=== PATIENT | male | born 1965 | race Caucasian/White ===

== ENCOUNTER 2019-12-23 11:26 | Emergency (ER) | payer MEDICARE, MEDICAID, SELFPAY ==
--- NOTE | 2019-12-23 14:15 | ED.EXTPRO ---
HPI - Extremity Problem General Chief complaint: General Medical Stated complaint: PAIN R HIP TO GROIN, NO INJURY Time Seen by Provider: 12/23/19 14:03 Source: patient Mode of arrival: ambulatory History of Present Illness HPI Narrative: 54-year-old male with a past medical history obesity, multiple hernias, presenting to the ED complaining of right groin pain x2 days. Admits pain worse when moves right leg, sits, or lays flat. Denies fever, chills, trauma/falls, scrotal/penile pain/swelling/erythema or discharge, dysuria/hematuria, abdominal pain, flank pain MD Complaint: extremity pain Related Data Allergies Allergy/AdvReac Type Severity Reaction Status Date / Time No Known Allergies Allergy Verified 12/23/19 14:25 Review of Systems Review of Systems: Constitutional: No Weight loss, No Fever, No Chills Gastrointestinal: No Nausea, No Vomiting, No Diarrhea, No Constipation, + Abdominal pain, + chronic abdominal hernias Genitourinary: No Dysuria, No Urinary Frequency, No Hematuria, No Urinary Incontinence, No Flank Pain Musculoskeletal: +right groin pain, No Myalgias, No Joint Swelling Skin: No Skin Lesions, No rash Yes all other systems are reviewed and are negative PMFSH Past Medical History Attestation statement: The following information was validated with the patient. Medical History (Updated 12/23/19 @ 14:24 by Elisha Carmen RN) Hernia Social History Social History Advance Directives: No Advance Directives Information Provided: No Physical Exam Vital Signs: Vital Signs: Last Vital Signs Temp 98.2 F 12/23/19 15:30 Pulse 80 12/23/19 15:30 Resp 18 12/23/19 15:30 BP 118/76 12/23/19 15:30 Pulse Ox 96 12/23/19 15:30 Body Mass Index 52.6 Const: General: cooperative Nutritional Appearance: obese Orientation/consciousness: patient oriented x3 Limitations: no limitations HENMT: Head: Yes normal to inspection Ears: hearing grossly normal bilaterally General nose exam: Normal external nose present Face and sinus: Yes normal facial exam Eyes: General: appearance normal, both eyes and all related structures EOM: EOMs intact bilaterally Resp: Effort & Inspection: normal respiratory effort GI: Other: + ventral hernia with ttp, not reducible on exam (patient reports hernia always out, unable to reduce on home, reports at baseline) Inspection: Yes normal to inspection Palpation (GI): Soft to palpation : Other: No appreciable inguinal hernia. Testicles nontender, noninflamed + right groin area TTP, no mass, no active infection Scrotum: scrotum normal Testes: Testes normal and no masses Skin: Rashes: no rashes Wounds: no wounds Neuro: General: patient oriented x3 Gait exam (Neuro): Normal gait present Extrem: General: Yes normal to inspection Course Course Course Narrative: -1723--25, labs otherwise unremarkable, lactic acid 1.0 -CT showing fat containing supraumbilical ventral hernia, right inguinal hernia containing nonobstructed redundant sigmoid colon, fat containing left inguinal hernia, no bowel obstruction or inflammatory changes. Lab and imaging results discussed with patient including worrisome signs and symptoms and strict return precautions including constant persisting pain, inability to reduce hernia, nausea/vomiting, constipation/not passing gas, and close follow-up with surgery. He verbalized understanding feel safe for discharge home MDM - Extremity (Nontraumatic) MDM Narrative Medical decision making narrative: On exam hypertensive, NAD, abdomen soft with umbilical hernia that is ttp/not reducible on exam which patient reports is baseline, states he is never able to reduce at home. Right groin with TTP, no scrotal tenderness or appreciable hernia. Concern for incarcerated/ strangulated hernia vs inguinal hernia vs MSK pain Plan: Labs, UA, CT Case discussed with Dr. Urbano who recommended do not forcefully reduce umbilical hernia at this time, until imaging results Lab Data Result diagrams: 12/23/19 15:12 12/23/19 15:12 Labs: Lab Results 12/23/19 12/23/19 12/23/19 Range/Units 15:12 15:12 15:12 WBC 6.5 (4.8-10.8) X10*3/uL RBC 5.30 (4.60-5.80) X10*6/uL Hgb 15.3 (14.0-18.0) g/dl Hct 46.4 (42-52) % MCV 87.5 (80-98) fL MCH 28.9 (27.0-33.0) pg MCHC 33.0 (31.0-36.0) g/dl RDW 13.9 (11.0-16.0) % Plt Count 150 L (160-400) X10*3/uL MPV 10.1 (9.4-12.4) fL Immature Gran % (Auto) 0.3 (0.0-0.4) % Neut % (Auto) 76.7 H (45-73) % Lymph % (Auto) 12.7 L (20-40) % Cochran % (Auto) 8.9 (2-11) % Eos % (Auto) 1.1 (0-4) % Baso % (Auto) 0.3 (0-2) % Lymph # (Auto) 0.8 L (1.2-4.9) X10*3/uL Cochran # (Auto) 0.6 (0.1-1.2) X10*3/uL Eos # (Auto) 0.1 (0.0-0.4) X10*3/uL Baso # (Auto) 0.0 (0.0-0.2) X10*3/uL Abs Immat Gran (auto) 0.02 (0.00-0.03) X10*3/uL Absolute Neuts (auto) 5.0 (2.0-8.3) X10*3/uL Absolute Nucleated RBC 0.000 (0.0-0.012) X10*3/uL Nucleated RBC % (auto) 0.0 (0.0-0.2) /100WBC Hold Blue Top SEE NOTE Sodium 140 (135-145) mmol/L Potassium 3.8 (3.3-5.1) mmol/l Chloride 104 (96-108) mmol/L Carbon Dioxide 26 (22-29) mmol/L Anion Gap 14 (12-20) BUN 25 H (9-16) mg/dL Creatinine 0.95 (0.5-1.4) mg/dL Estim Creat Clear Calc 151.9 Estimated GFR > 60 Random Glucose 84 (60-115) mg/dL Lactic Acid (0.5-2.0) mmol/L Calcium 8.5 (8.4-10.2) mg/dL Total Bilirubin 0.5 (0.0-1.0) mg/dL Direct Bilirubin 0.2 (0.0-0.5) mg/dL AST 18 (5-37) U/L ALT 23 (0-40) U/L Alkaline Phosphatase 79 (39-117) U/L Total Protein 7.1 (6.5-8.0) g/dL Albumin 4.2 (3.5-5.0) g/dL Lipase 25 (8-78) U/L 12/23/19 Range/Units 15:12 WBC (4.8-10.8) X10*3/uL RBC (4.60-5.80) X10*6/uL Hgb (14.0-18.0) g/dl Hct (42-52) % MCV (80-98) fL MCH (27.0-33.0) pg MCHC (31.0-36.0) g/dl RDW (11.0-16.0) % Plt Count (160-400) X10*3/uL MPV (9.4-12.4) fL Immature Gran % (Auto) (0.0-0.4) % Neut % (Auto) (45-73) % Lymph % (Auto) (20-40) % Cochran % (Auto) (2-11) % Eos % (Auto) (0-4) % Baso % (Auto) (0-2) % Lymph # (Auto) (1.2-4.9) X10*3/uL Cochran # (Auto) (0.1-1.2) X10*3/uL Eos # (Auto) (0.0-0.4) X10*3/uL Baso # (Auto) (0.0-0.2) X10*3/uL Abs Immat Gran (auto) (0.00-0.03) X10*3/uL Absolute Neuts (auto) (2.0-8.3) X10*3/uL Absolute Nucleated RBC (0.0-0.012) X10*3/uL Nucleated RBC % (auto) (0.0-0.2) /100WBC Hold Blue Top Sodium (135-145) mmol/L Potassium (3.3-5.1) mmol/l Chloride (96-108) mmol/L Carbon Dioxide (22-29) mmol/L Anion Gap (12-20) BUN (9-16) mg/dL Creatinine (0.5-1.4) mg/dL Estim Creat Clear Calc Estimated GFR Random Glucose (60-115) mg/dL Lactic Acid 1.0 (0.5-2.0) mmol/L Calcium (8.4-10.2) mg/dL Total Bilirubin (0.0-1.0) mg/dL Direct Bilirubin (0.0-0.5) mg/dL AST (5-37) U/L ALT (0-40) U/L Alkaline Phosphatase (39-117) U/L Total Protein (6.5-8.0) g/dL Albumin (3.5-5.0) g/dL Lipase (8-78) U/L
[2019-12-23 14:16] VITALS: BP 151/114; PULSE 89; TEMP 36.6; O2SAT 95
[2019-12-23 14:22] VITALS: BP 151/114; PULSE 89; RESP 19; TEMP 36.6; O2SAT 95; BMI 52.6
--- NOTE | 2019-12-23 14:28 | CT_ITS ---
EXAMINATION: CT ABDOMEN AND PELVIS WITHOUT CONTRAST CLINICAL INFORMATION: Umbilical and inguinal hernia. Right groin pain. COMPARISON: None TECHNIQUE: Multidetector volumetric imaging was performed from the superior aspect of the liver through the pubic symphysis. Sagittal and coronal reformatted images were obtained on the technologist's workstation. No oral or intravenous contrast. This CT examination was performed using dose optimization techniques as appropriate, variously including the following: *Automated exposure control *Adjustment of mA and/or kV according to patient size (this includes techniques or standardized protocols for targeted exams where dose is matched to indication/reason for exam; i.e. extremities or head) *Use of iterative reconstruction technique DLP: 2623 mGy-cm FINDINGS: LUNG BASES: The visualized lung bases are unremarkable. LIVER, GALLBLADDER, AND BILIARY TREE: The liver is normal in size, shape, and attenuation. No focal hepatic lesion or biliary ductal dilatation is present. The gallbladder is unremarkable with no evidence of radiopaque gallstones, gallbladder wall thickening, or obvious pericholecystic inflammatory changes. PANCREAS: Unremarkable. SPLEEN: Unremarkable. ADRENAL GLANDS: There is a small lipid rich adenoma left adrenal measuring 1.1 cm and -16 HU attenuation. Right adrenal unremarkable. KIDNEYS AND URETERS: The kidneys are normal in size, shape, and attenuation. No hydronephrosis, hydroureter, or calculi seen. No perinephric stranding. BLADDER: Unremarkable. GASTROINTESTINAL TRACT: There is no bowel obstruction or inflammatory changes in the bowel or mesentery. There is no ascites or fluid collection. The right inguinal hernia contains portion of redundant sigmoid colon. ABDOMINAL WALL: There is a fat-containing supraumbilical ventral hernia measuring 7.5 x 13.4 cm x 12.6 cm in vertical dimension. There is a right inguinal hernia containing fat and portion of redundant nonobstructed sigmoid colon. The hernia sac measures approximately 8.6 x 9.1 cm x 16 cm in length. There is a fat-containing left inguinal hernia measuring approximately 5.8 cm in diameter. LYMPH NODES: No lymphadenopathy. VASCULAR: Unremarkable. PELVIC VISCERA: Unremarkable. OSSEOUS STRUCTURES: Multilevel degenerative changes spine. Probable old T9 vertebral compression and borderline T11 compression. No associated paraspinal soft tissue swelling. CT/CT abdomen pelvis wo con IMPRESSION: 1. Fat-containing supraumbilical ventral hernia 7.5 x 13.4 x 12.6 cm. 2. Right inguinal hernia containing nonobstructed redundant sigmoid colon and, 8.6 x 9.1 x 16 cm. 3. Fat-containing left inguinal hernia 5.8 cm. 4. No bowel obstruction or inflammatory changes in bowel or mesentery. 5. No cholelithiasis or ductal dilatation. No hydronephrosis or perinephric stranding. 6. Probable old vertebral compressions T9 and T11. No paraspinal soft tissue swelling.
[2019-12-23] MEDS: oxyCODONE HCl Immed Release 5 MG TABLET PO (14:54)
[2019-12-23] MEDS: Acetaminophen 325 MG TABLET 650 MG PO (14:54)
[2019-12-23] MEDS: Cyclobenzaprine HCl 5 MG TABLET PO (14:54)
[2019-12-23 15:17] LABS: MANUAL DIFF FLAG NO
[2019-12-23 15:23] LABS: Basophils Percent Auto 0.3 % (0-2); Eosinophils Absolute Auto 0.1 X10*3/uL (0.0-0.4); Eosinophils Percent Auto 1.1 % (0-4); Hematocrit 46.4 % (42-52); Hemoglobin 15.3 g/dl (14.0-18.0); Imm Gran Abs Auto 0.02 X10*3/uL (0.00-0.03); Imm Gran Pct Auto 0.3 % (0.0-0.4); Lymphocytes Absolute Auto 0.8 X10*3/uL (1.2-4.9); Lymphocytes Percent Auto 12.7 % (20-40); Mean Corpuscular Hemoglobin 28.9 pg (27.0-33.0); Mean Corpuscular Volume 87.5 fL (80-98); Mean Platelet Volume 10.1 fL (9.4-12.4); Monocytes Absolute Auto 0.6 X10*3/uL (0.1-1.2); Monocytes Percent Auto 8.9 % (2-11); Neutrophils Percent Auto 76.7 % (45-73); Platelet Count 150 X10*3/uL (160-400); Red Cell Distribution Width 13.9 % (11.0-16.0); White Blood Count 6.5 X10*3/uL (4.8-10.8)
[2019-12-23 15:30] VITALS: BP 118/76; PULSE 80; RESP 18; TEMP 36.8; O2SAT 96
[2019-12-23 15:51] LABS: Alanine Aminotransferase 23 U/L (0-40); Albumin Level 4.2 g/dL (3.5-5.0); Alkaline Phosphatase 79 U/L (39-117); Anion Gap 14 (12-20); Aspartate Amino Transferase 18 U/L (5-37); Bilirubin Direct 0.2 mg/dL (0.0-0.5); Bilirubin Total 0.5 mg/dL (0.0-1.0); Blood Urea Nitrogen 25 mg/dL (9-16); Calcium 8.5 mg/dL (8.4-10.2); Carbon Dioxide 26 mmol/L (22-29); Chloride 104 mmol/L (96-108); Creatinine Clr Calc Pharmacy 151.9; Estimated Glomerular Filt Rate > 60; Glucose Random 84 mg/dL (60-115); Lipase 25 U/L (8-78); Potassium 3.8 mmol/l (3.3-5.1); Sodium 140 mmol/L (135-145); Total Protein 7.1 g/dL (6.5-8.0)
== END 2019-12-23 17:48 | disposition home or self-care (01) ==
PROVIDERS: Physician Assistant; Emergency Provider Emergency Medicine
DX: R10.31 Right lower quadrant pain (principal); M79.605 Pain in left leg; M79.604 Pain in right leg
CPT/HCPCS: 36415; 74176; 80048; 80076; 83605; 83690; 85025; 99284

== ENCOUNTER 2020-01-12 10:46 | Emergency (ER) | payer MEDICARE, MEDICAID, SELFPAY ==
[2020-01-12 10:57] VITALS: BP 148/32; PULSE 105; RESP 18; O2SAT 98; BMI 42.7
--- NOTE | 2020-01-12 11:10 | US_ITS ---
EXAMINATION: US VENOUS ULTRASOUND WITH DOPPLER LOWER EXTREMITY, RIGHT CLINICAL INFORMATION: Right upper thigh pain with leg swelling COMPARISON: None TECHNIQUE: Ultrasound of the deep veins is performed from the hip to the calf with compression sonography and color and pulse Doppler assessment. Spectral analysis with color-flow imaging is performed. FINDINGS: There is normal venous compression and respiratory variation and augmented flow. The visualized common femoral vein, superficial femoral vein, profunda femoral vein, popliteal vein, and the trifurcation region shows no evidence of deep venous thrombosis. There is no significant popliteal fossa cyst. No popliteal artery aneurysm. If the patient's symptoms persist, followup ultrasound in 5 days 7 days might be of value to exclude proximal propagation from a non-visualized calf vein. US/US venous duplex LE RT IMPRESSION: No acute DVT demonstrated in the right lower extremity.
--- NOTE | 2020-01-12 11:10 | XR_ITS ---
EXAMINATION: PELVIS AND RIGHT FEMUR CLINICAL INFORMATION: Atraumatic right hip and upper thigh pain COMPARISON: CT abdomen of December 23, 2019 TECHNIQUE: AP pelvis and AP and lateral views of the right femur. FINDINGS: There is no evidence of acute fracture or diastases the pelvis. Changes of enthesopathy are seen. Degenerative change with question effusion sacroiliac joints bilaterally. Degenerative disc disease lower lumbar spine noted with facet arthropathy L5-S1. There is significant degenerative change of the hip joints bilaterally left greater than right with joint space narrowing and spurring superiorly. Subchondral cyst formation seen about the acetabulum. There appears to be an old impacted subcapital fracture of the left femur. There is some flattening of the superior left femoral head. No acute fracture or dislocation of the right femur identified. Degenerative narrowing of joint space most prominent superiorly with collar spurring. No destructive bony lesions appreciated. There is severe degenerative change of the right knee medial joint space compartment with loss of joint space and some articular irregularity. Calcific lesion about the medial aspect distal femur consistent with previous medial collateral ligament injury noted. There is spurring about the lateral joint space compartment. There is narrowing with degenerative change of the patellofemoral joint with spurring. No effusion is appreciated. XR/XR pelvis 1-2V IMPRESSION: Degenerative changes as described involving the pelvis and right femur. No acute fracture or destructive bony lesion appreciated.
--- NOTE | 2020-01-12 11:11 | XR_ITS ---
EXAMINATION: PELVIS AND RIGHT FEMUR CLINICAL INFORMATION: Atraumatic right hip and upper thigh pain COMPARISON: CT abdomen of December 23, 2019 TECHNIQUE: AP pelvis and AP and lateral views of the right femur. FINDINGS: There is no evidence of acute fracture or diastases the pelvis. Changes of enthesopathy are seen. Degenerative change with question effusion sacroiliac joints bilaterally. Degenerative disc disease lower lumbar spine noted with facet arthropathy L5-S1. There is significant degenerative change of the hip joints bilaterally left greater than right with joint space narrowing and spurring superiorly. Subchondral cyst formation seen about the acetabulum. There appears to be an old impacted subcapital fracture of the left femur. There is some flattening of the superior left femoral head. No acute fracture or dislocation of the right femur identified. Degenerative narrowing of joint space most prominent superiorly with collar spurring. No destructive bony lesions appreciated. There is severe degenerative change of the right knee medial joint space compartment with loss of joint space and some articular irregularity. Calcific lesion about the medial aspect distal femur consistent with previous medial collateral ligament injury noted. There is spurring about the lateral joint space compartment. There is narrowing with degenerative change of the patellofemoral joint with spurring. No effusion is appreciated. XR/XR femur RT 2V IMPRESSION: Degenerative changes as described involving the pelvis and right femur. No acute fracture or destructive bony lesion appreciated.
--- NOTE | 2020-01-12 11:26 | ED_ITS ---
HPI - Extremity Problem General Chief complaint: Abdominal Pain Stated complaint: abd pain x1 month Time Seen by Provider: 01/12/20 10:59 Source: patient Mode of arrival: ambulatory Limitations: no limitations History of Present Illness HPI Narrative: 54yoM c PMHx Hernia and old compression fractures presenting to the ED c c/o right Hip/upper thigh pain since he was seen here. Reports he was taking the oxycodone that he was prescribed which was providing symptomatic relief although he ran out. Tried to call his primary care provider who is currently on vacation. Then tried to call Dr. Lawson who is also on vacation then was unsure what to do therefore he came here. Denies any fevers, nausea / vomiting, chest pain or shortness of breath, palpitations, dyspnea on exertion, orthopnea, abdominal pain, dysuria, hematuria, abnormal penile discharge, recent falls or traumas or any other symptoms complaints or concerns at this time. He was seen here on 12/23/[address] scan of abdomen and pelvis which revealed multiple hernias although he reports that that was not where his pain was it was his upper thigh/hip area. Related Data Previous Rx's Medication Instructions Recorded acetaminophen [Tylenol Extra 500 mg PO Q6H PRN #20 tab 12/23/19 Strength] cyclobenzaprine 5 mg PO Q8H PRN 5 Days #14 tab 12/23/19 naproxen 500 mg PO BID PRN 10 Days #20 tab 12/23/19 oxycodone 5 mg PO Q6H PRN 3 Days #9 tab 12/23/19 naproxen 500 mg PO BID PRN #10 tab 01/12/20 oxycodone 5 mg PO Q8H PRN #10 tab 01/12/20 Allergies Allergy/AdvReac Type Severity Reaction Status Date / Time No Known Allergies Allergy Verified 12/23/19 14:25 Review of Systems Review of Systems: Constitutional : No Fever, No Chills Cardiovascular : No Chest Pain, No SOB, No palpitations, no edema, no dyspnea on exertion, no orthopnea. Respiratory : No Cough, No Dyspnea Gastrointestinal : No Nausea, No Vomiting, No Diarrhea, No abdominal Pain Genitourinary : No Dysuria, No Hematuria Musculoskeletal : + joint pain, No Myalgias, No Joint Swelling Skin : No Skin lacerations, No rash Neuro : No Weakness, No Numbness, No Paresthesias, No Dizziness, No Headache Heme/Lymph: no Lymphadenopathy Yes all other systems are reviewed and are negative [facility] Past Medical History Attestation statement: The following information was validated with the patient. Medical History Hernia Social History Social History Alcohol intake: never Smoking Status: Never smoker Use of substances other than those prescribed or required for medical reasons: No Advance Directives: No Advance Directives Information Provided: No Physical Exam Vital Signs: Vital Signs: Last Vital Signs Temp 98 F 01/12/20 12:00 Pulse 81 01/12/20 12:00 Resp 18 01/12/20 12:00 BP 131/82 01/12/20 12:00 Pulse Ox 95 01/12/20 12:00 Body Mass Index 42.7 vital signs have been reviewed as normal and appeared to be correct. Blood pressure normal. Heart rate normal. Respiration rate normal. Temperature normal. Oxygen saturation normal. Appearance: Alert. Oriented X3. No acute distress. Head: Normal external exam. Normocephalic. Eyes: PERRLA. EOMI. Conjunctiva and sclera normal. Eyelids normal. ENT: Pharynx normal. Uvula midline. Moist mucous membranes. Neck: Normal inspection. Neck supple. FROM. No adenopathy. No meningeal signs. CVS: Normal heart rate and rhythm. Heart sound normal. No murmurs noted. Pulses normal throughout. Respiratory: No respiratory distress. Painless inspiration. Breath sounds normal. No wheezes/rales/rhonchi noted. Chest nontender. No accessory muscle usage noted or decreased air movement noted. Abdomen: Soft and nontender. Bowel sounds normal in all 4 quadrants. No distention noted. No organomegaly noted. No visible injury noted. Back: Full range of motion noted. Skin: Skin warm and dry. Normal skin color. Normal skin turgor. No rashes/lesions/lacerations noted. Extremities: TTP of right hip/thigh. No obvious deformities. Full range of motion. Mild right lower leg edema. No pitting edema. No edema to left lower extremity. Otherwise all other extremities exhibit normal range of motion and nontender. Neuro: Oriented X 3. No motor deficit. No sensory deficit. Reflexes normal. Course Course Course Narrative: 54yoM c PMHx Hernia and old compression fractures presenting to the ED c c/o right Hip/upper thigh pain - Concern for DVT vs muscular strain - Plan: Xray of right hip/pelvis/femur and US of RLE Then re-evaluate. Reevaluation(s) Reevaluation #1: ultrasound negative for any DVT. X-rays of right hip/ pelvis/femur revealed old fractures and chronic changes no acute processes noted. Therefore will DC home with a short script for pain medications and naproxen and instructions to follow-up with his primary care provider that he reports is currently on vacation I explained to him if he comes a 3rd time he most likely will not get a narcotic script due to this is all chronic and he needs to follow up with his primary care provider. Patient understands agrees with this plan. Time: 13:07 MDM - Extremity (Nontraumatic) Lab Data Attestation: I reviewed the patient's lab results. Imaging Data right hip/pelvis/femur: Attestation: I personally reviewed and interpreted this imaging study as follows: Radiologist's impression: FINDINGS: There is no evidence of acute fracture or diastases the pelvis. Changes of enthesopathy are seen. Degenerative change with question effusion sacroiliac joints bilaterally. Degenerative disc disease lower lumbar spine noted with facet arthropathy L5-S1. There is significant degenerative change of the hip joints bilaterally left greater than right with joint space narrowing and spurring superiorly. Subchondral cyst formation seen about the acetabulum. There appears to be an old impacted subcapital fracture of the left femur. There is some flattening of the superior left femoral head. No acute fracture or dislocation of the right femur identified. Degenerative narrowing of joint space most prominent superiorly with collar spurring. No destructive bony lesions appreciated. There is severe degenerative change of the right knee medial joint space compartment with loss of joint space and some articular irregularity. Calcific lesion about the medial aspect distal femur consistent with previous medial collateral ligament injury noted. There is spurring about the lateral joint space compartment. There is narrowing with degenerative change of the patellofemoral joint with spurring. No effusion is appreciated. XR/XR femur RT 2V IMPRESSION: Degenerative changes as described involving the pelvis and right femur. No acute fracture or destructive bony lesion appreciated. US OF RLE: Attestation: I personally reviewed and interpreted this imaging study as follows: Radiologist's impression: IMPRESSION: No acute DVT demonstrated in the right lower extremity. Discharge Plan Discharge Clinical Impression: Subchondral bone cyst, Closed subcapital fracture of left femur with delayed healing, Bone spur Degenerative joint disease Qualifiers: Osteoarthritis location: multiple joints Osteoarthritis type: unspecified Qualified Code(s): M15.9 - Polyosteoarthritis, unspecified Patient Disposition: Home, Self-Care Instructions: Osteoarthritis (ED) Prescriptions: New oxycodone 5 mg tablet 5 mg PO Q8H PRN (Reason: pain) Qty: 10 RF: 0 naproxen 500 mg tablet 500 mg PO BID PRN (Reason: pain) Qty: 10 RF: 0 No Action acetaminophen [Tylenol Extra Strength] 500 mg tablet 500 mg PO Q6H PRN (Reason: pain or fever) Qty: 20 RF: 0 naproxen 500 mg tablet 500 mg PO BID PRN (Reason: pain) 10 Days Qty: 20 RF: 0 cyclobenzaprine 5 mg tablet 5 mg PO Q8H PRN (Reason: pain (scale score 7-10)) 5 Days Qty: 14 RF: 0 oxycodone 5 mg tablet 5 mg PO Q6H PRN (Reason: pain) 3 Days Qty: 9 RF: 0 Referrals: Physician,Unknown [Primary Care Provider] - 2 days (your pcp) Print Language: Z[place]ian
[2020-01-12 12:00] VITALS: BP 131/82; PULSE 81; RESP 18; TEMP 36.6; O2SAT 95
[2020-01-12] MEDS: oxyCODONE HCl Immed Release 5 MG TABLET PO (12:00)
== END 2020-01-12 13:48 | disposition home or self-care (01) ==
PROVIDERS: Emergency Provider Internal Medicine
DX: M85.662 Other cyst of bone, left lower leg (principal); M85.661 Other cyst of bone, right lower leg; M79.604 Pain in right leg; M15.9 Polyosteoarthritis, unspecified; M25.551 Pain in right hip; R10.9 Unspecified abdominal pain; R60.0 Localized edema; Z79.899 Other long term (current) drug therapy
CPT/HCPCS: 72170; 73552; 93971; 99284

== ENCOUNTER 2020-03-23 14:55 | Emergency (ER) | payer MEDICARE, MEDICAID, SELFPAY ==
[2020-03-23 17:13] VITALS: BP 184/101; PULSE 65; RESP 18; TEMP 36.8; O2SAT 96; BMI 55.7
--- NOTE | 2020-03-23 18:46 | PC.NURSE ---
transported via [facility] to results pending, self transfered to stretcher
--- NOTE | 2020-03-23 19:35 | ED_ITS ---
HPI - Back Pain/Injury General Chief Complaint: Back Pain/Injury Stated Complaint: SEVER LOW BACK PAIN SINCE T-I NO INJURY Time Seen by Provider: 03/23/20 19:03 Source: patient Mode of arrival: ambulatory Limitations: no limitations History of Present Illness HPI Narrative: 54-year-old male with a past medical history of old compression fracture of T9/T11 with degenerative changes to spine multilevel and multiple hernias currently on gabapentin 300 mg and oxycodone 5 mg prescribed by his PCP and was last given a prescription on 03/17/2020 for 8 day course presenting for worsening lower back pain that started while he was cutting onions last night worse today. Reports he does not have any more oxycodone left. Denies any other symptoms complaints or concerns at this time. MD elicited complaint: back pain Pertinent past history: prior back pain Onset (ago): day(s) (Since yesterday) Timing: constant Severity: severe Pain scale (0-10): 10 Similar Symptoms Previously: Yes Quality: aching Location: lumbar spine Radiation: none Exacerbating factors: movement, supine positioning, sitting upright, walking and lifting Relieving factors: none Context: other (While cooking) Associated symptoms: denies other symptoms Treatments prior to arrival: other (Gabapentin and oxycodone) Work related injury: No Related Data Previous Rx's Medication Instructions Recorded acetaminophen [Tylenol Extra 500 mg PO Q6H PRN #20 tab 12/23/19 Strength] cyclobenzaprine 5 mg PO Q8H PRN 5 Days #14 tab 12/23/19 naproxen 500 mg PO BID PRN 10 Days #20 tab 12/23/19 oxycodone 5 mg PO Q6H PRN 3 Days #9 tab 12/23/19 naproxen 500 mg PO BID PRN #10 tab 01/12/20 oxycodone 5 mg PO Q8H PRN #10 tab 01/12/20 oxycodone 10 mg PO BID PRN #10 tab 03/23/20 prednisone 40 mg PO DAILY 5 Days #10 tab 03/23/20 Allergies Allergy/AdvReac Type Severity Reaction Status Date / Time No Known Allergies Allergy Verified 03/23/20 17:07 Review of Systems Review of Systems: Constitutional : No trauma, No Weight loss, No Fever, No Chills, ENT/Mouth : No Hearing loss, No Ear Pain, No Nasal Congestion, No Sinus Pain, No Hoarseness, No sore throat, No Rhinorrhea, No Swallowing Difficulty Cardiovascular : No Chest Pain, No SOB Respiratory : No Cough, No Dyspnea Gastrointestinal : No Nausea, No Vomiting, No Diarrhea, No abdominal Pain, No Hematochezia, No Melena Genitourinary : No Dysuria, No Urinary Frequency, No Hematuria, No Urinary or Bowel Incontinence/retention Musculoskeletal : + Back pain, No neck pain, No joint stiffness, No joint swelling Skin : No Skin Lesions, No rash or signs of infection Neuro : No Weakness, No radiation, No Numbness, No Paresthesias, No headache, no loss of bowel or bladder incontinence, no saddle anesthesia, Focal weakness, No radiation Denies history of IV drug usage. Yes all other systems are reviewed and are negative [facility] Past Medical History Attestation statement: The following information was validated with the patient. Medical History Hernia Social History Social History Alcohol intake: never Smoking Status: Never smoker Advance Directives: No Advance Directives Information Provided: Yes Physical Exam Vital Signs: Vital Signs: Last Vital Signs Temp 98.3 F 03/23/20 17:13 Pulse 65 03/23/20 17:13 Resp 18 03/23/20 17:13 BP 184/101 H 03/23/20 17:13 Pulse Ox 96 03/23/20 17:13 Body Mass Index 55.7 vital signs have been reviewed as normal and appeared to be correct. Blood pressure normal. Heart rate normal. Respiration rate normal. Temperature normal. Oxygen saturation normal. Appearance: Alert. Oriented X3. No acute distress. Head: Normal external exam. Normocephalic. Atraumatic. No Vazquez signs noted. No raccoon eyes noted Eyes: PERRLA. EOMI. Conjunctiva and sclera normal. Eyelids normal. ENT: EAC normal. TM's Normal. Pharynx normal. Uvula midline. Moist mucous membranes. No trismus noted. No drooling noted. No muffled voice noted. Neck: Normal inspection. Neck supple. FROM. No adenopathy. Thyroid Normal. No meningeal signs. No neck mass noted. CVS: Normal heart rate and rhythm. Heart sound normal. No murmurs noted. Pulses normal throughout. Respiratory: No respiratory distress. Painless inspiration. Breath sounds normal. No wheezes/rales/rhonchi noted. Chest nontender. No accessory muscle usage noted or decreased air movement noted. Abdomen: Soft and nontender. Bowel sounds normal in all 4 quadrants. No distention noted. No organomegaly noted. No visible injury noted. Back: No CVA tenderness. Full range of motion noted. No obvious deformities, or edema. Mild para-spinal muscular tenderness from lumbar region to coccyx. Full ROM in back and lower extremities. 5/5 strength hip extension/flexion, abduction, adduction. Mild Lumbar pain with hip flexion against resistance. Straight leg raise test negative on right; Straight leg raise test negative on left; Reflexes normal ankle and knee bilaterally; EHL motor strength normal b ilaterally Skin: Skin warm and dry. Normal skin color. Normal skin turgor. No rashes/lesions/lacerations noted. Extremities: No lower extremity edema. Extremities exhibit normal range of motion. Extremities nontender. Neuro: Oriented X 3. No motor deficit. No sensory deficit. Reflexes normal. Course Course Course Narrative: Pt c likely muscular pain, but could be herniated disc. Neuro exam shows no deficits. Not c/w AAA/epidural abscess/dissection.No high risk Hx (Incont, fever, immunosupp, recent surgery/LP, coag, signif trauma, wt loss, puls mass, hx/o Ca, TB, or IVDU) to warrant MRI/CT today. Not c/w Pyelo/UTI/kidney stone/spinal fx. Not cauda equina syndrome. DC c meds and f/u. MDM - Back Pain/Injury Medical Records Attestation: I reviewed the patient's medical records. Lab Data Attestation: I reviewed the patient's lab results. Discharge Plan Discharge Clinical Impression: Strain of lumbar region Patient Disposition: Home, Self-Care Instructions: Back Pain (ED), Lower Back Exercises (ED) Prescriptions: New prednisone 20 mg tablet 40 mg PO DAILY 5 Days Qty: 10 RF: 0 oxycodone 5 mg tablet 10 mg PO BID PRN (Reason: pain) Qty: 10 RF: 0 No Action oxycodone 5 mg tablet 5 mg PO Q8H PRN (Reason: pain) Qty: 10 RF: 0 naproxen 500 mg tablet 500 mg PO BID PRN (Reason: pain) Qty: 10 RF: 0 acetaminophen [Tylenol Extra Strength] 500 mg tablet 500 mg PO Q6H PRN (Reason: pain or fever) Qty: 20 RF: 0 naproxen 500 mg tablet 500 mg PO BID PRN (Reason: pain) 10 Days Qty: 20 RF: 0 cyclobenzaprine 5 mg tablet 5 mg PO Q8H PRN (Reason: pain (scale score 7-10)) 5 Days Qty: 14 RF: 0 oxycodone 5 mg tablet 5 mg PO Q6H PRN (Reason: pain) 3 Days Qty: 9 RF: 0 Referrals: Physician,Unknown [Primary Care Provider] - 2 days (your pcp) Print Language: Persian
[2020-03-23] MEDS: Lidocaine 4 % Patch ADH..PATCH 2 PATCH TRANSDERMA (19:42)
[2020-03-23] MEDS: Ketorolac Tromethamine 30 MG/ML VIAL IM (19:42)
[2020-03-23] MEDS: oxyCODONE HCl Immed Release 5 MG TABLET 10 MG PO (19:43)
--- NOTE | 2020-03-23 19:51 | PC.NURSE ---
PT MEDICATED FOR PAIN. PT BEING D/C AT THIS TIME.
== END 2020-03-23 19:56 | disposition home or self-care (01) ==
PROVIDERS: Emergency Provider Internal Medicine
DX: S39.012A Strain of muscle, fascia and tendon of lower back, initial encounter (principal); X50.3XXA Overexertion from repetitive movements, initial encounter; Y93.G1 Activity, food preparation and clean up; Y92.010 Kitchen of single-family (private) house as the place of occurrence of the external cause; Y99.9 Unspecified external cause status
CPT/HCPCS: 96372; 99283; 99284; J1885

== ENCOUNTER 2020-05-20 08:40 | Emergency (ER) | payer MEDICARE, MEDICAID, SELFPAY ==
--- NOTE | ~2020-05-20 | CT_ITS ---
EXAMINATION: CT ABDOMEN AND PELVIS WITHOUT CONTRAST CLINICAL INFORMATION: Abdominal pain. Right inguinal pain. History of large hernias. COMPARISON: December 23, 2019 TECHNIQUE: Multidetector volumetric imaging was performed from the superior aspect of the liver through the pubic symphysis. Sagittal and coronal reformatted images were obtained on the technologist's workstation. This CT examination was performed using dose optimization techniques as appropriate, variously including the following: *Automated exposure control *Adjustment of mA and/or kV according to patient size (this includes techniques or standardized protocols for targeted exams where dose is matched to indication/reason for exam; i.e. extremities or head) *Use of iterative reconstruction technique DLP: 1484 mGy-cm FINDINGS: LUNG BASES: There is mild dependent basilar atelectasis present. No pleural effusion. No pericardial effusion. Heart normal size. Coronary artery calcification present. LIVER, GALLBLADDER, AND BILIARY TREE: There is diffuse fatty infiltration of the liver. No focal mass or intrahepatic bile duct dilatation is identified. Some echogenic bile is seen within the gallbladder. PANCREAS: Unremarkable. SPLEEN: Unremarkable. ADRENAL GLANDS: Right adrenal gland unremarkable. Left adrenal gland has a 1.1 cm lipid rich adenoma present. KIDNEYS AND URETERS: The kidneys are normal in size, shape, and attenuation. No hydronephrosis, hydroureter, or calculi seen. No perinephric stranding. BLADDER: Unremarkable. GASTROINTESTINAL TRACT: No dilated loops of large or small bowel are evident. Loop of nondilated colon is seen within a right inguinal hernia. No free air or free fluid identified. No pericolonic inflammatory change. Appendix not identified. ABDOMINAL WALL: There is a right inguinal hernia containing a loop of sigmoid colon without bowel dilatation or definite wall thickening identified. This appears to be a direct type inguinal hernia. No fluid within the hernia sac is appreciated. There is a left inguinal hernia containing fat. There is a large fat-containing anterior abdominal wall supra umbilical hernia with neck width of approximately 5 cm. LYMPH NODES: No lymphadenopathy appreciated. VASCULAR: Unremarkable. PELVIC VISCERA: Unremarkable. OSSEOUS STRUCTURES: No suspicious destructive bony lesions identified. There is multilevel degenerative disc disease seen throughout the lumbar spine. There is fusion of portions of the sacroiliac joints bilaterally. CT/CT abdomen pelvis wo con IMPRESSION: Right inguinal hernia containing loop of sigmoid colon without definite evidence of strangulation. Fat-containing left inguinal hernia. Large fat-containing supra umbilical hernia.
[2020-05-20 08:47] VITALS: BP 133/87; BP 155/96; PULSE 87; PULSE 90; RESP 20; TEMP 36.4; O2SAT 95; O2SAT 99; BMI 57.4
[2020-05-20] MEDS: oxyCODONE HCl Immed Release 5 MG TABLET 10 MG PO (10:16)
[2020-05-20] MEDS: Acetaminophen 325 MG TABLET 975 MG PO (10:16)
--- NOTE | 2020-05-20 10:46 | ED.GENADULT ---
HPI - General Adult General Chief complaint: General Medical Stated complaint: HIP PAIN PER EMS Time Seen by Provider: 05/20/20 09:02 Source: patient and EMS Limitations: no limitations History of Present Illness HPI narrative: 54 y/o male with history of morbid obesity (BMI 57), history of compression fractures of the spine, history of large ventral and right inguinal hernia who presents with worsening RLE pain over the last 2 weeks. He states the pain is in his inner thigh and radiates up to his right inguinal area. He denies nausea, vomiting, fever, chills, or known injury. He was seen here in December for similar complaints - had a CT scan of his abd and XR of his pelvis and femur. CT scan showed very large hernias and he was instructed to follow up with his PCP. He has had trouble getting in with his PCP and she ordered repeat XR's for next week. He has been taking oxycodone, flexeril, gabapentin and naproxyn for the pain with no relief. He states the pain in his leg is so bad that he cannot get out of bed and can barely perform his ADL's. He is depressed. He has gained 80+ lbs since the pandemic. MD complaint: right leg pain Onset (ago): week(s) (2) Location: abdomen, pelvis, right and lower extremity Radiation: proximal Severity: severe Severity scale (1-10): 10 Quality: stabbing and aching Pain Consistency: intermittent Relieving factors: immobilization Exacerbating factors: movement Associated symptoms: denies other symptoms Treatments prior to arrival: none Related Data Previous Rx's Medication Instructions Recorded acetaminophen [Tylenol Extra 500 mg PO Q6H PRN #20 tab 12/23/19 Strength] cyclobenzaprine 5 mg PO Q8H PRN 5 Days #14 tab 12/23/19 naproxen 500 mg PO BID PRN 10 Days #20 tab 12/23/19 oxycodone 5 mg PO Q6H PRN 3 Days #9 tab 12/23/19 naproxen 500 mg PO BID PRN #10 tab 01/12/20 oxycodone 5 mg PO Q8H PRN #10 tab 01/12/20 oxycodone 10 mg PO BID PRN #10 tab 03/23/20 prednisone 40 mg PO DAILY 5 Days #10 tab 03/23/20 Allergies Allergy/AdvReac Type Severity Reaction Status Date / Time No Known Allergies Allergy Verified 03/23/20 17:07 Review of Systems Review of Systems: Constitutional: No Fever, No Chills Cardiovascular: No Chest Pain, No SOB Respiratory: No Cough, No Sputum, Gastrointestinal: No Nausea, No Vomiting, No Diarrhea, + abdominal Pain, No Hematochezia, No Melena Genitourinary: No Dysuria, No Urinary Frequency, No Hematuria Musculoskeletal: + joint pain, + Myalgias (RLE) Skin: No Skin Lesions, No rash Neuro: + Weakness, No Numbness, No Dizziness, No Headache Psych: No Anxiety/Panic, No Depression Heme/Lymph: No Bruising, No Lymphadenopathy Endocrine: No Polyuria, No Polydipsia PMFSH Past Medical History Attestation statement: The following information was validated with the patient. Medical History Hernia Social History Social History Alcohol intake: never Smoking Status: Never smoker Smoked in Last 30 Days: No Use of substances other than those prescribed or required for medical reasons: No Advance Directives: Yes Advance Directives Information Provided: No Advance Directives on File: No Physical Exam Vital Signs: Vital Signs: Last Vital Signs Temp 97.6 F 05/20/20 08:47 Pulse 65 05/20/20 14:00 Resp 18 05/20/20 14:00 BP 131/79 05/20/20 14:00 Pulse Ox 98 05/20/20 14:00 Body Mass Index 57.4 Appearance: Alert. Oriented X3. No acute distress. Eyes: Pupils equal, round and reactive to light. ENT: Pharynx normal. Neck: Normal inspection. Neck supple. CVS: Normal heart rate and rhythm. Pulses normal. Respiratory: No respiratory distress. Breath sounds normal. Abdomen: Morbidly obese, soft, with large ventral hernia, unable to be completely reduced due to discomfort and some distention, Skin: Skin warm and dry. Normal skin color. Normal skin turgor. No rashes. Extremities: trace lower extremity edema. Right thigh with tenderness medically, no erythema, warmth or lesion Neuro: Oriented X 3. Limited mobility due to pain, equal and symmetrical strength throughout, no sensory deficits Course Course Course Narrative: 54 y/o male presenting with acute on chronic RLE pain - likely due to large hernias compressing surrounding structures. He is morbidly obese with significant weight gain over last 1 year which is contributing to his condition. Concerned for his safety at home. Will discuss case with General Surgery, get PT to see him and discuss with case management. Reevaluation(s) Reevaluation #1: Will get CT scan to r/o obstruction or incarceration given his pain. No signs of obstruction but examination is difficult due to body habitus. Reevaluation #2: CT without specific signs of strangulation and no obstruction seen. He was seen by PT who is recommending STR. Case management aware. Physician observation started at 2pm. Patient placed in physician observation because patient is awaiting placement to [facility]. At the time observation was started patient's vital signs were stable. Patient is alert and oriented. Neuro exam is non-focal. CV: RRR and lungs are clear. Will continue to monitor. Discharge Plan Discharge Prescriptions: No Action oxycodone 5 mg tablet 5 mg PO Q8H PRN (Reason: pain) Qty: 10 RF: 0 naproxen 500 mg tablet 500 mg PO BID PRN (Reason: pain) Qty: 10 RF: 0 prednisone 20 mg tablet 40 mg PO DAILY 5 Days Qty: 10 RF: 0 oxycodone 5 mg tablet 10 mg PO BID PRN (Reason: pain) Qty: 10 RF: 0 acetaminophen [Tylenol Extra Strength] 500 mg tablet 500 mg PO Q6H PRN (Reason: pain or fever) Qty: 20 RF: 0 naproxen 500 mg tablet 500 mg PO BID PRN (Reason: pain) 10 Days Qty: 20 RF: 0 cyclobenzaprine 5 mg tablet 5 mg PO Q8H PRN (Reason: pain (scale score 7-10)) 5 Days Qty: 14 RF: 0 oxycodone 5 mg tablet 5 mg PO Q6H PRN (Reason: pain) 3 Days Qty: 9 RF: 0
[2020-05-20 10:47] VITALS: BP 133/87; PULSE 90; O2SAT 95
[2020-05-20 12:16] VITALS: BP 128/81; PULSE 67; RESP 14; O2SAT 95
[2020-05-20 14:00] VITALS: BP 131/79; PULSE 65; RESP 18; O2SAT 98
[2020-05-20 15:29] LABS: COVID-19 Test Negative (Negative)
--- NOTE | 2020-05-20 15:42 | MHC.CM.ED ---
Received case management consult from Celia COUCH. Patient came to ER with hip pain exacerbation. Physical therapy eval completed. Short term rehab is recommended. Patient weighs 203kg. Referral broadcasted in [employer] due to placement being difficult due to weight. Met with patient in regards to discharge planning. Patient rents a room, ambulates independently and had no services prior to coming to the ER. PCP verified. Patient does not have a HCP and does not have anyone to list as a HCP. Choices of facilities provided. [facility]. [facility] is seeing when [facility] can be delivered. Continue to monitor for d/c needs.
--- NOTE | 2020-05-20 17:36 | MHC.CM.ED ---
DANIEL spoke with Ammy [facility] for [facility] will not have a b[facility]ric bed delivered until 05/21 between 12-3PM. Transportation booked for 3pm. RN, PJoshuaA. and pt aware. CM met with pt. Very pleasant gentleman. Pt stated he was very happy with his care here. Explained that [facility] was able to accept him tomorrow and that we would provide him transportation there tomorrow at 3pm. Explained that he will remain in the ED tonight and we would order him dinner. Pt very understanding. CM to follow for d/c needs.
[2020-05-20 18:59] VITALS: BP 121/70; PULSE 67; RESP 20; TEMP 36.4; O2SAT 96
--- NOTE | 2020-05-20 19:00 | PC.NURSE ---
Report received from FLORINDA Caputo. Plan for transfer to [facility] tomorrow. Pt states a friend is bringing me some glasses to me tomorrow, her name is Demetria . Pt otherwise denies complaints/able to make needs known at this time. Call ashli within reach.
[2020-05-20 23:43] VITALS: BP 148/74; PULSE 64; RESP 15; O2SAT 99
[2020-05-21] VITALS: RESP 18
[2020-05-21] MEDS: diphenhydrAMINE HCL 25 MG TABLET 50 MG PO (00:49)
[2020-05-21 02:00] VITALS: RESP 18
[2020-05-21 04:00] VITALS: RESP 18
--- NOTE | 2020-05-21 04:14 | PC.NURSE ---
Pt's bed adjusted, head of bed lowered for comfort. Requested and given warm blanket and ear plugs. Noisy patient currently in ED, disturbing patient's sleep. Pt previously medicated with Benadryl 50mg PO for sleep aid, with minimal effectiveness due to noise in ED. Pt is otherwise pleasant and cooperative at this time. Will continue to monitor.
[2020-05-21 06:00] VITALS: RESP 18
--- NOTE | 2020-05-21 06:30 | PC.NURSE ---
Patient has been requesting pain medication throughout shift. This RN has spoken to provider () multiple times regarding medication reconciliation that was completed previously by FLORINDA Caputo. states I'm too busy right now, I'll have the day shift doctor order it for him later . Medication reconciliation reviewed again by this shift, and confirmed as correct. Pt refused offered Tylenol stating that's like candy, that doesn't touch it! That's a joke! Upon arrival, this RN spoke with to have medications ordered. Meds ordered without issue, and to be given with breakfast tray as requested by patient. Pt ambulates with slow steady gait with walker, and assistance given with lifting legs back into the bed after bathroom use. Pt has otherwise been calm/cooperative throughout shift and pleasant with this RN.
--- NOTE | 2020-05-21 06:51 | PC.NURSE ---
report taken from refugio torrez pt requesting assistance putting legs back into stretcher, alert and oriented, appears in good spirits. awaiting breakfast. placement pending for 3pm at [facility].
[2020-05-21 07:25] VITALS: PULSE 67; RESP 18; TEMP 36.7; O2SAT 95
[2020-05-21] MEDS: NaPROXEN 500 MG TABLET PO (07:49)
[2020-05-21] MEDS: Cyclobenzaprine HCl 5 MG TABLET PO (07:50)
[2020-05-21] MEDS: oxyCODONE HCl Immed Release 5 MG TABLET PO (07:50)
[2020-05-21] MEDS: Gabapentin 300 MG CAPSULE PO (07:50)
== END 2020-05-21 16:21 | disposition skilled nursing facility (03) ==
PROVIDERS: Physician Assistant; Emergency Provider Emergency Medicine Emergency Medical Services; PCP Internal Medicine
DX: M25.551 Pain in right hip (principal); R53.81 Other malaise; K40.90 Unilateral inguinal hernia, without obstruction or gangrene, not specified as recurrent; K42.9 Umbilical hernia without obstruction or gangrene; E66.01 Morbid (severe) obesity due to excess calories; Z68.43 Body mass index [BMI] 50.0-59.9, adult; Z20.822 Contact with and (suspected) exposure to COVID-19
CPT/HCPCS: 36415; 74176; 87635; 97162; 99284; 99285; Q0163

== ENCOUNTER → 2020-07-16 15:45 | Outpatient (BNVA) | payer MEDICARE, MEDICAID, SELFPAY | PROVIDERS: PCP Internal Medicine; Visit Provider Surgery | DX: K46.9 Unspecified abdominal hernia without obstruction or gangrene (principal); M25.551 Pain in right hip; E66.01 Morbid (severe) obesity due to excess calories; Z68.44 Body mass index [BMI] 60.0-69.9, adult | CPT/HCPCS: 99202 ==

== ENCOUNTER 2020-11-02 09:08 | Inpatient (IN) | payer MEDICARE, MEDICAID, SELFPAY ==
--- NOTE | ~2020-11-02 | XR_ITS ---
EXAMINATION: XR CHEST CLINICAL INFORMATION: Fever. Question pneumonia. COMPARISON: Chest 11/02/2020 TECHNIQUE: Frontal view of the chest was obtained. FINDINGS: The lungs are hypoventilated with bilateral patchy opacities suggestive of infiltrate, increased since 11/02/2020. Heart size and pulmonary vascularity appears normal. No gross bony abnormality. XR/XR chest 1V IMPRESSION: Hypoexpanded lungs with worsening bilateral interstitial infiltrates.
--- NOTE | ~2020-11-02 | XR_ITS ---
EXAMINATION: XR CHEST CLINICAL INFORMATION: Shortness of breath COMPARISON: None TECHNIQUE: AP portable view of the chest was obtained. FINDINGS: There are small lung volumes. There is some increased markings with appearance of interstitial disease seen about the left hemithorax which may be related to atelectasis however viral or atypical pneumonitis not excluded. No confluent parenchymal disease identified. The cardiopericardial silhouette is enlarged. No evidence of pulmonary edema. No pneumothorax or pleural effusion identified. XR/XR chest 1V IMPRESSION: Increased interstitial markings left hemithorax which may be related to atelectasis or interstitial disease such as viral or atypical pneumonitis. Cardiomegaly without pulmonary edema. Small lung volumes.
[2020-11-02 09:25] VITALS: BP 144/90; BP 144/96; PULSE 107; PULSE 97; RESP 24; TEMP 37.7; O2SAT 91; BMI 53.8
--- NOTE | 2020-11-02 09:28 | ECG_ITS ---
Test Reason : SOB Blood Pressure : / mmHG Vent. Rate : 095 BPM Atrial Rate : 095 BPM P-R Int : 158 ms QRS Dur : 100 ms QT Int : 348 ms P-R-T Axes : 007 036 034 degrees QTc Int : 437 ms Sinus rhythm with occasional Premature ventricular complexes Otherwise normal ECG No previous ECGs available Referred By: Coretta Velasco Electronically Signed By:LUCERO KERR
[2020-11-02 09:55] LABS: COVID-19 Test Positive (Negative)
[2020-11-02 10:04] LABS: MANUAL DIFF FLAG NO
--- NOTE | 2020-11-02 10:08 | ED.GENADULT ---
HPI - General Adult General Chief complaint: General Medical Stated complaint: ? COVID SYMPTOMS, SOB,NO TASTE/SMELL Time Seen by Provider: 11/02/20 09:13 Related Data Home Medications Medication Instructions Recorded Confirmed cyclobenzaprine 5 mg tablet 5 mg PO Q8H PRN 05/20/20 11/02/20 gabapentin 300 mg capsule 300 mg PO TID PRN 05/20/20 11/02/20 Previous Rx's Medication Instructions Recorded naproxen 500 mg tablet 500 mg PO BID PRN 10 Days #20 tab 12/23/19 oxycodone 5 mg tablet 5 mg PO Q6H PRN 3 Days #9 tab 12/23/19 tramadol 50 mg tablet 50 mg PO Q6H PRN #30 tab 07/16/20 Allergies Allergy/AdvReac Type Severity Reaction Status Date / Time No Known Allergies Allergy Verified 07/16/20 15:59 [facility] Past Medical History Medical History (Updated 11/02/20 @ 10:59 by Coretta Velasco MD) Abdominal hernia Hernia Right hip pain Social History Social History Alcohol intake: never Patient Tobacco Use Status: Never used Tobacco Use of substances other than those prescribed or required for medical reasons: No Advance Directives: No Advance Directives Information Provided: No Physical Exam Vital Signs: Vital Signs: Last Vital Signs Temp 99.9 F 11/02/20 09:25 Pulse 97 11/02/20 09:25 Resp 24 H 11/02/20 09:25 BP 144/96 H 11/02/20 09:25 Pulse Ox 91 L 11/02/20 09:25 Body Mass Index 53.8 Medical Decision Making [facility] Narrative Medical decision making narrative: Patient has an O2 sat of 90-91% increased respiratory rate. Chest x-ray consistent with COVID. Started on Decadron. Will admit patient for further evaluation and oxygenation. Currently in stable condition. Lab Data Result diagrams: 11/02/20 09:57 11/02/20 09:57 Labs: Lab Results 11/02/20 11/02/20 11/02/20 Range/Units 09:33 09:57 09:57 WBC 4.9 (4.8-10.8) X10*3/uL RBC 5.96 H (4.60-5.80) X10*6/uL Hgb 16.3 (14.0-18.0) g/dl Hct 49.6 (42-52) % MCV 83.2 (80-98) fL MCH 27.3 (27.0-33.0) pg MCHC 32.9 (31.0-36.0) g/dl RDW 14.6 (11.0-16.0) % Plt Count 103 L D (160-400) X10*3/uL MPV 10.7 (9.4-12.4) fL Immature Gran % (Auto) 0.4 (0.0-0.4) % Neut % (Auto) 75.5 H (45-73) % Lymph % (Auto) 10.5 L (20-40) % [place] % (Auto) 13.6 H (2-11) % Eos % (Auto) 0.0 (0-4) % Baso % (Auto) 0.0 (0-2) % Lymph # (Auto) 0.5 L (1.2-4.9) X10*3/uL [place] # (Auto) 0.7 (0.1-1.2) X10*3/uL Eos # (Auto) 0.0 (0.0-0.4) X10*3/uL Baso # (Auto) 0.0 (0.0-0.2) X10*3/uL Abs Immat Gran (auto) 0.02 (0.00-0.03) X10*3/uL Absolute Neuts (auto) 3.7 (2.0-8.3) X10*3/uL Absolute Nucleated RBC 0.000 (0.0-0.012) X10*3/uL Nucleated RBC % (auto) 0.0 (0.0-0.2) /100WBC Sodium 137 (135-145) mmol/L Potassium 3.7 (3.3-5.1) mmol/L Chloride 101 (96-108) mmol/L Carbon Dioxide 25 (22-29) mmol/L Anion Gap 15 (12-20) BUN 13 (9-16) mg/dL Creatinine 0.90 (0.5-1.4) mg/dL Estim Creat Clear Calc 162.7 Estimated GFR > 60 Random Glucose 128 H D (60-115) mg/dL Lactic Acid (0.5-2.0) mmol/L Calcium 8.8 (8.4-10.2) mg/dL Total Bilirubin 0.5 (0.0-1.0) mg/dL Direct Bilirubin 0.2 (0.0-0.5) mg/dL AST 22 (5-37) U/L ALT 23 (0-40) U/L Alkaline Phosphatase 81 (39-117) U/L Troponin I High Sens (<3.5-35.0) ng/L B-Natriuretic Peptide (<100) pg/mL Total Protein 7.3 (6.5-8.0) g/dL Albumin 3.9 (3.5-5.0) g/dL COVID-19 (IVON) Positive A (Negative) COVID-19 Clin Com See Note 11/02/20 11/02/20 Range/Units 09:57 09:57 WBC (4.8-10.8) X10*3/uL RBC (4.60-5.80) X10*6/uL Hgb (14.0-18.0) g/dl Hct (42-52) % MCV (80-98) fL MCH (27.0-33.0) pg MCHC (31.0-36.0) g/dl RDW (11.0-16.0) % Plt Count (160-400) X10*3/uL MPV (9.4-12.4) fL Immature Gran % (Auto) (0.0-0.4) % Neut % (Auto) (45-73) % Lymph % (Auto) (20-40) % [place] % (Auto) (2-11) % Eos % (Auto) (0-4) % Baso % (Auto) (0-2) % Lymph # (Auto) (1.2-4.9) X10*3/uL [place] # (Auto) (0.1-1.2) X10*3/uL Eos # (Auto) (0.0-0.4) X10*3/uL Baso # (Auto) (0.0-0.2) X10*3/uL Abs Immat Gran (auto) (0.00-0.03) X10*3/uL Absolute Neuts (auto) (2.0-8.3) X10*3/uL Absolute Nucleated RBC (0.0-0.012) X10*3/uL Nucleated RBC % (auto) (0.0-0.2) /100WBC Sodium (135-145) mmol/L Potassium (3.3-5.1) mmol/L Chloride (96-108) mmol/L Carbon Dioxide (22-29) mmol/L Anion Gap (12-20) BUN (9-16) mg/dL Creatinine (0.5-1.4) mg/dL Estim Creat Clear Calc Estimated GFR Random Glucose (60-115) mg/dL Lactic Acid 1.1 (0.5-2.0) mmol/L Calcium (8.4-10.2) mg/dL Total Bilirubin (0.0-1.0) mg/dL Direct Bilirubin (0.0-0.5) mg/dL AST (5-37) U/L ALT (0-40) U/L Alkaline Phosphatase (39-117) U/L Troponin I High Sens 5.6 (<3.5-35.0) ng/L B-Natriuretic Peptide < 10 (<100) pg/mL Total Protein (6.5-8.0) g/dL Albumin (3.5-5.0) g/dL COVID-19 (IVON) (Negative) COVID-19 Clin Com Critical Care Time Critical Care Time Critical Care Time: Yes Total Critical Care Time: 40 Attestation: I have personally provided 40 minutes of critical care time exclusive of time spent on separately billable procedures. Time includes review of lab data, radiology results, discussion with consultants, and monitoring for potential decompensation. Interventions were performed as documented above Discharge Plan Discharge Patient Disposition: Admitted As Inpatient Prescriptions: No Action gabapentin 300 mg capsule 300 mg PO TID PRN (Reason: pain) RF: 0 cyclobenzaprine 5 mg tablet 5 mg PO Q8H PRN (Reason: Spasms) RF: 0 naproxen 500 mg tablet 500 mg PO BID PRN (Reason: pain) 10 Days Qty: 20 RF: 0 oxycodone 5 mg tablet 5 mg PO Q6H PRN (Reason: pain) 3 Days Qty: 9 RF: 0 tramadol 50 mg tablet 50 mg PO Q6H PRN (Reason: pain) Qty: 30 RF: 0
[2020-11-02 10:11] LABS: Hematocrit 49.6 % (42-52); Hemoglobin 16.3 g/dl (14.0-18.0); Imm Gran Abs Auto 0.02 X10*3/uL (0.00-0.03); Imm Gran Pct Auto 0.4 % (0.0-0.4); Lymphocytes Absolute Auto 0.5 X10*3/uL (1.2-4.9); Lymphocytes Percent Auto 10.5 % (20-40); Mean Corpuscular HGB Conc 32.9 g/dl (31.0-36.0); Mean Corpuscular Hemoglobin 27.3 pg (27.0-33.0); Mean Corpuscular Volume 83.2 fL (80-98); Mean Platelet Volume 10.7 fL (9.4-12.4); Monocytes Absolute Auto 0.7 X10*3/uL (0.1-1.2); Monocytes Percent Auto 13.6 % (2-11); Neutrophils Absolute Auto 3.7 X10*3/uL (2.0-8.3); Neutrophils Percent Auto 75.5 % (45-73); Platelet Count 103 X10*3/uL (160-400); Red Blood Count 5.96 X10*6/uL (4.60-5.80); Red Cell Distribution Width 14.6 % (11.0-16.0); White Blood Count 4.9 X10*3/uL (4.8-10.8)
[2020-11-02 10:26] LABS: Lactic Acid 1.1 mmol/L (0.5-2.0)
[2020-11-02 10:34] LABS: Alanine Aminotransferase 23 U/L (0-40); Albumin Level 3.9 g/dL (3.5-5.0); Alkaline Phosphatase 81 U/L (39-117); Anion Gap 15 (12-20); Aspartate Amino Transferase 22 U/L (5-37); Bilirubin Direct 0.2 mg/dL (0.0-0.5); Bilirubin Total 0.5 mg/dL (0.0-1.0); Blood Urea Nitrogen 13 mg/dL (9-16); Calcium 8.8 mg/dL (8.4-10.2); Carbon Dioxide 25 mmol/L (22-29); Chloride 101 mmol/L (96-108); Creatinine Clr Calc Pharmacy 162.7; Estimated Glomerular Filt Rate > 60; Glucose Random 128 mg/dL (60-115); Potassium 3.7 mmol/L (3.3-5.1); Sodium 137 mmol/L (135-145); Total Protein 7.3 g/dL (6.5-8.0)
[2020-11-02 10:35] LABS: B Type Natriuretic Peptide < 10 pg/mL (<100); Troponin-I High Sensitivity 5.6 ng/L (<3.5-35.0)
--- NOTE | 2020-11-02 10:58 | PHA.MEDREC ---
Pharmacy Consult ? Medication Reconciliation Pharmacy has completed the medication reconciliation.
--- NOTE | 2020-11-02 10:58 | PC.NURSE ---
Pt is alert and oriented, states chronic pain to knees and hip. breathing heavily but doesnt appears to be in acute distress. skin pink warm and dry/ Tylenol given for pain/fever. plan for admission, pt agreeable/aware
[2020-11-02] MEDS: Acetaminophen 325 MG TABLET 650 MG PO ×2 (11:07→18:04)
[2020-11-02] MEDS: dexAMETHasone sod phosphate 10 MG/ML VIAL IVPUSH (11:14)
[2020-11-02 11:16] VITALS: BP 150/128; PULSE 96; RESP 20; TEMP 37.7
--- NOTE | 2020-11-02 12:01 | P.HPHOSP_ITS ---
History of Present Illness Date of Service: 11/02/20 54-year-old male unvaccinated with no significant past medical history presents to the ER today with approximately 1 week of worsening shortness of breath body aches and most recently loss of taste and smell. He states he had been using NyQuil at home with no relief of his symptoms; states he used to the point of diarrhea. When his breathing started to become labored he presented to the emergency room. Upon presentation he was found to be hypoxic with sats of 88% correcting to 92-94% on 2 L oxygen nasal cannula. He will be admitted for treatment of his COVID symptoms and supplemental oxygen therapy Review of Systems Cardiovascular: Cardiovascular: Denies chest pain, Denies chest pain at rest, Denies chest pain with activity and Reports dyspnea on exertion Respiratory: Respiratory: Reports dyspnea on exertion Gastrointestinal: Comments: Mild diarrhea he accounts to increase NyQuil use [facility] Medical History Abdominal hernia Hernia Right hip pain Pertinent family history: None pertinent Social History Alcohol intake: never Patient Tobacco Use Status: Never used Tobacco Use of substances other than those prescribed or required for medical reasons: No Advance Directives: No Advance Directives Information Provided: No Meds Allergies Allergy/AdvReac Type Severity Reaction Status Date / Time No Known Allergies Allergy Verified 07/16/20 15:59 Active Medications: Current Medications Pharmacy Consult (Consult Rx Perform Med Rec) 1 each MISCELLANE ONCE PRN PRN Reason: Consult order Home Medications Medication Instructions Recorded Confirmed Last Taken Type cyclobenzaprine 5 mg tablet 5 mg PO Q8H PRN 05/20/20 11/02/20 05/19/20 History gabapentin 300 mg capsule 300 mg PO TID PRN 05/20/20 11/02/20 05/19/20 History Physical Exam Vital Signs and Narrative: Vital Signs: Last Vital Signs Temp 99.9 F 11/02/20 11:16 Pulse 96 11/02/20 11:16 Resp 20 11/02/20 11:16 BP 150/128 H 11/02/20 11:16 Pulse Ox 91 L 11/02/20 09:25 Body Mass Index 53.8 Const: General: no acute distress HENMT: Other: Unremarkable Resp: Auscultation: clear to auscultation bilaterally, no rales, no rhonchi and no wheezes Cardio: Rate: regular rate Rhythm: regular rhythm Heart sounds: S1 normal heart sound present, S2 normal heart sound present and no murmurs GI: Other: Obese nontender with normoactive bowel sounds x4 quadrants Extrem: General: Yes normal to inspection Results Labs CBC and Chem 7: 11/02/20 09:57 11/02/20 09:57 Labs: Laboratory Results - last 24 hr 11/02/20 11/02/20 11/02/20 09:33 09:57 09:57 MCV 83.2 MCH 27.3 MCHC 32.9 RDW 14.6 Plt Count 103 L D MPV 10.7 Immature Gran % (Auto) 0.4 Neut % (Auto) 75.5 H Lymph % (Auto) 10.5 L [place] % (Auto) 13.6 H Eos % (Auto) 0.0 Baso % (Auto) 0.0 Lymph # (Auto) 0.5 L [place] # (Auto) 0.7 Eos # (Auto) 0.0 Baso # (Auto) 0.0 Abs Immat Gran (auto) 0.02 Absolute Neuts (auto) 3.7 Absolute Nucleated RBC 0.000 Nucleated RBC % (auto) 0.0 Anion Gap 15 Estim Creat Clear Calc 162.7 Estimated GFR > 60 Random Glucose 128 H D Lactic Acid Calcium 8.8 Total Bilirubin 0.5 Direct Bilirubin 0.2 AST 22 ALT 23 Alkaline Phosphatase 81 Troponin I High Sens B-Natriuretic Peptide Total Protein 7.3 Albumin 3.9 COVID-19 (IVON) Positive A COVID-19 Clin Com See Note 11/02/20 11/02/20 09:57 09:57 MCV MCH MCHC RDW Plt Count MPV Immature Gran % (Auto) Neut % (Auto) Lymph % (Auto) [place] % (Auto) Eos % (Auto) Baso % (Auto) Lymph # (Auto) [place] # (Auto) Eos # (Auto) Baso # (Auto) Abs Immat Gran (auto) Absolute Neuts (auto) Absolute Nucleated RBC Nucleated RBC % (auto) Anion Gap Estim Creat Clear Calc Estimated GFR Random Glucose Lactic Acid 1.1 Calcium Total Bilirubin Direct Bilirubin AST ALT Alkaline Phosphatase Troponin I High Sens 5.6 B-Natriuretic Peptide < 10 Total Protein Albumin COVID-19 (IVON) COVID-19 Clin Com Imaging Radiologist's Impressions: Impressions Chest X-Ray 11/02/20 09:28 IMPRESSION: Increased interstitial markings left hemithorax which may be related to atelectasis or interstitial disease such as viral or atypical pneumonitis. Cardiomegaly without pulmonary edema. Small lung volumes. Assessment and Plan (1) COVID-19: Status: Acute Had able to speak in full sentences while lying completely supine; sats 92% on 2 L. Will continue Decadron daily and titrate oxygen as indicated. Will check baseline CRP in a.m. (2) Right hip pain: Status: Acute In backdrop of thoracic compression fractures. And patient states taking oxycodone at home p.r.n. will prescribe as needed (3) Hypertension: Status: Acute Pressure in ER elevated; will follow-up pressures on the for an add therapies as indicated. Further plans as clinical course unfolds Quality Stroke Does the patient have a stroke diagnosis?: No VTE Prior VTE?: No VTE Risk Level:: Medical - moderate - high VTE Device Contraindication: Treatment Not Indicated VTE Drug Contraindication: N/A - Med Ordered
--- NOTE | 2020-11-02 13:21 | PC.NURSE ---
ivp dexamethasone given at 1050.Holding new order due to just given.
[2020-11-02 13:30] VITALS: BP 135/82; PULSE 75; RESP 18; TEMP 37.2; O2SAT 94
--- NOTE | 2020-11-02 13:31 | PC.NURSE ---
patient COVID positive. Upset about being positive. Labs drawn and sent. IV placed and flushed. Meds given per MAR. VSS. Resting safely.
[2020-11-02] MEDS: Rivaroxaban 10 MG TABLET PO (15:31)
[2020-11-02 16:00] VITALS: BP 154/86; PULSE 74; RESP 20; TEMP 36.1; O2SAT 97
--- NOTE | 2020-11-02 16:55 | PC.NURSE ---
Report given to nurse
[2020-11-02] MEDS: 0.9 % Sodium Chloride Flush 3 ML SYRINGE IVFLUSH ×2 (17:57→21:13)
[2020-11-02] MEDS: oxyCODONE HCl Immed Release 5 MG TABLET PO (18:04)
[2020-11-02 19:13] VITALS: BP 107/60; PULSE 69; RESP 20; TEMP 36.2; O2SAT 95
[2020-11-02] MEDS: Melatonin 3 MG TABLET 6 MG PO (21:13)
[2020-11-02 23:30] VITALS: BP 155/83; PULSE 73; RESP 18; TEMP 36.6; O2SAT 96
[2020-11-03 04:00] VITALS: BP 135/81; PULSE 63; RESP 18; TEMP 37.4; O2SAT 96
[2020-11-03 07:24] VITALS: BP 164/64; PULSE 72; RESP 20; TEMP 36.7; O2SAT 97
[2020-11-03 08:47] LABS: Hemoglobin 16.4 g/dl (14.0-18.0); MANUAL DIFF FLAG SCAN; PLT CLUMP 1; SCAN SMEAR FLAG 1
[2020-11-03 08:49] LABS: Basophils Percent Auto 0.2 % (0-2); Hematocrit 49.8 % (42-52); Imm Gran Abs Auto 0.02 X10*3/uL (0.00-0.03); Imm Gran Pct Auto 0.3 % (0.0-0.4); Lymphocytes Absolute Auto 0.5 X10*3/uL (1.2-4.9); Lymphocytes Percent Auto 9.1 % (20-40); Mean Corpuscular HGB Conc 32.9 g/dl (31.0-36.0); Mean Corpuscular Hemoglobin 27.6 pg (27.0-33.0); Mean Corpuscular Volume 83.7 fL (80-98); Monocytes Absolute Auto 0.6 X10*3/uL (0.1-1.2); Monocytes Percent Auto 10.5 % (2-11); Neutrophils Absolute Auto 4.7 X10*3/uL (2.0-8.3); Neutrophils Percent Auto 79.9 % (45-73); Platelet Count 115 X10*3/uL (160-400); Red Blood Count 5.95 X10*6/uL (4.60-5.80); Red Cell Distribution Width 14.6 % (11.0-16.0); White Blood Count 5.8 X10*3/uL (4.8-10.8)
[2020-11-03 09:12] LABS: Anion Gap 13 (12-20); Blood Urea Nitrogen 19 mg/dL (9-16); Calcium 8.6 mg/dL (8.4-10.2); Carbon Dioxide 26 mmol/L (22-29); Chloride 104 mmol/L (96-108); Creatinine Clr Calc Pharmacy 187.7; Estimated Glomerular Filt Rate > 60; Glucose Random 148 mg/dL (60-115); Potassium 3.9 mmol/L (3.3-5.1); Sodium 139 mmol/L (135-145)
--- NOTE | 2020-11-03 09:36 | MHC.CM.PN ---
CM was unable to reach Patient on his cell @ [phone] nor room ext. [phone] and he is Covid positive. CM spoke with Contact/sister Belem in [place] @ [phone]. Patient lives alone in his apartment and per Belem, has a lot of difficulty walking (no DME [employer]). DC plan may required a PT eval to determine if services are needed. CM will follow for dc planning. IMM addressed . PCP is Dr. Ericka Buckley.
--- NOTE | 2020-11-03 10:02 | HO.PM.IMPN ---
Subjective Subjective Date of Service: 11/09/20 Interval History: No acute issues overnight. States slept fairly well. Sats remained stable Review of Systems Denies chest pain Denies short of breath Admits headache from cough Physical Exam Vital Signs: Vital Signs: Last Vital Signs Temp 98.1 F 11/03/20 07:24 Pulse 72 11/03/20 07:24 Resp 20 11/03/20 07:24 BP 164/64 H 11/03/20 07:24 Pulse Ox 97 11/03/20 07:24 Body Mass Index 53.8 Const: General: no acute distress Resp: Auscultation: clear to auscultation bilaterally, no rales, no rhonchi and no wheezes Cardio: Rate: regular rate Rhythm: regular rhythm Heart sounds: S1 normal heart sound present, S2 normal heart sound present and no murmurs GI: Other: Soft nontender nondistended with a bari of bowel sounds Extrem: General: Yes normal to inspection Objective Data Active Medications Acetaminophen (Acetaminophen 325 Mg Tablet) 650 mg PO Q6H PRN PRN Reason: Pain, Mild (Pain Scale 1-3) Last Admin: 11/02/20 18:04 Dose: 650 mg Documented by: FLORENCE Cyclobenzaprine HCl (Cyclobenzaprine Hcl 5 Mg Tablet) 5 mg PO Q8H PRN PRN Reason: Spasms Gabapentin (Gabapentin 300 Mg Capsule) 300 mg PO TID PRN PRN Reason: pain Guaifenesin (Guaifenesin 200 Mg/10 Ml 10 Ml Liquid) 10 ml PO Q6H PRN PRN Reason: Cough Melatonin (Melatonin 3 Mg Tablet) 6 mg PO BEDTIME PRN PRN Reason: Insomnia Last Admin: 11/02/20 21:13 Dose: 6 mg Documented by: RANDA Oxycodone HCl (Oxycodone Hcl Immed Release 5 Mg Tablet) 5 mg PO TID [facility] Pharmacy Consult (Consult Rx Perform Med Rec) 1 each MISCELLANE ONCE PRN PRN Reason: Consult order Rivaroxaban (Rivaroxaban 10 Mg Tablet) 10 mg PO DAILY [facility] Last Admin: 11/02/20 15:31 Dose: 10 mg Documented by: TAMIR Sodium Chloride (0.9 % Sodium Chloride Flush 3 Ml Syringe) 3 ml IVFLUSH QSHIFT [facility] Last Admin: 11/02/20 21:13 Dose: 3 ml Documented by: SHAWNLN Labs CBC & Chem 7: 11/08/20 06:50 11/08/20 06:50 Labs: Laboratory Results - last 24 hr 11/02/20 11/02/20 11/02/20 09:57 09:57 09:57 MCV 83.2 MCH 27.3 MCHC 32.9 RDW 14.6 Plt Count 103 L D MPV 10.7 Immature Gran % (Auto) 0.4 Neut % (Auto) 75.5 H Lymph % (Auto) 10.5 L [place] % (Auto) 13.6 H Eos % (Auto) 0.0 Baso % (Auto) 0.0 Lymph # (Auto) 0.5 L [place] # (Auto) 0.7 Eos # (Auto) 0.0 Baso # (Auto) 0.0 Abs Immat Gran (auto) 0.02 Absolute Neuts (auto) 3.7 Absolute Nucleated RBC 0.000 Nucleated RBC % (auto) 0.0 Smear Tech's Comments Anion Gap 15 Estim Creat Clear Calc 162.7 Estimated GFR > 60 Random Glucose 128 H D Lactic Acid Calcium 8.8 Total Bilirubin 0.5 Direct Bilirubin 0.2 AST 22 ALT 23 Alkaline Phosphatase 81 Troponin I High Sens 5.6 B-Natriuretic Peptide < 10 Total Protein 7.3 Albumin 3.9 11/02/20 11/03/20 11/03/20 09:57 08:27 08:27 MCV 83.7 MCH 27.6 MCHC 32.9 RDW 14.6 Plt Count 115 L MPV 10.0 Immature Gran % (Auto) 0.3 Neut % (Auto) 79.9 H Lymph % (Auto) 9.1 L [place] % (Auto) 10.5 Eos % (Auto) 0.0 Baso % (Auto) 0.2 Lymph # (Auto) 0.5 L [place] # (Auto) 0.6 Eos # (Auto) 0.0 Baso # (Auto) 0.0 Abs Immat Gran (auto) 0.02 Absolute Neuts (auto) 4.7 Absolute Nucleated RBC 0.000 Nucleated RBC % (auto) 0.0 Smear Tech's Comments Not Reportable Anion Gap 13 Estim Creat Clear Calc 187.7 Estimated GFR > 60 Random Glucose 148 H Lactic Acid 1.1 Calcium 8.6 Total Bilirubin Direct Bilirubin AST ALT Alkaline Phosphatase Troponin I High Sens B-Natriuretic Peptide Total Protein Albumin Assessment and Plan (1) COVID-19: Status: Acute Assessment and Plan: Continue dexamethasone, Pepcid, supplemental O2. Will add guaifenesin for cough. Attempt to titrate O2. Further plans based on clinical response to therapies (2) Right hip pain: Status: Acute Assessment and Plan: Encouraged out of bed. Will scheduled oxycodone (3) Hypertension: Status: Acute Assessment and Plan: No meds at home. Will titrate as indicated (4) IFG (impaired fasting glucose): Status: Acute Assessment and Plan: Unknown to patient. Will check A1c in a.m. treat as indicated Quality Stroke Does the patient have a stroke diagnosis?: No VTE Prior VTE?: No VTE Risk Level:: Medical - moderate - high VTE Device Contraindication: Treatment Not Indicated VTE Drug Contraindication: N/A - Med Ordered
[2020-11-03] MEDS: guaiFENesin 200 MG/10 ML 10 ML LIQUID PO (10:18)
[2020-11-03] MEDS: Rivaroxaban 10 MG TABLET PO (10:18)
[2020-11-03] MEDS: 0.9 % Sodium Chloride Flush 3 ML SYRINGE IVFLUSH ×2 (10:19→20:41)
[2020-11-03] MEDS: oxyCODONE HCl Immed Release 5 MG TABLET PO ×2 (10:19→14:15)
[2020-11-03 10:50] LABS: Estimated Average Glucose 137 mg/dL; Hemoglobin A1c % 6.4 %
[2020-11-03 11:24] VITALS: BP 143/63; PULSE 81; RESP 20; TEMP 37.2; O2SAT 88
[2020-11-03 15:10] VITALS: BP 154/80; PULSE 100; RESP 20; TEMP 36.7; O2SAT 91
[2020-11-03] MEDS: Acetaminophen 325 MG TABLET 650 MG PO (17:29)
[2020-11-03] MEDS: dexAMETHasone sod phosphate 4 MG/ML VIAL IVPUSH (17:49)
--- NOTE | 2020-11-03 18:44 | PC.NURSE ---
Patient asking to shower, this RN offered warm wipes and assistance, which patient refuses. Decadron ordered. Oxycodone increased due to patient reporting poor pain control. Remains on 5L due to frequent desat with recovery.
[2020-11-03 19:21] VITALS: BP 102/58; PULSE 89; RESP 20; TEMP 37.3; O2SAT 93
[2020-11-03] MEDS: oxyCODONE HCl Immed Release 5 MG TABLET 10 MG PO (20:41)
[2020-11-04] VITALS (7 sets, daily range): BP systolic 100–194; BP diastolic 61–94; PULSE 60–113; RESP 18–20; TEMP 36.2–39.7; O2SAT 90–98
[2020-11-04] MEDS: Melatonin 3 MG TABLET 6 MG PO (01:23)
[2020-11-04] MEDS: Acetaminophen 325 MG TABLET 650 MG PO (01:45)
[2020-11-04] MEDS: oxyCODONE HCl Immed Release 5 MG TABLET 10 MG PO ×3 (07:47→20:00)
[2020-11-04] MEDS: dexAMETHasone sod phosphate 4 MG/ML VIAL IVPUSH (07:47)
[2020-11-04] MEDS: 0.9 % Sodium Chloride Flush 3 ML SYRINGE IVFLUSH ×3 (07:48→20:00)
[2020-11-04] MEDS: Rivaroxaban 10 MG TABLET PO (07:48)
[2020-11-04] MEDS: guaiFENesin 200 MG/10 ML 10 ML LIQUID PO ×2 (08:10→20:00)
--- NOTE | 2020-11-04 11:38 | HO.PM.IMPN ---
Subjective Subjective Date of Service: 11/04/20 Interval History: No acute events overnight. Able to lie flat without respiratory distress. States headache somewhat improved but still present secondary to cough Review of Systems Denies chest pain Denies shortness of breath Denies nausea vomiting Physical Exam Vital Signs: Vital Signs: Last Vital Signs Temp 98.8 F 11/04/20 11:28 Pulse 60 11/04/20 11:28 Resp 20 11/04/20 11:28 BP 145/78 H 11/04/20 11:28 Pulse Ox 98 11/04/20 11:28 Body Mass Index 53.8 Const: General: no acute distress HENMT: Other: Membranes moist Resp: Auscultation: clear to auscultation bilaterally, no rales, no rhonchi and no wheezes Cardio: Rate: regular rate Rhythm: regular rhythm Heart sounds: S1 normal heart sound present, S2 normal heart sound present and no murmurs GI: Other: Obese; soft nontender nondistended with normoactive bowel sounds Neuro: Other: Age-appropriate nonfocal Extrem: General: Yes normal to inspection Objective Data Active Medications Acetaminophen (Acetaminophen 325 Mg Tablet) 650 mg PO Q6H PRN PRN Reason: Pain, Mild (Pain Scale 1-3) Last Admin: 11/04/20 01:45 Dose: 650 mg Documented by: RANDA Cyclobenzaprine HCl (Cyclobenzaprine Hcl 5 Mg Tablet) 5 mg PO Q8H PRN PRN Reason: Spasms Dexamethasone Sodium Phosphate (Dexamethasone Sod Phosphate 4 Mg/Ml Vial) 4 mg IVPUSH DAILY [facility] Last Admin: 11/04/20 07:47 Dose: 4 mg Documented by: GEORGINA Gabapentin (Gabapentin 300 Mg Capsule) 300 mg PO TID PRN PRN Reason: pain Guaifenesin (Guaifenesin 200 Mg/10 Ml 10 Ml Liquid) 10 ml PO Q6H PRN PRN Reason: Cough Last Admin: 11/04/20 08:10 Dose: 10 ml Documented by: GEORGINA Melatonin (Melatonin 3 Mg Tablet) 6 mg PO BEDTIME PRN PRN Reason: Insomnia Last Admin: 11/04/20 01:23 Dose: 6 mg Documented by: RANDA Oxycodone HCl (Oxycodone Hcl Immed Release 5 Mg Tablet) 10 mg PO TID [facility] Last Admin: 11/04/20 07:47 Dose: 10 mg Documented by: GEORGINA Pharmacy Consult (Consult Rx Perform Med Rec) 1 each MISCELLANE ONCE PRN PRN Reason: Consult order Rivaroxaban (Rivaroxaban 10 Mg Tablet) 10 mg PO DAILY [facility] Last Admin: 11/04/20 07:48 Dose: 10 mg Documented by: GEORGINA Sodium Chloride (0.9 % Sodium Chloride Flush 3 Ml Syringe) 3 ml IVFLUSH QSHIFT [facility] Last Admin: 11/04/20 07:48 Dose: 3 ml Documented by: GEORGINA Labs CBC & Chem 7: 11/03/20 08:27 11/03/20 08:27 Microbiology Microbiology Results: Microbiology 11/02/20 10:47 Blood Culture - Preliminary Blood - Venous No growth after 24 hours. 11/02/20 09:57 Blood Culture - Preliminary Blood - Venous No growth after 24 hours. Assessment and Plan (1) COVID-19: Status: Acute Assessment and Plan: Doing well. Continue Decadron and Pepcid. Will titrate O2 to off. If sense maintained on room air will be able to discharge home with questionable services (2) Hypertension: Status: Acute Assessment and Plan: Acceptable control on current therapies (3) IFG (impaired fasting glucose): Status: Acute Assessment and Plan: A1c acceptable. Can follow-up with PCP upon discharge Assessment and Plan: Further plans based on clinical course of forthcoming data Quality Stroke Does the patient have a stroke diagnosis?: No VTE Prior VTE?: No VTE Risk Level:: Medical - moderate - high VTE Device Contraindication: Treatment Not Indicated VTE Drug Contraindication: N/A - Med Ordered
--- NOTE | 2020-11-04 12:13 | MHC.CM.PN ---
Patient is not yet medically cleared for dc (IV Decadron, 4L O2). Home no services is the goal for dc and CM will follow for possible need to adjust the dc plan.
--- NOTE | 2020-11-04 17:15 | P.HPHOSP_ITS ---
History of Present Illness Date of Service: 11/04/20 Attending physician on admission: Inder العلي Chief Complaint: COVID-19 54-year-old male admitted with diffuse myalgias fatigue mild fevers and loss of taste and smell. COVID 19 positive in ER. Sats on room air 88%. Admitted to floor for further treatment. Started on dexamethasone and Pepcid; over the course of the next several days was able to wean off his O2 without issue. At this point in time his sat is 94% on room air ambulatory and is awaiting discharge Review of Systems Review of Systems: Denies chest pain Denies short of breath Denies nausea vomiting PMFSH Medical History Abdominal hernia Hernia Right hip pain Pertinent family history: none Social History Household Members: None Housing: Apartment Do you presently have visiting nurse or other home services: No Alcohol intake: never Patient Tobacco Use Status: Never used Tobacco e-Cigarette/Vaping Use: Never Used Use of substances other than those prescribed or required for medical reasons: No Currently Displaying Signs/Symptoms of Drug Intoxication Withdrawal: No Have you been hit, kicked, punched, or otherwise hurt by someone within the past year? If so, by whom?: No Do you feel safe in your current relationship?: No Current Relationship Is there a partner from a previous relationship who is making you feel unsafe no w?: No Are you made to feel afraid or neglected: No Advance Directives: No Advance Directives Information Provided: No Do you have thoughts of harming others: None Do you have a plan to hurt others: No Plan Recently lost weight without trying: No Nutrition Risks: No Nutritional Risk service: No Current occupational status: disabled Meds Allergies Allergy/AdvReac Type Severity Reaction Status Date / Time No Known Allergies Allergy Verified 07/16/20 15:59 Active Medications: Current Medications Acetaminophen (Acetaminophen 325 Mg Tablet) 650 mg PO Q6H PRN PRN Reason: Pain, Mild (Pain Scale 1-3) Last Admin: 11/04/20 01:45 Dose: 650 mg Documented by: Cyclobenzaprine HCl (Cyclobenzaprine Hcl 5 Mg Tablet) 5 mg PO Q8H PRN PRN Reason: Spasms Dexamethasone Sodium Phosphate (Dexamethasone Sod Phosphate 4 Mg/Ml Vial) 4 mg IVPUSH DAILY [facility] Last Admin: 11/04/20 07:47 Dose: 4 mg Documented by: Gabapentin (Gabapentin 300 Mg Capsule) 300 mg PO TID PRN PRN Reason: pain Guaifenesin (Guaifenesin 200 Mg/10 Ml 10 Ml Liquid) 10 ml PO Q6H PRN PRN Reason: Cough Last Admin: 11/04/20 08:10 Dose: 10 ml Documented by: Melatonin (Melatonin 3 Mg Tablet) 6 mg PO BEDTIME PRN PRN Reason: Insomnia Last Admin: 11/04/20 01:23 Dose: 6 mg Documented by: Oxycodone HCl (Oxycodone Hcl Immed Release 5 Mg Tablet) 10 mg PO TID [facility] Last Admin: 11/04/20 14:54 Dose: 10 mg Documented by: Pharmacy Consult (Consult Rx Perform Med Rec) 1 each MISCELLANE ONCE PRN PRN Reason: Consult order Rivaroxaban (Rivaroxaban 10 Mg Tablet) 10 mg PO DAILY [facility] Last Admin: 11/04/20 07:48 Dose: 10 mg Documented by: Sodium Chloride (0.9 % Sodium Chloride Flush 3 Ml Syringe) 3 ml IVFLUSH QSHIFT [facility] Last Admin: 11/04/20 14:54 Dose: 3 ml Documented by: Home Medications Medication Instructions Recorded Confirmed Last Taken Type cyclobenzaprine 5 mg tablet 5 mg PO Q8H PRN 05/20/20 11/02/20 05/19/20 History gabapentin 300 mg capsule 300 mg PO TID PRN 05/20/20 11/02/20 05/19/20 History Physical Exam Vital Signs and Narrative: Vital Signs: Last Vital Signs Temp 98.8 F 11/04/20 15:12 Pulse 88 11/04/20 15:12 Resp 20 11/04/20 15:12 BP 168/81 H 11/04/20 15:12 Pulse Ox 94 11/04/20 15:12 Body Mass Index 53.8 Const: General: no acute distress HENMT: Other: Membranes moist Resp: Auscultation: clear to auscultation bilaterally, no rales, no rhonchi and no wheezes Cardio: Rate: regular rate Rhythm: regular rhythm Heart sounds: S1 nor mal heart sound present, S2 normal heart sound present and no murmurs GI: Other: Soft nontender nondistended with normoactive bowel sounds Extrem: General: Yes normal to inspection Results Labs CBC and Chem 7: 11/03/20 08:27 11/03/20 08:27 Assessment and Plan COVID-19 Complete 10 day course of Decadron. Continue Pepcid for the next 14 days. Follow-up with PCP for further management History of T9 and T11 vertebral fracture Will prescribe the oxycodone 10 mg 1 p.o. t.i.d. 15. No refill Arrange follow-up with new PCP Quality Stroke Does the patient have a stroke diagnosis?: No VTE Prior VTE?: No VTE Risk Level:: Medical - moderate - high VTE Device Contraindication: Treatment Not Indicated VTE Drug Contraindication: N/A - Med Ordered
[2020-11-04] MEDS: Zolpidem Tartrate 5 MG TABLET PO (19:59)
[2020-11-05] VITALS (9 sets, daily range): BP systolic 127–186; BP diastolic 62–90; PULSE 78–104; RESP 18–22; TEMP 36.2–38.4; O2SAT 90–96
[2020-11-05] MEDS: Acetaminophen 325 MG TABLET 650 MG PO ×3 (00:05→23:54)
--- NOTE | 2020-11-05 02:00 | PC.NURSE ---
Addendum entered by Glenny Lizama RN 11/05/20 06:20: At [address] Stokes notified, one time tylenol ordered and administered. Temp down to 99.6. All other vitals stable. Original Note: At 0000 pt had temp 103.5, bp elevated, spO2 90% on RA, hr 100-110s, pt c/o head and body aches. Dr Stokes notified. Blood cultures and lactic acid ordered. ekg monitor tech ordered, sinus rhythm hr 90-100s. Pt placed on 2L NC. Tylenol given with good effect. Temp 99.7 Pt made high fall risk due to weakness, camera in room.? Lactic 1.2, made aware, no new orders at this time.?
[2020-11-05 06:04] LABS: Basophils Percent Auto 0.2 % (0-2); Hematocrit 48.4 % (42-52); Hemoglobin 15.7 g/dl (14.0-18.0); Imm Gran Abs Auto 0.01 X10*3/uL (0.00-0.03); Imm Gran Pct Auto 0.2 % (0.0-0.4); Lymphocytes Absolute Auto 0.6 X10*3/uL (1.2-4.9); Lymphocytes Percent Auto 11.5 % (20-40); MANUAL DIFF FLAG NO; Mean Corpuscular HGB Conc 32.4 g/dl (31.0-36.0); Mean Corpuscular Hemoglobin 27.7 pg (27.0-33.0); Mean Corpuscular Volume 85.4 fL (80-98); Mean Platelet Volume 10.6 fL (9.4-12.4); Monocytes Absolute Auto 0.6 X10*3/uL (0.1-1.2); Monocytes Percent Auto 10.9 % (2-11); Neutrophils Percent Auto 77.2 % (45-73); Platelet Count 110 X10*3/uL (160-400); Red Blood Count 5.67 X10*6/uL (4.60-5.80); Red Cell Distribution Width 14.6 % (11.0-16.0); White Blood Count 5.2 X10*3/uL (4.8-10.8)
[2020-11-05 06:43] LABS: Lactic Acid 1.2 mmol/L (0.5-2.0)
[2020-11-05] MEDS: Cyclobenzaprine HCl 5 MG TABLET PO ×2 (07:40→15:56)
[2020-11-05] MEDS: oxyCODONE HCl Immed Release 5 MG TABLET 10 MG PO ×3 (07:40→20:40)
[2020-11-05] MEDS: Rivaroxaban 10 MG TABLET PO (07:40)
[2020-11-05] MEDS: dexAMETHasone sod phosphate 4 MG/ML VIAL IVPUSH (07:40)
[2020-11-05] MEDS: 0.9 % Sodium Chloride Flush 3 ML SYRINGE IVFLUSH ×3 (07:41→20:40)
--- NOTE | 2020-11-05 12:43 | HO.PM.IMPN ---
Subjective Subjective Date of Service: 11/05/20 Interval History: seen and examined feels better this AM compared to yesterday but had a fever over night reports cough and coy both of which are slowly getting better Review of Systems +sob/cough no cp +fever no chills Review of Systems: Yes all other systems are reviewed and are negative (except above) Physical Exam Vital Signs: Vital Signs: Last Vital Signs Temp 97.1 F 11/05/20 11:41 Pulse 80 11/05/20 11:41 Resp 20 11/05/20 11:41 BP 164/90 H 11/05/20 11:41 Pulse Ox 91 L 11/05/20 11:41 Body Mass Index 53.8 Const: Other: General - no acute distress, appears comfortable, morbidly obese Cardiovascular - regular rate and rhythm, S1-S2 Lungs - distant lung sounds, no distress Abdomen - soft, nontender, no rebound or guarding Extremities - no edema bilaterally Neuro - awake and alert, no focal deficits Objective Data Active Medications Acetaminophen (Acetaminophen 325 Mg Tablet) 650 mg PO Q6H PRN PRN Reason: Pain, Mild (Pain Scale 1-3) Last Admin: 11/05/20 00:05 Dose: 650 mg Documented by: DAVE Cyclobenzaprine HCl (Cyclobenzaprine Hcl 5 Mg Tablet) 5 mg PO Q8H PRN PRN Reason: Spasms Last Admin: 11/05/20 07:40 Dose: 5 mg Documented by: ANTHONY-REBECCA Dexamethasone Sodium Phosphate (Dexamethasone Sod Phosphate 4 Mg/Ml Vial) 4 mg IVPUSH DAILY [facility] Last Admin: 11/05/20 07:40 Dose: 4 mg Documented by: ANTHONY-REBECCA Gabapentin (Gabapentin 300 Mg Capsule) 300 mg PO TID PRN PRN Reason: pain Guaifenesin (Guaifenesin 200 Mg/10 Ml 10 Ml Liquid) 10 ml PO Q6H PRN PRN Reason: Cough Last Admin: 11/04/20 20:00 Dose: 10 ml Documented by: DAVE Melatonin (Melatonin 3 Mg Tablet) 6 mg PO BEDTIME PRN PRN Reason: Insomnia Last Admin: 11/04/20 01:23 Dose: 6 mg Documented by: SHAWNLN Oxycodone HCl (Oxycodone Hcl Immed Release 5 Mg Tablet) 10 mg PO TID [facility] Last Admin: 11/05/20 07:40 Dose: 10 mg Documented by: LUIS Pharmacy Consult (Consult Rx Perform Med Rec) 1 each MISCELLANE ONCE PRN PRN Reason: Consult order Rivaroxaban (Rivaroxaban 10 Mg Tablet) 10 mg PO DAILY [facility] Last Admin: 11/05/20 07:40 Dose: 10 mg Documented by: LUIS Sodium Chloride (0.9 % Sodium Chloride Flush 3 Ml Syringe) 3 ml IVFLUSH QSHIFT [facility] Last Admin: 11/05/20 07:41 Dose: 3 ml Documented by: LUIS Zolpidem Tartrate (Zolpidem Tartrate 5 Mg Tablet) 5 mg PO BEDTIME PRN PRN Reason: Insomnia Last Admin: 11/04/20 19:59 Dose: 5 mg Documented by: DAVE Labs CBC & Chem 7: 11/05/20 00:35 11/03/20 08:27 Labs: Laboratory Results - last 24 hr 11/05/20 11/05/20 00:35 00:35 MCV 85.4 MCH 27.7 MCHC 32.4 RDW 14.6 Plt Count 110 L MPV 10.6 Immature Gran % (Auto) 0.2 Neut % (Auto) 77.2 H Lymph % (Auto) 11.5 L Bleckley % (Auto) 10.9 Eos % (Auto) 0.0 Baso % (Auto) 0.2 Lymph # (Auto) 0.6 L Bleckley # (Auto) 0.6 Eos # (Auto) 0.0 Baso # (Auto) 0.0 Abs Immat Gran (auto) 0.01 Absolute Neuts (auto) 4.0 Absolute Nucleated RBC 0.000 Nucleated RBC % (auto) 0.0 Lactic Acid 1.2 Microbiology Microbiology Results: Microbiology 11/02/20 10:47 Blood Culture - Preliminary Blood - Venous No growth after 48 hours. 11/02/20 09:57 Blood Culture - Preliminary Blood - Venous No growth after 48 hours. Assessment and Plan (1) COVID-19: Status: Acute (2) Morbid obesity with BMI of 50.0-59.9, adult: Status: Acute Assessment and Plan: This is a 54 yo M with morbidly obese male with chronic back pain who presented with respiratory symptoms. Found to be hypoxic and COVID 19+. Admitted for Rx 1 Acute resp failure with hypoxia due to COVID 19 O2 stable, 90-91 on RA but does dip down -- will test for home o2 if remains this way on day of d/c spiked temp over night but now resolved. will observe 24 hours and if no furher temp -- d/c home anticpated tomorrow 2. Morbid obesity consider outpatient bariatric referral diet and weight loss education provided 3 thrombocytopenia suspected due to covid dispo: anticipate d/c home tomorrow if not further fevers Quality Stroke Does the patient have a stroke diagnosis?: No VTE Prior VTE?: No VTE Risk Level:: Medical - moderate - high VTE Device Contraindication: Treatment Not Indicated VTE Drug Contraindication: N/A - Med Ordered
[2020-11-06] VITALS (9 sets, daily range): BP systolic 122–167; BP diastolic 63–106; PULSE 71–109; RESP 20; TEMP 36.1–38.4; O2SAT 85–94
[2020-11-06] MEDS: Acetaminophen 325 MG TABLET 650 MG PO (04:41)
[2020-11-06 04:48] LABS: Mean Corpuscular Hemoglobin 27.6 pg (27.0-33.0); PLT CLUMP 1
[2020-11-06 04:50] LABS: Hematocrit 48.1 % (42-52); Hemoglobin 15.8 g/dl (14.0-18.0); Mean Corpuscular HGB Conc 32.8 g/dl (31.0-36.0); Mean Corpuscular Volume 84.1 fL (80-98); Mean Platelet Volume 10.2 fL (9.4-12.4); Platelet Count 123 X10*3/uL (160-400); Red Blood Count 5.72 X10*6/uL (4.60-5.80); Red Cell Distribution Width 14.5 % (11.0-16.0)
[2020-11-06 04:58] LABS: Lactic Acid 1.2 mmol/L (0.5-2.0)
[2020-11-06 05:04] LABS: Anion Gap 15 (12-20); Blood Urea Nitrogen 20 mg/dL (9-16); Calcium 8.5 mg/dL (8.4-10.2); Carbon Dioxide 25 mmol/L (22-29); Chloride 100 mmol/L (96-108); Creatinine Clr Calc Pharmacy 178.5; Estimated Glomerular Filt Rate > 60; Glucose Random 122 mg/dL (60-115); Potassium 3.7 mmol/L (3.3-5.1); Sodium 136 mmol/L (135-145)
--- NOTE | 2020-11-06 05:26 | PC.NURSE ---
At 0300 pt had temp 101.1, hr 100-110s on tele. Blood culture 1/2 resulted gram positive cocci in clusters. Dr Stokes made aware. Repeat blood cultures and lactic ordered and completed. IV vanco and one time po tylenol ordered and administered. Pt denies pain/discomfort but moans frequently and yells out for help. Pt stated I don't want to be here, I want to go home today. Pt educated on use of call cornelius and the need for antibiotics. Pt continues to need frequent education on plan of care. Telesitter in room.
--- NOTE | 2020-11-06 08:19 | PHA.PROG ---
Admission Date/Time: November 02, 2020 12:26 Indication: Weight in k.509 kg Adjusted body weight in K.524 KG [place] body weight in K.2 KG Obesity Dosing Indication % IBW: Serum Creatinine - Last 168 Hours 11/02/20 11/03/20 11/06/20 09:57 08:27 04:41 Creatinine 0.90 0.78 0.82 Estimated CrCl and GFR - Last 168 Hours 11/02/20 11/03/20 11/06/20 09:57 08:27 04:41 Estim Creat Clear Calc 162.7 187.7 178.5 Estimated GFR > 60 > 60 > 60 Vancomycin Loading Dose: 2000 MG X1DOSE IN ED Current Vancomycin Dosing Regimen: Recommending 1250 mg q12h Vancomycin Monitoring using AUC goal of 400 - 600 range with trough as surrogate marker: resulting in an estimated AUC of 555 with a predicted trough of 15.5. Date and Time for next Vancomycin Level to be drawn: 11/07 @ 1600 Pharmacist Comments on Vancomycin Plan: Will continue to monitor the patients renal function. Vancomycin dosing will take advantage of [employer] as a clinical decision support tool that uses Bayesian modeling to calculate individual patient's pharmacokinetic parameters and forecast the patient's drug concentration time course with the target goal AUC 24 range of 400 - 600 mg/L/hr.
[2020-11-06] MEDS: oxyCODONE HCl Immed Release 5 MG TABLET 10 MG PO ×3 (09:34→20:50)
[2020-11-06] MEDS: Rivaroxaban 10 MG TABLET PO (09:35)
[2020-11-06] MEDS: dexAMETHasone sod phosphate 4 MG/ML VIAL 6 MG IVPUSH (09:35)
[2020-11-06 09:49] LABS: C Reactive Protein 9.18 mg/dL (< or = 0.50)
[2020-11-06 10:18] LABS: Procalcitonin 0.08 ng/mL
--- NOTE | 2020-11-06 12:10 | MHC.CM.PN ---
Per ROUNDS discussion, Patient is not yet medically cleared for dc (IV Decadron, IV Vanco, Fever/ID W/U in progress). Home is the goal for dc and CM will follow for possible need to adjust the dc plan.
--- NOTE | 2020-11-06 13:00 | HO.PM.IMPN ---
Subjective Subjective Date of Service: 11/06/20 Interval History: Seen and examined this morning Follow-up for COVID-19 pneumonia Had fever up to 101 overnight Denies shortness of breath, ongoing cough Review of Systems Review of Systems: Yes all other systems are reviewed and are negative Constitutional Constitutional: Denies chills and Denies fever(s) Cardiovascular Cardiovascular: Denies chest pain Respiratory Respiratory: Denies cough Gastrointestinal Gastrointestinal: Denies abdominal pain Physical Exam Vital Signs: Vital Signs: Last Vital Signs Temp 99.9 F 11/06/20 11:27 Pulse 90 11/06/20 11:27 Resp 20 11/06/20 11:27 BP 135/67 11/06/20 11:27 Pulse Ox 85 L 11/06/20 11:27 Body Mass Index 53.8 Const: Nutritional Appearance: obese Orientation/consciousness: patient oriented x3 HENMT: Head: Yes normocephalic and Yes atraumatic Eyes: Sclerae: sclerae normal Chest: Chest palpation & inspection: normal inspection of the chest Resp: Effort & Inspection: normal respiratory effort and no respiratory distress Cardio: Rate: regular rate Rhythm: regular rhythm GI: Palpation (GI): Soft to palpation and nontender Neuro: General: patient oriented x3 Cranial nerves: Yes CN's II-XII intact bilaterally and Yes Bilaterally intact EOM present Extrem: General: Yes normal to inspection Objective Data Active Medications Acetaminophen (Acetaminophen 325 Mg Tablet) 650 mg PO Q6H PRN PRN Reason: Pain, Mild (Pain Scale 1-3) Last Admin: 11/05/20 23:54 Dose: 650 mg Documented by: DAVE Cyclobenzaprine HCl (Cyclobenzaprine Hcl 5 Mg Tablet) 5 mg PO Q8H PRN PRN Reason: Spasms Last Admin: 11/05/20 15:56 Dose: 5 mg Documented by: ANTHONY-ASKEP Dexamethasone Sodium Phosphate (Dexamethasone Sod Phosphate 4 Mg/Ml Vial) 6 mg IVPUSH DAILY [facility] Last Admin: 11/06/20 09:35 Dose: 6 mg Documented by: DOBROB Gabapentin (Gabapentin 300 Mg Capsule) 300 mg PO TID PRN PRN Reason: pain Guaifenesin (Guaifenesin 200 Mg/10 Ml 10 Ml Liquid) 10 ml PO Q6H PRN PRN Reason: Cough Last Admin: 11/04/20 20:00 Dose: 10 ml Documented by: DAVE Vancomycin HCl 1,250 mg/ (Sodium Chloride) 250 mls @ 166.667 mls/hr IV Q12H [facility] Melatonin (Melatonin 3 Mg Tablet) 6 mg PO BEDTIME PRN PRN Reason: Insomnia Last Admin: 11/04/20 01:23 Dose: 6 mg Documented by: RANDA Oxycodone HCl (Oxycodone Hcl Immed Release 5 Mg Tablet) 10 mg PO TID [facility] Last Admin: 11/06/20 09:34 Dose: 10 mg Documented by: ÁNGEL Pharmacy Consult (Consult Rx Perform Med Rec) 1 each MISCELLANE ONCE PRN PRN Reason: Consult order Pharmacy Consult (Consult Rx Vancomycin Dosing) 1 each MISCELLANE DAILY PRN PRN Reason: Consult order Polyethylene Glycol (Polyethylene Glycol 3350 17 Gm Powd.Pack) 17 gm PO DAILY PRN PRN Reason: Constipation Rivaroxaban (Rivaroxaban 10 Mg Tablet) 10 mg PO DAILY [facility] Last Admin: 11/06/20 09:35 Dose: 10 mg Documented by: ÁNGEL Sodium Chloride (0.9 % Sodium Chloride Flush 3 Ml Syringe) 3 ml IVFLUSH QSHIFT [facility] Last Admin: 11/06/20 09:22 Dose: Not Given Documented by: ÁNGEL Non-Admin Reason: IV Running Zolpidem Tartrate (Zolpidem Tartrate 5 Mg Tablet) 5 mg PO BEDTIME PRN PRN Reason: Insomnia Last Admin: 11/04/20 19:59 Dose: 5 mg Documented by: DAVE Labs CBC & Chem 7: 11/06/20 04:41 11/06/20 04:41 Labs: Laboratory Results - last 24 hr 11/06/20 11/06/20 11/06/20 04:41 04:41 04:41 MCV 84.1 MCH 27.6 MCHC 32.8 RDW 14.5 Plt Count 123 L MPV 10.2 Absolute Nucleated RBC 0.000 Nucleated RBC % (auto) 0.0 Anion Gap 15 Estim Creat Clear Calc 178.5 Estimated GFR > 60 Random Glucose 122 H Lactic Acid 1.2 Calcium 8.5 C-Reactive Protein 9.18 H Procalcitonin 11/06/20 04:41 MCV MCH MCHC RDW Plt Count MPV Absolute Nucleated RBC Nucleated RBC % (auto) Anion Gap Estim Creat Clear Calc Estimated GFR Random Glucose Lactic Acid Calcium C-Reactive Protein Procalcitonin 0.08 Microbiology Microbiology Results: Microbiology 11/05/20 00:35 Blood Culture - Preliminary Blood - Venous Prelim: GPC Gram Stain only 11/05/20 00:41 Blood Culture - Preliminary Blood - Venous No growth after 24 hours. Assessment and Plan (1) Hypertension: Status: Acute (2) COVID-19: Status: Acute (3) Morbid obesity with BMI of 50.0-59.9, adult: Status: Acute Assessment and Plan: This is a 54 yo M with morbidly obese male with chronic back pain who presented with respiratory symptoms. Found to be hypoxic and COVID 19+ Acute resp failure with hypoxia due to COVID 19 O2 dropping to mid 80s on room air Recurrent fever overnight Chest x-ray showing worsening infiltrates Continue dexamethasone Obtain ID consult 1/2 blood cultures positive for Gram-positive cocci Likely contaminant Follow-up final culture results Morbid obesity consider outpatient bariatric referral diet and weight loss education provided thrombocytopenia suspected due to covid DVT prophylaxis-Xarelto Code status-full code Attending-Dr. Castellanos Quality Stroke Does the patient have a stroke diagnosis?: No VTE Prior VTE?: No VTE Risk Level:: Medical - moderate - high VTE Device Contraindication: Treatment Not Indicated VTE Drug Contraindication: N/A - Med Ordered
--- NOTE | 2020-11-06 14:01 | W.PM.IDCN ---
History of Present Illness Data of Consult Service Date: 11/06/20 Requesting physician: Johanna Dumont Primary Care Provider: Ericka Buckley MD [facility] Reason for consult: COVID He presents to hospital with shortness of breath as well as taste and smell perversions for under a week. He is agitated at this time and wishes to leave He is taking off oxygen and other equipment I am seeing him now with nurse Radha and he is 85% oxygen on room air. Review of Systems Review of Systems: Yes all other systems are reviewed and are negative [facility] Past Medical History Medical History (Updated 11/06/20 @ 14:19 by Patricia Major MD) Abdominal hernia Bacteremia Hernia Right hip pain Social History Social History Household Members: None Housing: Apartment Do you presently have visiting nurse or other home services: No Alcohol intake: never Patient Tobacco Use Status: Never used Tobacco e-Cigarette/Vaping Use: Never Used Use of substances other than those prescribed or required for medical reasons: No Currently Displaying Signs/Symptoms of Drug Intoxication Withdrawal: No Have you been hit, kicked, punched, or otherwise hurt by someone within the past year? If so, by whom?: No Do you feel safe in your current relationship?: No Current Relationship Is there a partner from a previous relationship who is making you feel unsafe now?: No Are you made to feel afraid or neglected: No Advance Directives: No Advance Directives Information Provided: No Do you have thoughts of harming others: None Do you have a plan to hurt others: No Plan Recently lost weight without trying: No Nutrition Risks: No Nutritional Risk service: No Current occupational status: disabled Meds Allergies Allergy/AdvReac Type Severity Reaction Status Date / Time No Known Allergies Allergy Verified 07/16/20 15:59 Active Medications: Current Medications Acetaminophen (Acetaminophen 325 Mg Tablet) 650 mg PO Q6H PRN PRN Reason: Pain, Mild (Pain Scale 1-3) Last Admin: 11/05/20 23:54 Dose: 650 mg Documented by: Cyclobenzaprine HCl (Cyclobenzaprine Hcl 5 Mg Tablet) 5 mg PO Q8H PRN PRN Reason: Spasms Last Admin: 11/05/20 15:56 Dose: 5 mg Documented by: Dexamethasone Sodium Phosphate (Dexamethasone Sod Phosphate 4 Mg/Ml Vial) 6 mg IVPUSH DAILY [facility] Last Admin: 11/06/20 09:35 Dose: 6 mg Documented by: Gabapentin (Gabapentin 300 Mg Capsule) 300 mg PO TID PRN PRN Reason: pain Guaifenesin (Guaifenesin 200 Mg/10 Ml 10 Ml Liquid) 10 ml PO Q6H PRN PRN Reason: Cough Last Admin: 11/04/20 20:00 Dose: 10 ml Documented by: Vancomycin HCl 1,250 mg/ (Sodium Chloride) 250 mls @ 166.667 mls/hr IV Q12H [facility] Melatonin (Melatonin 3 Mg Tablet) 6 mg PO BEDTIME PRN PRN Reason: Insomnia Last Admin: 11/04/20 01:23 Dose: 6 mg Documented by: Oxycodone HCl (Oxycodone Hcl Immed Release 5 Mg Tablet) 10 mg PO TID [facility] Last Admin: 11/06/20 09:34 Dose: 10 mg Documented by: Pharmacy Consult (Consult Rx Perform Med Rec) 1 each MISCELLANE ONCE PRN PRN Reason: Consult order Pharmacy Consult (Consult Rx Vancomycin Dosing) 1 each MISCELLANE DAILY PRN PRN Reason: Consult order Polyethylene Glycol (Polyethylene Glycol 3350 17 Gm Powd.Pack) 17 gm PO DAILY PRN PRN Reason: Constipation Rivaroxaban (Rivaroxaban 10 Mg Tablet) 10 mg PO DAILY [facility] Last Admin: 11/06/20 09:35 Dose: 10 mg Documented by: Sodium Chloride (0.9 % Sodium Chloride Flush 3 Ml Syringe) 3 ml IVFLUSH QSHIFT [facility] Last Admin: 11/06/20 09:22 Dose: Not Given Documented by: Zolpidem Tartrate (Zolpidem Tartrate 5 Mg Tablet) 5 mg PO BEDTIME PRN PRN Reason: Insomnia Last Admin: 11/04/20 19:59 Dose: 5 mg Documented by: Home Medications Medication Instructions Recorded Confirmed Last Taken Type cyclobenzaprine 5 mg tablet 5 mg PO Q8H PRN 05/20/20 11/02/20 05/19/20 History gabapentin 300 mg capsule 300 mg PO TID PRN 05/20/20 11/02/20 05/19/20 History Physical Exam Vital Signs: Vital Signs: Last Vital Signs Temp 99.9 F 11/06/20 11:27 Pulse 90 11/06/20 11:27 Resp 20 11/06/20 11:27 BP 135/67 11/06/20 11:27 Pulse Ox 85 L 11/06/20 11:27 Body Mass Index 53.8 Const: General: ill appearing Nutritional Appearance: overweight Eyes: General: appearance normal, both eyes and all related structures Resp: Effort & Inspection: labored Cardio: Rate: regular rate Rhythm: regular rhythm GI: Palpation (GI): nontender Skin: General skin exam: no rashes or lesions noted Neuro: Other: possibly encephalopathic versus agitation due to COVID diagnosis Extrem: General: Yes normal to inspection Results Labs CBC & Chem 7: 11/06/20 04:41 11/06/20 04:41 Labs: Short CBC 11/06/20 Range/Units 04:41 WBC 6.0 (4.8-10.8) X10*3/uL Hgb 15.8 (14.0-18.0) g/dl Hct 48.1 (42-52) % Plt Count 123 L (160-400) X10*3/uL BMP 11/06/20 04:41 Sodium 136 Potassium 3.7 Chloride 100 Carbon Dioxide 25 BUN 20 H Creatinine 0.82 Calcium 8.5 Microbiology Microbiology Results: Microbiology 11/05/20 00:35 Blood - Venous Blood Culture - Preliminary Prelim: GPC Gram Stain only 11/05/20 00:41 Blood - Venous Blood Culture - Preliminary No growth after 24 hours. 11/02/20 10:47 Blood - Venous Blood Culture - Preliminary No growth after 48 hours. 11/02/20 09:57 Blood - Venous Blood Culture - Preliminary No growth after 48 hours. Assessment and Plan (1) COVID-19: Status: Acute Acute COVID with symptoms days to a week He is fairly ill with hypoxia. He is trying to leave and I am not sure if this is encephalopathy due to hypoxia or if patient wishes to leave and take alternative medication for COVID outside the hospital He is unvaccinated Suggest 1.Oxygen to maintain saturation over 93% 2.Dexamethasone 6 mg IV or po daily for 10 days 3.Remdesivir 200 mg now and then 100 mg daily for four days 4.Enoxaparin 40 mg bid (BMI over 35 or other anticoagulant geared to high BMI. 5.If leaves would have patient leave AMA as ongoing hospital care is required due to degree of illness (2) Morbid obesity with BMI of 50.0-59.9, adult: Status: Acute (3) Bacteremia: Status: Acute 1/2 positive gram positive cocci This is likely contaminant and has had dose of Vancomycin Would stop further Vancomycin at this time
[2020-11-06] MEDS: Remdesivir 200 MG in 0.9 % Sodium Chloride 210 ML 105 MG IV (15:30)
[2020-11-06] MEDS: 0.9 % Sodium Chloride Flush 3 ML SYRINGE IVFLUSH ×2 (15:31→20:53)
[2020-11-06] MEDS: Zolpidem Tartrate 5 MG TABLET PO (20:50)
[2020-11-07 03:59] VITALS: BP 134/76; PULSE 75; RESP 17; TEMP 37; O2SAT 90
--- NOTE | 2020-11-07 04:07 | PC.NURSE ---
Patient difficult to educate regarding progression of covid. This RN tried to educate pt about length of hospital stay due to oxygen demands. Pt proceeds to ignore this RN and pretends to be sleeping, once done talking he will open one eye and look at me and ask the same question again. He continues to play with o2 probe and rip leads off, requiring redirection. Increased o2 from 5L to 6L NC due to him satting at 88% at rest. On 6L he is satting 92-94%.
[2020-11-07 08:00] VITALS: BP 161/89; PULSE 81; RESP 24; TEMP 38.5; O2SAT 90
--- NOTE | 2020-11-07 08:47 | PC.NURSE ---
PT REFUSING BED ALARM, CAMERA IN ROOM. PT NOT RINGING TO GET UP, CAMERA ROOM STATS TO LET STAFF KNOW. ATTEMPTS MADE TO EDUCATE PT ON SAFETY, PT CONTINUES TO GET UP, WILL CONTINUE TO MONITOR
[2020-11-07] MEDS: Acetaminophen 325 MG TABLET 650 MG PO ×2 (08:55→23:27)
[2020-11-07] MEDS: methylPREDNISolone Sod Succ 125 MG/2 ML VIAL 80 MG IVPUSH ×2 (08:55→20:05)
[2020-11-07] MEDS: Cholecalciferol (Vitamin D3) 25 MCG TABLET 50 MCG PO (08:55)
[2020-11-07] MEDS: Ascorbic Acid 500 MG TABLET PO (08:55)
[2020-11-07] MEDS: Famotidine 20 MG TABLET 40 MG PO ×2 (08:56→20:06)
[2020-11-07] MEDS: Enoxaparin Sodium 40 MG/0.4 ML SYRINGE SUBCUT ×2 (08:56→20:05)
[2020-11-07] MEDS: Zinc Sulfate 220 MG CAPSULE PO (08:56)
[2020-11-07] MEDS: 0.9 % Sodium Chloride Flush 3 ML SYRINGE IVFLUSH ×3 (08:56→20:06)
--- NOTE | 2020-11-07 11:16 | HO.PM.IMPN ---
Subjective Subjective Date of Service: 11/07/20 <KHOA Hill - Last Filed: 11/07/20 11:29> 11/07/20 <Mora Lester MD - Last Filed: 11/07/20 16:20> Interval History: Seen and examined this morning Follow-up for COVID-19 pneumonia Febrile again this morning Increasing oxygen requirements since yesterday afternoon Seen by ID and started on Remdesivir yesterday Not cooperative with nurses overnight Patient awake and alert denies shortness of breath, chest pain. Intermittent coughing continues <KHOA Hill - Last Filed: 11/07/20 11:29> Physical Exam Vital Signs: Vital Signs: Last Vital Signs Temp 101.3 F H 11/07/20 08:00 Pulse 81 11/07/20 08:00 Resp 24 H 11/07/20 08:00 BP 161/89 H 11/07/20 08:00 Pulse Ox 90 L 11/07/20 08:00 Body Mass Index 53.8 <KHOA Hill - Last Filed: 11/07/20 11:29> Const: Nutritional Appearance: obese <KHOA Hill - Last Filed: 11/07/20 11:29> Orientation/consciousness: patient oriented x3 <KHOA Hill Last Filed: 11/07/20 11:29> HENMT: Head: Yes normocephalic and Yes atraumatic <KHOA Hill - Last Filed: 11/07/20 11:29> Eyes: Sclerae: sclerae normal <KHOA Hill Last Filed: 11/07/20 11:29> Chest: Chest palpation & inspection: normal inspection of the chest <KHOA Hill Last Filed: 11/07/20 11:29> Resp: Effort & Inspection: Actively coughing, no respiratory distress and tachypneic <KHOA Hill Last Filed: 11/07/20 11:29> Auscultation: no rhonchi and no wheezes <KHOA Hill Last Filed: 11/07/20 11:29> Cardio: Rate: regular rate <KHOA Hill Last Filed: 11/07/20 11:29> Rhythm: regular rhythm <KHOA Hill - Last Filed: 11/07/20 11:29> GI: Palpation (GI): Soft to palpation and nontender <KHOA Hill - Last Filed: 11/07/20 11:29> Neuro: General: patient oriented x3 <KHOA Hill - Last Filed: 11/07/20 11:29> Cranial nerves: Yes CN's II-XII intact bilaterally and Yes Bilaterally intact EOM present <KHOA Hill - Last Filed: 11/07/20 11:29> Extrem: Other: no leg edema <KHOA Hill - Last Filed: 11/07/20 11:29> Objective Data Active Medications Acetaminophen (Acetaminophen 325 Mg Tablet) 650 mg PO Q6H PRN PRN Reason: Pain, Mild (Pain Scale 1-3) Last Admin: 11/07/20 08:55 Dose: 650 mg Documented by: DAGOBERTO Albuterol Sulfate (Albuterol Sulfate 90 Mcg 8 Gm Inhaler) 2 puff INHALE RQ6H PRN PRN Reason: Shortness of Breath Ascorbic Acid (Ascorbic Acid 500 Mg Tablet) 500 mg PO DAILY [facility] Last Admin: 11/07/20 08:55 Dose: 500 mg Documented by: DAGOBERTO Cyclobenzaprine HCl (Cyclobenzaprine Hcl 5 Mg Tablet) 5 mg PO Q8H PRN PRN Reason: Spasms Last Admin: 11/05/20 15:56 Dose: 5 mg Documented by: LUIS Enoxaparin Sodium (Enoxaparin Sodium 40 Mg/0.4 Ml Syringe) 40 mg SUBCUT Q12H [facility] Last Admin: 11/07/20 08:56 Dose: 40 mg Documented by: DAGOBERTO Famotidine (Famotidine 20 Mg Tablet) 40 mg PO BID [facility] Last Admin: 11/07/20 08:56 Dose: 40 mg Documented by: DAGOBERTO Gabapentin (Gabapentin 300 Mg Capsule) 300 mg PO TID PRN PRN Reason: pain Guaifenesin (Guaifenesin 200 Mg/10 Ml 10 Ml Liquid) 10 ml PO Q6H PRN PRN Reason: Cough Last Admin: 11/04/20 20:00 Dose: 10 ml Documented by: DAVE Remdesivir 100 mg/ Sodium (Chloride) 230 mls @ 115 mls/hr IV Q24H [facility] Stop: 11/10/20 16:59 Doxycycline Hyclate 100 mg/ (Sodium Chloride) 250 mls @ 166.67 mls/hr IV Q12H [facility] Melatonin (Melatonin 3 Mg Tablet) 6 mg PO BEDTIME PRN PRN Reason: Insomnia Last Admin: 11/04/20 01:23 Dose: 6 mg Documented by: RANDA Methylprednisolone Sodium Succinate (Methylprednisolone Sod Succ 125 Mg/2 Ml Vial) 80 mg IVPUSH Q12H [facility] Last Admin: 11/07/20 08:55 Dose: 80 mg Documented by: DAGOBERTO Oxycodone HCl (Oxycodone Hcl Immed Release 5 Mg Tablet) 10 mg PO TID PRN PRN Reason: Pain, Severe (Pain Scale 7-10) Pharmacy Consult (Consult Rx Perform Med Rec) 1 each MISCELLANE ONCE PRN PRN Reason: Consult order Pharmacy Consult (Consult Rx Vancomycin Dosing) 1 each MISCELLANE DAILY PRN PRN Reason: Consult order Polyethylene Glycol (Polyethylene Glycol 3350 17 Gm Powd.Pack) 17 gm PO DAILY PRN PRN Reason: Constipation Sodium Chloride (0.9 % Sodium Chloride Flush 3 Ml Syringe) 3 ml IVFLUSH QSHIFT [facility] Last Admin: 11/07/20 08:56 Dose: 3 ml Documented by: DAGOBERTO Vitamin D (Cholecalciferol (Vitamin D3) 25 Mcg Tablet) 50 mcg PO DAILY [facility] Last Admin: 11/07/20 08:55 Dose: 50 mcg Documented by: DAGOBERTO Zinc Sulfate (Zinc Sulfate 220 Mg Capsule) 220 mg PO DAILY [facility] Last Admin: 11/07/20 08:56 Dose: 220 mg Documented by: DAGOBERTO Zolpidem Tartrate (Zolpidem Tartrate 5 Mg Tablet) 5 mg PO BEDTIME PRN PRN Reason: Insomnia Last Admin: 11/06/20 20:50 Dose: 5 mg Documented by: MILADYS <KHOA Hill - Last Filed: 11/07/20 11:29> Labs CBC & Chem 7: : 11/06/20 04:41 11/06/20 04:41 <KHOA Hill - Last Filed: 11/07/20 11:29> Microbiology Microbiology Results: Microbiology 11/05/20 00:41 Blood Culture - Preliminary Blood - Venous No growth after 48 hours. 11/06/20 04:41 Blood Culture - Preliminary Blood - Venous No growth after 24 hours. 11/06/20 04:41 Blood Culture - Preliminary Blood - Venous No growth after 24 hours. 11/05/20 00:35 Blood Culture - Preliminary Blood - Venous Prelim: GPC Gram Stain only <KHOA Hill - Last Filed: 11/07/20 11:29> Assessment and Plan (1) Morbid obesity with BMI of 50.0-59.9, adult: Status: Acute <KHOA Hill - Last Filed: 11/07/20 11:29> (2) COVID-19: Status: Acute <KHOA Hill - Last Filed: 11/07/20 11:29> (3) Acute respiratory failure with hypoxia: Status: Acute <KHOA Hill - Last Filed: 11/07/20 11:29> Assessment and Plan: This is a 54 yo M with morbidly obese male with chronic back pain who presented with respiratory symptoms. Found to be hypoxic and COVID 19+ Acute resp failure with hypoxia due to COVID 19 Unvaccinated O2 dropping to mid 80s, oxygen requirement increasing Recurrent fever this morning Chest x-ray from 11/06 showing worsening infiltrates Seen by ID, started on remdesivir 11/06 Change dexamethasone to solu-medrol Incentive spirometry Doxycycline added Trend inflammatory markers 1/2 blood cultures coag negative staph Likely contaminant Repeat blood cultures negative today No antibiotics indicated Morbid obesity BMI 53.9. Body habitus likely contributing to hypoxia consider outpatient bariatric referral diet and weight loss education provided May need outpatient sleep study to evaluate for EDWIN thrombocytopenia suspected due to covid platelets stable Chronic pain continue prn pain medication, flexeril, gabapentin DVT prophylaxis-changed to Lovenox BID per ID rec Code status-full code Attending-Dr. Lester <KHOA Hill - Last Filed: 11/07/20 11:29> Quality Stroke Does the patient have a stroke diagnosis?: No <KHOA Hill - Last Filed: 11/07/20 11:29> VTE Prior VTE?: No <KHOA Hill - Last Filed: 11/07/20 11:29> VTE Risk Level:: Medical - moderate - high <KHOA Hill - Last Filed: 11/07/20 11:29> VTE Device Contraindication: Treatment Not Indicated <KHOA Hill - Last Filed: 11/07/20 11:29> VTE Drug Contraindication: N/A - Med Ordered <KHOA Hill - Last Filed: 11/07/20 11:29>
[2020-11-07] MEDS: Doxycycline Hyclate 100 MG in 0.9 % Sodium Chloride 250 ML 166.67 MG IV ×2 (11:22→23:26)
[2020-11-07 12:00] VITALS: BP 123/68; PULSE 71; RESP 22; TEMP 36.6; O2SAT 91
[2020-11-07 15:09] VITALS: BP 133/76; PULSE 67; RESP 18; TEMP 36.8; O2SAT 91
[2020-11-07] MEDS: Remdesivir 100 MG in 0.9 % Sodium Chloride 230 ML 115 MG IV (15:22)
[2020-11-07] MEDS: polyethylene glycoL 3350 17 GM POWD.PACK PO (15:25)
[2020-11-07 17:02] LABS: Vancomycin Trough < 3.0 mcg/mL (10.0-20.0)
[2020-11-07 19:11] VITALS: BP 138/86; PULSE 74; RESP 18; TEMP 36.8; O2SAT 90
[2020-11-07] MEDS: oxyCODONE HCl Immed Release 5 MG TABLET PO (20:06)
[2020-11-07] MEDS: Melatonin 3 MG TABLET 6 MG PO (23:27)
[2020-11-07] MEDS: Cyclobenzaprine HCl 5 MG TABLET PO (23:28)
[2020-11-08] VITALS (9 sets, daily range): BP systolic 122–155; BP diastolic 77–91; PULSE 62–80; RESP 18–26; TEMP 36.2–36.8; O2SAT 88–95
[2020-11-08 07:32] LABS: Hematocrit 48.3 % (42-52); Hemoglobin 15.5 g/dl (14.0-18.0); Mean Corpuscular HGB Conc 32.1 g/dl (31.0-36.0); Mean Corpuscular Hemoglobin 27.1 pg (27.0-33.0); Mean Corpuscular Volume 84.3 fL (80-98); Mean Platelet Volume 10.8 fL (9.4-12.4); Platelet Count 172 X10*3/uL (160-400); Red Blood Count 5.73 X10*6/uL (4.60-5.80); Red Cell Distribution Width 14.4 % (11.0-16.0)
[2020-11-08] MEDS: Zinc Sulfate 220 MG CAPSULE PO (07:58)
[2020-11-08] MEDS: Famotidine 20 MG TABLET 40 MG PO ×2 (07:58→20:32)
[2020-11-08] MEDS: Ascorbic Acid 500 MG TABLET PO (07:59)
[2020-11-08] MEDS: 0.9 % Sodium Chloride Flush 3 ML SYRINGE IVFLUSH ×3 (07:59→20:32)
[2020-11-08] MEDS: Cholecalciferol (Vitamin D3) 25 MCG TABLET 50 MCG PO (07:59)
[2020-11-08] MEDS: methylPREDNISolone Sod Succ 125 MG/2 ML VIAL 80 MG IVPUSH ×2 (07:59→20:31)
[2020-11-08 08:03] LABS: Anion Gap 16 (12-20); Blood Urea Nitrogen 20 mg/dL (9-16); Calcium 8.5 mg/dL (8.4-10.2); Carbon Dioxide 25 mmol/L (22-29); Chloride 104 mmol/L (96-108); Creatinine Clr Calc Pharmacy 209.2; Estimated Glomerular Filt Rate > 60; Glucose Random 152 mg/dL (60-115); Potassium 3.9 mmol/L (3.3-5.1); Sodium 141 mmol/L (135-145)
[2020-11-08] MEDS: Doxycycline Hyclate 100 MG in 0.9 % Sodium Chloride 250 ML 166.67 MG IV ×2 (10:29→22:36)
--- NOTE | 2020-11-08 14:06 | HO.PM.IMPN ---
Subjective Subjective Date of Service: 11/08/20 <KHOA Hill - Last Filed: 11/08/20 14:12> 11/08/20 <Mora Lester MD - Last Filed: 11/08/20 18:31> Interval History: Seen and examined this morning Follow-up for COVID-19 pneumonia Oxygen requirement is decreasing Patient denies any shortness of breath. He reports that his cough is improving Argumentative with nurses regarding care <KHOA Hill - Last Filed: 11/08/20 14:12> Review of Systems Review of Systems: Yes all other systems are reviewed and are negative <KHOA Hill - Last Filed: 11/08/20 14:12> Constitutional Constitutional: Denies chills and Denies fever(s) <KHOA Hill - Last Filed: 11/08/20 14:12> Cardiovascular Cardiovascular: Denies chest pain <KHOA Hill - Last Filed: 11/08/20 14:12> Gastrointestinal Gastrointestinal: Denies abdominal pain <KHOA Hlil - Last Filed: 11/08/20 14:12> Physical Exam Vital Signs: Vital Signs: Last Vital Signs Temp 97.7 F 11/08/20 11:35 Pulse 62 11/08/20 11:35 Resp 24 H 11/08/20 11:35 BP 152/77 H 11/08/20 11:35 Pulse Ox 94 11/08/20 11:35 Body Mass Index 53.8 <KHOA Hill - Last Filed: 11/08/20 14:12> Const: General: comfortable, alert and awake <KHOA Hill - Last Filed: 11/08/20 14:12> Nutritional Appearance: obese <KHOA Hill - Last Filed: 11/08/20 14:12> Orientation/consciousness: patient oriented x3 <KHOA Hill Last Filed: 11/08/20 14:12> HENMT: Head: Yes normocephalic and Yes atraumatic <KHOA Hill Last Filed: 11/08/20 14:12> Eyes: Sclerae: sclerae normal <KHOA Hill - Last Filed: 11/08/20 14:12> Pupils: Equal, round and reactive pupils present <KHOA Hill - Last Filed: 11/08/20 14:12> Chest: Chest palpation & inspection: normal inspection of the chest <KHOA Hill - Last Filed: 11/08/20 14:12> Resp: Effort & Inspection: Actively coughing, no respiratory distress and tachypneic <KHOA Hill - Last Filed: 11/08/20 14:12> Auscultation: no rhonchi and no wheezes <KHOA Hill - Last Filed: 11/08/20 14:12> Cardio: Rate: regular rate <KHOA Hill - Last Filed: 11/08/20 14:12> Rhythm: regular rhythm <KHOA Hill - Last Filed: 11/08/20 14:12> GI: Palpation (GI): Soft to palpation and nontender <KHOA Hill - Last Filed: 11/08/20 14:12> Neuro: General: patient oriented x3 <KHOA Hill - Last Filed: 11/08/20 14:12> Cranial nerves: Yes CN's II-XII intact bilaterally, Yes Equal, round and reactive pupils present and Yes Bilaterally intact EOM present <KHOA Hill - Last Filed: 11/08/20 14:12> Extrem: Other: no leg edema <KHOA Hill - Last Filed: 11/08/20 14:12> General: Yes normal to inspection <KHOA Hill - Last Filed: 11/08/20 14:12> Objective Data Active Medications Acetaminophen (Acetaminophen 325 Mg Tablet) 650 mg PO Q6H PRN PRN Reason: Pain, Mild (Pain Scale 1-3) Last Admin: 11/07/20 23:27 Dose: 650 mg Documented by: HO.LABELLN Albuterol Sulfate (Albuterol Sulfate 90 Mcg 8 Gm Inhaler) 2 puff INHALE RQ6H PRN PRN Reason: Shortness of Breath Ascorbic Acid (Ascorbic Acid 500 Mg Tablet) 500 mg PO DAILY [facility] Last Admin: 11/08/20 07:59 Dose: 500 mg Documented by: CORNELIA Cyclobenzaprine HCl (Cyclobenzaprine Hcl 5 Mg Tablet) 5 mg PO Q8H PRN PRN Reason: Spasms Last Admin: 11/07/20 23:28 Dose: 5 mg Documented by: RANDA Enoxaparin Sodium (Enoxaparin Sodium 40 Mg/0.4 Ml Syringe) 40 mg SUBCUT Q12H [facility] Last Admin: 11/08/20 08:17 Dose: Not Given Documented by: CORNELIA Non-Admin Reason: Patient Refused Famotidine (Famotidine 20 Mg Tablet) 40 mg PO BID [facility] Last Admin: 11/08/20 07:58 Dose: 40 mg Documented by: CORNELIA Gabapentin (Gabapentin 300 Mg Capsule) 300 mg PO TID PRN PRN Reason: pain Guaifenesin (Guaifenesin 200 Mg/10 Ml 10 Ml Liquid) 10 ml PO Q6H PRN PRN Reason: Cough Last Admin: 11/04/20 20:00 Dose: 10 ml Documented by: DAVE Remdesivir 100 mg/ Sodium (Chloride) 230 mls @ 115 mls/hr IV Q24H [facility] Stop: 11/10/20 16:59 Last Infusion: 11/07/20 17:22 Dose: 0 mls/hr Documented by: DAGOBERTO Doxycycline Hyclate 100 mg/ (Sodium Chloride) 250 mls @ 166.67 mls/hr IV Q12H [facility] Last Infusion: 11/08/20 12:12 Dose: 0 mls/hr Documented by: CORNELIA Melatonin (Melatonin 3 Mg Tablet) 6 mg PO BEDTIME PRN PRN Reason: Insomnia Last Admin: 11/07/20 23:27 Dose: 6 mg Documented by: RANDA Methylprednisolone Sodium Succinate (Methylprednisolone Sod Succ 125 Mg/2 Ml Vial) 80 mg IVPUSH Q12H [facility] Last Admin: 11/08/20 07:59 Dose: 80 mg Documented by: CORNELIA Oxycodone HCl (Oxycodone Hcl Immed Release 5 Mg Tablet) 5 mg PO Q6H PRN PRN Reason: Pain, Severe (Pain Scale 7-10) Last Admin: 11/07/20 20:06 Dose: 5 mg Documented by: RANDA Pharmacy Consult (Consult Rx Perform Med Rec) 1 each MISCELLANE ONCE PRN PRN Reason: Consult order Pharmacy Consult (Consult Rx Vancomycin Dosing) 1 each MISCELLANE DAILY PRN PRN Reason: Consult order Polyethylene Glycol (Polyethylene Glycol 3350 17 Gm Powd.Pack) 17 gm PO DAILY PRN PRN Reason: Constipation Last Admin: 11/07/20 15:25 Dose: 17 gm Documented by: DAGOBERTO Sodium Chloride (0.9 % Sodium Chloride Flush 3 Ml Syringe) 3 ml IVFLUSH QSHIFT [facility] Last Admin: 11/08/20 07:59 Dose: 3 ml Documented by: CORNELIA Vitamin D (Cholecalciferol (Vitamin D3) 25 Mcg Tablet) 50 mcg PO DAILY [facility] Last Admin: 11/08/20 07:59 Dose: 50 mcg Documented by: CORNELIA Zinc Sulfate (Zinc Sulfate 220 Mg Capsule) 220 mg PO DAILY [facility] Last Admin: 11/08/20 07:58 Dose: 220 mg Documented by: CORNELIA Zolpidem Tartrate (Zolpidem Tartrate 5 Mg Tablet) 5 mg PO BEDTIME PRN PRN Reason: Insomnia Last Admin: 11/06/20 20:50 Dose: 5 mg Documented by: MILADYS <KHOA Hill - Last Filed: 11/08/20 14:12> Labs CBC & Chem 7: : 11/08/20 06:50 11/08/20 06:50 <KHOA Hill - Last Filed: 11/08/20 14:12> Labs: Laboratory Results - last 24 hr 11/07/20 11/08/20 11/08/20 16:16 06:50 06:50 MCV 84.3 MCH 27.1 MCHC 32.1 RDW 14.4 Plt Count 172 D MPV 10.8 Absolute Nucleated RBC 0.000 Nucleated RBC % (auto) 0.0 Anion Gap 16 Estim Creat Clear Calc 209.2 Estimated GFR > 60 Random Glucose 152 H Calcium 8.5 C-Reactive Protein 10.80 H Vancomycin Trough < 3.0 L <KHOA Hill - Last Filed: 11/08/20 14:12> Microbiology Microbiology Results: Microbiology 11/06/20 04:41 Blood Culture - Preliminary Blood - Venous No growth after 48 hours. 11/06/20 04:41 Blood Culture - Preliminary Blood - Venous No growth after 48 hours. 11/02/20 10:47 Blood Culture - Final Blood - Venous No growth after 5 days. 11/02/20 09:57 Blood Culture - Final Blood - Venous No growth after 5 days. 11/05/20 00:35 Blood Culture - Final Blood - Venous Coag negative Staphylococcus <KHOA Hill - Last Filed: 11/08/20 14:12> Assessment and Plan (1) Acute respiratory failure with hypoxia: Status: Acute <KHOA Hill - Last Filed: 11/08/20 14:12> (2) COVID-19: Status: Acute <KHOA Hill - Last Filed: 11/08/20 14:12> (3) Morbid obesity with BMI of 50.0-59.9, adult: Status: Acute <KHOA Hill - Last Filed: 11/08/20 14:12> Assessment and Plan: This is a 54 yo M with morbidly obese male with chronic back pain who presented with respiratory symptoms. Found to be hypoxic and COVID 19+ Acute resp failure with hypoxia due to COVID 19 Unvaccinated Oxygen requirement stable today at rest, but still desaturates with movement/lying flat. will wean o2 as tolerated Afebrile since 11/07 am Chest x-ray from 11/06 showing worsening infiltrates Seen by ID, started on remdesivir 11/06 Initially started on dexamethasone,changed to solu-medrol 11/07 Incentive spirometry Doxycycline added 11/07 CRP trending up slightly today 02/14 blood cultures coag negative staph Likely contaminant Repeat blood cultures from 11/06 negative No antibiotics indicated Morbid obesity BMI 53.9. Body habitus likely contributing to hypoxia consider outpatient bariatric referral diet and weight loss education provided outpatient sleep study to evaluate for EDWIN thrombocytopenia suspected due to covid Improved. Chronic pain continue prn pain medication, flexeril, gabapentin DVT prophylaxis-changed to Lovenox BID per ID rec Code status-full code Attending-Dr. Lester <KHOA Hill - Last Filed: 11/08/20 14:12> Quality Stroke Does the patient have a stroke diagnosis?: No <KHOA Hill - Last Filed: 11/08/20 14:12> VTE Prior VTE?: No <KHOA Hill - Last Filed: 11/08/20 14:12> VTE Risk Level:: Medical - moderate - high <KHOA Hill - Last Filed: 11/08/20 14:12> VTE Device Contraindication: Treatment Not Indicated <KHOA Hill - Last Filed: 11/08/20 14:12> VTE Drug Contraindication: N/A - Med Ordered <KHOA Hill - Last Filed: 11/08/20 14:12>
[2020-11-08] MEDS: Remdesivir 100 MG in 0.9 % Sodium Chloride 230 ML 115 MG IV (14:49)
[2020-11-08] MEDS: Enoxaparin Sodium 40 MG/0.4 ML SYRINGE SUBCUT (20:31)
[2020-11-08] MEDS: Melatonin 3 MG TABLET 6 MG PO (22:36)
[2020-11-08] MEDS: Cyclobenzaprine HCl 5 MG TABLET PO (22:36)
[2020-11-09 03:45] VITALS: BP 164/77; PULSE 60; RESP 20; TEMP 36.5; O2SAT 91
[2020-11-09 07:25] VITALS: BP 139/83; PULSE 65; RESP 18; TEMP 36.4; O2SAT 90
--- NOTE | 2020-11-09 07:32 | PC.NURSE ---
Scheduled Doxy for 22:00 not adm due to no IV access. Staff had difficulty establishing IV access which resulted in Doxy not being admin until 0300. Per overnight pharmacy, next scheduled dose of Doxy did not need to be changed.
[2020-11-09] MEDS: methylPREDNISolone Sod Succ 125 MG/2 ML VIAL 80 MG IVPUSH ×2 (10:13→21:57)
[2020-11-09] MEDS: Famotidine 20 MG TABLET 40 MG PO ×2 (10:13→21:57)
[2020-11-09] MEDS: Zinc Sulfate 220 MG CAPSULE PO (10:14)
[2020-11-09] MEDS: Cholecalciferol (Vitamin D3) 25 MCG TABLET 50 MCG PO (10:14)
[2020-11-09] MEDS: Ascorbic Acid 500 MG TABLET PO (10:14)
[2020-11-09] MEDS: 0.9 % Sodium Chloride Flush 3 ML SYRINGE IVFLUSH ×2 (10:15→17:00)
[2020-11-09] MEDS: Doxycycline Hyclate 100 MG in 0.9 % Sodium Chloride 250 ML 166.67 MG IV ×2 (10:16→21:57)
[2020-11-09 11:09] VITALS: BP 166/90; PULSE 60; RESP 18; TEMP 36.4; O2SAT 92
--- NOTE | 2020-11-09 12:54 | MHC.CM.PN ---
Per ROUNDS discussion, Patient is not yet medically cleared for dc ( IV Doxycycline, 15L O2, IV Solu Medrol, IV Remdesivir). Home is the goal for dc and CM will follow for possible need to adjust the dc plan.
--- NOTE | 2020-11-09 13:39 | HO.PM.IMPN ---
Subjective Subjective Date of Service: 11/09/20 Interval History: cc: sob interval history: agitated, frustrated, wants to go home, hypoxia disproportionate to sob Cardiovascular Cardiovascular: Reports no additional cardiovascular complaints Gastrointestinal Gastrointestinal: Reports no additional gastrointestinal complaints Physical Exam Vital Signs: Vital Signs: Last Vital Signs Temp 97.5 F 11/09/20 11:09 Pulse 60 11/09/20 11:09 Resp 18 11/09/20 11:09 BP 166/90 H 11/09/20 11:09 Pulse Ox 92 11/09/20 11:09 Body Mass Index 53.8 General: AO X 3, no acute distress Resp: diminished, no accessory muscles used CVS: S1,S2,RRR GI: soft, non tender, non distended Neuro: motor grossly intact, alert Psych: appropriate affect, appropriate insight Objective Data Active Medications Acetaminophen (Acetaminophen 325 Mg Tablet) 650 mg PO Q6H PRN PRN Reason: Pain, Mild (Pain Scale 1-3) Last Admin: 11/07/20 23:27 Dose: 650 mg Documented by: RANDA Albuterol Sulfate (Albuterol Sulfate 90 Mcg 8 Gm Inhaler) 2 puff INHALE RQ6H PRN PRN Reason: Shortness of Breath Ascorbic Acid (Ascorbic Acid 500 Mg Tablet) 500 mg PO DAILY [facility] Last Admin: 11/09/20 10:14 Dose: 500 mg Documented by: GREGG Cyclobenzaprine HCl (Cyclobenzaprine Hcl 5 Mg Tablet) 5 mg PO Q8H PRN PRN Reason: Spasms Last Admin: 11/08/20 22:36 Dose: 5 mg Documented by: RANDA Enoxaparin Sodium (Enoxaparin Sodium 40 Mg/0.4 Ml Syringe) 40 mg SUBCUT Q12H [facility] Last Admin: 11/09/20 10:28 Dose: Not Given Documented by: GREGG Non-Admin Reason: Patient Refused Famotidine (Famotidine 20 Mg Tablet) 40 mg PO BID [facility] Last Admin: 11/09/20 10:13 Dose: 40 mg Documented by: GREGG Gabapentin (Gabapentin 300 Mg Capsule) 300 mg PO TID PRN PRN Reason: pain Guaifenesin (Guaifenesin 200 Mg/10 Ml 10 Ml Liquid) 10 ml PO Q6H PRN PRN Reason: Cough Last Admin: 11/04/20 20:00 Dose: 10 ml Documented by: DAVE Remdesivir 100 mg/ Sodium (Chloride) 230 mls @ 115 mls/hr IV Q24H [facility] Stop: 11/10/20 16:59 Last Infusion: 11/08/20 17:41 Dose: 0 mls/hr Documented by: CORNELIA Doxycycline Hyclate 100 mg/ (Sodium Chloride) 250 mls @ 166.67 mls/hr IV Q12H [facility] Last Infusion: 11/09/20 11:59 Dose: 0 mls/hr Documented by: MROIAH Melatonin (Melatonin 3 Mg Tablet) 6 mg PO BEDTIME PRN PRN Reason: Insomnia Last Admin: 11/08/20 22:36 Dose: 6 mg Documented by: RANDA Methylprednisolone Sodium Succinate (Methylprednisolone Sod Succ 125 Mg/2 Ml Vial) 80 mg IVPUSH Q12H [facility] Last Admin: 11/09/20 10:13 Dose: 80 mg Documented by: GREGG Oxycodone HCl (Oxycodone Hcl Immed Release 5 Mg Tablet) 5 mg PO Q6H PRN PRN Reason: Pain, Severe (Pain Scale 7-10) Last Admin: 11/07/20 20:06 Dose: 5 mg Documented by: RANDA Pharmacy Consult (Consult Rx Perform Med Rec) 1 each MISCELLANE ONCE PRN PRN Reason: Consult order Pharmacy Consult (Consult Rx Vancomycin Dosing) 1 each MISCELLANE DAILY PRN PRN Reason: Consult order Polyethylene Glycol (Polyethylene Glycol 3350 17 Gm Powd.Pack) 17 gm PO DAILY PRN PRN Reason: Constipation Last Admin: 11/07/20 15:25 Dose: 17 gm Documented by: IGLCHAY Sodium Chloride (0.9 % Sodium Chloride Flush 3 Ml Syringe) 3 ml IVFLUSH QSHIFT [facility] Last Admin: 11/09/20 10:15 Dose: 3 ml Documented by: GREGG Vitamin D (Cholecalciferol (Vitamin D3) 25 Mcg Tablet) 50 mcg PO DAILY [facility] Last Admin: 11/09/20 10:14 Dose: 50 mcg Documented by: GREGG Zinc Sulfate (Zinc Sulfate 220 Mg Capsule) 220 mg PO DAILY [facility] Last Admin: 11/09/20 10:14 Dose: 220 mg Documented by: GREGG Zolpidem Tartrate (Zolpidem Tartrate 5 Mg Tablet) 5 mg PO BEDTIME PRN PRN Reason: Insomnia Last Admin: 11/06/20 20:50 Dose: 5 mg Documented by: MILADYS Labs CBC & Chem 7: 11/08/20 06:50 11/08/20 06:50 Assessment and Plan (1) Acute respiratory failure with hypoxia: Status: Acute (2) COVID-19: Status: Acute (3) Morbid obesity with BMI of 50.0-59.9, adult: Status: Acute Assessment and Plan: This is a 54 yo M with morbidly obese male with chronic back pain who presented with respiratory symptoms. Found to be hypoxic and COVID 19+ Acute resp failure with hypoxia due to COVID 19 Unvaccinated requiring 15L/min now Afebrile since 11/07 am Chest x-ray from 11/06 showing worsening infiltrates Seen by ID, started on remdesivir 11/06 Initially started on dexamethasone,changed to solu-medrol 11/07 Incentive spirometry Doxycycline added 11/07 CRP trending up, monitor 02/14 blood cultures coag negative staph Likely contaminant Repeat blood cultures from 11/06 negative No antibiotics indicated Morbid obesity BMI 53.9. Body habitus likely contributing to hypoxia consider outpatient bariatric referral diet and weight loss education provided outpatient sleep study to evaluate for EDWIN thrombocytopenia suspected due to covid Improved. Chronic pain continue prn pain medication, flexeril, gabapentin DVT prophylaxis-changed to Lovenox BID per ID rec Quality Stroke Does the patient have a stroke diagnosis?: No VTE Prior VTE?: No VTE Risk Level:: Medical - moderate - high VTE Device Contraindication: Treatment Not Indicated VTE Drug Contraindication: N/A - Med Ordered
[2020-11-09] MEDS: oxyCODONE HCl Immed Release 5 MG TABLET PO ×2 (14:45→21:57)
[2020-11-09] MEDS: Cyclobenzaprine HCl 5 MG TABLET PO (14:46)
[2020-11-09] MEDS: Remdesivir 100 MG in 0.9 % Sodium Chloride 230 ML 115 MG IV (15:04)
[2020-11-09 15:28] VITALS: BP 135/70; PULSE 64; RESP 20; TEMP 36.4; O2SAT 91
[2020-11-09 19:09] VITALS: BP 166/96; PULSE 70; RESP 20; TEMP 36.3; O2SAT 91
[2020-11-09] MEDS: Melatonin 3 MG TABLET 6 MG PO (21:57)
[2020-11-09] MEDS: Enoxaparin Sodium 40 MG/0.4 ML SYRINGE SUBCUT (23:46)
[2020-11-09 23:47] VITALS: BP 138/85; PULSE 68; RESP 18; TEMP 36.9; O2SAT 93
--- NOTE | 2020-11-10 01:04 | PC.NURSE ---
pt had outburst where he was yelling and insulting staff. Pt threw all items off of tray table onto floor. Security called, but never arrived. notified, no new orders placed.
[2020-11-10 04:00] VITALS: BP 160/82; PULSE 68; RESP 20; TEMP 36.4; O2SAT 92
[2020-11-10 07:10] LABS: Hematocrit 48.9 % (42-52); Hemoglobin 15.6 g/dl (14.0-18.0); Mean Corpuscular HGB Conc 31.9 g/dl (31.0-36.0); Mean Corpuscular Volume 84.7 fL (80-98); Mean Platelet Volume 10.6 fL (9.4-12.4); Platelet Count 215 X10*3/uL (160-400); Red Blood Count 5.77 X10*6/uL (4.60-5.80); Red Cell Distribution Width 14.6 % (11.0-16.0); White Blood Count 6.5 X10*3/uL (4.8-10.8)
[2020-11-10 07:31] LABS: Anion Gap 14 (12-20); Blood Urea Nitrogen 28 mg/dL (9-16); C Reactive Protein 2.26 mg/dL (< or = 0.50); Calcium 8.6 mg/dL (8.4-10.2); Carbon Dioxide 24 mmol/L (22-29); Chloride 108 mmol/L (96-108); Creatinine Clr Calc Pharmacy 192.6; Estimated Glomerular Filt Rate > 60; Glucose Fasting 179 mg/dL (60-99); Potassium 3.9 mmol/L (3.3-5.1); Sodium 142 mmol/L (135-145)
[2020-11-10 07:43] VITALS: BP 180/99; PULSE 65; RESP 20; TEMP 36.3; O2SAT 94
[2020-11-10] MEDS: Famotidine 20 MG TABLET 40 MG PO (08:25)
[2020-11-10] MEDS: Ascorbic Acid 500 MG TABLET PO (08:25)
[2020-11-10] MEDS: methylPREDNISolone Sod Succ 125 MG/2 ML VIAL 80 MG IVPUSH ×2 (08:25→20:23)
[2020-11-10] MEDS: Zinc Sulfate 220 MG CAPSULE PO (08:25)
[2020-11-10] MEDS: 0.9 % Sodium Chloride Flush 3 ML SYRINGE IVFLUSH ×3 (08:25→20:24)
[2020-11-10] MEDS: Cholecalciferol (Vitamin D3) 25 MCG TABLET 50 MCG PO (08:25)
--- NOTE | 2020-11-10 10:20 | HO.PM.IMPN ---
Subjective Subjective Date of Service: 11/10/20 Interval History: cc: sob interval: patient not participatory in history giving, but says overall he feels better Cardiovascular Cardiovascular: Reports no additional cardiovascular complaints Respiratory Respiratory: Reports no additional respiratory complaints Physical Exam Vital Signs: Vital Signs: Last Vital Signs Temp 97.3 F 11/10/20 07:43 Pulse 65 11/10/20 07:43 Resp 20 11/10/20 07:43 BP 180/99 H 11/10/20 07:43 Pulse Ox 94 11/10/20 07:43 Body Mass Index 53.8 General: AO X 3, no acute distress Resp:? diminished, no accessory muscles used CVS: S1,S2,RRR GI: soft, non tender, non distended Neuro:? motor grossly intact, alert Psych: appropriate affect, appropriate insight? Objective Data Active Medications Acetaminophen (Acetaminophen 325 Mg Tablet) 650 mg PO Q6H PRN PRN Reason: Pain, Mild (Pain Scale 1-3) Last Admin: 11/07/20 23:27 Dose: 650 mg Documented by: RANDA Albuterol Sulfate (Albuterol Sulfate 90 Mcg 8 Gm Inhaler) 2 puff INHALE RQ6H PRN PRN Reason: Shortness of Breath Ascorbic Acid (Ascorbic Acid 500 Mg Tablet) 500 mg PO DAILY [facility] Last Admin: 11/10/20 08:25 Dose: 500 mg Documented by: MORIAH Cyclobenzaprine HCl (Cyclobenzaprine Hcl 5 Mg Tablet) 5 mg PO Q8H PRN PRN Reason: Spasms Last Admin: 11/09/20 14:46 Dose: 5 mg Documented by: GREGG Enoxaparin Sodium (Enoxaparin Sodium 40 Mg/0.4 Ml Syringe) 40 mg SUBCUT Q12H [facility] Last Admin: 11/10/20 08:25 Dose: Not Given Documented by: MORIAH Non-Admin Reason: Patient Refused Famotidine (Famotidine 20 Mg Tablet) 40 mg PO BID [facility] Last Admin: 11/10/20 08:25 Dose: 40 mg Documented by: MORIAH Gabapentin (Gabapentin 300 Mg Capsule) 300 mg PO TID PRN PRN Reason: pain Guaifenesin (Guaifenesin 200 Mg/10 Ml 10 Ml Liquid) 10 ml PO Q6H PRN PRN Reason: Cough Last Admin: 11/04/20 20:00 Dose: 10 ml Documented by: DAVE Remdesivir 100 mg/ Sodium (Chloride) 230 mls @ 115 mls/hr IV Q24H [facility] Stop: 11/10/20 16:59 Last Infusion: 11/09/20 17:29 Dose: 0 mls/hr Documented by: MORIAH Doxycycline Hyclate 100 mg/ (Sodium Chloride) 250 mls @ 166.67 mls/hr IV Q12H [facility] Last Infusion: 11/09/20 23:50 Dose: 0 mls/hr Documented by: MILADYS Melatonin (Melatonin 3 Mg Tablet) 6 mg PO BEDTIME PRN PRN Reason: Insomnia Last Admin: 11/09/20 21:57 Dose: 6 mg Documented by: MILADYS Methylprednisolone Sodium Succinate (Methylprednisolone Sod Succ 125 Mg/2 Ml Vial) 80 mg IVPUSH Q12H [facility] Last Admin: 11/10/20 08:25 Dose: 80 mg Documented by: MORIAH Oxycodone HCl (Oxycodone Hcl Immed Release 5 Mg Tablet) 5 mg PO Q6H PRN PRN Reason: Pain, Severe (Pain Scale 7-10) Last Admin: 11/09/20 21:57 Dose: 5 mg Documented by: MILADYS Pharmacy Consult (Consult Rx Perform Med Rec) 1 each MISCELLANE ONCE PRN PRN Reason: Consult order Pharmacy Consult (Consult Rx Vancomycin Dosing) 1 each MISCELLANE DAILY PRN PRN Reason: Consult order Polyethylene Glycol (Polyethylene Glycol 3350 17 Gm Powd.Pack) 17 gm PO DAILY PRN PRN Reason: Constipation Last Admin: 11/07/20 15:25 Dose: 17 gm Documented by: DAGOBERTO Sodium Chloride (0.9 % Sodium Chloride Flush 3 Ml Syringe) 3 ml IVFLUSH QSHIFT [facility] Last Admin: 11/10/20 08:25 Dose: 3 ml Documented by: MORIAH Vitamin D (Cholecalciferol (Vitamin D3) 25 Mcg Tablet) 50 mcg PO DAILY [facility] Last Admin: 11/10/20 08:25 Dose: 50 mcg Documented by: MORIAH Zinc Sulfate (Zinc Sulfate 220 Mg Capsule) 220 mg PO DAILY [facility] Last Admin: 11/10/20 08:25 Dose: 220 mg Documented by: MORIAH Labs CBC & Chem 7: 11/10/20 06:57 11/10/20 06:57 Labs: Laboratory Results - last 24 hr 11/10/20 11/10/20 06:57 06:57 MCV 84.7 MCH 27.0 MCHC 31.9 RDW 14.6 Plt Count 215 MPV 10.6 Absolute Nucleated RBC 0.000 Nucleated RBC % (auto) 0.0 Anion Gap 14 Estim Creat Clear Calc 192.6 Estimated GFR > 60 Fasting Glucose 179 H Calcium 8.6 C-Reactive Protein 2.26 H Microbiology Microbiology Results: Microbiology 11/05/20 00:41 Blood Culture - Final Blood - Venous No growth after 5 days. Assessment and Plan (1) Acute respiratory failure with hypoxia: Status: Acute (2) COVID-19: Status: Acute (3) Morbid obesity with BMI of 50.0-59.9, adult: Status: Acute Assessment and Plan: This is a 54 yo M with morbidly obese male with chronic back pain who presented with respiratory symptoms. Found to be hypoxic and COVID 19+ Acute resp failure with hypoxia due to COVID 19 Unvaccinated weaned down to 10ml/min, continue to wean Afebrile since 11/07 am Chest x-ray from 11/06 showing worsening infiltrates Seen by ID, started on remdesivir 11/06 Initially started on dexamethasone,changed to solu-medrol 11/07 Incentive spirometry Doxycycline added 11/07 CRP improved today 1/ blood cultures coag negative staph Likely contaminant Repeat blood cultures from 11/06 negative No antibiotics indicated Morbid obesity BMI 53.9. Body habitus likely contributing to hypoxia consider outpatient bariatric referral diet and weight loss education provided outpatient sleep study to evaluate for EDWIN thrombocytopenia suspected due to covid Improved. Chronic pain continue prn pain medication, flexeril, gabapentin DVT prophylaxis-changed to Lovenox BID per ID rec Quality Stroke Does the patient have a stroke diagnosis?: No VTE Prior VTE?: No VTE Risk Level:: Medical - moderate - high VTE Device Contraindication: Treatment Not Indicated VTE Drug Contraindication: N/A - Med Ordered
[2020-11-10] MEDS: Doxycycline Hyclate 100 MG in 0.9 % Sodium Chloride 250 ML 166.67 MG IV ×2 (10:31→20:24)
[2020-11-10 11:25] VITALS: BP 183/99; PULSE 65; RESP 24; TEMP 36.4; O2SAT 92
[2020-11-10] MEDS: Remdesivir 100 MG in 0.9 % Sodium Chloride 230 ML 115 MG IV (13:37)
[2020-11-10 14:29] VITALS: O2SAT 92
[2020-11-10 15:49] VITALS: BP 182/118; PULSE 62; RESP 20; TEMP 36.6; O2SAT 92
--- NOTE | 2020-11-10 18:19 | PC.NURSE ---
Patient refusing incentive spirometry. Yelling at staff throughout the day. Stating he wants to go home. Educated on importance of being weaned to a lower amount of O2 prior to leaving the hospital. Patient refused lovonox. Nurse continues to educate patient. Patient has extreme mood lability.
[2020-11-10 19:58] VITALS: BP 141/89; PULSE 76; RESP 20; TEMP 36.2; O2SAT 94
[2020-11-10] MEDS: Cyclobenzaprine HCl 5 MG TABLET PO (20:23)
[2020-11-10] MEDS: Melatonin 3 MG TABLET 6 MG PO (20:23)
[2020-11-10] MEDS: oxyCODONE HCl Immed Release 5 MG TABLET PO (20:24)
[2020-11-10 20:37] LABS: Dexamethasone 643 ng/dL
[2020-11-11] VITALS (8 sets, daily range): BP systolic 150–176; BP diastolic 78–112; PULSE 58–98; RESP 18–22; TEMP 35.5–36.8; O2SAT 90–95
[2020-11-11] MEDS: Famotidine 20 MG TABLET 40 MG PO ×2 (07:49→20:13)
[2020-11-11] MEDS: 0.9 % Sodium Chloride Flush 3 ML SYRINGE IVFLUSH ×3 (07:49→20:13)
[2020-11-11] MEDS: Cholecalciferol (Vitamin D3) 25 MCG TABLET 50 MCG PO (07:50)
[2020-11-11] MEDS: Ascorbic Acid 500 MG TABLET PO (07:50)
[2020-11-11] MEDS: methylPREDNISolone Sod Succ 125 MG/2 ML VIAL 80 MG IVPUSH ×2 (07:51→20:11)
[2020-11-11] MEDS: Zinc Sulfate 220 MG CAPSULE PO (07:51)
--- NOTE | 2020-11-11 10:34 | HO.PM.IMPN ---
Subjective Subjective Date of Service: 11/11/20 Interval History: cc: sob interval: everyday a bit better Cardiovascular Cardiovascular: Reports no additional cardiovascular complaints Gastrointestinal Gastrointestinal: Reports no additional gastrointestinal complaints Physical Exam Vital Signs: Vital Signs: Last Vital Signs Temp 96 F L 11/11/20 07:11 Pulse 75 11/11/20 07:11 Resp 22 H 11/11/20 07:11 BP 152/78 H 11/11/20 07:11 Pulse Ox 92 11/11/20 07:45 Body Mass Index 53.8 General: AO X 3, no acute distress Resp:? diminished, no accessory muscles used CVS: S1,S2,RRR GI: soft, non tender, non distended Neuro:? motor grossly intact, alert Psych: appropriate affect, appropriate insight? Objective Data Active Medications Acetaminophen (Acetaminophen 325 Mg Tablet) 650 mg PO Q6H PRN PRN Reason: Pain, Mild (Pain Scale 1-3) Last Admin: 11/07/20 23:27 Dose: 650 mg Documented by: RANDA Albuterol Sulfate (Albuterol Sulfate 90 Mcg 8 Gm Inhaler) 2 puff INHALE RQ6H PRN PRN Reason: Shortness of Breath Ascorbic Acid (Ascorbic Acid 500 Mg Tablet) 500 mg PO DAILY [facility] Last Admin: 11/11/20 07:50 Dose: 500 mg Documented by: LINDSEY Cyclobenzaprine HCl (Cyclobenzaprine Hcl 5 Mg Tablet) 5 mg PO Q8H PRN PRN Reason: Spasms Last Admin: 11/10/20 20:23 Dose: 5 mg Documented by: MALLORY Enoxaparin Sodium (Enoxaparin Sodium 40 Mg/0.4 Ml Syringe) 40 mg SUBCUT Q12H [facility] Last Admin: 11/11/20 07:51 Dose: Not Given Documented by: LINDSEY Non-Admin Reason: Patient Refused Famotidine (Famotidine 20 Mg Tablet) 40 mg PO BID [facility] Last Admin: 11/11/20 07:49 Dose: 40 mg Documented by: LINDSEY Gabapentin (Gabapentin 300 Mg Capsule) 300 mg PO TID PRN PRN Reason: pain Guaifenesin (Guaifenesin 200 Mg/10 Ml 10 Ml Liquid) 10 ml PO Q6H PRN PRN Reason: Cough Last Admin: 11/04/20 20:00 Dose: 10 ml Documented by: DAVE Doxycycline Hyclate 100 mg/ (Sodium Chloride) 250 mls @ 166.67 mls/hr IV Q12H [facility] Last Infusion: 11/10/20 23:20 Dose: 0 mls/hr Documented by: MALLORY Melatonin (Melatonin 3 Mg Tablet) 6 mg PO BEDTIME PRN PRN Reason: Insomnia Last Admin: 11/10/20 20:23 Dose: 6 mg Documented by: MALLORY Methylprednisolone Sodium Succinate (Methylprednisolone Sod Succ 125 Mg/2 Ml Vial) 80 mg IVPUSH Q12H [facility] Last Admin: 11/11/20 07:51 Dose: 80 mg Documented by: LINDSEY Oxycodone HCl (Oxycodone Hcl Immed Release 5 Mg Tablet) 5 mg PO Q6H PRN PRN Reason: Pain, Severe (Pain Scale 7-10) Last Admin: 11/10/20 20:24 Dose: 5 mg Documented by: MALLORY Pharmacy Consult (Consult Rx Perform Med Rec) 1 each MISCELLANE ONCE PRN PRN Reason: Consult order Pharmacy Consult (Consult Rx Vancomycin Dosing) 1 each MISCELLANE DAILY PRN PRN Reason: Consult order Polyethylene Glycol (Polyethylene Glycol 3350 17 Gm Powd.Pack) 17 gm PO DAILY PRN PRN Reason: Constipation Last Admin: 11/07/20 15:25 Dose: 17 gm Documented by: DAGOBERTO Sodium Chloride (0.9 % Sodium Chloride Flush 3 Ml Syringe) 3 ml IVFLUSH QSHIFT [facility] Last Admin: 11/11/20 07:49 Dose: 3 ml Documented by: LINDSEY Vitamin D (Cholecalciferol (Vitamin D3) 25 Mcg Tablet) 50 mcg PO DAILY [facility] Last Admin: 11/11/20 07:50 Dose: 50 mcg Documented by: LINDSEY Zinc Sulfate (Zinc Sulfate 220 Mg Capsule) 220 mg PO DAILY [facility] Last Admin: 11/11/20 07:51 Dose: 220 mg Documented by: LINDSEY Labs CBC & Chem 7: 11/10/20 06:57 11/10/20 06:57 Labs: Laboratory Results - last 24 hr 11/03/20 08:27 Dexamethasone 643 Microbiology Microbiology Results: Microbiology 11/06/20 04:41 Blood Culture - Final Blood - Venous No growth after 5 days. 11/06/20 04:41 Blood Culture - Final Blood - Venous No growth after 5 days. 11/05/20 00:41 Blood Culture - Final Blood - Venous No growth after 5 days. Assessment and Plan (1) Acute respiratory failure with hypoxia: Status: Acute (2) COVID-19: Status: Acute (3) Morbid obesity with BMI of 50.0-59.9, adult: Status: Acute Assessment and Plan: This is a 54 yo M with morbidly obese male with chronic back pain who presented with respiratory symptoms. Found to be hypoxic and COVID 19+ Acute resp failure with hypoxia due to COVID 19 Unvaccinated weaned down to 7ml/min, continue to wean Afebrile since 11/07 am Chest x-ray from 11/06 showing worsening infiltrates Seen by ID, started on remdesivir 11/06 Initially started on dexamethasone,changed to solu-medrol 11/07 Incentive spirometry Doxycycline added 11/07 CRP improving, continue to monitor 1/2 blood cultures coag negative staph Likely contaminant Repeat blood cultures from 11/06 negative No antibiotics indicated Morbid obesity BMI 53.9. Body habitus likely contributing to hypoxia consider outpatient bariatric referral diet and weight loss education provided outpatient sleep study to evaluate for EDWIN thrombocytopenia suspected due to covid Improved. Chronic pain continue prn pain medication, flexeril, gabapentin DVT prophylaxis-changed to Lovenox BID per ID rec Quality Stroke Does the patient have a stroke diagnosis?: No VTE Prior VTE?: No VTE Risk Level:: Medical - moderate - high VTE Device Contraindication: Treatment Not Indicated VTE Drug Contraindication: N/A - Med Ordered
[2020-11-11] MEDS: Doxycycline Hyclate 100 MG in 0.9 % Sodium Chloride 250 ML 166.67 MG IV (10:38)
--- NOTE | 2020-11-11 11:04 | PC.NURSE ---
PATIENT HAD IN ACCIDENT IN HIS SHORT. PATIENT DEMANDS WE WASH HIS CLOTHES. SECURITY CALLED TO VERIFY THAT WE CAN USE [employer] WASHING MACHINE. CLOTHES ARE BEING BROUGHT UP TO WASH NOW. WILL PASS ON TO ONCOMING RN.
--- NOTE | 2020-11-11 14:23 | MHC.CM.PN ---
Male 54 DX Covid. DP home no services via BLS. He is being weaned today. 7L O2 at this time. Per MD rounds discharge is anticipated tomorrow.
[2020-11-11] MEDS: oxyCODONE HCl Immed Release 5 MG TABLET PO ×2 (14:57→22:17)
[2020-11-11] MEDS: Cyclobenzaprine HCl 5 MG TABLET PO (17:52)
[2020-11-11] MEDS: amLODIPine Besylate 5 MG TABLET PO (17:59)
[2020-11-11] MEDS: Doxycycline Hyclate 100 MG in 0.9 % Sodium Chloride 250 ML 166.7 MG IV (20:12)
[2020-11-11] MEDS: amLODIPine Besylate 2.5 MG TABLET PO (22:19)
[2020-11-11] MEDS: Melatonin 3 MG TABLET 6 MG PO (22:20)
[2020-11-12] VITALS (9 sets, daily range): BP systolic 125–164; BP diastolic 68–100; PULSE 66–97; RESP 17–24; TEMP 36.2–36.7; O2SAT 90–94
[2020-11-12 07:07] LABS: Hematocrit 48.5 % (42-52); Hemoglobin 15.7 g/dl (14.0-18.0); Mean Corpuscular HGB Conc 32.4 g/dl (31.0-36.0); Mean Corpuscular Hemoglobin 27.3 pg (27.0-33.0); Mean Corpuscular Volume 84.3 fL (80-98); Mean Platelet Volume 10.5 fL (9.4-12.4); Platelet Count 204 X10*3/uL (160-400); Red Blood Count 5.75 X10*6/uL (4.60-5.80); Red Cell Distribution Width 14.8 % (11.0-16.0); White Blood Count 12.7 X10*3/uL (4.8-10.8)
[2020-11-12 07:24] LABS: Glucose, Whole Blood 152 mg/dL (60-115)
[2020-11-12 07:49] LABS: Anion Gap 16 (12-20); Blood Urea Nitrogen 23 mg/dL (9-16); C Reactive Protein 7.08 mg/dL (< or = 0.50); Calcium 8.6 mg/dL (8.4-10.2); Carbon Dioxide 23 mmol/L (22-29); Chloride 106 mmol/L (96-108); Creatinine Clr Calc Pharmacy 209.2; Estimated Glomerular Filt Rate > 60; Glucose Fasting 154 mg/dL (60-99); Potassium 3.8 mmol/L (3.3-5.1); Sodium 141 mmol/L (135-145)
[2020-11-12] MEDS: methylPREDNISolone Sod Succ 125 MG/2 ML VIAL 80 MG IVPUSH ×2 (10:28→20:28)
[2020-11-12] MEDS: Doxycycline Hyclate 100 MG in 0.9 % Sodium Chloride 250 ML 166.67 MG IV (10:28)
[2020-11-12] MEDS: Cholecalciferol (Vitamin D3) 25 MCG TABLET 50 MCG PO (10:29)
[2020-11-12] MEDS: Ascorbic Acid 500 MG TABLET PO (10:29)
[2020-11-12] MEDS: amLODIPine Besylate 5 MG TABLET PO (10:29)
[2020-11-12] MEDS: Famotidine 20 MG TABLET 40 MG PO ×2 (10:30→20:29)
[2020-11-12] MEDS: Zinc Sulfate 220 MG CAPSULE PO (10:30)
[2020-11-12] MEDS: 0.9 % Sodium Chloride Flush 3 ML SYRINGE IVFLUSH ×3 (10:30→20:29)
--- NOTE | 2020-11-12 11:57 | P.PNIM_ITS ---
Subjective Subjective Date of Service: 11/12/20 Interval History: cc: sob interval history: unclear but states not sob despite visibly appearing diaphoretic and sob Cardiovascular Cardiovascular: Reports no additional cardiovascular complaints Gastrointestinal Gastrointestinal: Reports no additional gastrointestinal complaints Physical Exam Vital Signs: Vital Signs: Last Vital Signs Temp 97.7 F 11/12/20 11:39 Pulse 77 11/12/20 11:39 Resp 20 11/12/20 11:39 BP 125/95 H 11/12/20 11:39 Pulse Ox 92 11/12/20 11:39 Body Mass Index 53.8 General: AO X 3, diaphoretic Resp:? diminished, mild us of accessory muscles CVS: S1,S2,RRR GI: soft, non tender, non distended Neuro:? motor grossly intact, alert Psych: appropriate affect, appropriate insight? Objective Data Active Medications Acetaminophen (Acetaminophen 325 Mg Tablet) 650 mg PO Q6H PRN PRN Reason: Pain, Mild (Pain Scale 1-3) Last Admin: 11/07/20 23:27 Dose: 650 mg Documented by: RANDA Albuterol Sulfate (Albuterol Sulfate 90 Mcg 8 Gm Inhaler) 2 puff INHALE RQ6H PRN PRN Reason: Shortness of Breath Amlodipine Besylate (Amlodipine Besylate 5 Mg Tablet) 5 mg PO DAILY [facility]; Protocol Last Admin: 11/12/20 10:29 Dose: 5 mg Documented by: CORNELIA Ascorbic Acid (Ascorbic Acid 500 Mg Tablet) 500 mg PO DAILY [facility] Last Admin: 11/12/20 10:29 Dose: 500 mg Documented by: CORNELIA Cyclobenzaprine HCl (Cyclobenzaprine Hcl 5 Mg Tablet) 5 mg PO Q8H PRN PRN Reason: Spasms Last Admin: 11/11/20 17:52 Dose: 5 mg Documented by: MAXWELL Enoxaparin Sodium (Enoxaparin Sodium 40 Mg/0.4 Ml Syringe) 40 mg SUBCUT Q12H [facility] Last Admin: 11/12/20 10:30 Dose: Not Given Documented by: CORNELIA Non-Admin Reason: Patient Refused Famotidine (Famotidine 20 Mg Tablet) 40 mg PO BID [facility] Last Admin: 11/12/20 10:30 Dose: 40 mg Documented by: CORNELIA Gabapentin (Gabapentin 300 Mg Capsule) 300 mg PO TID PRN PRN Reason: pain Guaifenesin (Guaifenesin 200 Mg/10 Ml 10 Ml Liquid) 10 ml PO Q6H PRN PRN Reason: Cough Last Admin: 11/04/20 20:00 Dose: 10 ml Documented by: DAVE Doxycycline Hyclate 100 mg/ (Sodium Chloride) 250 mls @ 166.67 mls/hr IV Q12H [facility] Last Infusion: 11/12/20 10:58 Dose: 0 mls/hr Documented by: CORNELIA Melatonin (Melatonin 3 Mg Tablet) 6 mg PO BEDTIME PRN PRN Reason: Insomnia Last Admin: 11/11/20 22:20 Dose: 6 mg Documented by: GEORGINA Methylprednisolone Sodium Succinate (Methylprednisolone Sod Succ 125 Mg/2 Ml Vial) 80 mg IVPUSH Q12H [facility] Last Admin: 11/12/20 10:28 Dose: 80 mg Documented by: CORNELIA Oxycodone HCl (Oxycodone Hcl Immed Release 5 Mg Tablet) 5 mg PO Q6H PRN PRN Reason: pain Pharmacy Consult (Consult Rx Perform Med Rec) 1 each MISCELLANE ONCE PRN PRN Reason: Consult order Pharmacy Consult (Consult Rx Vancomycin Dosing) 1 each MISCELLANE DAILY PRN PRN Reason: Consult order Polyethylene Glycol (Polyethylene Glycol 3350 17 Gm Powd.Pack) 17 gm PO DAILY PRN PRN Reason: Constipation Last Admin: 11/07/20 15:25 Dose: 17 gm Documented by: IGLESTaj Sodium Chloride (0.9 % Sodium Chloride Flush 3 Ml Syringe) 3 ml IVFLUSH QSHIFT [facility] Last Admin: 11/12/20 10:30 Dose: 3 ml Documented by: CORNELIA Vitamin D (Cholecalciferol (Vitamin D3) 25 Mcg Tablet) 50 mcg PO DAILY [facility] Last Admin: 11/12/20 10:29 Dose: 50 mcg Documented by: CORNELIA Zinc Sulfate (Zinc Sulfate 220 Mg Capsule) 220 mg PO DAILY [facility] Last Admin: 11/12/20 10:30 Dose: 220 mg Documented by: CORNELIA Labs CBC & Chem 7: 11/12/20 06:37 11/12/20 06:37 Labs: Laboratory Results - last 24 hr 11/12/20 11/12/20 11/12/20 06:37 06:37 07:20 MCV 84.3 MCH 27.3 MCHC 32.4 RDW 14.8 Plt Count 204 MPV 10.5 Absolute Nucleated RBC 0.000 Nucleated RBC % (auto) 0.0 Anion Gap 16 Estim Creat Clear Calc 209.2 Estimated GFR > 60 POC Glucose 152 H Fasting Glucose 154 H Calcium 8.6 C-Reactive Protein 7.08 H Assessment and Plan (1) Acute respiratory failure with hypoxia: Status: Acute (2) COVID-19: Status: Acute (3) Morbid obesity with BMI of 50.0-59.9, adult: Status: Acute Assessment and Plan: This is a 54 yo M with morbidly obese male with chronic back pain who presented with respiratory symptoms. Found to be hypoxic and COVID 19+ Acute resp failure with hypoxia due to COVID 19 Unvaccinated still on 7L/min today, saturation 89-90% Afebrile since 11/07 am Chest x-ray from 11/06 showing worsening infiltrates completed remdisivir Initially started on dexamethasone,changed to solu-medrol 11/07 Incentive spirometry Doxycycline discontinued CRP initially improved, now worsening, continue to monitor 1/2 blood cultures coag negative staph Likely contaminant Repeat blood cultures from 11/06 negative No antibiotics indicated Morbid obesity BMI 53.9. Body habitus likely contributing to hypoxia and high risk consider outpatient bariatric referral diet and weight loss education provided outpatient sleep study to evaluate for EDWIN thrombocytopenia suspected due to covid Improved. Chronic pain continue prn pain medication, flexeril, gabapentin DVT prophylaxis- Lovenox BID per ID rec Quality Stroke Does the patient have a stroke diagnosis?: No VTE Prior VTE?: No VTE Risk Level:: Medical - moderate - high VTE Device Contraindication: Treatment Not Indicated VTE Drug Contraindication: N/A - Med Ordered
[2020-11-12] MEDS: oxyCODONE HCl Immed Release 5 MG TABLET PO ×2 (12:15→20:34)
--- NOTE | 2020-11-12 18:26 | PC.NURSE ---
Pt easily aggravated with staff all day over many things from wanting his blanket moved, to yelling for someone to take his lunch tray away...very nasty with staff. States were playing games when we ask what can I help you with , expects us to know what he wants without a conversation. Easily agitated and responds impulsively/aggresively. Started to try to record staff on phoneafter pt was upset about meds. Md and pt had discussion in am about his pain meds. Moments later when RN to give am meds, pt stating Im not taking those until you change my pain meds Reminded pt he was just discussion plan with MD and we were continuing current regimen. Encouraged him on taking his morning meds and educating him on importance of each. Refused. I did not argue beyond that as pt yelling at staff over nonurgent things such as bringing him food or helping him move a blanket, which he has the ability to do on his own as it was within reach on his bed. Pt then brought out cell phone stating im recording you because you are refusing to give me my meds Explained that we were not refusing, but he was at this time. Staff left room to collect themselves. ~10 min later pt yelling bring it on bring it on Rn to room to inquire, pt states fine bring me my other meds Pt then took am meds. Will use call cornelius incessantly throughout the day and when staff gets to room forgets what he wanted or yells for things such as moving his chair or bringing his ice cream. If staff not immediately in room pt screams out NURSE NURSE GET IN HERE NURSE Staff promptly to room pt stated will start recording us. Security called to room and explained to pt about treatment of staff and policy of not recording. Pt agreeable at that time Pt continues to yell out and get frustrated very easily. Continuing to try to use therapeutic communicate and educate pt on expectations. Pt also refusing bed alarm and non slip socks at this time. Is aware of fall risk without precautions. Does allow telesitter in place.
[2020-11-13 04:00] VITALS: BP 142/106; PULSE 81; RESP 20; TEMP 36.9; O2SAT 92
[2020-11-13 07:32] LABS: Hematocrit 50.6 % (42-52); Hemoglobin 16.2 g/dl (14.0-18.0); Mean Corpuscular Hemoglobin 27.1 pg (27.0-33.0); Mean Corpuscular Volume 84.8 fL (80-98); Mean Platelet Volume 10.7 fL (9.4-12.4); Platelet Count 221 X10*3/uL (160-400); Red Blood Count 5.97 X10*6/uL (4.60-5.80); Red Cell Distribution Width 14.8 % (11.0-16.0); White Blood Count 14.6 X10*3/uL (4.8-10.8)
[2020-11-13 07:51] LABS: Anion Gap 15 (12-20); Blood Urea Nitrogen 23 mg/dL (9-16); C Reactive Protein 10.23 mg/dL (< or = 0.50); Calcium 8.6 mg/dL (8.4-10.2); Carbon Dioxide 27 mmol/L (22-29); Chloride 106 mmol/L (96-108); Creatinine Clr Calc Pharmacy 206.2; Estimated Glomerular Filt Rate > 60; Glucose Fasting 151 mg/dL (60-99); Potassium 3.9 mmol/L (3.3-5.1); Sodium 144 mmol/L (135-145)
[2020-11-13 08:00] VITALS: BP 167/93; PULSE 81; RESP 22; TEMP 36.3; O2SAT 96
[2020-11-13] MEDS: Famotidine 20 MG TABLET 40 MG PO (09:19)
[2020-11-13] MEDS: methylPREDNISolone Sod Succ 125 MG/2 ML VIAL 80 MG IVPUSH (09:19)
[2020-11-13] MEDS: 0.9 % Sodium Chloride Flush 3 ML SYRINGE IVFLUSH (09:19)
[2020-11-13 09:20] VITALS: BP 167/93; PULSE 81
[2020-11-13] MEDS: Cholecalciferol (Vitamin D3) 25 MCG TABLET 50 MCG PO (09:20)
[2020-11-13] MEDS: amLODIPine Besylate 5 MG TABLET PO (09:20)
[2020-11-13] MEDS: Zinc Sulfate 220 MG CAPSULE PO (09:20)
[2020-11-13] MEDS: Ascorbic Acid 500 MG TABLET PO (09:20)
[2020-11-13] MEDS: oxyCODONE HCl Immed Release 5 MG TABLET PO (09:39)
[2020-11-13 11:08] VITALS: PULSE 88; PULSE 91; PULSE 93; O2SAT 87; O2SAT 90
[2020-11-13 11:41] VITALS: BP 156/94; PULSE 88; RESP 24; TEMP 36.7; O2SAT 88
--- NOTE | 2020-11-13 12:02 | P.DS_ITS ---
DS: Providers Provider Date of Service: 11/13/20 Date of admission: 11/02/20 12:26 Primary care physician: Ericka Buckley MD Consults: 11/06/20 13:04 Consult to Infectious Diseases Routine Consulting Provider: Patricia Major Reason for consultation: covid +, worsening infiltrates, hypoxia DS: Diagnosis Discharge Diagnosis (1) Acute respiratory failure with hypoxia: Status: Acute (2) COVID-19: Status: Acute (3) Morbid obesity with BMI of 50.0-59.9, adult: Status: Acute DS: Summary Hospital Course Hospital Course: From initial H&P: 54-year-old male unvaccinated with no significant past medical history presents to the ER today with approximately 1 week of worsening shortness of breath body aches and most recently loss of taste and smell.? He states he had been using NyQuil at home with no relief of his symptoms; states he used to the point of diarrhea.? When his breathing started to become labored he presented to the emergency room.? Upon presentation he was found to be hypoxic with sats of 88% correcting to 92-94% on 2 L oxygen nasal cannula.? He will be admitted for treatment of his COVID symptoms and supplemental oxygen therapy Hospital course: For acute hypoxic respiratory failure secondary to COVID-19 pneumonia. Patient had a prolonged course due to risk factors of pre diabetes, morbid obesity with BMI 53.9. He required up to 15 liters/minute of oxygen. He had been seen by infectious disease who prescribed course of remdesivir which he completed. Patient had been started on dexamethasone and then transition to high-dose Solu- Medrol. At discharge he will continue prednisone taper. Patient had been treated for gram-positive bacteremia, however this turned out to be coag-n egative staph or arcus and considered to be contaminant. He was also treated with moderate dose Lovenox. Patient's symptoms began to improve he was able to weaned down to 2 liters/minute of oxygen. He is still hypoxic on room air and will require 2 L continuous at home. As patient is feeling much better, oxygen requirements significantly improved, and feels like he is over the worst of it he will be discharged home to continue recovery. Time Spent with Patient Time attestation: Total time spent providing and/or coordinating discharge services: Discharge coordination time: Greater than 30 minutes Quality: Stroke Does the patient have a stroke diagnosis?: No Physical Exam Vital Signs: Vital Signs: Last Vital Signs Temp 98.0 F 11/13/20 11:41 Pulse 88 11/13/20 11:41 Resp 24 H 11/13/20 11:41 BP 156/94 H 11/13/20 11:41 Pulse Ox 88 L 11/13/20 11:41 Body Mass Index 53.8 General: AO X 3, no acute distress Resp: Crackles, no accessory muscles used at rest, mild use on exertion CVS: S1,S2,RRR GI: soft, non tender, non distended Neuro: motor grossly intact, alert Psych: appropriate affect, appropriate insight DS: Data Data Completed and Pending Labs on day of discharge: Laboratory Results - last 24 hr 11/13/20 11/13/20 06:29 06:29 WBC 14.6 H RBC 5.97 H Hgb 16.2 Hct 50.6 MCV 84.8 MCH 27.1 MCHC 32.0 RDW 14.8 Plt Count 221 MPV 10.7 Absolute Nucleated RBC 0.000 Nucleated RBC % (auto) 0.0 Sodium 144 Potassium 3.9 Chloride 106 Carbon Dioxide 27 Anion Gap 15 BUN 23 H Creatinine 0.71 Estim Creat Clear Calc 206.2 Estimated GFR > 60 Fasting Glucose 151 H Calcium 8.6 C-Reactive Protein 10.23 H Discharge Plan Discharge Patient Disposition: Home Health Service Discharge Diagnosis: covid Referrals: Ericka Buckley MD [Primary Care Provider] - 1 Week Discharge Medications: New amlodipine 5 mg Tablet 5 mg PO DAILY Qty: 30 RF: 0 guaifenesin 100 mg/5 mL Liquid 10 ml PO Q6H PRN (Reason: Cough) 10 Days RF: 0 prednisone 20 mg tablet 40 mg PO DAILY Qty: 15 RF: 0 Continued gabapentin 300 mg capsule 300 mg PO TID PRN (Reason: pain) RF: 0 cyclobenzaprine 5 mg tablet 5 mg PO Q8H PRN (Reason: Spasms) RF: 0 naproxen 500 mg tablet 500 mg PO BID PRN (Reason: pain) 10 Days Qty: 20 RF: 0 oxycodone 5 mg tablet 5 mg PO Q6H PRN (Reason: pain) 3 Days Qty: 9 RF: 0 tramadol 50 mg tablet 50 mg PO Q6H PRN (Reason: pain) Qty: 30 RF: 0 Discharge Orders: Discharge Order (Routine); Ordered 11/13/20 Ordered By: Greg Real Diet: advance to usual diet Activity on Discharge: As tolerated Stand Alone Forms: Patient Portal Discharge page Care Plan Goals: Recovery Health Concerns: COVID Plan of Treatment: Prednisone taper as prescribed, oxygen at 2 liters/minute continuous, weight loss recommended, continue isolation for at least 20 days from date of symptom onset in 24 hours from last fever. If symptoms worsening or severely hypoxic please return to ED Assessment: see above
--- NOTE | 2020-11-13 13:14 | MHC.CM.PN ---
Addendum entered by Maricruz Mathew 11/13/20 13:36: MD has ordered Home care services. Pt Preference is [facility] referral made. Addendum entered by Maricruz Mathew 11/13/20 13:18: Patient qualifies for Home O2, per [facility].T. home o2 eval. 2L via [place] provider is [facility]. [facility] has arranged O2 delivery. Original Note: IMM 11/13/20 Male 54 DX Covid is discharged today to home via BLS. No services ordered.
== END 2020-11-13 15:15 | disposition home health service (06) | DRG 177 ==
LOC: HO.ED 10:59 → HO.EDOVER 13:07 → HO.IMC 15:27
PROVIDERS: Family Medicine; Internal Medicine; Physician Assistant Medical; Admitting Provider Hospitalist; Emergency Provider Emergency Medicine Emergency Medical Services; PCP Internal Medicine; Visit Provider Internal Medicine
DX: U07.1 COVID-19 (principal); J12.82 Pneumonia due to coronavirus disease 2019; J96.01 Acute respiratory failure with hypoxia; Z68.43 Body mass index [BMI] 50.0-59.9, adult; R73.03 Prediabetes; G89.29 Other chronic pain; E66.01 Morbid (severe) obesity due to excess calories; I10 Essential (primary) hypertension; D69.6 Thrombocytopenia, unspecified; Z79.4 Long term (current) use of insulin; Z79.899 Other long term (current) drug therapy
CPT/HCPCS: 36415; 71045; 80048; 80076; 80202; 80299; 82947; 83036; 83605; 83880; 84145; 84484; 85025; 85027; 86140; 87040; 87147; 87205; 87635; 93005; 96374; 99285; 99291; J1100; J1650; J2930; J3370; J3490

== ENCOUNTER 2020-11-14 06:08 | Inpatient (IN) | payer MEDICARE, MEDICAID, SELFPAY ==
--- NOTE | ~2020-11-14 | XR_ITS ---
EXAMINATION: XR CHEST CLINICAL INFORMATION: Line placement COMPARISON: 11/15/2020 TECHNIQUE: Frontal view of the chest was obtained. FINDINGS: The endotracheal tube continues to terminate at the level of the clavicles, approximately 6.5 cm above the woody. Enteric tube terminates in the stomach. There is a new left internal jugular central venous catheter terminating over the mid SVC. Lung volumes are low. Patchy opacities are seen bilaterally in the lungs, unchanged. Dense contrast in the bowel noted. XR/XR chest 1V IMPRESSION: Endotracheal tube terminating 6.5 cm above the woody. There is a new left internal jugular central venous catheter which terminates over the mid SVC. No pneumothorax. Similar appearance of low lung volumes with diffuse bilateral opacities.
--- NOTE | ~2020-11-14 | CT_ITS ---
EXAMINATION: CT CHEST WITHOUT CONTRAST CLINICAL INFORMATION: Postop bowel surgery. Fever. COMPARISON: Previous chest x-rays most recent 11/16/2020 TECHNIQUE: Multidetector volumetric CT imaging of the chest was done. Axial MIP volume rendering provided. Sagittal and coronal reformatted images were obtained. This CT examination was performed using dose optimization techniques as appropriate, variously including the following: *Automated exposure control *Adjustment of mA and/or kV according to patient size (this includes techniques or standardized protocols for targeted exams where dose is matched to indication/reason for exam; i.e. extremities or head) *Use of iterative reconstruction technique DLP: 471 mGy-cm FINDINGS: LUNGS: The lung volumes are low. There is bilateral lower lobe dense airspace disease and air bronchograms suggestive of pneumonia. There are scattered areas of groundglass attenuation seen in the upper lungs questionable for pneumonitis. No endobronchial or endotracheal lesion is seen. There is an endotracheal tube with tip 4 cm above the woody. MEDIASTINUM: There is a right jugular line with tip projecting over the SVC. There is a left jugular line with tip projecting over the left innominate vein. The heart is upper normal in size. There is mild coronary artery calcification. There is no pericardial effusion. There are small mediastinal lymph nodes. No enlarged lymph nodes are seen. PLEURA: There is no pleural effusion. No pleural mass or thickening. AXILLA: No lymphadenopathy. UPPER ABDOMEN: There is a nasogastric tube in the stomach. 2 that the tube projects against the greater curvature of the stomach. There is fatty infiltration of the liver. Stomach appears distended and filled with fluid. OSSEOUS STRUCTURES: There are degenerative changes of the spine. CT/CT chest wo con IMPRESSION: Satisfactory position of support lines and tubes. Low lung volumes. Bilateral lower lobe pneumonia. Scattered more superior areas of groundglass attenuation in the lungs suggestive of pneumonitis. Nasogastric tube projects over the wall of the greater curvature of the stomach. The stomach is distended and filled with fluid. The nasogastric tube may be need to be repositioned.
--- NOTE | ~2020-11-14 | CT_ITS ---
EXAMINATION: CT abdomen pelvis wo con CLINICAL INFORMATION: Reason for Exam pain eval obstruction COMPARISON: Prior CT May 2020. TECHNIQUE: Multidetector volumetric imaging was performed from the superior aspect of the liver through the pubic symphysis this is a noncontrasted study. Sagittal and coronal reformatted images were obtained on the technologist's workstation. This CT examination was performed using dose optimization techniques as appropriate, variously including the following: *Automated exposure control *Adjustment of mA and/or kV according to patient size (this includes techniques or standardized protocols for targeted exams where dose is matched to indication/reason for exam; i.e. extremities or head) *Use of iterative reconstruction technique DLP: 3427 mGy-cm FINDINGS: Exam limited by patient's body habitus. LOWER THORAX: There are patchy alveolar airspace opacification at lower lobes bilaterally newly developed since prior CT is concerning for interstitial pneumonitis, cannot rule out viral pneumonia. HEPATOBILIARY: Diffusely hypodense liver suggesting hepatic steatosis, liver evaluation is limited on this noncontrasted study. GALLBLADDER: Gallbladder unremarkable. SPLEEN: Spleen is normal in size. PANCREAS: No focal mass or ductal dilatation. STOMACH AND GASTROINTESTINAL TRACT: Stomach is grossly unremarkable. Small bowels are decompressed unopacified. There is marked diffuse dilatation of the entire colon right, transverse and part of the descending colon with a transition in the left upper quadrant refer image 80 series 5, there is a loop of the sigmoid colon within right inguinal hernia. There is no evidence of fracture or perforation at this time. Small bowels are not significantly dilated. ADRENALS: No adrenal nodules. KIDNEYS/URETERS: No hydronephrosis, stones or solid mass lesions. URINARY BLADDER: Partially decompressed. PELVIC VISCERA: Unremarkable PERITONEUM: No free air or fluid. LYMPH NODES: No lymphadenopathy. VASCULAR:Abdominal aorta normal in size, no aneurysm found. BONES, ABDOMINAL WALL AND SOFT TISSUES: Age-appropriate changes of the spine and skeletal system, no destructive osteolytic or osteosclerotic bone lesion found CT/CT abdomen pelvis wo con IMPRESSION: 1. Markedly dilated large bowel, involving the cecum, ascending colon, transverse colon and part of the descending colon with a transition zone in the left upper quadrant, most of the descending colon is collapsed normal in diameter. More distally there is a loop of the sigmoid colon found herniating into the right inguinal canal. Its unclear whether this is a colonic ileus megacolon versus partial obstruction at the left upper quadrant. Surgical evaluation warranted. Pham image. 2. Interstitial opacification at lower lobes bilaterally compatible with patient history of Covid pneumonia. 3. Other noncritical findings described above unchanged. This critical result was discussed with Dr. Urbano by telephone at 11/14/2020 10:42 AM and it was ascertained that the content and urgency of the report was understood at the time of direct communication.
--- NOTE | ~2020-11-14 | CT_ITS ---
EXAMINATION: CT ABDOMEN AND PELVIS WITHOUT CONTRAST CLINICAL INFORMATION: Fever. Postop bowel surgery. COMPARISON: Previous CT scans most recent November 2020 TECHNIQUE: Multidetector volumetric imaging was performed from the superior aspect of the liver through the pubic symphysis. Sagittal and coronal reformatted images were obtained on the technologist's workstation. This CT examination was performed using dose optimization techniques as appropriate, variously including the following: *Automated exposure control *Adjustment of mA and/or kV according to patient size (this includes techniques or standardized protocols for targeted exams where dose is matched to indication/reason for exam; i.e. extremities or head) *Use of iterative reconstruction technique DLP: 2185 mGy-cm FINDINGS: LIVER, GALLBLADDER, AND BILIARY TREE: The liver is low in attenuation suggestive of fatty infiltration. No focal liver lesion or biliary duct dilatation is seen. The gallbladder is upper normal in size slightly high in attenuation, question representing vicarious excretion of previously demonstrated contrast. PANCREAS: Unremarkable. SPLEEN: Unremarkable. ADRENAL GLANDS: Unremarkable. KIDNEYS AND URETERS: BLADDER: There is a Hunt catheter in the bladder. The bladder is empty. GASTROINTESTINAL TRACT: There are postsurgical changes following left lower quadrant colostomy. There is a more midline ostomy, probably ileostomy. There is a surgical drain in between the 2 ostomies with tip in the anterior abdominal wall. There is a rectal tube. There is a right inguinal hernia containing the sigmoid colon. There are no dilated loops of bowel to suggest obstruction. There is no ascites or free air. No abscess is. The stomach is dilated and filled with fluid. There is a nasogastric tube with tip projecting over the wall of the greater curvature of the distal stomach. ABDOMINAL WALL: There is a right inguinal hernia containing sigmoid colon. There may be a left inguinal hernia containing fat. LYMPH NODES: Normal. VASCULAR: Unremarkable. PELVIC VISCERA: Unremarkable. OSSEOUS STRUCTURES: There are degenerative changes of the spine and hip joints. CT/CT abdomen pelvis wo con IMPRESSION: Postsurgical changes following colostomy and ileostomy. Surgical drain in the abdominal wall in between the 2 ostomies. Right inguinal hernia containing sigmoid colon. No evidence of obstruction or abscess. Nasogastric tube in the stomach. The stomach is slightly distended and filled with fluid and tube repositioning should be considered. Fatty liver.
--- NOTE | ~2020-11-14 | XR_ITS ---
EXAMINATION: XR CHEST CLINICAL INFORMATION: Endotracheal tube and orogastric tube position COMPARISON: 11/06/2020 TECHNIQUE: Frontal view of the chest was obtained. FINDINGS: Endotracheal tube terminates approximately 6.5 cm above the woody, below the clavicles. Enteric tube extends into the stomach in good position. Lung volumes are low. Patchy opacities are seen in the lungs bilaterally, fairly similar to prior. No pleural effusion or pneumothorax. The cardiomediastinal silhouette remains prominent. XR/XR chest 1V IMPRESSION: Endotracheal tube terminates 6.5 cm above the woody. Enteric tube terminates in the stomach. Persistent patchy bilateral airspace opacities, fairly similar to prior.
--- NOTE | ~2020-11-14 | XR_ITS ---
EXAMINATION: XR CHEST CLINICAL INFORMATION: Dialysis catheter COMPARISON: Chest x-ray November 15, 2020 TECHNIQUE: Frontal portable view of the chest was obtained. 2:38 PM FINDINGS: Tubes and lines: 1. Endotracheal tube 7 cm above woody. 2. Right IJ catheter tip at cavoatrial junction. There is no pneumothorax. 3. Nasogastric tube tip coiled in stomach. There is no pneumothorax. Lung volume is low. There is prominence of pulmonary vascular markings accentuated by the low inspiratory effort.. No large pleural effusion. Lung markings similar prior chest x-ray. No dense opacification XR/XR chest 1V IMPRESSION: 1. Endotracheal tube 7 cm above woody. 2. Right IJ catheter tip at cavoatrial junction. There is no pneumothorax. 3. Nasogastric tube tip coiled in stomach. 4. Persistent low inspiratory effort with prominent bronchovascular markings unchanged since November 15, 2020 chest x-ray
--- NOTE | ~2020-11-14 | FL_ITS ---
EXAMINATION: XR GASTROGRAFIN WATER-SOLUBLE ENEMA CLINICAL INFORMATION: Diffuse abdominal pain. CT earlier today with areas of dilated colon, transition zone left upper quadrant likely proximal descending colon. Also sigmoid colon and right inguinal hernia. Nonspecific mesenteric inflammatory changes anterior right lower quadrant. Question pneumatosis. COMPARISON: CT abdomen and pelvis noncontrast 11/14/2020. TECHNIQUE: Water soluble Gastrografin enema is performed using fluoroscopic evaluation in addition to multiple fluoroscopic spot views and overhead images. The exam is performed using single contrast in unprepped colon. Dilution is three bottles Gastrografin to one bottle water. Fluoroscopy time: 3.4 minutes DAP: 221.275 Gycm2 Images: 22 fluoroscopic spot views. 2 overhead images after filling. Machine would not allow further images after filling colon, due to technical factors and heat capacity. Subsequently, 4 post drainage overhead images obtained. FINDINGS: Exam is technically challenging related to a number of factors including patient body habitus and symptoms, limited mobility, limited overhead images allowed by equipment (heat capacity). Despite these limitations, patient did well and was cooperative and exam tailored to patient capabilities. Water-soluble contrast flowed in retrograde fashion during intermittent fluoroscopy to the level of the cecum. There is no high-grade obstruction. Colon lumen caliber is similar to CT earlier today. Contrast is able to pass through the herniated sigmoid within the contralateral right inguinal hernia. There is some transient delay through the area of transition proximal descending colon but this eventually became compliant and contrast passed through the splenic flexure and transverse colon and ascending colon to reach the cecum with some trace reflux into the terminal ileum. There are wall irregularity seen in region of proximal descending colon and at the cecal tip. This may be related to combination of unprepped colon and transient spasm. No focal wall thickening noted in these areas on recent CT. There is question of mild thumbprinting involving the cecum and ascending colon. The CT shows question of mesenteric inflammation anterior to the ascending colon anterior right lower quadrant. There is no extravasation of contrast demonstrated during fluoroscopy or confirmed on the images. Procedure performed in the presence of surgeon, Dr. Cruz Ashby. Final images reviewed with Dr. Ashby after conclusion of exam. FL/FL barium enema IMPRESSION: 1. Patient study limitations as detailed above. No obstruction, contrast is able to reach the cecum. No visible extravasation of contrast. 2. Question of thumbprinting in region of cecum and ascending colon. Subtle mesenteric inflammatory changes are suggested anterior to proximal colon right lower quadrant on CT, but without wall thickening time of prior imaging. Follow-up CT may be helpful to reassess this area. 3. Nonobstructing right inguinal hernia containing loop of sigmoid colon.
--- NOTE | ~2020-11-14 | CT_ITS ---
EXAMINATION: CT ABDOMEN AND PELVIS WITHOUT CONTRAST CLINICAL INFORMATION: Reassess right colon. Question edema. Pneumatosis. COMPARISON: Multiple priors, most recent CT abdomen/pelvis done earlier the same day. Barium enema done earlier the same day. TECHNIQUE: Multidetector volumetric imaging was performed from the superior aspect of the liver through the pubic symphysis. Sagittal and coronal reformatted images were obtained on the technologist's workstation. This CT examination was performed using dose optimization techniques as appropriate, variously including the following: *Automated exposure control. *Adjustment of mA and/or kV according to patient size (this includes techniques or standardized protocols for targeted exams where dose is matched to indication/reason for exam; i.e. extremities or head). *Use of iterative reconstruction technique. DLP: 2505 mGy-cm FINDINGS: LUNG BASES: Interstitial prominence with patchy bibasilar airspace opacities, unchanged when compared to the prior examination. LIVER, GALLBLADDER, AND BILIARY TREE: The liver is normal in size and shape. Parenchymal hypoattenuation, consistent with steatosis. No focal hepatic lesion or biliary ductal dilatation is present. The gallbladder is unremarkable with no evidence of radiopaque gallstones, gallbladder wall thickening, or obvious pericholecystic inflammatory changes. PANCREAS: Obscured by streak artifact. SPLEEN: Unremarkable. ADRENAL GLANDS: Unremarkable. KIDNEYS AND URETERS: The kidneys are normal in size, shape, and attenuation. No hydronephrosis, hydroureter, or calculi seen. No perinephric stranding. BLADDER: Nondistended and not well seen due to adjacent streak artifact. GASTROINTESTINAL TRACT: Prominent dense contrast is seen throughout the colon, related to recent barium enema. No extraluminal extravasation of contrast. Evaluation of the bowel wall is limited due to associated streak artifact. Stranding is noted within the right upper quadrant adjacent to the bowel loops, which could represent an infectious or inflammatory process. PERITONEAL CAVITY: Large amount of intra-abdominal free air, new when compared to the prior examination. Small foci of free air are seen within the mesenteric fat, which could indicate pneumatosis and associated air within the vascular structures. Findings are concerning for bowel wall perforation. No organized fluid collection/abscess formation. ABDOMINAL WALL: Redemonstration of a large periumbilical fat-containing hernia. Redemonstration of a right inguinal hernia which is partially visualized and contains non-obstructed colonic loops. LYMPH NODES: No significant lymphadenopathy. VASCULAR: Unremarkable. PELVIC VISCERA: The prostate and seminal vesicles are unremarkable. OSSEOUS STRUCTURES: No acute osseous abnormality. CT/CT abdomen pelvis wo con IMPRESSION: 1. Large amount of intra-abdominal free air, new when compared to the prior examination. Multiple small foci of air throughout the mesentery, likely related to pneumatosis and air within the vascular structures. Findings likely indicate interval bowel wall perforation. No extraluminal extravasation of colonic contrast related to the recent barium enema. No organized fluid collection/abscess formation. 2. Inflammatory change within the right upper quadrant adjacent to the bowel loops, which could indicate an infectious or inflammatory process. No small or large bowel obstruction. 3. Large periumbilical fat-containing hernia as well as a large right inguinal hernia containing non-obstructed loops of colon. 4. Additional chronic findings are unchanged. This critical result was discussed with MD Lorena Ashby at 5:51 PM on 11/14/2020 and it was ascertained that the content and urgency of the report was understood at the time of direct communication.
[2020-11-14 06:24] VITALS: BP 122/85; PULSE 102; PULSE 85; RESP 18; TEMP 36.8; O2SAT 94; BMI 53.8
--- NOTE | 2020-11-14 06:35 | ED.ABDPAIN ---
HPI - Abdominal Pain General Chief Complaint: Abdominal Pain Stated Complaint: abd pain @injection site Time Seen by Provider: 11/14/20 06:34 Source: patient and old records reviewed Mode of arrival: EMS Limitations: no limitations History of Present Illness HPI narrative: 54 yo male just admitted from 11/02 - 11/13 after being dx with COVID unvaccinated status - he left on O2. He got home last night had no pain medications and also noted he lives alone and cannot care for himself. He notes he has chronic abdominal pain but feels his pain is worse after they gave him lovenox shots in the hospital and his pain was present yesterday. He notes some diarrhea yesterday while admitted. He reports he is passing gas and denies vomiting MD elicited complaint: abdominal pain Pertinent past history: other (chronic abdominal pain ) Onset (ago): year(s) (but notes he didn't have medicine last night so it was much worse) Pain Consistency: constant Location: diffuse Severity: severe Quality: stabbing Radiation: none Migration to: no migration Exacerbating factors: movement Relieving factors: nothing Context: history of similar episodes and other (recent lovenox shots due to covid dx) Associated symptoms: diarrhea Related Data Home Medications Medication Instructions Recorded Confirmed cyclobenzaprine 5 mg tablet 5 mg PO Q8H PRN 05/20/20 11/02/20 gabapentin 300 mg capsule 300 mg PO TID PRN 05/20/20 11/14/20 Previous Rx's Medication Instructions Recorded naproxen 500 mg tablet 500 mg PO BID PRN 10 Days #20 tab 12/23/19 oxycodone 5 mg tablet 5 mg PO Q6H PRN 3 Days #9 tab 12/23/19 tramadol 50 mg tablet 50 mg PO Q6H PRN #30 tab 07/16/20 amlodipine 5 mg tablet 5 mg PO DAILY #30 tab 11/13/20 guaifenesin 100 mg/5 mL oral liquid 10 ml PO Q6H PRN 10 Days ml 11/13/20 prednisone 20 mg tablet 40 mg PO DAILY #15 tab 11/13/20 Allergies Allergy/AdvReac Type Severity Reaction Status Date / Time No Known Allergies Allergy Verified 07/16/20 15:59 Review of Systems Review of Systems Constitutional : No Weight loss, No Fever, No Chills ENT/Mouth : No sore throat, No Rhinorrhea Eyes: No Swelling, No Redness Cardiovascular : No Chest Pain, pos SOB, No Edema Respiratory :pos Cough, No Sputum, No Wheezing Gastrointestinal : Positive Nausea, no Vomiting, positive Diarrhea, positive abdominal Pain, No Hematochezia, No Melena Genitourinary : No Dysuria, No Urinary Frequency, No Hematuria, No Urgency Musculoskeletal : No joint pain, No Myalgias, No Joint Swelling Skin : No Skin Lesions, No rash Neuro : No Weakness, No Numbness, No Dizziness, No Headache Psych : No Anxiety/Panic, No Depression Heme/Lymph: No Bruising, No Lymphadenopathy Endocrine : No Polyuria, No Polydipsia All other systems reviewed and are negative. Physical Exam Vital Signs: Vital Signs: Last Vital Signs Temp 100.2 F 11/14/20 13:50 Pulse 120 H 11/14/20 13:50 Resp 22 H 11/14/20 13:50 BP 125/88 11/14/20 13:50 Pulse Ox 92 11/14/20 13:50 Oxygen Flow Rate 4 11/14/20 06:24 Body Mass Index 53.8 Appearance: Alert. Oriented X3. No acute distress. Eyes: Pupils equal, round and reactive to light. ENT: Pharynx normal. Neck: Normal inspection. Neck supple. CVS: tachycardic heart rate and rhythm. Pulses normal. Respiratory: No respiratory distress. Breath sounds diminished and intermittent tachypnea Abdomen: obese, firm lower ventral hernia felt lovenox injection sites are small 1 to 2 inches without underlying hematoma felt Skin: Skin warm and dry. Normal skin color. Extremities: No lower extremity edema. No calf ttp Neuro: Oriented X 3. No motor deficit. No sensory deficit. Course Course Course Narrative: suspect WBC count due to steroid use and not infection or severe sepsis, WBC count lower than yesterday notified surgery regarding symptoms and initial review of CT scan 1021am call from Radiology - 1039am colon dilated over 12cm filled with air, not the entire colon transition in LUQ it goes to normal at descending colon, loop of sigmoid colon in R inguinal hernia - has wide neck ?unsure why he has eduar colon, colonic ileus? partial obs in that area, decompress. notified Dr. Ashby WBC lower than his most recent, no diarrhea while in ED seems unlikely to be c diff ?pneumatosis intestinalis lactic acid 1.4 surgery notified about radiology call and addendum 1157am surgery involved at this time pending enema at this time low grade temp noted - cultures ordered, empiric zosyn possible infection suspected 205pm pending admission and decision by surgery for admission vs OR - signed out to Lidia COUCH 4pm MDM - Abdominal Pain MDM Narrative Medical decision making narrative: 54 yo male with HTN, obesity, chronic back pain, known abdominal hernias, recent prolonged admit for COVID with now resp failure and home O2 use was DC yesterday on 11/13 and notes his abdominal pain was severe unsure if this is due to lack of his chronic pain medications or a new entity such as obstruction given his distention it would be unusual for abdominal wall hematoma to be causing this pain given lack of sig external findings - labs, CT scan ordered, pain medications. He also notes he cannot care for himself at home and wants to go to rehab if his workup is negative. Lab Data Result diagrams: 11/14/20 07:14 11/14/20 07:14 Labs: Lab Results 11/14/20 11/14/20 11/14/20 Range/Units 07:14 07:14 08:07 WBC 13.7 H (4.8-10.8) X10*3/uL RBC 5.68 (4.60-5.80) X10*6/uL Hgb 15.5 (14.0-18.0) g/dl Hct 47.9 (42-52) % MCV 84.3 (80-98) fL MCH 27.3 (27.0-33.0) pg MCHC 32.4 (31.0-36.0) g/dl RDW 14.8 (11.0-16.0) % Plt Count 217 (160-400) X10*3/uL MPV 10.3 (9.4-12.4) fL Immature Gran % (Auto) 0.7 H (0.0-0.4) % Neut % (Auto) 84.2 H (45-73) % Lymph % (Auto) 4.3 L (20-40) % [place] % (Auto) 10.6 (2-11) % Eos % (Auto) 0.1 (0-4) % Baso % (Auto) 0.1 (0-2) % Lymph # (Auto) 0.6 L (1.2-4.9) X10*3/uL [place] # (Auto) 1.5 H (0.1-1.2) X10*3/uL Eos # (Auto) 0.0 (0.0-0.4) X10*3/uL Baso # (Auto) 0.0 (0.0-0.2) X10*3/uL Abs Immat Gran (auto) 0.09 H (0.00-0.03) X10*3/uL Absolute Neuts (auto) 11.6 H (2.0-8.3) X10*3/uL Absolute Nucleated RBC 0.000 (0.0-0.012) X10*3/uL Nucleated RBC % (auto) 0.0 (0.0-0.2) /100WBC PT (9.9-13.0) SEC INR (0.9-1.1) APTT (24.1-38.0) SEC Sodium 141 (135-145) mmol/L Potassium 4.0 (3.3-5.1) mmol/L Chloride 105 (96-108) mmol/L Carbon Dioxide 26 (22-29) mmol/L Anion Gap 14 (12-20) BUN 25 H (9-16) mg/dL Creatinine 0.84 (0.5-1.4) mg/dL Estim Creat Clear Calc 174.3 Estimated GFR > 60 Random Glucose 111 (60-115) mg/dL Lactic Acid (0.5-2.0) mmol/L Calcium 8.4 (8.4-10.2) mg/dL Total Bilirubin 1.3 H (0.0-1.0) mg/dL AST 36 D (5-37) U/L ALT 58 H (0-40) U/L Alkaline Phosphatase 72 (39-117) U/L Total Protein 6.2 L (6.5-8.0) g/dL Albumin 3.1 L D (3.5-5.0) g/dL Lipase 19 (8-78) U/L COVID-19 (IVON) Negative (Negative) COVID-19 Clin Com See Note Blood Type Antibody Screen 11/14/20 11/14/20 11/14/20 Range/Units 11:29 11:29 12:13 WBC (4.8-10.8) X10*3/uL RBC (4.60-5.80) X10*6/uL Hgb (14.0-18.0) g/dl Hct (42-52) % MCV (80-98) fL MCH (27.0-33.0) pg MCHC (31.0-36.0) g/dl RDW (11.0-16.0) % Plt Count (160-400) X10*3/uL MPV (9.4-12.4) fL Immature Gran % (Auto) (0.0-0.4) % Neut % (Auto) (45-73) % Lymph % (Auto) (20-40) % [place] % (Auto) (2-11) % Eos % (Auto) (0-4) % Baso % (Auto) (0-2) % Lymph # (Auto) (1.2-4.9) X10*3/uL [place] # (Auto) (0.1-1.2) X10*3/uL Eos # (Auto) (0.0-0.4) X10*3/uL Baso # (Auto) (0.0-0.2) X10*3/uL Abs Immat Gran (auto) (0.00-0.03) X10*3/uL Absolute Neuts (auto) (2.0-8.3) X10*3/uL Absolute Nucleated RBC (0.0-0.012) X10*3/uL Nucleated RBC % (auto) (0.0-0.2) /100WBC PT 14.1 H (9.9-13.0) SEC INR 1.2 H (0.9-1.1) APTT 29.5 (24.1-38.0) SEC Sodium (135-145) mmol/L Potassium (3.3-5.1) mmol/L Chloride (96-108) mmol/L Carbon Dioxide (22-29) mmol/L Anion Gap (12-20) BUN (9-16) mg/dL Creatinine (0.5-1.4) mg/dL Estim Creat Clear Calc Estimated GFR Random Glucose (60-115) mg/dL Lactic Acid 1.4 (0.5-2.0) mmol/L Calcium (8.4-10.2) mg/dL Total Bilirubin (0.0-1.0) mg/dL AST (5-37) U/L ALT (0-40) U/L Alkaline Phosphatase (39-117) U/L Total Protein (6.5-8.0) g/dL Albumin (3.5-5.0) g/dL Lipase (8-78) U/L COVID-19 (IVON) (Negative) COVID-19 Clin Com Blood Type O Positive Antibody Screen NEGATIVE Critical Care Time Critical Care Time Critical Care Time: Yes Total Critical Care Time: 60 Attestation: review of records, medical consults I attest to this time spent taking care of the patient Discharge Plan Discharge Clinical Impression: Megacolon Abdominal pain Qualifiers: Abdominal location: epigastric Qualified Code(s): R10.13 - Epigastric pain Patient Disposition: Admitted As Inpatient [facility] Past Medical History Medical History Abdominal hernia Bacteremia Hernia Right hip pain Social History Social History Household Members: None Housing: Apartment Do you presently have visiting nurse or other home services: No Alcohol intake: never Patient Tobacco Use Status: Never used Tobacco e-Cigarette/Vaping Use: Never Used Use of substances other than those prescribed or required for medical reasons: No Advance Directives: No Advance Directives Information Provided: Yes service: No Current occupational status: disabled
[2020-11-14 07:17] LABS: MANUAL DIFF FLAG NO
[2020-11-14] MEDS: oxyCODONE HCl Immed Release 5 MG TABLET PO (07:20)
[2020-11-14 07:23] VITALS: BP 130/82; PULSE 99; RESP 22; O2SAT 93
[2020-11-14 07:23] LABS: Basophils Percent Auto 0.1 % (0-2); Eosinophils Percent Auto 0.1 % (0-4); Hematocrit 47.9 % (42-52); Hemoglobin 15.5 g/dl (14.0-18.0); Imm Gran Abs Auto 0.09 X10*3/uL (0.00-0.03); Imm Gran Pct Auto 0.7 % (0.0-0.4); Lymphocytes Absolute Auto 0.6 X10*3/uL (1.2-4.9); Lymphocytes Percent Auto 4.3 % (20-40); Mean Corpuscular HGB Conc 32.4 g/dl (31.0-36.0); Mean Corpuscular Hemoglobin 27.3 pg (27.0-33.0); Mean Corpuscular Volume 84.3 fL (80-98); Mean Platelet Volume 10.3 fL (9.4-12.4); Monocytes Absolute Auto 1.5 X10*3/uL (0.1-1.2); Monocytes Percent Auto 10.6 % (2-11); Neutrophils Absolute Auto 11.6 X10*3/uL (2.0-8.3); Neutrophils Percent Auto 84.2 % (45-73); Platelet Count 217 X10*3/uL (160-400); Red Blood Count 5.68 X10*6/uL (4.60-5.80); Red Cell Distribution Width 14.8 % (11.0-16.0); White Blood Count 13.7 X10*3/uL (4.8-10.8)
[2020-11-14 07:43] LABS: Alanine Aminotransferase 58 U/L (0-40); Albumin Level 3.1 g/dL (3.5-5.0); Alkaline Phosphatase 72 U/L (39-117); Anion Gap 14 (12-20); Aspartate Amino Transferase 36 U/L (5-37); Bilirubin Total 1.3 mg/dL (0.0-1.0); Blood Urea Nitrogen 25 mg/dL (9-16); Calcium 8.4 mg/dL (8.4-10.2); Carbon Dioxide 26 mmol/L (22-29); Chloride 105 mmol/L (96-108); Creatinine Clr Calc Pharmacy 174.3; Estimated Glomerular Filt Rate > 60; Glucose Random 111 mg/dL (60-115); Lipase 19 U/L (8-78); Sodium 141 mmol/L (135-145); Total Protein 6.2 g/dL (6.5-8.0)
[2020-11-14 08:00] VITALS: BP 146/90; PULSE 98; RESP 20; TEMP 37; O2SAT 93
[2020-11-14 08:36] LABS: COVID-19 Test Negative (Negative)
--- NOTE | 2020-11-14 11:02 | PC.NURSE ---
Patient's sister/ER contact called requesting update on patient, patient granted staff permission to speak with sister. Sister updated. Requesting information on what potential procedure will be taking place, forwarded to provider.
[2020-11-14 11:54] LABS: Lactic Acid 1.4 mmol/L (0.5-2.0)
[2020-11-14 12:03] LABS: INTERNATIONAL NORM RATIO 1.2 (0.9-1.1); Prothrombin Time 14.1 SEC (9.9-13.0)
[2020-11-14 12:06] LABS: Partial Thromboplastin Time 29.5 SEC (24.1-38.0)
[2020-11-14] MEDS: Morphine Sulfate 4 MG/ML CARTRIDGE IVPUSH ×2 (12:14→17:26)
[2020-11-14 12:18] VITALS: BP 167/91; PULSE 99; RESP 18; TEMP 36.4; O2SAT 94
--- NOTE | 2020-11-14 12:39 | P.HPGS_ITS ---
History of Present Illness History of Present Illness Date of Service: 11/14/20 Chief complaint: abd pain @injection site Narrative: Jovani Robin is a 54 year old male who was discharged from [facility] yesterday after a 12 day hospitalization for treatment of acute respiratory failure secondary to COVID-19. Of note, serology for COVID-19 is negative today in the emergency department. The patient return to the emergency department with complaints of abdominal pain. He reports that the pain has been present for a few days. He relates that to the Lovenox injections he was receiving during his hospitalization. He has a history of degenerative disc disease and chronic right hip pain and has been taking a moderate amount of oxycodone for management. He was receiving steroids during his hospitalization and was discharged on a prednisone taper. His O2 saturation level remained somewhat low at discharge and he was discharged home on 2 L of Oxygen bynasal cannula. He reports persistent abdominal pain, but no fever, nausea or vomiting. He states that he was passing flatus yesterday. He also passed a loose stool prior to discharge. He describes his abdominal pain as diffuse and severe. He reports that he is unable to manage at home. In the emergency room, white blood count was 13.7. Lactic acid level was normal at 1.4. Electrolytes were normal with a bicarb of 26. A CT scan of the abdomen and pelvis was obtained: IMPRESSION: ? 1. Markedly dilated large bowel, involving the cecum, ascending colon, transverse colon and part of the descending colon with a transition zone in the left upper quadrant, most of the descending colon is collapsed normal in diameter. More distally there is a loop of the sigmoid colon found herniating into the right inguinal canal. Its unclear whether this is a colonic ileus megacolon versus partial obstruction at the left upper quadrant. Surgical evaluation warranted. Pham image. ? ? 2. Interstitial opacification at lower lobes bilaterally compatible with patient history of Covid pneumonia. ? 3. Other noncritical findings described above unchanged. ? This critical result was discussed with Dr. Urbano by telephone at 11/14/2020 10:42 AM and it was ascertained that the content and urgency of the report was understood at the time of direct communication. Dictated By: JULIA CAIN MD Signed By: <Electronically signed by JULIA CAIN MD in OV> 11/14/20 1043 DD/ 0647 TD/TT:? Quality Assurance Intern: LALO On further review, the radiologist also felt that there was probable pneumatosis involving the distended portion of colon. I discussed the results with the radiologist, Dr. Cain. We also discussed the possibility of further evaluation with Gastrografin enema. Review of Systems Constitutional: Constitutional: Reports body ache(s) and Denies headache(s) ENT: Denies headache(s) Cardiovascular: Cardiovascular: Denies chest pain, Denies palpitations and Denies dyspnea Respiratory: Respiratory: Reports cough, Denies dyspnea and Denies wheezing Gastrointestinal: Gastrointestinal: Reports as per HPI Musculoskeletal: Musculoskeletal: Reports no additional musculoskeletal complaints Neurologic: Denies headache(s) Endocrine: Endocrine: Denies palpitations Hematologic/Lymphatic: Hematologic/Lymphatic: Denies easy bleeding Allergic/Immunologic: Allergic/Immunologic: Denies wheezing PMFSH Past Medical History Medical History Abdominal hernia Bacteremia Hernia Right hip pain Social History Social History Household Members: None Housing: Apartment Do you presently have visiting nurse or other home services: No Alcohol intake: never Patient Tobacco Use Status: Never used Tobacco e-Cigarette/Vaping Use: Never Used Use of substances other than those prescribed or required for medical reasons: No Advance Directives: No Advance Directives Information Provided: Yes service: No Current occupational status: disabled Meds Allergies Allergy/AdvReac Type Severity Reaction Status Date / Time No Known Allergies Allergy Verified 07/16/20 15:59 Home Medications Medication Instructions Recorded Confirmed Last Taken Type cyclobenzaprine 5 mg tablet 5 mg PO Q8H PRN 05/20/20 11/02/20 05/19/20 History gabapentin 300 mg capsule 300 mg PO TID PRN 05/20/20 11/14/20 05/19/20 History Physical Exam Vital Signs: Vital Signs: Last Vital Signs Temp 97.6 F 11/14/20 12:18 Pulse 99 11/14/20 12:18 Resp 18 11/14/20 12:18 BP 167/91 H 11/14/20 12:18 Pulse Ox 94 11/14/20 12:18 Oxygen Flow Rate 4 11/14/20 06:24 Body Mass Index 53.8 Const: General: alert and anxious (Mildly) Nutritional Appearance: obese Orientation/consciousness: patient oriented x3 HENMT: Head: Yes normocephalic and Yes atraumatic Resp: Effort & Inspection: normal respiratory effort Auscultation: diminished lung sounds Cardio: Rate: regular rate Rhythm: regular rhythm GI: Other: Round, obese, moderately firm, active bowel sounds, slight fullness in umbilical area, diffusely tender, mild rebound Neuro: General: patient oriented x3 Results Results Labs: Short CBC 11/14/20 Range/Units 07:14 WBC 13.7 H (4.8-10.8) X10*3/uL Hgb 15.5 (14.0-18.0) g/dl Hct 47.9 (42-52) % Plt Count 217 (160-400) X10*3/uL BMP 11/14/20 07:14 Sodium 141 Potassium 4.0 Chloride 105 Carbon Dioxide 26 BUN 25 H Creatinine 0.84 Calcium 8.4 Liver Function 11/14/20 Range/Units 07:14 Total Bilirubin 1.3 H (0.0-1.0) mg/dL AST 36 D (5-37) U/L ALT 58 H (0-40) U/L Alkaline Phosphatase 72 (39-117) U/L Albumin 3.1 L D (3.5-5.0) g/dL Abdomen CT scan report/results: report reviewed and image reviewed CT scan - pelvis: report reviewed and image reviewed Assessment and Plan (1) Abdominal pain: Qualifiers: Abdominal location: epigastric Qualified Code(s): R10.13 - Epigastric pain Status: Acute (2) Megacolon: Status: Acute Abdominal pain likely secondary to marked distension of right and transverse colon. It is unclear at this time whether distension is related to a partial obstruction at the level of the proximal descending colon or to colonic ileus related to his acute illness with COVID-19 and respiratory failure as well as opioid use. Lactic acid level is normal. White blood count has been somewhat elevated over the past 3 days, possibly related to the colonic distension though this is unclear. Further evaluation with limited Gastrografin enema has been requested to assess the left colon and evaluate for possible partial obstruction. If obstruction is identified, or if Gastrografin enema cannot be completed, it appears likely that surgical decompression will be required. (3) Acute respiratory failure with hypoxia: Status: Acute Secondary to recent COVID-19 infection. Improving. (4) Morbid obesity with BMI of 50.0-59.9, adult: Status: Acute (5) Abdominal hernia: Status: Acute Stable umbilical and right inguinal hernias, no intervention required at this time (6) COVID-19: Status: Acute Recent diagnosis, improving. Serology negative today. Addendum 17:24: Gastrografin enema done. No obstruction. Colon appears less distended than it did on prior CT scan. Difficult to assess right colon. Reviewed with Dr. Arellano. Patient continues to report significant pain but not able to describe it well. Will repeat CBC with diff, basic metabolic profile and lactic acid and also will repeat CT scan of the abdomen and pelvis to reassess right colon. Addendum 1758: CT shows free air, no contrast extravasation seen. Discussed with him. Plan exploratory laparotomy, possible bowel resection, ostomy. Discussed with him, reviewed risks including but not limited to infection, bleeding, DVT/PE, disruption of incision, hernia, injuries to abdominal structures, cardiac and pulmonary complications. He agrees to proceed. Aware of increased risk due to COVID 19 and respiratory compromise. Likely will need ICU admission postop. Quality Stroke Does the patient have a stroke diagnosis?: No VTE Prior VTE?: No VTE Risk Level:: Surgical - high VTE Device Contraindication: N/A - Device Ordered VTE Drug Contraindication: N/A - Med Ordered Procedures Date of Service Date of Service: 11/14/20
[2020-11-14] MEDS: HYDROmorphone HCl 1 MG/ML SYRINGE IVPUSH ×2 (13:46→18:06)
[2020-11-14 13:50] VITALS: BP 125/88; PULSE 120; RESP 22; TEMP 37.9; O2SAT 92
[2020-11-14] MEDS: Piperacillin Sodium/Tazobactam 3.375 GM in 0.9 % Sodium Chloride 50 ML IV (14:30)
[2020-11-14] MEDS: Acetaminophen Oral Liquid 650 MG/20.3 ML SOLUTION PO (14:30)
--- NOTE | 2020-11-14 15:11 | PC.NURSE ---
Patient's STAT BC delayed due to inability to access vein to retrieve enough blood for both vials. Antibiotic delayed slightly as well. Patient very irritable this shift, constantly yelling out nurse . Medicated x 2 with morphine and dilaudid, which provided minimal effect. Currently NPO for potential procedure. Patient continiually asking for water/ice, although this RN educated patient extensively regarding need to maintain NPO. Will pass to oncoming RN.
[2020-11-14] MEDS: Diatrizoate Meglumine, Sodium 120 ML SOLUTION 1650 ML PR (17:12)
--- NOTE | 2020-11-14 17:37 | PC.NURSE ---
PT RETURNED FROM RADIOLOGY, MOANING IN PAIN, UNABLE TO GET COMFORTABLE. DIFFICULT W/CARE STATING YOU WILL DO IT IN MY TIME MEDICATED W/4MG MORPHINE PER PRN, MADE PROVIDER AWARE OF PTS PAIN COMPLAINT. PCT @ BEDSIDE DRAWING LABS PER DR. LICONA NOW
[2020-11-14 17:45] LABS: MANUAL DIFF FLAG NO
[2020-11-14 17:47] LABS: Basophils Percent Auto 0.1 % (0-2); Eosinophils Percent Auto 0.1 % (0-4); Hematocrit 50.7 % (42-52); Hemoglobin 16.4 g/dl (14.0-18.0); Imm Gran Abs Auto 0.06 X10*3/uL (0.00-0.03); Imm Gran Pct Auto 0.6 % (0.0-0.4); Lymphocytes Absolute Auto 0.5 X10*3/uL (1.2-4.9); Lymphocytes Percent Auto 4.7 % (20-40); Mean Corpuscular HGB Conc 32.3 g/dl (31.0-36.0); Mean Corpuscular Hemoglobin 27.3 pg (27.0-33.0); Mean Corpuscular Volume 84.5 fL (80-98); Mean Platelet Volume 9.7 fL (9.4-12.4); Monocytes Absolute Auto 0.8 X10*3/uL (0.1-1.2); Neutrophils Absolute Auto 8.7 X10*3/uL (2.0-8.3); Neutrophils Percent Auto 86.5 % (45-73); Platelet Count 237 X10*3/uL (160-400)
[2020-11-14 18:04] LABS: Anion Gap 19 (12-20); Blood Urea Nitrogen 30 mg/dL (9-16); Calcium 8.4 mg/dL (8.4-10.2); Carbon Dioxide 25 mmol/L (22-29); Chloride 102 mmol/L (96-108); Creatinine Clr Calc Pharmacy 92.1; Estimated Glomerular Filt Rate 45; Glucose Fasting 159 mg/dL (60-99); Potassium 3.8 mmol/L (3.3-5.1); Sodium 142 mmol/L (135-145)
[2020-11-14 18:06] LABS: Lactic Acid 2.9 mmol/L (0.5-2.0)
[2020-11-14 18:13] VITALS: BP 130/95
--- NOTE | 2020-11-14 18:41 | PC.NURSE ---
PT SLEEPING WHEN RN ENTERED ROOM. REMAINS ASLEEP, EASILY AROUSABLE BUT STARTS MOANING IN PAIN. STATING THE MEDS HAVE NOTTOUCHED HIS PAIN, BUT PT APPEARS TO SLEEP PEACEFULLY OTHERWISE. PTS BELLY IS NOTED TO BE DISTENDED & HARD. PLAN OF CARE AT THIS TIME FOR ADMISSION
--- NOTE | 2020-11-14 19:24 | P.CONAN_ITS ---
HPI - Anesthesia Eval Consult details Narrative: abdominal free air PMFSH Active Problems Active Problems: All Active Problems (Updated 11/14/20 @ 10:45 by Sabrina Urbano DO) Abdominal pain (Acute) Megacolon (Acute) Acute respiratory failure with hypoxia (Acute) Bacteremia (Acute) IFG (impaired fasting glucose) (Acute) Hypertension (Acute) COVID-19 (Acute) Right hip pain (Acute) Abdominal hernia (Acute) Morbid obesity with BMI of 50.0-59.9, adult (Acute) Compression fracture of T11 vertebra (Acute) Compression fracture of T9 vertebra (Acute) Hernia (Acute) Past Medical History Medical History Abdominal hernia Bacteremia Hernia Right hip pain Functional capacity: independent ambulation Family History Family history of problems with anesthesia: No Surgical History History of Problems with Anesthesia: No Social History Social History Household Members: None Housing: Apartment Do you presently have visiting nurse or other home services: No Alcohol intake: never Patient Tobacco Use Status: Never used Tobacco e-Cigarette/Vaping Use: Never Used Use of substances other than those prescribed or required for medical reasons: No Advance Directives: No Advance Directives Information Provided: Yes service: No Current occupational status: disabled Meds Allergies Allergy/AdvReac Type Severity Reaction Status Date / Time No Known Allergies Allergy Verified 07/16/20 15:59 Active Medications: Current Medications Piperacillin Sod/Tazobactam (Sod 3.375 gm/ Sodium Chloride) 50 mls @ 100 mls/hr IV Q6H [facility] Home Medications Medication Instructions Recorded Confirmed Last Taken Type cyclobenzaprine 5 mg tablet 5 mg PO Q8H PRN 05/20/20 11/02/20 05/19/20 History gabapentin 300 mg capsule 300 mg PO TID PRN 05/20/20 11/14/20 05/19/20 History Exam Exam Date and Time: November 14, 20201923 Height,Weight and Vital Signs: Height 6 ft 2 in Weight 190.509 kg Last Vital Signs Temp 100.2 F 11/14/20 13:50 Pulse 120 H 11/14/20 13:50 Resp 22 H 11/14/20 13:50 BP 130/95 H 11/14/20 18:13 Pulse Ox 92 11/14/20 13:50 Oxygen Flow Rate 4 11/14/20 06:24 Pertinent Lab Results Pertinent Lab Results: Laboratory Tests 11/14/20 11/14/20 11/14/20 07:14 07:14 08:07 WBC 13.7 H RBC 5.68 Hgb 15.5 Hct 47.9 MCV 84.3 MCH 27.3 MCHC 32.4 RDW 14.8 Plt Count 217 MPV 10.3 Immature Gran % (Auto) 0.7 H Neut % (Auto) 84.2 H Lymph % (Auto) 4.3 L [place] % (Auto) 10.6 Eos % (Auto) 0.1 Baso % (Auto) 0.1 Lymph # (Auto) 0.6 L [place] # (Auto) 1.5 H Eos # (Auto) 0.0 Baso # (Auto) 0.0 Abs Immat Gran (auto) 0.09 H Absolute Neuts (auto) 11.6 H Absolute Nucleated RBC 0.000 Nucleated RBC % (auto) 0.0 PT INR APTT Sodium 141 Potassium 4.0 Chloride 105 Carbon Dioxide 26 Anion Gap 14 BUN 25 H Creatinine 0.84 Estim Creat Clear Calc 174.3 Estimated GFR > 60 Random Glucose 111 Fasting Glucose Lactic Acid Calcium 8.4 Total Bilirubin 1.3 H AST 36 D ALT 58 H Alkaline Phosphatase 72 Total Protein 6.2 L Albumin 3.1 L D Lipase 19 COVID-19 (IVON) Negative COVID-19 Clin Com See Note Blood Type Antibody Screen 11/14/20 11/14/20 11/14/20 11:29 11:29 12:13 WBC RBC Hgb Hct MCV MCH MCHC RDW Plt Count MPV Immature Gran % (Auto) Neut % (Auto) Lymph % (Auto) [place] % (Auto) Eos % (Auto) Baso % (Auto) Lymph # (Auto) [place] # (Auto) Eos # (Auto) Baso # (Auto) Abs Immat Gran (auto) Absolute Neuts (auto) Absolute Nucleated RBC Nucleated RBC % (auto) PT 14.1 H INR 1.2 H APTT 29.5 Sodium Potassium Chloride Carbon Dioxide Anion Gap BUN Creatinine Estim Creat Clear Calc Estimated GFR Random Glucose Fasting Glucose Lactic Acid 1.4 Calcium Total Bilirubin AST ALT Alkaline Phosphatase Total Protein Albumin Lipase COVID-19 (IVON) COVID-19 Clin Com Blood Type O Positive Antibody Screen NEGATIVE 11/14/20 11/14/20 11/14/20 17:39 17:39 17:39 WBC 10.0 RBC 6.00 H Hgb 16.4 Hct 50.7 MCV 84.5 MCH 27.3 MCHC 32.3 RDW 15.0 Plt Count 237 MPV 9.7 Immature Gran % (Auto) 0.6 H Neut % (Auto) 86.5 H Lymph % (Auto) 4.7 L [place] % (Auto) 8.0 Eos % (Auto) 0.1 Baso % (Auto) 0.1 Lymph # (Auto) 0.5 L [place] # (Auto) 0.8 Eos # (Auto) 0.0 Baso # (Auto) 0.0 Abs Immat Gran (auto) 0.06 H Absolute Neuts (auto) 8.7 H Absolute Nucleated RBC 0.000 Nucleated RBC % (auto) 0.0 PT INR APTT Sodium 142 Potassium 3.8 Chloride 102 Carbon Dioxide 25 Anion Gap 19 BUN 30 H Creatinine 1.59 H Estim Creat Clear Calc 92.1 Estimated GFR 45 Random Glucose Fasting Glucose 159 H Lactic Acid 2.9 H* Calcium 8.4 Total Bilirubin AST ALT Alkaline Phosphatase Total Protein Albumin Lipase COVID-19 (IVON) COVID-19 Clin Com Blood Type Antibody Screen Airway Mallampati Class: II TM Dist: >3cm Neck ROM: Full Loose/Missing/Broken Teeth: No Heart: RRR Lungs: TA Assessment and Plan Assessment Anesthesia Assessment: Anesthesia Plan Discussed and Chart Reviewed Final Anesthetic Review Family History of Problems with Anesthesia: No History of Problems with Anesthesia: No NPO: Yes ASA Class: III and Emergency Final Preanesthetic Review: No Changes in Pt Med Stat, Meds/Allgs Chart Reviewed, Consent Obtained/Reviewed and Anes Risks/Benef Reviewed Patient Risk: High Procedure Risk: High Anesthetic Plan Anesthetic Plan: GA Disposition: Inp. Admit - ICU
[2020-11-14 19:44] LABS: Reflex Lactate? Lactic Acid Added
[2020-11-14 20:04] LABS: ~Lactic Acid-LAB USE ONLY 1.3 mmol/L (0.5-2.0)
[2020-11-15] VITALS (42 sets, daily range): BP systolic 86–132; BP diastolic 51–86; PULSE 92–107; RESP 11–23; TEMP 36.1–37.9; O2SAT 88–96; BMI 55.7
--- NOTE | 2020-11-15 02:53 | W.PM.OPN ---
Operative Note Operative Note Date of Service: 11/15/20 Narrative: Preoperative diagnosis: perforated viscus Postoperative diagnosis: Ischemia of right and proximal transverse colon with perforation Procedure: Exploratory laparotomy, extended right hemicolectomy, creation of ileostomy and mucous fistula Anesthesia: General endotracheal Specimens: Right and transverse colon, peritoneal cultures Indications: This is a 54-year-old male who was discharged from [facility] after treatment for COVID-19 on 11/13/2020. He returned to the emergency department the following morning complaining of persistent severe abdominal pain. Workup revealed a mildly elevated white blood count and dilated right and transverse colon with question of obstruction. No obstruction was noted on Gastrografin enema, but follow-up CT scan revealed free intraperitoneal air and laparotomy was therefore advised. Findings there was some edema and dilatation of the small bowel. The right colon was dilated and appeared ischemic without yanni necrosis. The transverse colon also appeared ischemic and 2 small areas of perforation were identified, 1 in the proximal transverse colon and the 2nd in the mid to distal transverse colon. Purulent-appearing fluid was present in the abdomen, but no obvious fecal spillage was noted on entering the abdomen. Some spillage occurred intraoperatively but was easily contained. Procedure in detail with the patient in the supine position following induction of adequate general anesthesia, time-out procedure was performed. He was on scheduled Zosyn and received a dose of Zosyn prior to incision. The midline area for incision also was infiltrated with local anesthetic prior to making incision. A midline incision was made in the upper abdomen was carried down initially to just above the level of a known supraumbilical hernia. Upon entering the abdomen, a large amount of free air was released. Exploration revealed some murky appearing fluid and more purulent-appearing fluid in the right upper quadrant where a small, approximately 1 cm perforation was noted in the proximal transverse colon. This area was dissected free. The colon was divided just distal to this area of perforation using the MARIAM 80-4.8 stapler. Because of the perforation, in order to close the open end of bowel, a piece of 1 in plain packing was employed and was placed circumferentially around the open and of the proximal transverse colon to avoid further spillage. Omentum was adherent in the right lower quadrant. This was carefully dissected free using a combination of gentle blunt, cautery and LigaSure dissection. The proximal transverse colon was mobilized. The gastrocolic omentum was divided using the LigaSure or and the transverse mesocolon was partially divided moving from distal to proximal. The right colon was then mobilized along the paracolic gutter. In order to obtain adequate visualization, the Bookwalter retractor was positioned. The extension was required. The cecum was adherent deep in the right lower quadrant and was carefully mobilized. There was some tethering of the distal ileum as well. Visualization was difficult and ultimately the incision was extended caudad through the ventral hernias. Two small defects were opened. Once this was done, better visualization was obtained. The distal ileum was dissected free. Position for division of the distal ileum was chosen about 8 cm proximal to the ileocecal valve. A window was created in the mesentery at the bowel margin and the MARIAM 8-4.8 stapler was employed to divide the bowel at that location. The mesentery was then divided along the distal ileum using the LigaSure. The right colon was further mobilized and the mesentery was divided to using the LigaSure or. Dissection was carried around the hepatic flexure and the remaining proximal transverse colon mesentery was divided. A small amount of bleeding was encountered and was controlled using the LigaSure and 3-0 Polysorb ties. Once this was done, the abdomen was copiously irrigated with saline solution and was inspected for bleeding and for additional areas of ischemia. The mid transverse colon appeared somewhat pale and inspection revealed a 2nd area of perforation at about the junction of mid and distal 3rd of the transverse colon. An additional segment of transverse colon was therefore dissected free. The gastrocolic omentum was divided initially using a combination of cautery and LigaSure dissection. The the mesentery was then divided to beyond the area of perforation and region of viable appearing colon. The MARIAM 80-4.8 stapler was employed to divide the colon at that location. There was good bleeding from the stapled margin of the remaining distal transverse colon. There appeared to be adequate length to create a mucous fistula in that location. The abdomen was again inspected. Remaining bowel appeared viable. The small bowel was dilated. Because of concern regarding ability to close the abdomen, the small bowel was decompressed. To accomplish this, a 28 chest tube was employed. A pursestring suture was placed around the anti mesenteric corner of the staple line at the distal ileum. The staple line was in that area was then excised. The to was inserted and gas and small bowel content was suctioned out. The pursestring was then tied. The abdomen was copiously irrigated with saline solution. Position of the end ileostomy was chosen in the right abdomen. A disc of skin measuring about 2 cm in diameter was excised. Subcutaneous tissues were dissected down to the level of the rectus sheath. The rectus sheath was then divided in a cruciate fashion. The rectus muscle was split in line with its fibers and the posterior sheath and peritoneum were then divided. The ileostomy site was dilated to admit 4 fingers. A Kitty clamp was then placed through the ileostomy incision and the distal ileum was delivered through the incision. Following this, the site for mucous fistula was created in the left upper quadrant using similar technique. The stapled and of the distal transverse colon was brought out through the incision and held with a Kitty clamp. The abdomen was copiously irrigated with saline solution and was inspected for bleeding. No bleeding was noted. The midline incision was closed cephalad using a running suture of 1. Maxon. This was carried down to the level of the more cephalad of the 2 small ventral hernias and was tied to itself at that level. The fascial bridge between the 2 small hernia defects was closed with a [id number] suture of 1. Maxon and the hernia defects were then each closed with running sutures of 1. Maxon in transverse orientation. Subcutaneous tissues were irrigated with saline solution. A 10. Flat Donovan-Desai drain was placed in the subcutaneous tissues and skin was closed using suki. Following this, the ileostomy was matured. The staple line was excised and the ileostomy was sutured to the subcutaneous tissues and skin margin using interrupted sutures of 3 0 Polysorb. The mucous fistula was addressed next. It had a partially retracted during closure. Initially, the corner remained visible in the back Kitty clamp. The corner of the staple line was excised and 2 sutures of 3 0 Polysorb were placed between the bowel and skin edge. At this point, the sutures pulled out and the bowel retracted into the abdominal cavity. It could not be identified using retractors and exploration through the mucous fistula site. The upper aspect of the midline incision was therefore reopened. A Bustamante retractor was employed and the distal transverse colon was easily identified. A Farwell clamp was placed across the cut edge of the bowel. There did not appear to have been significant spillage. The mesentery was mobilized for an additional approximately 2 cm to provide increased length. The left upper quadrant was irrigated with saline solution. A Kitty clamp was not passed through the mucous fistula site and the transverse colon was grasped and delivered through the mucous fistula site. The opening was extended and the fistula was matured using interrupted sutures of 3 0 Polysorb. Gloves and instruments were then changed. The upper midline fascia was again closed using a running suture of 1. Maxon. Subcutaneous tissues were irrigated with saline solution and skin was closed using suki. Ostomy appliances and dry sterile dressings were applied. The LYLE drain was sutured in place with 3-0 nylon. Sponge and instrument counts were correct. He remained intubated and was transferred to the intensive care unit for postoperative recovery and management.
[2020-11-15] MEDS: propofoL 1,000 MG/100 ML VIAL 22.86 MG IVCONT ×3 (03:00→09:54)
[2020-11-15 04:17] LABS: Hematocrit 48.1 % (42-52); Hemoglobin 15.3 g/dl (14.0-18.0); Mean Corpuscular HGB Conc 31.8 g/dl (31.0-36.0); Mean Corpuscular Hemoglobin 27.4 pg (27.0-33.0); Mean Corpuscular Volume 86.2 fL (80-98); Mean Platelet Volume 10.9 fL (9.4-12.4); Platelet Count 224 X10*3/uL (160-400); Red Blood Count 5.58 X10*6/uL (4.60-5.80); Red Cell Distribution Width 15.6 % (11.0-16.0); Venous Blood Gas Refer to POC result
[2020-11-15 04:18] LABS: VBG Base Excess -1.3 mmol/L; VBG HCO3 27 mmol/L (22-26); VBG pCO2 60 mmHg; VBG pH 7.26 (7.32-7.43); VBG pO2 67 mmHg
[2020-11-15] MEDS: Lactated Ringers 1,000 ML 100 ML IVCONT (04:28)
[2020-11-15 04:34] LABS: WBC ABN SCTR FOR CBC 1; White Blood Count 10.7 X10*3/uL (4.8-10.8)
[2020-11-15 04:37] LABS: Alanine Aminotransferase 47 U/L (0-40); Albumin Level 2.2 g/dL (3.5-5.0); Alkaline Phosphatase 56 U/L (39-117); Anion Gap 15 (12-20); Aspartate Amino Transferase 42 U/L (5-37); Bilirubin Total 2.3 mg/dL (0.0-1.0); Blood Urea Nitrogen 39 mg/dL (9-16); Calcium 6.9 mg/dL (8.4-10.2); Carbon Dioxide 25 mmol/L (22-29); Chloride 110 mmol/L (96-108); Creatinine Clr Calc Pharmacy 56.1; Estimated Glomerular Filt Rate 26; Glucose Fasting 140 mg/dL (60-99); Potassium 4.3 mmol/L (3.3-5.1); Sodium 146 mmol/L (135-145); Total Protein 4.7 g/dL (6.5-8.0)
--- NOTE | 2020-11-15 04:37 | P.CONCC_ITS ---
History of Present Illness Data of Consult Service Date: 11/15/20 Requesting physician: Lorena Ashby Primary Care Provider: Unknown Physician HPI Reason for consult: Septic shock in the setting of bowel perforation, postoperative care HPI: ?Patient is a 54-year-old male with history of morbid obesity who was discharged from this hospital on 11/13/2020 after a 12 day hospitalization for respiratory failure in the setting of COVID-19.? He also has a history of hypertension chronic abdominal pain. Patient came back into the emergency room on 11/14/2020 with complaints of abdominal pain for a few days, he denied any fever, nausea or vomiting, was able to pass gas and had had some loose stool prior to his discharge.? The abdominal pain at the time was described as diffuse and severe. ?It was thought that the patient was not septic for his white count was attributed to steroids, the initial CT revealed markedly dilated large bowel, involving the cecum, ascending colon, transverse colon and part of the descending colon with a transition zone in the left upper quadrant.? Unclear if this was related to colonic ileus megacolon versus partial obstruction at the left upper quadrant, at this point general surgery was involved. Laboratory workup at the time revealed a white count of 13.7, H&H of 15.5 and 47.9 respectively, platelets 217, subsequently white count came down to 10 and H&H was 16.4 and 50.7 there was no differential done. ?Electrolytes were unremarkable and there was evidence of acute renal failure with a BUN to creatinine ratio of 29.7 and even though the creatinine was 0.84.? Reportedly patient was given a total of 5 L of fluid.? Albumin was 3.1.? Lactic acid the time was 1.4. Dr. Ashby General surgery had been consulted and thought that the patient had megacolon with marked distention of the right transverse colon possibly being related to an obstruction or colonic ileus in the setting of his recent COVID-19 infection opioid usage.? A Gastrografin enema study had been ordered to rule out possibility of obstruction with possibility of surgical decompression; this study was limited, no obstruction, contrast did not reach the cecum and there was no extravasation of the contrast; ?however given that the patient continued to have severe pain a CT was ordered and is identified free air without contrast extravasation.? The patient was taken for exploratory laparotomy, bowel resection and ostomy. ?Laboratories have been repeated at 5:30 a.m. in the afternoon, white count had come down to 10 H&H 16.4 and 50.7, likely related to hemoconcentration and dehydration.? This was confirmed by the increase of the renal function which showed high creatinine of 30 and creatinine of 1.59 (0.84) 2 new lactic acid level was 2.9. ?Decision was to take the patient to the OR. Patient underwent exploratory laparotomy with extended right hemicolectomy and creation of ileostomy and mucous fistula.? The during this surgery to the faint areas of perforation were found. There were no intraoperative complications reported, patient had approximately 5 L of fluid however he had been completely aneuric all the way up to his arrival to the ICU.? Patient had been placed on Decadron, zosyn LR and Levophed; he had been taking steroids all this time since his Covid Infection. ?As per Anesthesia the intubation was easy and currently in the ET tube was at 23 cm at the lip. ROS:? Unable to obtain as the patient is sedated Past Medical History:? As above; abdominal and inguinal hernia as Compression fractures of T9 and T11 Past Surgical History: ?OTHERWISE UNKNOWN Family history: ?Noncontributory Social History: ?Per chart patient is known to live in an apartment never smoke and does drink or use drugs. CODE STATUS:? Full code Allergies: ?No known drug allergies Home Medications:? Please see med rec patient has been on steroids for a while SEPSIS PHYSICAL EXAM DONE AT 3:05 a.m. Vital signs blood pressure 88/63 while on Levophed and after 5 L of LR, heart rate 102, Vent settings placed a/c, 18, 550, peep of 10. Satting 92% with FiO2 of 90 %. General:? Morbidly obese, sedated and intubated. Skin:? Intact, no lesions, edema, erythema, clubbing or cyanosis.? No ulcers.? Abdominal surgical site cover with large abdominal band, LYLE drain in place.? Hunt catheter is in place without any urine. HEENT:? Head is normocephalic, atraumatic, pupils equal round reactive to light accommodation bilaterally.? Extraocular movements appear intact.? Buccal mucosa is dry. Cardiac:? Clear S1-S2, no murmurs rubs or gallops. Pulmonary:? Clear to auscultation, no wheezes, rales or rhonchi. Abdomen:? Significantly large and distended, covered with abdominal band, LYLE drain in place unable to further assess at this point. ? Musculoskeletal: ?No cogwheeling noted on passive range of motion of the major joints of the upper lower extremities.? No edema, no asymmetry of the legs. Neurologic:? As above, no apparent focal deficits Motor strength as above.? Vascular:? 2+ pulses upper and lower extremities distally. ?Less than 2nd capillary refill of the finger and toes bilaterally. ? SIGNIFICANT LABORATORY DATA:? As above. ?Blood cultures pending. REVIEW OF IMAGES: ?As above CT abdomen pelvis without contrast IMPRESSION: 1. Large amount of intra-abdominal free air, new when compared to the prior examination. Multiple small foci of air throughout the mesentery, likely related to pneumatosis and air within the vascular structures. Findings likely indicate interval bowel wall perforation. No extraluminal extravasation of colonic contrast related to the recent barium enema. No organized fluid collection/abscess formation. 2. Inflammatory change within the right upper quadrant adjacent to the bowel loops, which could indicate an infectious or inflammatory process. No small or large bowel obstruction.? 3. Large periumbilical fat-containing hernia as well as a large right inguinal hernia containing non-obstructed loops of colon. 4. Additional chronic findings are unchanged. ? EKG REVIEW: ?Sinus rhythm with PVCs 95 beats per minute.? No discernible ST elevations or depressions.? QT is 348 ms. No comparison available. ASSESSMENT AND PLAN: 1. Septic shock likely from peritonitis in the setting of bowel perforation 2. Questionable adrenal insufficiency given the patient's ongoing steroid intake and chronic stress causing hypotension 3. Acute kidney injury likely due to hypoperfusion and volume depletion 4. Hyperphosphatemia 5. Hypoalbuminemia 6. Iatrogenic hypernatremia likely due to type of fluid administration 7. Status post exploratory laparotomy with extended hemicolectomy and creation of ileostomy and mucous fistula postop day 1. 8. Recent recovery of COVID-19 infection with residual oxygen dependence at 2 L nasal cannula 9. Suspected bacteremia in the presence of toxic granulocytes in the blood 10. Pseudo hypocalcemia with corrected calcium level of 9.14. Patient was transferred to ICU given his critical clinical condition, he appears to be anuric and hypotensive, tachycardic. ?Will place the patient on Levophed and propofol. ?I repeated laboratories with a CBC differential which shows toxic granulocytes furthermore confirming my diagnosis of septic shock and bacteremia. ?Patient has a single IV access, the patient needs a central line which will be placed. Will continue with Zosyn but will need renal adjustment. ?will give hydrocortisone for adjunct treatment of sepsis as well as possible adrenal insufficiency. Will see which fluids to D5 half-normal saline given the rise in his chloride and sodium, will monitor labs closely, Renal consult has been placed.? Albumin salt ordered. ?Will monitor the blood sugars and if necessary administer insulin sliding scale now that he is on D5 half. It was reported that the ET tube had moved during the surgery, based on the patient's body habitus seems to me that it is placement is not deep enough,chest x-ray, indeed the endotracheal tube is over 6 cm above the woody, this was advanced to 26 at the lip.? GI PROPHYLAXIS:? Will add PPI DVT PROPHYLAXIS:? Pneumatic stockings while in bed, due to recent surgery Lovenox was discontinue by patient's surgeon. Critical care time used for critical evaluation of this patient, diagnosis, treatment and coordination of care, review her records and documentation TOTAL CRITICAL CARE TIME 120 MIN . Patient's care was discussed in detail with Dr. Monroe.? He is aware of all the above as well as the plan of care for this patient. [facility] Past Medical History Medical History Abdominal hernia Bacteremia Hernia Right hip pain Functional capacity: independent ambulation Social History Social History Household Members: None Housing: Apartment Do you presently have visiting nurse or other home services: No Alcohol intake: never Patient Tobacco Use Status: Never used Tobacco e-Cigarette/Vaping Use: Never Used Use of substances other than those prescribed or required for medical reasons: No Advance Directives: No Advance Directives Information Provided: Yes service: No Current occupational status: disabled Meds Allergies Allergy/AdvReac Type Severity Reaction Status Date / Time No Known Allergies Allergy Verified 07/16/20 15:59 Active Medications: Current Medications Dexamethasone Sodium Phosphate (Dexamethasone Sod Phosphate 4 Mg/Ml Vial) 6 mg IVPUSH DAILY HATTIE Piperacillin Sod/Tazobactam (Sod 3.375 gm/ Sodium Chloride) 50 mls @ 100 mls/hr IV Q6H HATTIE Last Admin: 11/15/20 04:30 Dose: Not Given Documented by: Lactated Ringer's (Lr) 1,000 mls @ 100 mls/hr IVCONT .Q10H HATTIE Last Admin: 11/15/20 04:28 Dose: 100 mls/hr Documented by: Propofol (Diprivan) 1,000 mg in 100 mls @ 0 mls/hr IVCONT .Q0M HATTIE; Protocol Home Medications Medication Instructions Recorded Confirmed Last Taken Type cyclobenzaprine 5 mg tablet 5 mg PO Q8H PRN 05/20/20 11/02/20 05/19/20 History gabapentin 300 mg capsule 300 mg PO TID PRN 05/20/20 11/14/20 05/19/20 History Physical Exam Vital Signs: Vital Signs: Last Vital Signs Temp 98.5 F 11/15/20 03:08 Pulse 99 11/15/20 04:00 Resp 18 11/15/20 04:00 BP 103/64 11/15/20 04:00 Pulse Ox 93 11/15/20 04:00 Oxygen Flow Rate 4 11/14/20 06:24 Body Mass Index 53.8 Results Labs CBC & Chem 7: 11/15/20 04:00 11/15/20 04:00 Labs: Short CBC 11/14/20 11/14/20 11/15/20 Range/Units 07:14 17:39 04:00 WBC 13.7 H 10.0 10.7 (4.8-10.8) X10*3/uL Hgb 15.5 16.4 15.3 (14.0-18.0) g/dl Hct 47.9 50.7 48.1 (42-52) % Plt Count 217 237 224 (160-400) X10*3/uL BMP 11/14/20 11/14/20 07:14 17:39 Sodium 141 142 Potassium 4.0 3.8 Chloride 105 102 Carbon Dioxide 26 25 BUN 25 H 30 H Creatinine 0.84 1.59 H Calcium 8.4 8.4 Liver Function 11/14/20 11/15/20 Range/Units 07:14 04:00 Total Bilirubin 1.3 H (0.0-1.0) mg/dL AST 36 D (5-37) U/L ALT 58 H (0-40) U/L Alkaline Phosphatase 72 (39-117) U/L Albumin 3.1 L D Cancelled (3.5-5.0) g/dL
--- NOTE | 2020-11-15 04:38 | P.PCNCC_ITS ---
Procedures Date of Service Date of Service: 11/15/20 Central Line Placement A quick time-out was made for clarification and proper patient identification, patient was positioned, landmarks were identified, US used to locate a large compressible IJ. The left neck was widely prepped and draped in a full sterile fashion. Ultrasound was used to locate again the left IJ, the vein was cannulated on the 1st pass with an 18 gauge thin needle, dark nonpulsatile blood return was obtained. The wire was threaded, a small incision was made at its base and dilator inserted. A triple-lumen central venous catheter was advanced into the vein up to the hub without problems, wired was removed. Ports had good blood return and flushed x3. The catheter was secured with 3 sutures at 3 sites, a Biopatch and dry sterile dressing were applied.Post procedure chest x- ray showed the line to be in good position without pneumothorax. No bleeding or complications noted.: Central Line Comments: I did have some difficulty getting to this patient's vein given the large nest of his body habitus and after 3 attempts, I was able to access the vessel properly with easy passage of wire and the remainder of the procedure is as described. A triple-lumen 20 cm catheter was placed. No complications. No pneumothorax. X-ray was reviewed by me shows the tip at the top part of the SVC. Consent for Procedure: Emergent-no informed consent obtained Time out performed: Yes Sterile Technique Used: Yes Patient placed on monitor/pulse ox: Yes prep: mask, gown and gloves Central line prep: Chlorhexidine scrub Ultrasound used for placement: Yes Central line lumen inserted: triple Post procedure: sutured in place, good blood return, all ports aspirated, flushed, capped and sterile dressing applied Post procedure x-ray: tip of catheter in good position and no pneumothorax seen Patient tolerated procedure: well Complications: none
[2020-11-15 04:39] LABS: Band Neutrophils Percent 24 % (3-5); Lymphocytes Absolute Manual 0.5 X10*3/uL (0.6-4.8); Lymphocytes Percent Manual 5 % (20-40); Monocytes Absolute Manual 0.3 X10*3/uL (0.0-1.2); Monocytes Percent Manual 3 % (2-11); Neutrophils Absolute Manual 9.8 X10*3/uL (2.2-7.9); Neutrophils Percent Manual 68 % (45-73)
[2020-11-15 04:41] LABS: Dohle Bodies PRESENT; Platelet Estimate NORMAL (NORMAL); Platelet Morphology Comment NORMAL; RBC Morphology NORMAL; Toxic Vacuolation PRESENT
[2020-11-15] MEDS: Piperacillin Sodium/Tazobactam 3.375 GM in 0.9 % Sodium Chloride 50 ML IV (04:43)
[2020-11-15] MEDS: Albumin Human 25 % 100 ML IV ×5 (05:33→19:47)
[2020-11-15] MEDS: Dextrose 5 % and 0.45 % NaCl 1,000 ML 150 ML IVCONT ×2 (05:43→10:46)
[2020-11-15] MEDS: Hydrocortisone Sod Succ/PF 100 MG VIAL IVPUSH (05:44)
[2020-11-15 05:59] LABS: Lactic Acid 1.8 mmol/L (0.5-2.0)
--- NOTE | 2020-11-15 06:10 | PC.NURSE ---
Pt to ICU at 0240 from surgery S/P exploratory laparotomy. Pt intubated on ventilator. ETT 8.0 at 23 cm at the lip but advanced to 26 cm by resp therapist after PCXR done and reviewed by Erich COUCH. Pt had one peripheral IV and TLC inserted by Erich COUCH in [facility]. PCXR confirmed placement. Pt started on Levophed for low BP 88/63 and titrated to keep MAP >65. Propofol for sedation with good effect. Monitor shows NSR-ST 90's-106, no ectopy noted. U/O almost nil. Labs drawn. Creatinine up. Erich aware and consulted nephro. Na level up 146. IV Lactated Ringers changed to D51/2NS. Two bottles of albumin 25% 100 ml ordered and first bottle infusing at this time. OGT in place. Abdomen is large with large abd binder on. There is a mucous fistula left abd draining small amount of bloody drainage and a colostomy right abd draining same. Abd is soft, no bowel sounds. Midline abd dsg is D&I. LYLE drain in place and drained 10 ml blood. Bp stable at this time 109/72. O2 sat is 91-92% on fiO2 of 100%.
[2020-11-15] MEDS: Pantoprazole Sodium 40 MG/10 ML VIAL IVPUSH (06:29)
[2020-11-15 07:33] LABS: Appearance Urine CLOUDY; Glucose Urine UA NEG (NEG); Leukocyte Esterase Urine NEG (NEG); PH 5.5 (5.0-8.0); Urine Blood 1+ (NEG); Urine Ketones NEG (NEG); Urine Protein 1+ MG/DL (NEG-TRACE)
[2020-11-15 07:34] LABS: Color Urine ORANGE
[2020-11-15 07:42] LABS: Bacteria Urine TRACE /LPF; Squamous Epithelial Cell Urine 2+ /LPF; UACC Culture Trigger NO; WBC Urine 0-2 /HPF (0-4)
[2020-11-15 07:43] LABS: Amorphous Sediment Urine 2+ /LPF
[2020-11-15] MEDS: dexAMETHasone sod phosphate 4 MG/ML VIAL 6 MG IVPUSH (08:01)
--- NOTE | 2020-11-15 09:40 | HO.POSTANES ---
Post Anesthesia Evaluation Post Anesthesia Evaluation Vital Signs: Vital Signs Temp Pulse Resp BP Pulse Ox 11/15/20 09:00 18 118/83 93 11/15/20 08:00 97 F 96 19 122/80 93 11/15/20 07:00 101 H 18 112/77 92 11/15/20 06:00 103 H 18 109/72 92 11/15/20 05:00 99 18 109/70 11/15/20 04:37 100 18 108/74 90 L 11/15/20 04:00 99 18 103/64 93 11/15/20 03:51 93 18 109/72 95 11/15/20 03:41 92 18 106/76 96 11/15/20 03:39 92 18 86/65 L 96 11/15/20 03:31 96 18 91/64 93 11/15/20 03:30 92 86/65 L 11/15/20 03:22 95 18 99/60 93 11/15/20 03:20 92 99/60 11/15/20 03:15 98 18 92/57 L 93 11/15/20 03:13 99 18 94/55 L 91 L 11/15/20 02:40 98.5 F 102 H 18 88/63 L 88 L Anesthesia: General Endotracheal-GETA Mental Status: Sedated (Still intubated) Pain Control: Satisfactory Nausea/Vomiting: None Hydration: Adequate Anesthesia-Related Issues: No Anes. Related Issues
[2020-11-15 11:32] LABS: VBG Base Excess -2.8 mmol/L; VBG HCO3 23 mmol/L (22-26); VBG pCO2 45 mmHg; VBG pH 7.31 (7.32-7.43); VBG pO2 53 mmHg
[2020-11-15 12:02] LABS: Venous Blood Gas Refer to POC result
[2020-11-15 12:28] LABS: Anion Gap 21 (12-20); Blood Urea Nitrogen 44 mg/dL (9-16); Calcium 6.8 mg/dL (8.4-10.2); Carbon Dioxide 20 mmol/L (22-29); Chloride 108 mmol/L (96-108); Creatinine Clr Calc Pharmacy 41.7; Estimated Glomerular Filt Rate 18; Glucose Random 248 mg/dL (60-115); Potassium 4.5 mmol/L (3.3-5.1); Sodium 144 mmol/L (135-145)
[2020-11-15 12:51] LABS: Creatinine Urine 198.64 mg/dL; Total Protein Urine Random 122 mg/dL (<12)
[2020-11-15] MEDS: propofoL 1,000 MG/100 ML VIAL 45.72 MG IVCONT (12:54)
--- NOTE | 2020-11-15 13:01 | P.PNGS_ITS ---
Subjective Subjective Date of Service: 11/15/20 Interval history: Sedated, on ventilator, Levophed, propofol Physical Exam Vital Signs: Vital Signs: Laboratory Results - last 24 hr 11/14/20 11/14/20 11/14/20 12:13 17:39 17:39 WBC 10.0 RBC 6.00 H Hgb 16.4 Hct 50.7 MCV 84.5 MCH 27.3 MCHC 32.3 RDW 15.0 Plt Count 237 MPV 9.7 Immature Gran % (A uto) 0.6 H Neut % (Auto) 86.5 H Lymph % (Auto) 4.7 L [place] % (Auto) 8.0 Eos % (Auto) 0.1 Baso % (Auto) 0.1 Lymph # (Auto) 0.5 L [place] # (Auto) 0.8 Eos # (Auto) 0.0 Baso # (Auto) 0.0 Abs Immat Gran (au to) 0.06 H Absolute Neuts (au to) 8.7 H Absolute Nucleated RBC 0.000 Nucleated RBC % (a uto) 0.0 Neutrophils % (Man ual) Band Neutrophils % Lymphocytes % (Man ual) Monocytes % (Manua l) Abs Neuts (Manual) Lymphocytes # (Man ual) Monocytes # (Manua l) Toxic Vacuolation Dohle Bodies Platelet Estimate Plt Morphology Com ment RBC Morphology VBG pH VBG pCO2 VBG pO2 VBG HCO3 VBG O2 Saturation VBG Base Excess Sodium 142 Potassium 3.8 Chloride 102 Carbon Dioxide 25 Anion Gap 19 BUN 30 H Creatinine 1.59 H Estim Creat Clear Calc 92.1 Estimated GFR 45 Random Glucose Fasting Glucose 159 H Lactic Acid Lactic Acid Fup @ 2Hr Calcium 8.4 Phosphorus Magnesium Total Bilirubin Direct Bilirubin AST ALT Alkaline Phosphata se Total Protein Albumin Urine Color Urine Appearance Urine pH Ur Specific Gravit y Urine Protein Urine Glucose (UA) Urine Ketones Urine Blood Urine Nitrite Ur Leukocyte Lara ase Urine RBC Urine WBC Ur Squamous Epith Cells Amorphous Sediment Urine Bacteria Granular Casts U Random Total Pro tein Urine Creatinine Blood Type O Positive Antibody Screen NEGATIVE 11/14/20 11/14/20 11/15/20 17:39 19:50 04:00 WBC 10.7 RBC 5.58 Hgb 15.3 Hct 48.1 MCV 86.2 MCH 27.4 MCHC 31.8 RDW 15.6 Plt Count 224 MPV 10.9 Immature Gran % (A uto) Cancelled Neut % (Auto) Cancelled Lymph % (Auto) Cancelled [place] % (Auto) Cancelled Eos % (Auto) Cancelled Baso % (Auto) Cancelled Lymph # (Auto) Cancelled [place] # (Auto) Cancelled Eos # (Auto) Cancelled Baso # (Auto) Cancelled Abs Immat Gran (au to) Cancelled Absolute Neuts (au to) Cancelled Absolute Nucleated RBC 0.000 Nucleated RBC % (a uto) 0.0 Neutrophils % (Man ual) 68 Band Neutrophils % 24 H Lymphocytes % (Man ual) 5 L Monocytes % (Manua l) 3 Abs Neuts (Manual) 9.8 H Lymphocytes # (Man ual) 0.5 L Monocytes # (Manua l) 0.3 Toxic Vacuolation PRESENT Dohle Bodies PRESENT Platelet Estimate NORMAL Plt Morphology Com ment NORMAL RBC Morphology NORMAL VBG pH VBG pCO2 VBG pO2 VBG HCO3 VBG O2 Saturation VBG Base Excess Sodium Potassium Chloride Carbon Dioxide Anion Gap BUN Creatinine Estim Creat Clear Calc Estimated GFR Random Glucose Fasting Glucose Lactic Acid 2.9 H* Lactic Acid Fup @ 2Hr 1.3 Calcium Phosphorus Magnesium Total Bilirubin Direct Bilirubin AST ALT Alkaline Phosphata se Total Protein Albumin Urine Color Urine Appearance Urine pH Ur Specific Gravit y Urine Protein Urine Glucose (UA) Urine Ketones Urine Blood Urine Nitrite Ur Leukocyte Lara ase Urine RBC Urine WBC Ur Squamous Epith Cells Amorphous Sediment Urine Bacteria Granular Casts U Random Total Pro tein Urine Creatinine Blood Type Antibody Screen 11/15/20 11/15/20 11/15/20 04:00 04:00 04:12 WBC RBC Hgb Hct MCV MCH MCHC RDW Plt Count MPV Immature Gran % (A uto) Neut % (Auto) Lymph % (Auto) [place] % (Auto) Eos % (Auto) Baso % (Auto) Lymph # (Auto) [place] # (Auto) Eos # (Auto) Baso # (Auto) Abs Immat Gran (au to) Absolute Neuts (au to) Absolute Nucleated RBC Nucleated RBC % (a uto) Neutrophils % (Man ual) Band Neutrophils % Lymphocytes % (Man ual) Monocytes % (Manua l) Abs Neuts (Manual) Lymphocytes # (Man ual) Monocytes # (Manua l) Toxic Vacuolation Dohle Bodies Platelet Estimate Plt Morphology Com ment RBC Morphology VBG pH 7.26 L VBG pCO2 60 VBG pO2 67 VBG HCO3 27 H VBG O2 Saturation 87.0 VBG Base Excess -1.3 Sodium 146 H Potassium 4.3 Chloride 110 H Carbon Dioxide 25 Anion Gap 15 BUN 39 H Creatinine 2.61 H Estim Creat Clear Calc 56.1 Estimated GFR 26 Random Glucose Fasting Glucose 140 H Lactic Acid Lactic Acid Fup @ 2Hr Calcium 6.9 L D Phosphorus 8.0 H Cancelled Magnesium 2.0 Cancelled Total Bilirubin 2.3 H Direct Bilirubin 2.0 H AST 42 H ALT 47 H Alkaline Phosphata se 56 D Total Protein 4.7 L D Albumin 2.2 L D Cancelled Urine Color Urine Appearance Urine pH Ur Specific Gravit y Urine Protein Urine Glucose (UA) Urine Ketones Urine Blood Urine Nitrite Ur Leukocyte Lara ase Urine RBC Urine WBC Ur Squamous Epith Cells Amorphous Sediment Urine Bacteria Granular Casts U Random Total Pro tein Urine Creatinine Blood Type Antibody Screen 11/15/20 11/15/20 11/15/20 05:25 07:24 11:27 WBC RBC Hgb Hct MCV MCH MCHC RDW Plt Count MPV Immature Gran % (A uto) Neut % (Auto) Lymph % (Auto) [place] % (Auto) Eos % (Auto) Baso % (Auto) Lymph # (Auto) [place] # (Auto) Eos # (Auto) Baso # (Auto) Abs Immat Gran (au to) Absolute Neuts (au to) Absolute Nucleated RBC Nucleated RBC % (a uto) Neutrophils % (Man ual) Band Neutrophils % Lymphocytes % (Man ual) Monocytes % (Manua l) Abs Neuts (Manual) Lymphocytes # (Man ual) Monocytes # (Manua l) Toxic Vacuolation Dohle Bodies Platelet Estimate Plt Morphology Com ment RBC Morphology VBG pH VBG pCO2 VBG pO2 VBG HCO3 VBG O2 Saturation VBG Base Excess Sodium 144 Potassium 4.5 Chloride 108 Carbon Dioxide 20 L Anion Gap 21 H BUN 44 H Creatinine 3.58 H Estim Creat Clear Calc 41.7 Estimated GFR 18 Random Glucose 248 H D Fasting Glucose Lactic Acid 1.8 Lactic Acid Fup @ 2Hr Calcium 6.8 L Phosphorus Magnesium Total Bilirubin Direct Bilirubin AST ALT Alkaline Phosphata se Total Protein Albumin Urine Color ORANGE Urine Appearance CLOUDY Urine pH 5.5 Ur Specific Gravit y 1.020 Urine Protein 1+ H Urine Glucose (UA) NEG Urine Ketones NEG Urine Blood 1+ H Urine Nitrite SEE NOTE Ur Leukocyte Lara ase NEG Urine RBC 1-4 Urine WBC 0-2 Ur Squamous Epith Cells 2+ Amorphous Sediment 2+ Urine Bacteria TRACE Granular Casts 1-4 U Random Total Pro tein Urine Creatinine Blood Type Antibody Screen 11/15/20 11/15/20 11:27 12:26 WBC RBC Hgb Hct MCV MCH MCHC RDW Plt Count MPV Immature Gran % (A uto) Neut % (Auto) Lymph % (Auto) [place] % (Auto) Eos % (Auto) Baso % (Auto) Lymph # (Auto) [place] # (Auto) Eos # (Auto) Baso # (Auto) Abs Immat Gran (au to) Absolute Neuts (au to) Absolute Nucleated RBC Nucleated RBC % (a uto) Neutrophils % (Man ual) Band Neutrophils % Lymphocytes % (Man ual) Monocytes % (Manua l) Abs Neuts (Manual) Lymphocytes # (Man ual) Monocytes # (Manua l) Toxic Vacuolation Dohle Bodies Platelet Estimate Plt Morphology Com ment RBC Morphology VBG pH 7.31 L VBG pCO2 45 VBG pO2 53 VBG HCO3 23 VBG O2 Saturation 82.0 VBG Base Excess -2.8 Sodium Potassium Chloride Carbon Dioxide Anion Gap BUN Creatinine Estim Creat Clear Calc Estimated GFR Random Glucose Fasting Glucose Lactic Acid Lactic Acid Fup @ 2Hr Calcium Phosphorus Magnesium Total Bilirubin Direct Bilirubin AST ALT Alkaline Phosphata se Total Protein Albumin Urine Color Urine Appearance Urine pH Ur Specific Gravit y Urine Protein Urine Glucose (UA) Urine Ketones Urine Blood Urine Nitrite Ur Leukocyte Lara ase Urine RBC Urine WBC Ur Squamous Epith Cells Amorphous Sediment Urine Bacteria Granular Casts U Random Total Pro tein 122 H Urine Creatinine 198.64 Blood Type Antibody Screen Last Vital Signs Temp 97 F 11/15/20 08:00 Pulse 105 H 11/15/20 12:00 Resp 19 11/15/20 12:00 BP 106/64 11/15/20 13:01 Pulse Ox 90 L 11/15/20 12:00 Oxygen Flow Rate 4 11/14/20 06:24 Body Mass Index 55.7 Const: Other: Sedated, ET tube in place Resp: Auscultation: clear to auscultation bilaterally (Anteriorly) Cardio: Rate: regular rate Rhythm: regular rhythm GI: Other: Nondistended, quiet, midline dressing intact, ostomies dark pink, serosanguineous output Skin: Other: Warm and dry Procedures Date of Service Date of Service: 11/15/20 Progress Note: A&P Assessment and plan (1) Colonic ischemia: Status: Acute (2) Colon perforation: Status: Acute (3) Megacolon: Status: Acute (4) Acute respiratory failure with hypoxia: Status: Acute (5) CRISTOFER (acute kidney injury): Status: Acute Assessment and Plan: 54-year-old male discharged on 11/13/2020 after hospitalization for COVID-19, presented yesterday, 11/14/2020 with megacolon involving the right and transverse colon with secondary ischemia and perforation. Underwent exploratory laparotomy with extended right hemicolectomy and creation of ileostomy and mucous fistula. He has a septic picture and is requiring pressure support and mechanical ventilation Urine output has improved somewhat, but BUN and creatinine are significantly elevated consistent with acute kidney injury. Continue Zosyn, steroids for continued treatment of recent COVID-19. Discussed with Dr. Monroe. Overall management per Critical Care Team. Fall Risk Details Current Medications: Current Medications Chlorhexidine Gluconate (Chlorhexidine Gluc Oral Rinse 15 Ml Mouthwash) 15 ml BUCCAL TID HATTIE Dexamethasone Sodium Phosphate (Dexamethasone Sod Phosphate 4 Mg/Ml Vial) 6 mg IVPUSH DAILY [facility] Last Admin: 11/15/20 08:01 Dose: 6 mg Documented by: Propofol (Diprivan) 1,000 mg in 100 mls @ 0 mls/hr IVCONT .Q0M HATTIE; Protocol Last Titration: 11/15/20 13:01 Dose: 30 mcg/kg/min, 34.29 mls/hr Documented by: Norepinephrine Bitartrate (Levophed) 8 mg in 250 mls @ 0 mls/hr IVCONT .Q0M [facility]IE; Protocol Last Titration: 11/15/20 13:01 Dose: 0.07 mcg/kg/min, 25 mls/hr Documented by: Albumin Human (Kedbumin 25 %) 100 mls @ 100 mls/hr IV Q6H HATTIE Stop: 11/16/20 02:59 Last Admin: 11/15/20 12:58 Dose: 100 mls/hr Documented by: Pantoprazole Sodium (Pantoprazole Sodium 40 Mg/10 Ml Vial) 40 mg IVPUSH DAILY@06 [facility] Last Admin: 11/15/20 06:29 Dose: 40 mg Documented by: Time Spent With Patient Time: Total time spent is greater than 50% in coordination of care (as documented) at patient's floor/unit and/or counseling patient: Time with patient: 15 - 24 minutes Quality Stroke Does the patient have a stroke diagnosis?: No VTE Prior VTE?: No VTE Risk Level:: Surgical - high VTE Device Contraindication: N/A - Device Ordered VTE Drug Contraindication: N/A - Med Ordered
[2020-11-15] MEDS: Chlorhexidine Gluc Oral Rinse 15 ML MOUTHWASH BUCCAL ×2 (13:03→19:47)
[2020-11-15] MEDS: Piperacillin Sodium/Tazobactam 2.25 GM in 0.9 % Sodium Chloride 50 ML IV ×2 (13:10→19:48)
--- NOTE | 2020-11-15 15:04 | MHC.CM.PN ---
Pt presently in ICU on ventilaory support d/t sepsis. Review of EMR notes pt was recently d/c'd from [facility] [place] with COVID and on Home O2 through [facility], [place]. Pt does not have a HCP on file. Call placed to pt's sisterBelem: message left with IMM information and request for callback. CM to follow for finalization of d/c needs: pt may require STR placement vs return to home.
[2020-11-15] MEDS: propofoL 1,000 MG/100 ML VIAL 28.58 MG IVCONT ×2 (15:13→18:18)
[2020-11-15] MEDS: Sodium Bicarbonate 8.4% 50 MEQ/50 ML VIAL IVPUSH ×2 (16:21→23:32)
[2020-11-15] MEDS: Calcium Gluconate/NaCl,Iso-Osm 2 GM/100 ML PLAST..BAG IV (16:21)
[2020-11-15] MEDS: Heparin Sodium,Porcine 5,000 UNIT/ML VIAL 5000 UNIT SUBCUT (16:21)
[2020-11-15 17:02] LABS: Glucose, Whole Blood 196 mg/dL (60-115)
[2020-11-15] MEDS: Insulin Lispro 100 UNIT/ML 3 ML VIAL SUBCUT (17:06)
[2020-11-15] MEDS: propofoL 1,000 MG/100 ML VIAL 40.01 MG IVCONT ×2 (20:58→23:32)
[2020-11-15] MEDS: Dextrose 5 % and 0.45 % NaCl 1,000 ML 200 ML IVCONT (22:13)
[2020-11-16] VITALS (33 sets, daily range): BP systolic 87–141; BP diastolic 44–90; PULSE 93–117; RESP 18–28; TEMP 36.8–37.2; O2SAT 90–96; BMI 56.6
[2020-11-16 00:01] LABS: Glucose, Whole Blood 230 mg/dL (60-115)
[2020-11-16] MEDS: Heparin Sodium,Porcine 5,000 UNIT/ML VIAL 5000 UNIT SUBCUT ×3 (00:01→21:53)
[2020-11-16] MEDS: Insulin Lispro 100 UNIT/ML 3 ML VIAL SUBCUT ×2 (00:01→05:55)
[2020-11-16] MEDS: Albumin Human 25 % 100 ML IV (01:57)
[2020-11-16] MEDS: propofoL 1,000 MG/100 ML VIAL 40.01 MG IVCONT ×5 (01:58→12:09)
[2020-11-16] MEDS: Dextrose 5 % and 0.45 % NaCl 1,000 ML 200 ML IVCONT (01:59)
--- NOTE | 2020-11-16 03:56 | PC.NURSE ---
Levophed and propofol weaned as tolerated. Recurrent ETT cuff leak. RT and PA aware. No UOP @ start of shift. PA updated-IV fluids started. Patient producing 5-10 cc/hr. Colostomy draining copious orange liquid. Rectal tube patent, draining large amount of liquid brown stool. Mucous fistula and LYLE drain with scant serosanguinous. Mass on posterior skull-erythematous and draining green-yellow fluid. PA aware and @ bedside to assess.
[2020-11-16] MEDS: Sodium Bicarbonate 8.4% 50 MEQ/50 ML VIAL IVPUSH ×2 (04:36→10:17)
[2020-11-16] MEDS: Piperacillin Sodium/Tazobactam 2.25 GM in 0.9 % Sodium Chloride 50 ML IV ×3 (04:36→21:53)
[2020-11-16 05:28] LABS: VBG Base Excess 1.6 mmol/L; VBG HCO3 26 mmol/L (22-26); VBG pCO2 40 mmHg; VBG pH 7.42 (7.32-7.43); VBG pO2 60 mmHg
[2020-11-16 05:43] LABS: Glucose, Whole Blood 228 mg/dL (60-115)
[2020-11-16 05:49] LABS: Hematocrit 33.4 % (42-52); Hemoglobin 10.6 g/dl (14.0-18.0); Mean Corpuscular HGB Conc 31.7 g/dl (31.0-36.0); Mean Corpuscular Hemoglobin 27.2 pg (27.0-33.0); Mean Corpuscular Volume 85.9 fL (80-98); Mean Platelet Volume 10.8 fL (9.4-12.4); Platelet Count 153 X10*3/uL (160-400); Red Blood Count 3.89 X10*6/uL (4.60-5.80); Red Cell Distribution Width 15.8 % (11.0-16.0); White Blood Count 9.9 X10*3/uL (4.8-10.8)
[2020-11-16 05:50] LABS: Venous Blood Gas Refer to POC result
[2020-11-16] MEDS: Pantoprazole Sodium 40 MG/10 ML VIAL IVPUSH (05:55)
[2020-11-16 06:30] LABS: Creatinine Clr Calc Pharmacy 25.2; Estimated Glomerular Filt Rate 10
[2020-11-16 06:31] LABS: Alanine Aminotransferase 53 U/L (0-40); Alkaline Phosphatase 40 U/L (39-117); Anion Gap 20 (12-20); Aspartate Amino Transferase 115 U/L (5-37); Bilirubin Total 2.9 mg/dL (0.0-1.0); Blood Urea Nitrogen 58 mg/dL (9-16); Calcium 6.5 mg/dL (8.4-10.2); Carbon Dioxide 25 mmol/L (22-29); Chloride 106 mmol/L (96-108); Glucose Random 255 mg/dL (60-115); Magnesium 2.2 mg/dL (1.6-2.6); Phosphorus 6.7 mg/dL (2.7-4.5); Sodium 147 mmol/L (135-145); Total Protein 4.8 g/dL (6.5-8.0)
[2020-11-16 06:37] LABS: Band Neutrophils Percent 31 % (3-5); Lymphocytes Absolute Manual 0.6 X10*3/uL (0.6-4.8); Lymphocytes Percent Manual 6 % (20-40); Monocytes Absolute Manual 0.1 X10*3/uL (0.0-1.2); Monocytes Percent Manual 1 % (2-11); Neutrophils Absolute Manual 9.2 X10*3/uL (2.2-7.9); Neutrophils Percent Manual 62 % (45-73)
[2020-11-16 06:38] LABS: Burr Cells 1+ (0-2) /OIF; Dohle Bodies PRESENT; RBC Morphology NOTED; Toxic Vacuolation PRESENT
[2020-11-16 06:40] LABS: Platelet Estimate SLIGHTLY DECREASED (NORMAL); Platelet Morphology Comment NORMAL
[2020-11-16] MEDS: Chlorhexidine Gluc Oral Rinse 15 ML MOUTHWASH BUCCAL ×3 (07:28→21:53)
[2020-11-16] MEDS: dexAMETHasone sod phosphate 4 MG/ML VIAL 6 MG IVPUSH (07:28)
--- NOTE | 2020-11-16 07:56 | P.PNGS_ITS ---
Subjective Subjective Date of Service: 11/16/20 Interval history: Remains intubated, dependent on the ventilator Poor urine output Still on pressors Physical Exam Vital Signs: Vital Signs: Last Vital Signs Temp 100.0 F 11/15/20 23:59 Pulse 117 H 11/16/20 07:00 Resp 28 H 11/16/20 07:00 BP 126/79 11/16/20 07:00 Pulse Ox 94 11/16/20 07:00 Oxygen Flow Rate 4 11/14/20 06:24 Body Mass Index 56.6 Chemistry 11/14/20 11/14/20 11/15/20 07:14 17:39 04:00 Sodium 141 142 146 H Potassium 4.0 3.8 4.3 Carbon Dioxide 26 25 25 BUN 25 H 30 H 39 H Creatinine 0.84 1.59 H 2.61 H Calcium 8.4 8.4 6.9 L D Phosphorus 8.0 H 11/15/20 11/15/20 11/16/20 04:00 11:27 05:15 Sodium 144 147 H Potassium 4.5 4.0 Carbon Dioxide 20 L 25 BUN 44 H 58 H Creatinine 3.58 H 5.98 H* Calcium 6.8 L 6.5 L Phosphorus Cancelled 6.7 H Hematology 11/14/20 11/14/20 11/15/20 07:14 17:39 04:00 WBC 13.7 H 10.0 10.7 Hgb 15.5 16.4 15.3 Plt Count 217 237 224 11/16/20 05:15 WBC 9.9 Hgb 10.6 L D Plt Count 153 L D Urinalysis 11/15/20 07:24 Urine Color ORANGE Urine Appearance CLOUDY Urine pH 5.5 Ur Specific Gravit y 1.020 Urine Protein 1+ H Urine Glucose (UA) NEG Urine Ketones NEG Urine Blood 1+ H Urine Nitrite SEE NOTE Ur Leukocyte Lara ase NEG Urine RBC 1-4 Urine WBC 0-2 Ur Squamous Epith Cells 2+ Urine Studies 11/15/20 12:26 Urine Creatinine 198.64 Const: Other: Intubated, sedated, not awake Resp: Other: On the ventilator Cardio: Rhythm: regular rhythm GI: Other: Obese, ileostomy with good output, mucous fistula seen, both are on the left side, dressings dry Procedures Date of Service Date of Service: 11/16/20 Progress Note: A&P Assessment and plan (1) Colon perforation: Status: Acute Assessment and Plan: Status post extended right colon resection, ileostomy and mucous fistula Worsening renal function - may need dialysis Still on the ventilator Continue IV antibiotics Continue ICU care Stoma functioning - okay to start enteral feeds at slow rate Stoma care Fall Risk Details Current Medications: Current Medications Chlorhexidine Gluconate (Chlorhexidine Gluc Oral Rinse 15 Ml Mouthwash) 15 ml BUCCAL TID HATTIE Last Admin: 11/16/20 07:28 Dose: 15 ml Documented by: Dexamethasone Sodium Phosphate (Dexamethasone Sod Phosphate 4 Mg/Ml Vial) 6 mg IVPUSH DAILY [facility]IE Last Admin: 11/16/20 07:28 Dose: 6 mg Documented by: Heparin Sodium (Porcine) (Heparin Sodium,Porcine 5,000 Unit/Ml Vial) 5,000 unit SUBCUT Q8H HATTIE Last Admin: 11/16/20 07:28 Dose: 5,000 unit Documented by: Propofol (Diprivan) 1,000 mg in 100 mls @ 0 mls/hr IVCONT .Q0M [facility]; Protocol Last Admin: 11/16/20 07:45 Dose: 35 mcg/kg/min, 40.01 mls/hr Documented by: Norepinephrine Bitartrate (Levophed) 8 mg in 250 mls @ 0 mls/hr IVCONT .Q0M [facility]; Protocol Last Titration: 11/16/20 07:06 Dose: 0.02 mcg/kg/min, 7.14 mls/hr Documented by: Piperacillin Sod/Tazobactam (Sod 2.25 gm/ Sodium Chloride) 50 mls @ 100 mls/hr IV Q8H [facility] Last Infusion: 11/16/20 05:37 Dose: Infused Documented by: Dextrose/Sodium Chloride (D51/2ns) 1,000 mls @ 200 mls/hr IVCONT .Q5H [facility]ATTIE Last Admin: 11/16/20 07:23 Dose: Not Given Documented by: Insulin Human Lispro (Insulin Lispro 100 Unit/Ml 3 Ml Vial) 0 unit SUBCUT Q6H [facility]; Protocol Last Admin: 11/16/20 05:55 Dose: 4 unit Documented by: Pantoprazole Sodium (Pantoprazole Sodium 40 Mg/10 Ml Vial) 40 mg IVPUSH DAILY@0630 [facility] Last Admin: 10/04/21 05:55 Dose: 40 mg Documented by: Sodium Bicarbonate (Sodium Bicarbonate 8.4% 50 Meq/50 Ml Vial) 50 meq IVPUSH Q6H HATTIE Stop: 11/16/20 11:01 Last Admin: 11/16/20 04:36 Dose: 50 meq Documented by: Time Spent With Patient Time: Total time spent is greater than 50% in coordination of care (as documented) at patient's floor/unit and/or counseling patient: Time with patient: 15 - 24 minutes Quality Stroke Does the patient have a stroke diagnosis?: No VTE Prior VTE?: No VTE Risk Level:: Surgical - high VTE Device Contraindication: N/A - Device Ordered VTE Drug Contraindication: N/A - Med Ordered
[2020-11-16 07:58] LABS: Ammonia 37 umol/L (13-55)
--- NOTE | 2020-11-16 12:00 | MHC.CLN ---
RE: CONSULT PT IS CURRENTLY INTUBATED AND SEDATED S/P SURGERY DISCUSSED AT ROUNDS WITH DR COWAN; PT IN ARF AND NEEDS HD okay to start enteral feeds at slow rate PER DR MARINA RECOMMEND NEPRO AT MAX GOAL RATE 20ML/HR TO PROVIDE 864KCALS (2090KCALS WITH SEDATION AND IVF; 24KCALS/KG BASED ON IBW), 39G PROTEIN (.45G/KG), 349CC FREE WATER FROM FORMULA MONITOR TOLERANCE, RESIDUALS AND LYTES NOTED FRAGILE SKIN PER NSG-WILL INCREASE PO PROTEIN WHEN ABLE SEE ALSO CLINICAL NUTRITION ASSESSMENT
[2020-11-16 12:16] LABS: Glucose, Whole Blood 165 mg/dL (60-115)
--- NOTE | 2020-11-16 13:26 | P.CDIC_ITS ---
CDI Concurrent Query Documentation Clarification: PHYSICIAN'S DOCUMENTATION REQUEST Date of Query: 11/16/20 1327 Patient Name: Jovani Robin Admit Date: 11/14/20 Dear Doctor, A review of the medical record indicates additional documentation may be needed. Please review below and update the documentation accordingly. Clinical Indicators: The following diagnoses or signs and symptoms were noted in the patient record: Risk Factors/Clinical Indicators/Treatments OR 11/15/20 for Exploratory laparotomy, extended right hemicolectomy, creation ileostomy and mucous fistula Per Operative Report 11/15/20: Purulent appearing fluid was present in the abdomen, but no obvious fecal spillage was noted on entering the abdomen Based on the above, could you clarify in the Progress Notes the appropriate diagnosis, if significant, that supports the above abnormalities and additional evaluation, monitoring, and/or treatment rendered: * Peritonitis * No Peritonitis * Other (please specify) * Unable to determine Use of terms such as suspected, likely, concern for, or probable (associated with a specific diagnosis that is being evaluated, monitored, or treated as if it exists) are acceptable and can be coded in the inpatient setting, when documented at the time of discharge. Thank you, Karen Benjamin RN Extension: [phone] Please use your independent medical judgment in providing your response. THIS QUERY IS PART OF THE PERMANENT MEDICAL RECORD Provider Response: Other Other Diagnosis: Peritonitis secondary to colon ischemia and perforation.
--- NOTE | 2020-11-16 14:22 | CONS_ITS ---
DATE OF SERVICE: 11/15/2020 REASON FOR CONSULTATION: I was called to see this patient to assist in the management of acute kidney injury. HISTORY OF PRESENT ILLNESS: To summarize, Jovani is a 54-year-old man with history of morbid obesity with history of COVID-19 pneumonia, recently discharged, comes back with abdominal pain and was found to have perforated bowel and underwent emergency surgery. He is currently admitted to ICU with shock and is on pressors. There has been a significant bump in the serum creatinine up to 2.61 and hence this consultation. PAST MEDICAL HISTORY: Ongoing medical problems include history of obesity, recent COVID-19 infection. SOCIAL HISTORY: No history of alcohol abuse or any drug abuse were documented in the chart. ALLERGIES: NO KNOWN DRUG ALLERGIES. MEDICATIONS: All the current medications and home medications were reviewed. REVIEW OF SYSTEMS: Not obtainable from the patient since he was intubated. All the information obtained from the chart. PHYSICAL EXAMINATION: GENERAL: Jovani is a 54-year-old man, is obese, intubated, appears ill. NECK: Supple. HEENT: Mucosa dry. LUNGS: Bilateral rhonchi. HEART: S1 and S2 heard. ABDOMEN: Obese, distended, status post surgery. Bowel sounds sluggish. NEURO: No involuntary movements. No myoclonus. EXTREMITIES: No rash. VITAL SIGNS: Blood pressure today was 119/80. LABORATORY DATA: Sodium 146, potassium 4.3, BUN 13, creatinine 2.61. Urinalysis on admission showed 1+ protein, 1+ blood by dipstick. Hemoglobin was 15.0 on admission, platelets 224. CT abdomen on admission showed normal-appearing kidneys. He had large amount of intraabdominal free air. IMPRESSION: 54-year-old man with morbid obesity and recent COVID-19 infection with a perforated bowel, status post laparotomy. Currently, he has an acute kidney injury, most likely due to postoperative ATN. The differential diagnosis for the acute kidney injury would include acute tubular necrosis from ischemic ATN in the postoperative setting. However, underlying glomerulonephritis should be ruled out, even though it seems unlikely at this point. There is no evidence of any obstructive uropathy at this time. RECOMMENDATIONS: My recommendation is to keep the Hunt catheter and optimize his blood pressure to maintain adequate renal perfusion. Keep intake more than the output. Agree with current IV hydration. We will continue to avoid nephrotoxic agents. I have ordered basic urine test for urine protein-creatinine ratio and if he has significant proteinuria or hematuria, we will proceed with further workup. Today, there is no absolute indication for dialysis; however, if the renal function does not improve in the next 24 to 48 hours, he may require renal replacement therapy. We will follow him closely with the team. Discussed with the team. Chau Sánchez MD BPA/MODL / [id number]
[2020-11-16] MEDS: propofoL 1,000 MG/100 ML VIAL 45.72 MG IVCONT ×5 (14:34→23:12)
--- NOTE | 2020-11-16 15:16 | PM.PNNEP ---
Subjective Subjective Date of Service: 11/16/20 Principal diagnosis: CRISTOFER Interval history: Pt intubated / Oliguric Physical Exam Vital Signs: Vital Signs: Last Vital Signs Temp 99.0 F 11/16/20 11:00 Pulse 102 H 11/16/20 14:00 Resp 20 11/16/20 13:00 BP 118/70 11/16/20 14:00 Pulse Ox 96 11/16/20 13:00 Oxygen Flow Rate 4 11/14/20 06:24 Body Mass Index 56.6 Const Other:?Intubated, sedated, not awake Resp Other:?On the ventilator Cardio Rhythm:?regular rhythm GI Other:?Obese, ileostomy with good output, mucous fistula seen, both are on the left side, dressings dry Objective Data Labs CBC & Chem 7: 11/16/20 05:15 11/16/20 05:15 Labs: Laboratory Results - last 24 hr 11/15/20 11/15/20 11/16/20 16:59 23:56 05:15 WBC 9.9 RBC 3.89 L D Hgb 10.6 L D Hct 33.4 L D MCV 85.9 MCH 27.2 MCHC 31.7 RDW 15.8 Plt Count 153 L D MPV 10.8 Immature Gran % (Auto) Cancelled Neut % (Auto) Cancelled Lymph % (Auto) Cancelled [place] % (Auto) Cancelled Eos % (Auto) Cancelled Baso % (Auto) Cancelled Lymph # (Auto) Cancelled [place] # (Auto) Cancelled Eos # (Auto) Cancelled Baso # (Auto) Cancelled Abs Immat Gran (auto) Cancelled Absolute Neuts (auto) Cancelled Absolute Nucleated RBC 0.000 Nucleated RBC % (auto) 0.0 Neutrophils % (Manual) 62 Band Neutrophils % 31 H Lymphocytes % (Manual) 6 L Monocytes % (Manual) 1 L Abs Neuts (Manual) 9.2 H Lymphocytes # (Manual) 0.6 Monocytes # (Manual) 0.1 Toxic Vacuolation PRESENT Dohle Bodies PRESENT Platelet Estimate SLIGHTLY DECREASED Plt Morphology Comment NORMAL RBC Morphology NOTED [place] Cells 1+ (0-2) VBG pH VBG pCO2 VBG pO2 VBG HCO3 VBG O2 Saturation VBG Base Excess Sodium Potassium Chloride Carbon Dioxide Anion Gap BUN Creatinine Estim Creat Clear Calc Estimated GFR POC Glucose 196 H 230 H Random Glucose Calcium Phosphorus Magnesium Total Bilirubin AST ALT Alkaline Phosphatase Ammonia Total Protein Albumin 11/16/20 11/16/20 11/16/20 05:15 05:22 05:39 WBC RBC Hgb Hct MCV MCH MCHC RDW Plt Count MPV Immature Gran % (Auto) Neut % (Auto) Lymph % (Auto) [place] % (Auto) Eos % (Auto) Baso % (Auto) Lymph # (Auto) [place] # (Auto) Eos # (Auto) Baso # (Auto) Abs Immat Gran (auto) Absolute Neuts (auto) Absolute Nucleated RBC Nucleated RBC % (auto) Neutrophils % (Manual) Band Neutrophils % Lymphocytes % (Manual) Monocytes % (Manual) Abs Neuts (Manual) Lymphocytes # (Manual) Monocytes # (Manual) Toxic Vacuolation Dohle Bodies Platelet Estimate Plt Morphology Comment RBC Morphology [place] Cells VBG pH 7.42 VBG pCO2 40 VBG pO2 60 VBG HCO3 26 VBG O2 Saturation 87.0 VBG Base Excess 1.6 Sodium 147 H Potassium 4.0 Chloride 106 Carbon Dioxide 25 Anion Gap 20 BUN 58 H Creatinine 5.98 H* Estim Creat Clear Calc 25.2 Estimated GFR 10 POC Glucose 228 H Random Glucose 255 H Calcium 6.5 L Phosphorus 6.7 H Magnesium 2.2 Total Bilirubin 2.9 H AST 115 H ALT 53 H Alkaline Phosphatase 40 D Ammonia Total Protein 4.8 L Albumin 3.0 L D 11/16/20 11/16/20 07:43 12:12 WBC RBC Hgb Hct MCV MCH MCHC RDW Plt Count MPV Immature Gran % (Auto) Neut % (Auto) Lymph % (Auto) [place] % (Auto) Eos % (Auto) Baso % (Auto) Lymph # (Auto) [place] # (Auto) Eos # (Auto) Baso # (Auto) Abs Immat Gran (auto) Absolute Neuts (auto) Absolute Nucleated RBC Nucleated RBC % (auto) Neutrophils % (Manual) Band Neutrophils % Lymphocytes % (Manual) Monocytes % (Manual) Abs Neuts (Manual) Lymphocytes # (Manual) Monocytes # (Manual) Toxic Vacuolation Dohle Bodies Platelet Estimate Plt Morphology Comment RBC Morphology [place] Cells VBG pH VBG pCO2 VBG pO2 VBG HCO3 VBG O2 Saturation VBG Base Excess Sodium Potassium Chloride Carbon Dioxide Anion Gap BUN Creatinine Estim Creat Clear Calc Estimated GFR POC Glucose 165 H Random Glucose Calcium Phosphorus Magnesium Total Bilirubin AST ALT Alkaline Phosphatase Ammonia 37 Total Protein Albumin Microbiology Microbiology Results: Microbiology 11/14/20 21:35 Peritoneal Fluid Gram Stain - Final 11/14/20 21:35 Peritoneal Fluid Routine Culture - Preliminary Culture in progress. 11/14/20 21:35 Peritoneal Fluid Anaerobic Culture - Preliminary Culture in progress. 11/14/20 14:53 Blood - Venous Blood Culture - Preliminary No growth after 24 hours. 11/14/20 14:28 Blood - Venous Blood Culture - Preliminary No growth after 24 hours. Procedures Date of Service Date of Service: 11/16/20 Assessment & Plan Assessment and plan (1) CRISTOFER (acute kidney injury): Status: Acute (2) Colon perforation: Status: Acute Assessment and Plan: IMPRESSION:? 1. 54-year-old man acute kidney injury, most likely due to postoperative ATN. The differential diagnosis for the acute kidney injury would include acute tubular necrosis from ischemic ATN in the postoperative setting.? No [place] on Imaging studies Doubt glomerulonephritis in the absence of hematuria/ pyuria Has < 1 G proteinuria 2. morbid obesity and recent COVID-19 infection 3. perforated bowel, status post laparotomy.? 4. cardiorespiratory failure ? RECOMMENDATIONS:? 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 We will follow him closely with the team.? Cardiopulmonary support the team. Time Spent With Patient Time: Total time spent is greater than 50% in coordination of care (as documented) at patient's floor/unit and/or counseling patient: Progress Note: Quality Stroke Does the patient have a stroke diagnosis?: No
--- NOTE | 2020-11-16 15:43 | P.PCNCC_ITS ---
Procedures Date of Service Date of Service: 11/16/20 Procedure Note Procedure Note: Patient developed rapidly progressive acute renal failure with current creatinine of 6 and remains an uric as he has 4 more than 36 hours and CVP was reading between 14 and 18 implying a volume overloaded state and based on that wheeze we had a renal consult to agreed and the patient needed dialysis mostly for volume control at this point So after sterile preparation and draping utilizing the right internal jugular vein and ultrasound guidance I gained easy entry to the right internal jugular vein passing retrograde with Seldinger technique a J tipped guidewire and then progressive dilators and the placement of a 12 [place] and 20 centimetre length triple-lumen dialysis catheter and chest x-ray showed the tip to be in the upper right atrium it well placed without complication no pneumothorax no significant bleeding
--- NOTE | 2020-11-16 15:46 | P.PNCC_ITS ---
Subjective Subjective Date of Service: 11/16/20 Interval History: 54-year-old morbidly obese male status post COVID-19 pneumonia never requiring advanced ICU care discharged on November 12 and readmitted 24 hours later with abdominal pain and distension found to have colonic perforation in 2 areas as well as a megacolon and had emergent diverting colostomy and washout of the peritoneum on Monday night 1 and half days ago and has remained an uric since that time and is on Zosyn as an antibiotic at renal doses and as part of his megacolon workup I sent off a fecal calprotectin as well as AC diff antigen by PCR as a screen Critical Care Time (minutes): 60 Physical Exam Vital Signs: Vital Signs: Last Vital Signs Temp 99.0 F 11/16/20 11:00 Pulse 98 11/16/20 15:00 Resp 22 H 11/16/20 15:00 BP 110/68 11/16/20 15:00 Pulse Ox 93 11/16/20 15:00 Oxygen Flow Rate 4 11/14/20 06:24 Body Mass Index 56.6 Sedated and intubated Lungs with scattered bilateral coarse rales on the ventilator Cardiac exam no good bilateral carotid upstrokes no gallops Abdomen distended with no bowel sounds Some skin breakdown overlying the coccyx Objective Data Labs CBC & Chem 7: 11/16/20 05:15 11/16/20 05:15 Labs: Laboratory Results - last 24 hr 11/15/20 11/15/20 11/16/20 16:59 23:56 05:15 WBC 9.9 RBC 3.89 L D Hgb 10.6 L D Hct 33.4 L D MCV 85.9 MCH 27.2 MCHC 31.7 RDW 15.8 Plt Count 153 L D MPV 10.8 Immature Gran % (Auto) Cancelled Neut % (Auto) Cancelled Lymph % (Auto) Cancelled [place] % (Auto) Cancelled Eos % (Auto) Cancelled Baso % (Auto) Cancelled Lymph # (Auto) Cancelled [place] # (Auto) Cancelled Eos # (Auto) Cancelled Baso # (Auto) Cancelled Abs Immat Gran (auto) Cancelled Absolute Neuts (auto) Cancelled Absolute Nucleated RBC 0.000 Nucleated RBC % (auto) 0.0 Neutrophils % (Manual) 62 Band Neutrophils % 31 H Lymphocytes % (Manual) 6 L Monocytes % (Manual) 1 L Abs Neuts (Manual) 9.2 H Lymphocytes # (Manual) 0.6 Monocytes # (Manual) 0.1 Toxic Vacuolation PRESENT Dohle Bodies PRESENT Platelet Estimate SLIGHTLY DECREASED Plt Morphology Comment NORMAL RBC Morphology NOTED [place] Cells 1+ (0-2) VBG pH VBG pCO2 VBG pO2 VBG HCO3 VBG O2 Saturation VBG Base Excess Sodium Potassium Chloride Carbon Dioxide Anion Gap BUN Creatinine Estim Creat Clear Calc Estimated GFR POC Glucose 196 H 230 H Random Glucose Calcium Phosphorus Magnesium Total Bilirubin AST ALT Alkaline Phosphatase Ammonia Total Protein Albumin 11/16/20 11/16/20 11/16/20 05:15 05:22 05:39 WBC RBC Hgb Hct MCV MCH MCHC RDW Plt Count MPV Immature Gran % (Auto) Neut % (Auto) Lymph % (Auto) [place] % (Auto) Eos % (Auto) Baso % (Auto) Lymph # (Auto) [place] # (Auto) Eos # (Auto) Baso # (Auto) Abs Immat Gran (auto) Absolute Neuts (auto) Absolute Nucleated RBC Nucleated RBC % (auto) Neutrophils % (Manual) Band Neutrophils % Lymphocytes % (Manual) Monocytes % (Manual) Abs Neuts (Manual) Lymphocytes # (Manual) Monocytes # (Manual) Toxic Vacuolation Dohle Bodies Platelet Estimate Plt Morphology Comment RBC Morphology [place] Cells VBG pH 7.42 VBG pCO2 40 VBG pO2 60 VBG HCO3 26 VBG O2 Saturation 87.0 VBG Base Excess 1.6 Sodium 147 H Potassium 4.0 Chloride 106 Carbon Dioxide 25 Anion Gap 20 BUN 58 H Creatinine 5.98 H* Estim Creat Clear Calc 25.2 Estimated GFR 10 POC Glucose 228 H Random Glucose 255 H Calcium 6.5 L Phosphorus 6.7 H Magnesium 2.2 Total Bilirubin 2.9 H AST 115 H ALT 53 H Alkaline Phosphatase 40 D Ammonia Total Protein 4.8 L Albumin 3.0 L D 11/16/20 11/16/20 07:43 12:12 WBC RBC Hgb Hct MCV MCH MCHC RDW Plt Count MPV Immature Gran % (Auto) Neut % (Auto) Lymph % (Auto) [place] % (Auto) Eos % (Auto) Baso % (Auto) Lymph # (Auto) [place] # (Auto) Eos # (Auto) Baso # (Auto) Abs Immat Gran (auto) Absolute Neuts (auto) Absolute Nucleated RBC Nucleated RBC % (auto) Neutrophils % (Manual) Band Neutrophils % Lymphocytes % (Manual) Monocytes % (Manual) Abs Neuts (Manual) Lymphocytes # (Manual) Monocytes # (Manual) Toxic Vacuolation Dohle Bodies Platelet Estimate Plt Morphology Comment RBC Morphology [place] Cells VBG pH VBG pCO2 VBG pO2 VBG HCO3 VBG O2 Saturation VBG Base Excess Sodium Potassium Chloride Carbon Dioxide Anion Gap BUN Creatinine Estim Creat Clear Calc Estimated GFR POC Glucose 165 H Random Glucose Calcium Phosphorus Magnesium Total Bilirubin AST ALT Alkaline Phosphatase Ammonia 37 Total Protein Albumin Microbiology Microbiology Results: Microbiology 11/14/20 21:35 Peritoneal Fluid Gram Stain - Final 11/14/20 21:35 Peritoneal Fluid Routine Culture - Preliminary Culture in progress. 11/14/20 21:35 Peritoneal Fluid Anaerobic Culture - Preliminary Culture in progress. 11/14/20 14:53 Blood - Venous Blood Culture - Preliminary No growth after 24 hours. 11/14/20 14:28 Blood - Venous Blood Culture - Preliminary No growth after 24 hours. Quality Stroke Does the patient have a stroke diagnosis?: No VTE Prior VTE?: No VTE Risk Level:: Surgical - high VTE Device Contraindication: N/A - Device Ordered VTE Drug Contraindication: N/A - Med Ordered Progress Note: A&P Assessment and plan (1) CRISTOFER (acute kidney injury): Status: Acute (2) Colon perforation: Status: Acute (3) Colonic ischemia: Status: Acute (4) Megacolon: Status: Acute (5) Acute respiratory failure with hypoxia: Status: Acute (6) Bacteremia: Status: Acute (7) Hypertension: Status: Acute (8) COVID-19: Status: Acute (9) Abdominal hernia: Status: Acute (10) Morbid obesity with BMI of 50.0-59.9, adult: Status: Acute (11) Compression fracture of T11 vertebra: Status: Acute (12) Compression fracture of T9 vertebra: Status: Acute (13) Hernia: Status: Acute (14) Hypernatremia: Status: Acute (15) Fluid overload: Status: Acute Assessment and Plan: So workup is pending for toxic megacolon and Zosyn will remain until we get back reduce some result on pathology or the PCR screen for C diff before treating and dialysis catheter is placed and he will have at least a hemofiltration today for his volume overload
[2020-11-16] MEDS: MannitoL 12.5 GM/50 ML VIAL IV (17:17)
[2020-11-16 17:27] LABS: CDiff Gene PCR NEGATIVE (Negative)
[2020-11-16 18:22] LABS: Glucose, Whole Blood 116 mg/dL (60-115)
--- NOTE | 2020-11-16 18:47 | PC.NURSE ---
OUTPUTS: OSTOMY - 200 ML, BROWN LIQUID RECTAL TUBE - 800 ML, BROWN LIQUID LYMAN - 35 ML TOTAL (7A-7P), CONCENTRATED LYLE DRAIN - 5 ML, BLOODY MUCUS OSTOMY - 5 ML, BLOODY DIALYSIS - 3,000 ML OFF. CVP 18- - MD AWARE. SISTER UPDATED BY RN AND MD AND CONSENT OBTAINED FOR DIALYSIS CATHETER. DIALYSIS CATHETER TO [facility]. FIRST DIALYSIS COMPLETED. WILL HAVE ANOTHER TREATMENT TOMORROW.
[2020-11-16 21:18] LABS: Anion Gap 22 (12-20); Blood Urea Nitrogen 50 mg/dL (9-16); Calcium 7.1 mg/dL (8.4-10.2); Carbon Dioxide 22 mmol/L (22-29); Chloride 106 mmol/L (96-108); Creatinine Clr Calc Pharmacy 24.2; Estimated Glomerular Filt Rate 9; Glucose Random 142 mg/dL (60-115); Potassium 4.1 mmol/L (3.3-5.1); Sodium 146 mmol/L (135-145)
[2020-11-16 23:40] LABS: Glucose, Whole Blood 138 mg/dL (60-115)
[2020-11-17] VITALS (30 sets, daily range): BP systolic 98–140; BP diastolic 45–90; PULSE 74–110; RESP 9–29; TEMP 36.5–37.1; O2SAT 91–94; BMI 58.0
[2020-11-17] MEDS: propofoL 1,000 MG/100 ML VIAL 45.72 MG IVCONT ×11 (01:27→23:11)
[2020-11-17 04:23] LABS: HBc Num1 9.19 S/CO (0.00-0.79)
[2020-11-17 04:45] LABS: HBsAGNum1 0.14 S/CO (0.00-0.99); Hepatitis B Surface Antigen Negative (Negative)
[2020-11-17 04:58] LABS: HBS Num1 22.27 mIU/mL (0-7.99); ~Hepatitis B Surface Antibody REACTIVE (Nonreactive)
[2020-11-17 05:02] LABS: HBc Num3 9.37 S/CO; Hepatitis B Core Antibody Reactive (Nonreactive)
[2020-11-17 05:18] LABS: VBG Base Excess -3.2 mmol/L; VBG HCO3 20 mmol/L (22-26); VBG pCO2 31 mmHg; VBG pH 7.42 (7.32-7.43); VBG pO2 50 mmHg
[2020-11-17 05:21] LABS: Venous Blood Gas Refer to POC result
[2020-11-17 05:39] LABS: Hematocrit 31.5 % (42-52); Hemoglobin 10.3 g/dl (14.0-18.0); Mean Corpuscular HGB Conc 32.7 g/dl (31.0-36.0); Mean Corpuscular Hemoglobin 27.3 pg (27.0-33.0); Mean Corpuscular Volume 83.6 fL (80-98); Mean Platelet Volume 9.9 fL (9.4-12.4); NRBC Pct Auto 0.2 /100WBC (0.0-0.2); Platelet Count 128 X10*3/uL (160-400); Red Blood Count 3.77 X10*6/uL (4.60-5.80); Red Cell Distribution Width 15.8 % (11.0-16.0); White Blood Count 9.5 X10*3/uL (4.8-10.8)
[2020-11-17 05:49] LABS: Glucose, Whole Blood 134 mg/dL (60-115)
[2020-11-17] MEDS: Pantoprazole Sodium 40 MG/10 ML VIAL IVPUSH (05:59)
[2020-11-17] MEDS: Piperacillin Sodium/Tazobactam 2.25 GM in 0.9 % Sodium Chloride 50 ML IV ×3 (05:59→20:44)
[2020-11-17 06:07] LABS: Alanine Aminotransferase 64 U/L (0-40); Albumin Level 2.9 g/dL (3.5-5.0); Alkaline Phosphatase 59 U/L (39-117); Anion Gap 23 (12-20); Aspartate Amino Transferase 113 U/L (5-37); Bilirubin Total 3.1 mg/dL (0.0-1.0); Blood Urea Nitrogen 63 mg/dL (9-16); Calcium 6.9 mg/dL (8.4-10.2); Carbon Dioxide 20 mmol/L (22-29); Chloride 106 mmol/L (96-108); Glucose Random 139 mg/dL (60-115); Magnesium 2.5 mg/dL (1.6-2.6); Phosphorus 6.9 mg/dL (2.7-4.5); Potassium 3.9 mmol/L (3.3-5.1); Sodium 145 mmol/L (135-145); Total Protein 5.1 g/dL (6.5-8.0)
[2020-11-17 06:14] LABS: Creatinine Clr Calc Pharmacy 20.3; Estimated Glomerular Filt Rate 8
[2020-11-17 07:03] LABS: Band Neutrophils Percent 12 % (3-5); Lymphocytes Absolute Manual 0.1 X10*3/uL (0.6-4.8); Lymphocytes Percent Manual 1 % (20-40); Monocytes Absolute Manual 0.4 X10*3/uL (0.0-1.2); Monocytes Percent Manual 4 % (2-11); Neutrophils Percent Manual 83 % (45-73)
[2020-11-17 07:04] LABS: Platelet Estimate SLIGHTLY DECREASED (NORMAL); RBC Morphology NORMAL
[2020-11-17 07:05] LABS: Platelet Morphology Comment NORMAL
[2020-11-17] MEDS: Heparin Sodium,Porcine 5,000 UNIT/ML VIAL 5000 UNIT SUBCUT ×2 (07:51→20:45)
[2020-11-17] MEDS: Chlorhexidine Gluc Oral Rinse 15 ML MOUTHWASH BUCCAL ×3 (07:51→20:45)
[2020-11-17] MEDS: dexAMETHasone sod phosphate 4 MG/ML VIAL 6 MG IVPUSH (07:51)
--- NOTE | 2020-11-17 08:42 | PM.PNGS ---
Subjective Subjective Date of Service: 11/17/20 Interval history: no events overnight remains on the ventilator off pressors underwent HD yesterday, ongoing dialysis again now stoma with output Physical Exam Vital Signs: Vital Signs: Last Vital Signs Temp 98.2 F 11/17/20 08:00 Pulse 94 11/17/20 08:00 Resp 26 H 11/17/20 08:00 BP 117/71 11/17/20 08:00 Pulse Ox 94 11/17/20 08:00 Oxygen Flow Rate 4 11/14/20 06:24 Body Mass Index 58.0 Chemistry 11/14/20 11/15/20 11/15/20 17:39 04:00 04:00 Sodium 142 146 H Potassium 3.8 4.3 Carbon Dioxide 25 25 BUN 30 H 39 H Creatinine 1.59 H 2.61 H Calcium 8.4 6.9 L D Phosphorus 8.0 H Cancelled 11/15/20 11/16/20 11/16/20 11:27 05:15 20:32 Sodium 144 147 H 146 H Potassium 4.5 4.0 4.1 Carbon Dioxide 20 L 25 22 BUN 44 H 58 H 50 H Creatinine 3.58 H 5.98 H* 6.22 H* Calcium 6.8 L 6.5 L 7.1 L D Phosphorus 6.7 H 11/17/20 05:10 Sodium 145 Potassium 3.9 Carbon Dioxide 20 L BUN 63 H Creatinine 7.52 H* Calcium 6.9 L Phosphorus 6.9 H Hematology 11/14/20 11/15/20 11/16/20 17:39 04:00 05:15 WBC 10.0 10.7 9.9 Hgb 16.4 15.3 10.6 L D Plt Count 237 224 153 L D 11/17/20 05:10 WBC 9.5 Hgb 10.3 L Plt Count 128 L Urinalysis 11/15/20 07:24 Urine Color ORANGE Urine Appearance CLOUDY Urine pH 5.5 Ur Specific Gravit y 1.020 Urine Protein 1+ H Urine Glucose (UA) NEG Urine Ketones NEG Urine Blood 1+ H Urine Nitrite SEE NOTE Ur Leukocyte Lara ase NEG Urine RBC 1-4 Urine WBC 0-2 Ur Squamous Epith Cells 2+ Urine Studies 11/15/20 12:26 Urine Creatinine 198.64 Const: Other: intubated, sedated Resp: Other: on vent Cardio: Rhythm: regular rhythm GI: Other: obese, stoma with stool, mucus fistula in place, LYLE with scanty old blood Procedures Date of Service Date of Service: 11/17/20 Progress Note: A&P Assessment and plan (1) Colon perforation: Status: Acute Assessment and Plan: S/P resection, ileostomy, mucus fistula hemodynamically better creatinine remains elevated; requiring dialysis stoma functioning ok for some enteral feeds remains critically ill dw ICU Fall Risk Details Current Medications: Current Medications Chlorhexidine Gluconate (Chlorhexidine Gluc Oral Rinse 15 Ml Mouthwash) 15 ml BUCCAL TID ON LICENSE OF [facility] Last Admin: 11/17/20 07:51 Dose: 15 ml Documented by: Dexamethasone Sodium Phosphate (Dexamethasone Sod Phosphate 4 Mg/Ml Vial) 6 mg IVPUSH DAILY HATTIE Last Admin: 11/17/20 07:51 Dose: 6 mg Documented by: Heparin Sodium (Porcine) (Heparin Sodium,Porcine 5,000 Unit/Ml Vial) 5,000 unit SUBCUT Q12H ON LICENSE OF [facility] Last Admin: 11/17/20 07:51 Dose: 5,000 unit Documented by: Propofol (Diprivan) 1,000 mg in 100 mls @ 0 mls/hr IVCONT .Q0M ON LICENSE OF [facility]; Protocol Last Admin: 11/17/20 08:34 Dose: 40 mcg/kg/min, 45.72 mls/hr Documented by: Norepinephrine Bitartrate (Levophed) 8 mg in 250 mls @ 0 mls/hr IVCONT .Q0M HATTIE; Protocol Last Titration: 11/17/20 03:43 Dose: 0 mcg/kg/min, 0 mls/hr Documented by: Piperacillin Sod/Tazobactam (Sod 2.25 gm/ Sodium Chloride) 50 mls @ 100 mls/hr IV Q8H ON LICENSE OF [facility] Last Infusion: 11/17/20 06:34 Dose: Infused Documented by: Insulin Human Lispro (Insulin Lispro 100 Unit/Ml 3 Ml Vial) 0 unit SUBCUT Q6H ON LICENSE OF [facility]; Protocol Last Admin: 11/17/20 05:59 Dose: Not Given Documented by: Pantoprazole Sodium (Pantoprazole Sodium 40 Mg/10 Ml Vial) 40 mg IVPUSH DAILY@0630 ON LICENSE OF [facility] Last Admin: 11/17/20 05:59 Dose: 40 mg Documented by: Time Spent With Patient Time: Total time spent is greater than 50% in coordination of care (as documented) at patient's floor/unit and/or counseling patient: Time with patient: 15 - 24 minutes Quality Stroke Does the patient have a stroke diagnosis?: No VTE Prior VTE?: No VTE Risk Level:: Surgical - high VTE Device Contraindication: N/A - Device Ordered VTE Drug Contraindication: N/A - Med Ordered
--- NOTE | 2020-11-17 10:16 | MHC.CLN ---
F/U PT RECEIVED HD YESTERDAY AND TODAY okay FOR SOME ENTERAL FEEDS PER DR MARINA RECOMMEND NEPRO AT MAX GOAL RATE 20ML/HR TO PROVIDE 864KCALS (2071KCALS WITH SEDATION; 24KCALS/KG BASED ON IBW), 39G PROTEIN (.45G/KG), 349CC FREE WATER FROM FORMULA MONITOR TOLERANCE, RESIDUALS AND LYTES NOTED FRAGILE SKIN PER NSG-WILL INCREASE PO PROTEIN WHEN ABLE
[2020-11-17 11:47] LABS: Glucose, Whole Blood 140 mg/dL (60-115)
--- NOTE | 2020-11-17 14:00 | PM.CCPN ---
Subjective Subjective Date of Service: 11/17/20 Interval History: 54-year-old morbidly obese male with recent COVID-19 infection never reaching ICU level of severity discharged November 13 only lasted at home for 5 hours returning with abdominal pain and on 2nd scan after hours of observation noted large volume free air clear-cut colonic perforation with peritoneal soilage went for an emergency D diverting ileostomy with washout and drainage and apparently was noted to present with a toxic megacolon thus far negative 1st C diff and awaiting inflammatory bowel disease workup but was an uric since the operation with acute renal failure and yesterday placed a dialysis catheter and he has had 2 treatments for an initial CVP of 18 removing stone out 7 L of fluid with CVP now 8-9 and changed to pressure control looking very stable on the ventilator but still an uric Critical Care Time (minutes): 60 Physical Exam Vital Signs: Vital Signs: Last Vital Signs Temp 97.8 F 11/17/20 12:00 Pulse 86 11/17/20 13:00 Resp 25 H 11/17/20 13:00 BP 120/71 11/17/20 13:00 Pulse Ox 94 11/17/20 13:00 Oxygen Flow Rate 4 11/14/20 06:24 Body Mass Index 58.0 he does awaken on sedation and he is nonfocal neurologically hemodynamically stable off pressors and in sinus rhythm still no function of the ileostomy noted good bilateral carotid upstrokes and no gallops no adventitious sounds on respiratory exam Objective Data Labs CBC & Chem 7: 11/17/20 05:10 11/17/20 05:10 Labs: Laboratory Results - last 24 hr 11/16/20 11/16/20 11/16/20 15:39 16:18 18:17 WBC RBC Hgb Hct MCV MCH MCHC RDW Plt Count MPV Immature Gran % (Auto) Neut % (Auto) Lymph % (Auto) [place] % (Auto) Eos % (Auto) Baso % (Auto) Lymph # (Auto) [place] # (Auto) Eos # (Auto) Baso # (Auto) Abs Immat Gran (auto) Absolute Neuts (auto) Absolute Nucleated RBC Nucleated RBC % (auto) Neutrophils % (Manual) Band Neutrophils % Lymphocytes % (Manual) Monocytes % (Manual) Abs Neuts (Manual) Lymphocytes # (Manual) Monocytes # (Manual) Platelet Estimate Plt Morphology Comment RBC Morphology VBG pH VBG pCO2 VBG pO2 VBG HCO3 VBG O2 Saturation VBG Base Excess Sodium Potassium Chloride Carbon Dioxide Anion Gap BUN Creatinine Estim Creat Clear Calc Estimated GFR POC Glucose 116 H Random Glucose Calcium Phosphorus Magnesium Total Bilirubin AST ALT Alkaline Phosphatase Total Protein Albumin C. difficile Tox B Gene NEGATIVE Hep Bs Antigen Negative Hep Bs Antibody REACTIVE Hep B Core Total Ab Reactive Hep B Core IgM Ab Cancelled 11/16/20 11/16/20 11/17/20 20:32 23:35 05:10 WBC 9.5 RBC 3.77 L Hgb 10.3 L Hct 31.5 L MCV 83.6 MCH 27.3 MCHC 32.7 RDW 15.8 Plt Count 128 L MPV 9.9 Immature Gran % (Auto) Cancelled Neut % (Auto) Cancelled Lymph % (Auto) Cancelled [place] % (Auto) Cancelled Eos % (Auto) Cancelled Baso % (Auto) Cancelled Lymph # (Auto) Cancelled [place] # (Auto) Cancelled Eos # (Auto) Cancelled Baso # (Auto) Cancelled Abs Immat Gran (auto) Cancelled Absolute Neuts (auto) Cancelled Absolute Nucleated RBC 0.020 H Nucleated RBC % (auto) 0.2 Neutrophils % (Manual) 83 H Band Neutrophils % 12 H Lymphocytes % (Manual) 1 L Monocytes % (Manual) 4 Abs Neuts (Manual) 9.0 H Lymphocytes # (Manual) 0.1 L Monocytes # (Manual) 0.4 Platelet Estimate SLIGHTLY DECREASED Plt Morphology Comment NORMAL RBC Morphology NORMAL VBG pH VBG pCO2 VBG pO2 VBG HCO3 VBG O2 Saturation VBG Base Excess Sodium 146 H Potassium 4.1 Chloride 106 Carbon Dioxide 22 Anion Gap 22 H BUN 50 H Creatinine 6.22 H* Estim Creat Clear Calc 24.2 Estimated GFR 9 POC Glucose 138 H Random Glucose 142 H D Calcium 7.1 L D Phosphorus Magnesium Total Bilirubin AST ALT Alkaline Phosphatase Total Protein Albumin C. difficile Tox B Gene Hep Bs Antigen Hep Bs Antibody Hep B Core Total Ab Hep B Core IgM Ab 11/17/20 11/17/20 11/17/20 05:10 05:12 05:45 WBC RBC Hgb Hct MCV MCH MCHC RDW Plt Count MPV Immature Gran % (Auto) Neut % (Auto) Lymph % (Auto) [place] % (Auto) Eos % (Auto) Baso % (Auto) Lymph # (Auto) [place] # (Auto) Eos # (Auto) Baso # (Auto) Abs Immat Gran (auto) Absolute Neuts (auto) Absolute Nucleated RBC Nucleated RBC % (auto) Neutrophils % (Manual) Band Neutrophils % Lymphocytes % (Manual) Monocytes % (Manual) Abs Neuts (Manual) Lymphocytes # (Manual) Monocytes # (Manual) Platelet Estimate Plt Morphology Comment RBC Morphology VBG pH 7.42 VBG pCO2 31 VBG pO2 50 VBG HCO3 20 L VBG O2 Saturation 81.0 VBG Base Excess -3.2 Sodium 145 Potassium 3.9 Chloride 106 Carbon Dioxide 20 L Anion Gap 23 H BUN 63 H Creatinine 7.52 H* Estim Creat Clear Calc 20.3 Estimated GFR 8 POC Glucose 134 H Random Glucose 139 H Calcium 6.9 L Phosphorus 6.9 H Magnesium 2.5 Total Bilirubin 3.1 H AST 113 H ALT 64 H Alkaline Phosphatase 59 D Total Protein 5.1 L Albumin 2.9 L C. difficile Tox B Gene Hep Bs Antigen Hep Bs Antibody Hep B Core Total Ab Hep B Core IgM Ab 11/17/20 11:36 WBC RBC Hgb Hct MCV MCH MCHC RDW Plt Count MPV Immature Gran % (Auto) Neut % (Auto) Lymph % (Auto) [place] % (Auto) Eos % (Auto) Baso % (Auto) Lymph # (Auto) [place] # (Auto) Eos # (Auto) Baso # (Auto) Abs Immat Gran (auto) Absolute Neuts (auto) Absolute Nucleated RBC Nucleated RBC % (auto) Neutrophils % (Manual) Band Neutrophils % Lymphocytes % (Manual) Monocytes % (Manual) Abs Neuts (Manual) Lymphocytes # (Manual) Monocytes # (Manual) Platelet Estimate Plt Morphology Comment RBC Morphology VBG pH VBG pCO2 VBG pO2 VBG HCO3 VBG O2 Saturation VBG Base Excess Sodium Potassium Chloride Carbon Dioxide Anion Gap BUN Creatinine Estim Creat Clear Calc Estimated GFR POC Glucose 140 H Random Glucose Calcium Phosphorus Magnesium Total Bilirubin AST ALT Alkaline Phosphatase Total Protein Albumin C. difficile Tox B Gene Hep Bs Antigen Hep Bs Antibody Hep B Core Total Ab Hep B Core IgM Ab Microbiology Microbiology Results: Microbiology 11/14/20 21:35 Peritoneal Fluid Gram Stain - Final 11/14/20 21:35 Peritoneal Fluid Routine Culture - Final 11/14/20 21:35 Peritoneal Fluid Anaerobic Culture - Preliminary 11/14/20 14:53 Blood - Venous Blood Culture - Preliminary No growth after 48 hours. 11/14/20 14:28 Blood - Venous Blood Culture - Preliminary No growth after 48 hours. Quality Stroke Does the patient have a stroke diagnosis?: No VTE Prior VTE?: No VTE Risk Level:: Surgical - high VTE Device Contraindication: N/A - Device Ordered VTE Drug Contraindication: N/A - Med Ordered Progress Note: A&P Assessment and plan (1) Fluid overload: Status: Acute (2) Hypernatremia: Status: Acute (3) CRISTOFER (acute kidney injury): Status: Acute (4) Colon perforation: Status: Acute (5) Colonic ischemia: Status: Acute (6) Abdominal pain: Status: Acute (7) Megacolon: Status: Acute (8) Acute respiratory failure with hypoxia: Status: Acute (9) Bacteremia: Status: Acute (10) IFG (impaired fasting glucose): Status: Acute (11) Hypertension: Status: Acute (12) COVID-19: Status: Acute (13) Right hip pain: Status: Acute (14) Abdominal hernia: Status: Acute (15) Morbid obesity with BMI of 50.0-59.9, adult: Status: Acute (16) Compression fracture of T11 vertebra: Status: Acute (17) Compression fracture of T9 vertebra: Status: Acute (18) Hernia: Status: Acute Assessment and Plan: continue ventilator support for now and await to see if there is spontaneous return of renal function
--- NOTE | 2020-11-17 14:44 | PM.PNNEP ---
Subjective Subjective Date of Service: 11/17/20 Principal diagnosis: CRISTOFER Interval history: seen and examined vented Physical Exam Vital Signs: Vital Signs: Last Vital Signs Temp 97.8 F 11/17/20 12:00 Pulse 83 11/17/20 14:00 Resp 25 H 11/17/20 14:00 BP 112/69 11/17/20 14:00 Pulse Ox 94 11/17/20 14:00 Oxygen Flow Rate 4 11/14/20 06:24 Body Mass Index 58.0 Const: General: ill appearing HENMT: Head: Yes normocephalic and Yes atraumatic Neck: Neck: Yes supple Resp: Auscultation: diminished lung sounds Cardio: Heart sounds: S1 normal heart sound present and S2 normal heart sound present GI: Palpation (GI): Soft to palpation and no guarding Extrem: General: Yes edema Objective Data Labs CBC & Chem 7: 11/17/20 05:10 11/17/20 05:10 Labs: Laboratory Results - last 24 hr 11/16/20 11/16/20 11/16/20 15:39 16:18 18:17 WBC RBC Hgb Hct MCV MCH MCHC RDW Plt Count MPV Immature Gran % (Auto) Neut % (Auto) Lymph % (Auto) [place] % (Auto) Eos % (Auto) Baso % (Auto) Lymph # (Auto) [place] # (Auto) Eos # (Auto) Baso # (Auto) Abs Immat Gran (auto) Absolute Neuts (auto) Absolute Nucleated RBC Nucleated RBC % (auto) Neutrophils % (Manual) Band Neutrophils % Lymphocytes % (Manual) Monocytes % (Manual) Abs Neuts (Manual) Lymphocytes # (Manual) Monocytes # (Manual) Platelet Estimate Plt Morphology Comment RBC Morphology VBG pH VBG pCO2 VBG pO2 VBG HCO3 VBG O2 Saturation VBG Base Excess Sodium Potassium Chloride Carbon Dioxide Anion Gap BUN Creatinine Estim Creat Clear Calc Estimated GFR POC Glucose 116 H Random Glucose Calcium Phosphorus Magnesium Total Bilirubin AST ALT Alkaline Phosphatase Total Protein Albumin C. difficile Tox B Gene NEGATIVE Hep Bs Antigen Negative Hep Bs Antibody REACTIVE Hep B Core Total Ab Reactive Hep B Core IgM Ab Cancelled 11/16/20 11/16/20 11/17/20 20:32 23:35 05:10 WBC 9.5 RBC 3.77 L Hgb 10.3 L Hct 31.5 L MCV 83.6 MCH 27.3 MCHC 32.7 RDW 15.8 Plt Count 128 L MPV 9.9 Immature Gran % (Auto) Cancelled Neut % (Auto) Cancelled Lymph % (Auto) Cancelled [place] % (Auto) Cancelled Eos % (Auto) Cancelled Baso % (Auto) Cancelled Lymph # (Auto) Cancelled [place] # (Auto) Cancelled Eos # (Auto) Cancelled Baso # (Auto) Cancelled Abs Immat Gran (auto) Cancelled Absolute Neuts (auto) Cancelled Absolute Nucleated RBC 0.020 H Nucleated RBC % (auto) 0.2 Neutrophils % (Manual) 83 H Band Neutrophils % 12 H Lymphocytes % (Manual) 1 L Monocytes % (Manual) 4 Abs Neuts (Manual) 9.0 H Lymphocytes # (Manual) 0.1 L Monocytes # (Manual) 0.4 Platelet Estimate SLIGHTLY DECREASED Plt Morphology Comment NORMAL RBC Morphology NORMAL VBG pH VBG pCO2 VBG pO2 VBG HCO3 VBG O2 Saturation VBG Base Excess Sodium 146 H Potassium 4.1 Chloride 106 Carbon Dioxide 22 Anion Gap 22 H BUN 50 H Creatinine 6.22 H* Estim Creat Clear Calc 24.2 Estimated GFR 9 POC Glucose 138 H Random Glucose 142 H D Calcium 7.1 L D Phosphorus Magnesium Total Bilirubin AST ALT Alkaline Phosphatase Total Protein Albumin C. difficile Tox B Gene Hep Bs Antigen Hep Bs Antibody Hep B Core Total Ab Hep B Core IgM Ab 11/17/20 11/17/20 11/17/20 05:10 05:12 05:45 WBC RBC Hgb Hct MCV MCH MCHC RDW Plt Count MPV Immature Gran % (Auto) Neut % (Auto) Lymph % (Auto) [place] % (Auto) Eos % (Auto) Baso % (Auto) Lymph # (Auto) [place] # (Auto) Eos # (Auto) Baso # (Auto) Abs Immat Gran (auto) Absolute Neuts (auto) Absolute Nucleated RBC Nucleated RBC % (auto) Neutrophils % (Manual) Band Neutrophils % Lymphocytes % (Manual) Monocytes % (Manual) Abs Neuts (Manual) Lymphocytes # (Manual) Monocytes # (Manual) Platelet Estimate Plt Morphology Comment RBC Morphology VBG pH 7.42 VBG pCO2 31 VBG pO2 50 VBG HCO3 20 L VBG O2 Saturation 81.0 VBG Base Excess -3.2 Sodium 145 Potassium 3.9 Chloride 106 Carbon Dioxide 20 L Anion Gap 23 H BUN 63 H Creatinine 7.52 H* Estim Creat Clear Calc 20.3 Estimated GFR 8 POC Glucose 134 H Random Glucose 139 H Calcium 6.9 L Phosphorus 6.9 H Magnesium 2.5 Total Bilirubin 3.1 H AST 113 H ALT 64 H Alkaline Phosphatase 59 D Total Protein 5.1 L Albumin 2.9 L C. difficile Tox B Gene Hep Bs Antigen Hep Bs Antibody Hep B Core Total Ab Hep B Core IgM Ab 11/17/20 11:36 WBC RBC Hgb Hct MCV MCH MCHC RDW Plt Count MPV Immature Gran % (Auto) Neut % (Auto) Lymph % (Auto) [place] % (Auto) Eos % (Auto) Baso % (Auto) Lymph # (Auto) [place] # (Auto) Eos # (Auto) Baso # (Auto) Abs Immat Gran (auto) Absolute Neuts (auto) Absolute Nucleated RBC Nucleated RBC % (auto) Neutrophils % (Manual) Band Neutrophils % Lymphocytes % (Manual) Monocytes % (Manual) Abs Neuts (Manual) Lymphocytes # (Manual) Monocytes # (Manual) Platelet Estimate Plt Morphology Comment RBC Morphology VBG pH VBG pCO2 VBG pO2 VBG HCO3 VBG O2 Saturation VBG Base Excess Sodium Potassium Chloride Carbon Dioxide Anion Gap BUN Creatinine Estim Creat Clear Calc Estimated GFR POC Glucose 140 H Random Glucose Calcium Phosphorus Magnesium Total Bilirubin AST ALT Alkaline Phosphatase Total Protein Albumin C. difficile Tox B Gene Hep Bs Antigen Hep Bs Antibody Hep B Core Total Ab Hep B Core IgM Ab Microbiology Microbiology Results: Microbiology 11/14/20 21:35 Peritoneal Fluid Gram Stain - Final 11/14/20 21:35 Peritoneal Fluid Routine Culture - Final 11/14/20 21:35 Peritoneal Fluid Anaerobic Culture - Preliminary 11/14/20 14:53 Blood - Venous Blood Culture - Preliminary No growth after 48 hours. 11/14/20 14:28 Blood - Venous Blood Culture - Preliminary No growth after 48 hours. Procedures Date of Service Date of Service: 11/17/20 Assessment & Plan Assessment and plan (1) CRISTOFER (acute kidney injury): Status: Acute (2) Metabolic acidosis: Status: Acute (3) Megacolon: Status: Acute (4) Respiratory failure: Status: Acute Assessment and Plan: anuric CRISTOFER due to ischemic acute tubular injury HD dependent normal baseline kidney function REC HD today optimize volume status monitor urine output follow kidney function and electrolytes Time Spent With Patient Time: Total time spent is greater than 50% in coordination of care (as documented) at patient's floor/unit and/or counseling patient: Progress Note: Quality Stroke Does the patient have a stroke diagnosis?: No
[2020-11-17 18:33] LABS: Glucose, Whole Blood 147 mg/dL (60-115)
[2020-11-17 23:17] LABS: Glucose, Whole Blood 140 mg/dL (60-115)
[2020-11-18] VITALS (31 sets, daily range): BP systolic 106–152; BP diastolic 54–101; PULSE 76–93; RESP 19–30; TEMP 36.9–37.3; O2SAT 91–98; BMI 63.3
[2020-11-18] MEDS: propofoL 1,000 MG/100 ML VIAL 45.72 MG IVCONT ×11 (01:22→23:14)
[2020-11-18] MEDS: Piperacillin Sodium/Tazobactam 2.25 GM in 0.9 % Sodium Chloride 50 ML IV ×3 (05:18→22:14)
[2020-11-18] MEDS: Pantoprazole Sodium 40 MG/10 ML VIAL IVPUSH (05:18)
[2020-11-18 05:22] LABS: Glucose, Whole Blood 137 mg/dL (60-115)
[2020-11-18 05:39] LABS: MANUAL DIFF FLAG NO
[2020-11-18 05:43] LABS: VBG Base Excess -7.5 mmol/L; VBG HCO3 17 mmol/L (22-26); VBG pCO2 34 mmHg; VBG pH 7.31 (7.32-7.43); VBG pO2 60 mmHg
[2020-11-18 05:44] LABS: Hematocrit 31.2 % (42-52); Hemoglobin 10.2 g/dl (14.0-18.0); Imm Gran Pct Auto 1.1 % (0.0-0.4); Lymphocytes Absolute Auto 0.2 X10*3/uL (1.2-4.9); Lymphocytes Percent Auto 2.6 % (20-40); Mean Corpuscular HGB Conc 32.7 g/dl (31.0-36.0); Mean Corpuscular Hemoglobin 27.1 pg (27.0-33.0); Mean Platelet Volume 10.3 fL (9.4-12.4); Monocytes Absolute Auto 0.7 X10*3/uL (0.1-1.2); NRBC Pct Auto 0.2 /100WBC (0.0-0.2); Neutrophils Absolute Auto 8.2 X10*3/uL (2.0-8.3); Neutrophils Percent Auto 88.3 % (45-73); Platelet Count 128 X10*3/uL (160-400); Red Blood Count 3.76 X10*6/uL (4.60-5.80); White Blood Count 9.3 X10*3/uL (4.8-10.8)
[2020-11-18 05:46] LABS: Ammonia 41 umol/L (13-55)
[2020-11-18 05:50] LABS: INTERNATIONAL NORM RATIO 1.1 (0.9-1.1)
[2020-11-18 06:15] LABS: Alanine Aminotransferase 66 U/L (0-40); Alkaline Phosphatase 70 U/L (39-117); Anion Gap 25 (12-20); Aspartate Amino Transferase 96 U/L (5-37); Bilirubin Total 2.1 mg/dL (0.0-1.0); Blood Urea Nitrogen 78 mg/dL (9-16); Calcium 7.4 mg/dL (8.4-10.2); Carbon Dioxide 19 mmol/L (22-29); Chloride 103 mmol/L (96-108); Creatinine Clr Calc Pharmacy 20.1; Estimated Glomerular Filt Rate 7; Glucose Random 147 mg/dL (60-115); Phosphorus 9.6 mg/dL (2.7-4.5); Potassium 4.5 mmol/L (3.3-5.1); Sodium 142 mmol/L (135-145); Total Protein 5.7 g/dL (6.5-8.0)
[2020-11-18 06:54] LABS: Venous Blood Gas Refer to POC result
[2020-11-18 07:38] LABS: Lactic Acid 0.8 mmol/L (0.5-2.0)
[2020-11-18 07:52] LABS: Acetone, serum QL Negative (Negative)
[2020-11-18] MEDS: dexAMETHasone sod phosphate 4 MG/ML VIAL 6 MG IVPUSH (08:06)
[2020-11-18] MEDS: Chlorhexidine Gluc Oral Rinse 15 ML MOUTHWASH BUCCAL ×3 (08:07→22:13)
[2020-11-18] MEDS: Heparin Sodium,Porcine 5,000 UNIT/ML VIAL 5000 UNIT SUBCUT ×2 (08:07→20:56)
--- NOTE | 2020-11-18 08:32 | PM.PNGS ---
Subjective Subjective Date of Service: 11/18/20 Interval history: No events reported Dialyzed yesterday - negative 4 liters Still off pressors Remains on the ventilator Physical Exam Vital Signs: Vital Signs: Last Vital Signs Temp 98.4 F 11/18/20 08:00 Pulse 82 11/18/20 08:00 Resp 24 H 11/18/20 08:00 BP 127/71 11/18/20 08:00 Pulse Ox 95 11/18/20 08:00 Oxygen Flow Rate 4 11/14/20 06:24 Body Mass Index 63.3 Chemistry 11/15/20 11/16/20 11/16/20 11:27 05:15 20:32 Sodium 144 147 H 146 H Potassium 4.5 4.0 4.1 Carbon Dioxide 20 L 25 22 BUN 44 H 58 H 50 H Creatinine 3.58 H 5.98 H* 6.22 H* Calcium 6.8 L 6.5 L 7.1 L D Phosphorus 6.7 H 11/17/20 11/18/20 05:10 05:23 Sodium 145 142 Potassium 3.9 4.5 Carbon Dioxide 20 L 19 L BUN 63 H 78 H Creatinine 7.52 H* 8.05 H* Calcium 6.9 L 7.4 L D Phosphorus 6.9 H 9.6 H Hematology 11/16/20 11/17/20 11/18/20 05:15 05:10 05:23 WBC 9.9 9.5 9.3 Hgb 10.6 L D 10.3 L 10.2 L Plt Count 153 L D 128 L 128 L Urine Studies 11/15/20 12:26 Urine Creatinine 198.64 Const: Other: Intubated, sedated Nutritional Appearance: obese Resp: Effort & Inspection: normal respiratory effort Cardio: Rate: regular rate GI: Other: Obese, LYLE drain with scanty output, mucous fistula noted, ileostomy with some liquid stool, incision clean Procedures Date of Service Date of Service: 11/18/20 Progress Note: A&P Assessment and plan (1) Colon perforation: Status: Acute Assessment and Plan: Status post resection, ileostomy, mucous fistula Ileostomy seems to be working Off pressors With acute renal failure ICU care Hemodynamically stable Okay for trial of low rate enteral feeds, check residuals Fall Risk Details Current Medications: Current Medications Chlorhexidine Gluconate (Chlorhexidine Gluc Oral Rinse 15 Ml Mouthwash) 15 ml BUCCAL TID [facility] Last Admin: 11/18/20 08:07 Dose: 15 ml Documented by: Dexamethasone Sodium Phosphate (Dexamethasone Sod Phosphate 4 Mg/Ml Vial) 6 mg IVPUSH DAILY [facility] Last Admin: 11/18/20 08:06 Dose: 6 mg Documented by: Heparin Sodium (Porcine) (Heparin Sodium,Porcine 5,000 Unit/Ml Vial) 5,000 unit SUBCUT Q12H [facility] Last Admin: 11/18/20 08:07 Dose: 5,000 unit Documented by: Propofol (Diprivan) 1,000 mg in 100 mls @ 0 mls/hr IVCONT .Q0M [facility]; Protocol Last Admin: 11/18/20 08:06 Dose: 40 mcg/kg/min, 45.72 mls/hr Documented by: Norepinephrine Bitartrate (Levophed) 8 mg in 250 mls @ 0 mls/hr IVCONT .Q0M [facility]; Protocol Last Titration: 11/17/20 03:43 Dose: 0 mcg/kg/min, 0 mls/hr Documented by: Piperacillin Sod/Tazobactam (Sod 2.25 gm/ Sodium Chloride) 50 mls @ 100 mls/hr IV Q8H [facility] Last Infusion: 11/18/20 05:53 Dose: Infused Documented by: Insulin Human Lispro (Insulin Lispro 100 Unit/Ml 3 Ml Vial) 0 unit SUBCUT Q6H [facility]; Protocol Last Admin: 11/18/20 05:19 Dose: Not Given Documented by: Pantoprazole Sodium (Pantoprazole Sodium 40 Mg/10 Ml Vial) 40 mg IVPUSH DAILY@0630 [facility] Last Admin: 11/18/20 05:18 Dose: 40 mg Documented by: Time Spent With Patient Time: Total time spent is greater than 50% in coordination of care (as documented) at patient's floor/unit and/or counseling patient: Time with patient: 15 - 24 minutes Quality Stroke Does the patient have a stroke diagnosis?: No VTE Prior VTE?: No VTE Risk Level:: Surgical - high VTE Device Contraindication: N/A - Device Ordered VTE Drug Contraindication: N/A - Med Ordered
--- NOTE | 2020-11-18 10:30 | MHC.CLN ---
F/U PT CONTINUES TO RECEIVES HD DAILY TF CURRENTLY ON HOLD IF TF NEEDED; RECOMMEND NEPRO AT MAX GOAL RATE 20ML/HR TO PROVIDE 864KCALS (2071KCALS WITH SEDATION; 24KCALS/KG BASED ON IBW), 39G PROTEIN (.45G/KG), 349CC FREE WATER FROM FORMULA CAN TRIAL AT 10ML/HR FOR GUT STIMULATION MONITOR TOLERANCE, RESIDUALS AND LYTES NOTED FRAGILE SKIN PER NSG-WILL INCREASE PO PROTEIN WHEN ABLE
--- NOTE | 2020-11-18 11:23 | PM.PNNEP ---
Subjective Subjective Date of Service: 11/18/20 Principal diagnosis: CRISTOFER Interval history: seen and examined vented discussed with ICU attending Physical Exam Vital Signs: Vital Signs: Last Vital Signs Temp 98.4 F 11/18/20 08:00 Pulse 82 11/18/20 11:00 Resp 23 H 11/18/20 11:00 BP 142/85 H 11/18/20 11:00 Pulse Ox 97 11/18/20 11:00 Oxygen Flow Rate 4 11/14/20 06:24 Body Mass Index 63.3 Const: General: ill appearing HENMT: Head: Yes normocephalic and Yes atraumatic Neck: Neck: Yes supple Resp: Auscultation: diminished lung sounds Cardio: Heart sounds: S1 normal heart sound present and S2 normal heart sound present GI: Palpation (GI): Soft to palpation and no guarding Extrem: General: Yes edema Objective Data Labs CBC & Chem 7: 11/18/20 05:23 11/18/20 05:23 Labs: Laboratory Results - last 24 hr 11/17/20 11/17/20 11/17/20 11:36 18:29 23:14 WBC RBC Hgb Hct MCV MCH MCHC RDW Plt Count MPV Immature Gran % (Auto) Neut % (Auto) Lymph % (Auto) [place] % (Auto) Eos % (Auto) Baso % (Auto) Lymph # (Auto) [place] # (Auto) Eos # (Auto) Baso # (Auto) Abs Immat Gran (auto) Absolute Neuts (auto) Absolute Nucleated RBC Nucleated RBC % (auto) PT INR VBG pH VBG pCO2 VBG pO2 VBG HCO3 VBG O2 Saturation VBG Base Excess Sodium Potassium Chloride Carbon Dioxide Anion Gap BUN Creatinine Estim Creat Clear Calc Estimated GFR POC Glucose 140 H 147 H 140 H Random Glucose Lactic Acid Calcium Phosphorus Magnesium Total Bilirubin AST ALT Alkaline Phosphatase Ammonia Total Protein Albumin Acetone, Qual 11/18/20 11/18/20 11/18/20 05:17 05:23 05:23 WBC 9.3 RBC 3.76 L Hgb 10.2 L Hct 31.2 L MCV 83.0 MCH 27.1 MCHC 32.7 RDW 16.0 Plt Count 128 L MPV 10.3 Immature Gran % (Auto) 1.1 H Neut % (Auto) 88.3 H Lymph % (Auto) 2.6 L [place] % (Auto) 8.0 Eos % (Auto) 0.0 Baso % (Auto) 0.0 Lymph # (Auto) 0.2 L [place] # (Auto) 0.7 Eos # (Auto) 0.0 Baso # (Auto) 0.0 Abs Immat Gran (auto) 0.10 H Absolute Neuts (auto) 8.2 Absolute Nucleated RBC 0.020 H Nucleated RBC % (auto) 0.2 PT INR VBG pH VBG pCO2 VBG pO2 VBG HCO3 VBG O2 Saturation VBG Base Excess Sodium Potassium Chloride Carbon Dioxide Anion Gap BUN Creatinine Estim Creat Clear Calc Estimated GFR POC Glucose 137 H Random Glucose Lactic Acid Calcium Phosphorus Magnesium Total Bilirubin AST ALT Alkaline Phosphatase Ammonia 41 Total Protein Albumin Acetone, Qual 11/18/20 11/18/20 11/18/20 05:23 05:23 05:37 WBC RBC Hgb Hct MCV MCH MCHC RDW Plt Count MPV Immature Gran % (Auto) Neut % (Auto) Lymph % (Auto) [place] % (Auto) Eos % (Auto) Baso % (Auto) Lymph # (Auto) [place] # (Auto) Eos # (Auto) Baso # (Auto) Abs Immat Gran (auto) Absolute Neuts (auto) Absolute Nucleated RBC Nucleated RBC % (auto) PT 12.0 INR 1.1 VBG pH 7.31 L VBG pCO2 34 VBG pO2 60 VBG HCO3 17 L VBG O2 Saturation 84.0 VBG Base Excess -7.5 Sodium 142 Potassium 4.5 Chloride 103 Carbon Dioxide 19 L Anion Gap 25 H BUN 78 H Creatinine 8.05 H* Estim Creat Clear Calc 20.1 Estimated GFR 7 POC Glucose Random Glucose 147 H Lactic Acid Calcium 7.4 L D Phosphorus 9.6 H Magnesium 3.0 H Total Bilirubin 2.1 H AST 96 H ALT 66 H Alkaline Phosphatase 70 Ammonia Total Protein 5.7 L Albumin 3.0 L Acetone, Qual 11/18/20 11/18/20 07:15 07:15 WBC RBC Hgb Hct MCV MCH MCHC RDW Plt Count MPV Immature Gran % (Auto) Neut % (Auto) Lymph % (Auto) [place] % (Auto) Eos % (Auto) Baso % (Auto) Lymph # (Auto) [place] # (Auto) Eos # (Auto) Baso # (Auto) Abs Immat Gran (auto) Absolute Neuts (auto) Absolute Nucleated RBC Nucleated RBC % (auto) PT INR VBG pH VBG pCO2 VBG pO2 VBG HCO3 VBG O2 Saturation VBG Base Excess Sodium Potassium Chloride Carbon Dioxide Anion Gap BUN Creatinine Estim Creat Clear Calc Estimated GFR POC Glucose Random Glucose Lactic Acid 0.8 Calcium Phosphorus Magnesium Total Bilirubin AST ALT Alkaline Phosphatase Ammonia Total Protein Albumin Acetone, Qual Negative Microbiology Microbiology Results: Microbiology 11/14/20 21:35 Peritoneal Fluid Gram Stain - Final 11/14/20 21:35 Peritoneal Fluid Routine Culture - Final 11/14/20 21:35 Peritoneal Fluid Anaerobic Culture - Preliminary 11/14/20 14:53 Blood - Venous Blood Culture - Preliminary No growth after 48 hours. 11/14/20 14:28 Blood - Venous Blood Culture - Preliminary No growth after 48 hours. Procedures Date of Service Date of Service: 11/18/20 Assessment & Plan Assessment and plan (1) CRISTOFER (acute kidney injury): Status: Acute (2) Metabolic acidosis: Status: Acute (3) Megacolon: Status: Acute (4) Respiratory failure: Status: Acute Assessment and Plan: anuric CRISTOFER due to ischemic acute tubular injury HD dependent normal baseline kidney function REC HD today optimize volume status HD again in am monitor urine output follow kidney function and electrolytes Time Spent With Patient Time: Total time spent is greater than 50% in coordination of care (as documented) at patient's floor/unit and/or counseling patient: Progress Note: Quality Stroke Does the patient have a stroke diagnosis?: No
[2020-11-18 11:54] LABS: Glucose, Whole Blood 153 mg/dL (60-115)
[2020-11-18] MEDS: Insulin Lispro 100 UNIT/ML 3 ML VIAL SUBCUT (12:39)
--- NOTE | 2020-11-18 15:20 | MHC.CM.PN ---
Pt continues in ICU on ventilatory and HD support: No HCP on file: Call placed to pt's sister, Belem who is serving as her brother's unofficial HCP and decision maker. Belem states prior to hospitalization, pt was independent. She notes that pt has been estranged of sorts from his siblings and up until recently, her. Pt has a daughter who is a minor in [place] but per Belem, there is a no contact order in place from the child's mother until the child turns 18. Belem was not certain if this was due to any criminal circumstances. When asked about pt's goals of care or quality of life issues, Belem was not certain. I never talked to Jovani about any of that but I know he was an independent person Belem is requesting a family phone conference with MD, her and pt's other siblings to discuss goals of care. Will forward request and assist with facilitation of call. Pt's d/c needs are not yet known - CM to continue following.
--- NOTE | 2020-11-18 15:59 | PM.CCPN ---
Subjective Subjective Date of Service: 11/18/20 Interval History: 54-year-old morbidly obese male status post moderate COVID-19 pneumonitis never resulted in ICU care discharged on November 13 return within 5 hours because of ongoing abdominal pain which worsened found to have a perforated colon in 2 spots with considerable free air peritoneal soilage and was emergently taken to the OR on the 15 of November and diverting ileostomy was placed and washout with drains placed and was on Zosyn and developed ATN with acute renal failure and currently will be on his 3rd day of dialysis the 1st 2 days yielding 7 L of fluid removal for his immediate in a congestive needs and currently has a mild anion gap positive metabolic acidosis and clearly needs to be dialyzed again for metabolic reasons Given some of the growth from the peritoneum I am going to add in 0 for these beta lactamase producing Gram-negative anaerobes 2 days of metronidazole Critical Care Time (minutes): 45 Physical Exam Vital Signs: Vital Signs: Last Vital Signs Temp 99.1 F 11/18/20 12:00 Pulse 84 11/18/20 15:00 Resp 23 H 11/18/20 15:00 BP 138/89 11/18/20 15:00 Pulse Ox 94 11/18/20 15:00 Oxygen Flow Rate 4 11/14/20 06:24 Body Mass Index 63.3 Sedated and intubated but can awaken to verbal or touch stimulation Cardiac exam with no gallops and good bilateral carotid upstrokes CVP climbing into the low teens Abdomen still silent but beginning to get a slight bit of of gas and stool in the ileostomy and may be indicating some early sign of reversing postoperative ileus Chest still ventilated on FiO2 of 60% which is an improvement Objective Data Labs CBC & Chem 7: 11/18/20 05:23 11/18/20 05:23 Labs: Laboratory Results - last 24 hr 11/17/20 11/17/20 11/18/20 18:29 23:14 05:17 WBC RBC Hgb Hct MCV MCH MCHC RDW Plt Count MPV Immature Gran % (Auto) Neut % (Auto) Lymph % (Auto) [place] % (Auto) Eos % (Auto) Baso % (Auto) Lymph # (Auto) [place] # (Auto) Eos # (Auto) Baso # (Auto) Abs Immat Gran (auto) Absolute Neuts (auto) Absolute Nucleated RBC Nucleated RBC % (auto) PT INR VBG pH VBG pCO2 VBG pO2 VBG HCO3 VBG O2 Saturation VBG Base Excess Sodium Potassium Chloride Carbon Dioxide Anion Gap BUN Creatinine Estim Creat Clear Calc Estimated GFR POC Glucose 147 H 140 H 137 H Random Glucose Lactic Acid Calcium Phosphorus Magnesium Total Bilirubin AST ALT Alkaline Phosphatase Ammonia Total Protein Albumin Acetone, Qual 11/18/20 11/18/20 11/18/20 05:23 05:23 05:23 WBC 9.3 RBC 3.76 L Hgb 10.2 L Hct 31.2 L MCV 83.0 MCH 27.1 MCHC 32.7 RDW 16.0 Plt Count 128 L MPV 10.3 Immature Gran % (Auto) 1.1 H Neut % (Auto) 88.3 H Lymph % (Auto) 2.6 L [place] % (Auto) 8.0 Eos % (Auto) 0.0 Baso % (Auto) 0.0 Lymph # (Auto) 0.2 L [place] # (Auto) 0.7 Eos # (Auto) 0.0 Baso # (Auto) 0.0 Abs Immat Gran (auto) 0.10 H Absolute Neuts (auto) 8.2 Absolute Nucleated RBC 0.020 H Nucleated RBC % (auto) 0.2 PT 12.0 INR 1.1 VBG pH VBG pCO2 VBG pO2 VBG HCO3 VBG O2 Saturation VBG Base Excess Sodium Potassium Chloride Carbon Dioxide Anion Gap BUN Creatinine Estim Creat Clear Calc Estimated GFR POC Glucose Random Glucose Lactic Acid Calcium Phosphorus Magnesium Total Bilirubin AST ALT Alkaline Phosphatase Ammonia 41 Total Protein Albumin Acetone, Qual 11/18/20 11/18/20 11/18/20 05:23 05:37 07:15 WBC RBC Hgb Hct MCV MCH MCHC RDW Plt Count MPV Immature Gran % (Auto) Neut % (Auto) Lymph % (Auto) [place] % (Auto) Eos % (Auto) Baso % (Auto) Lymph # (Auto) [place] # (Auto) Eos # (Auto) Baso # (Auto) Abs Immat Gran (auto) Absolute Neuts (auto) Absolute Nucleated RBC Nucleated RBC % (auto) PT INR VBG pH 7.31 L VBG pCO2 34 VBG pO2 60 VBG HCO3 17 L VBG O2 Saturation 84.0 VBG Base Excess -7.5 Sodium 142 Potassium 4.5 Chloride 103 Carbon Dioxide 19 L Anion Gap 25 H BUN 78 H Creatinine 8.05 H* Estim Creat Clear Calc 20.1 Estimated GFR 7 POC Glucose Random Glucose 147 H Lactic Acid 0.8 Calcium 7.4 L D Phosphorus 9.6 H Magnesium 3.0 H Total Bilirubin 2.1 H AST 96 H ALT 66 H Alkaline Phosphatase 70 Ammonia Total Protein 5.7 L Albumin 3.0 L Acetone, Qual 11/18/20 11/18/20 07:15 11:47 WBC RBC Hgb Hct MCV MCH MCHC RDW Plt Count MPV Immature Gran % (Auto) Neut % (Auto) Lymph % (Auto) [place] % (Auto) Eos % (Auto) Baso % (Auto) Lymph # (Auto) [place] # (Auto) Eos # (Auto) Baso # (Auto) Abs Immat Gran (auto) Absolute Neuts (auto) Absolute Nucleated RBC Nucleated RBC % (auto) PT INR VBG pH VBG pCO2 VBG pO2 VBG HCO3 VBG O2 Saturation VBG Base Excess Sodium Potassium Chloride Carbon Dioxide Anion Gap BUN Creatinine Estim Creat Clear Calc Estimated GFR POC Glucose 153 H Random Glucose Lactic Acid Calcium Phosphorus Magnesium Total Bilirubin AST ALT Alkaline Phosphatase Ammonia Total Protein Albumin Acetone, Qual Negative Microbiology Microbiology Results: Microbiology 11/14/20 21:35 Peritoneal Fluid Gram Stain - Final 11/14/20 21:35 Peritoneal Fluid Routine Culture - Final 11/14/20 21:35 Peritoneal Fluid Anaerobic Culture - Final Bacteroides thetaiotaomicron 11/14/20 14:53 Blood - Venous Blood Culture - Preliminary No growth after 48 hours. 11/14/20 14:28 Blood - Venous Blood Culture - Preliminary No growth after 48 hours. Quality Stroke Does the patient have a stroke diagnosis?: No VTE Prior VTE?: No VTE Risk Level:: Surgical - high VTE Device Contraindication: N/A - Device Ordered VTE Drug Contraindication: N/A - Med Ordered Progress Note: A&P Assessment and plan (1) Respiratory failure: Status: Acute (2) Metabolic acidosis: Status: Acute (3) Fluid overload: Status: Acute (4) Hypernatremia: Status: Acute (5) CRISTOFER (acute kidney injury): Status: Acute (6) Colon perforation: Status: Acute (7) Colonic ischemia: Status: Acute (8) Abdominal pain: Status: Acute (9) Megacolon: Status: Acute (10) Acute respiratory failure with hypoxia: Status: Acute (11) Bacteremia: Status: Acute (12) IFG (impaired fasting glucose): Status: Acute (13) Hypertension: Status: Acute (14) COVID-19: Status: Acute (15) Right hip pain: Status: Acute (16) Abdominal hernia: Status: Acute (17) Morbid obesity with BMI of 50.0-59.9, adult: Status: Acute (18) Compression fracture of T11 vertebra: Status: Acute (19) Compression fracture of T9 vertebra: Status: Acute (20) Hernia: Status: Acute Assessment and Plan: So far a fairly comfortable status quo and we plan to dialyze today and add metronidazole to the Zosyn
[2020-11-18] MEDS: metroNIDAZOLE/NS 500 MG/100 ML PIGGYBACK 100 MG IV ×2 (16:29→23:16)
[2020-11-18 18:06] LABS: Glucose, Whole Blood 140 mg/dL (60-115)
[2020-11-18 23:33] LABS: Glucose, Whole Blood 131 mg/dL (60-115)
[2020-11-19] VITALS (29 sets, daily range): BP systolic 90–154; BP diastolic 49–76; PULSE 69–88; RESP 18–94; TEMP 36.7–36.9; O2SAT 93–97
[2020-11-19] MEDS: propofoL 1,000 MG/100 ML VIAL 45.72 MG IVCONT ×11 (01:07→21:56)
[2020-11-19] MEDS: Piperacillin Sodium/Tazobactam 2.25 GM in 0.9 % Sodium Chloride 50 ML IV ×3 (05:16→21:19)
[2020-11-19] MEDS: Pantoprazole Sodium 40 MG/10 ML VIAL IVPUSH (05:41)
[2020-11-19 05:49] LABS: Venous Blood Gas Refer to POC result
[2020-11-19 05:54] LABS: Basophils Percent Auto 0.1 % (0-2); Eosinophils Percent Auto 0.1 % (0-4); Hemoglobin 10.9 g/dl (14.0-18.0); Imm Gran Abs Auto 0.19 X10*3/uL (0.00-0.03); Imm Gran Pct Auto 2.5 % (0.0-0.4); Lymphocytes Absolute Auto 0.4 X10*3/uL (1.2-4.9); Lymphocytes Percent Auto 5.4 % (20-40); MANUAL DIFF FLAG SCAN; Mean Corpuscular Hemoglobin 27.4 pg (27.0-33.0); Mean Corpuscular Volume 82.9 fL (80-98); Mean Platelet Volume 10.5 fL (9.4-12.4); Monocytes Absolute Auto 0.6 X10*3/uL (0.1-1.2); NRBC Pct Auto 0.3 /100WBC (0.0-0.2); Neutrophils Absolute Auto 6.4 X10*3/uL (2.0-8.3); Neutrophils Percent Auto 83.9 % (45-73); Platelet Count 129 X10*3/uL (160-400); Red Blood Count 3.98 X10*6/uL (4.60-5.80); Red Cell Distribution Width 16.1 % (11.0-16.0); SCAN SMEAR FLAG 1; White Blood Count 7.6 X10*3/uL (4.8-10.8)
[2020-11-19 06:18] LABS: SLIDE REVIEW VERIFIED
[2020-11-19 06:19] LABS: Alanine Aminotransferase 64 U/L (0-40); Albumin Level 3.1 g/dL (3.5-5.0); Alkaline Phosphatase 71 U/L (39-117); Anion Gap 24 (12-20); Aspartate Amino Transferase 69 U/L (5-37); Bilirubin Total 1.4 mg/dL (0.0-1.0); Blood Urea Nitrogen 75 mg/dL (9-16); Calcium 7.8 mg/dL (8.4-10.2); Carbon Dioxide 18 mmol/L (22-29); Chloride 101 mmol/L (96-108); Glucose Random 130 mg/dL (60-115); Magnesium 2.8 mg/dL (1.6-2.6); Phosphorus 8.9 mg/dL (2.7-4.5); Potassium 4.1 mmol/L (3.3-5.1); Sodium 139 mmol/L (135-145); Total Protein 6.3 g/dL (6.5-8.0)
[2020-11-19 06:24] LABS: Creatinine Clr Calc Pharmacy 22.5; Estimated Glomerular Filt Rate 8
[2020-11-19] MEDS: Heparin Sodium,Porcine 5,000 UNIT/ML VIAL 5000 UNIT SUBCUT ×2 (07:57→19:57)
[2020-11-19] MEDS: dexAMETHasone sod phosphate 4 MG/ML VIAL 6 MG IVPUSH (07:57)
[2020-11-19] MEDS: metroNIDAZOLE/NS 500 MG/100 ML PIGGYBACK 100 MG IV ×2 (07:57→15:49)
[2020-11-19] MEDS: Chlorhexidine Gluc Oral Rinse 15 ML MOUTHWASH BUCCAL ×2 (07:57→21:19)
[2020-11-19 08:50] LABS: VBG Base Excess -7.2 mmol/L; VBG HCO3 18 mmol/L (22-26); VBG pCO2 37 mmHg; VBG pO2 61 mmHg
[2020-11-19 08:53] LABS: VBG pH 7.29 (7.32-7.43)
--- NOTE | 2020-11-19 11:07 | MHC.CLN ---
Addendum entered by Taylor Whitley, ROSSY 11/19/20 11:20: agree with the providers assessment below Original Note: F/U PT CONTINUES TO RECEIVE HD DAILY TF STARTED ON 11/18 AT 10 ML/HOUR AND PT IS TOLERATING WELL PER MD, TF WILL PROGRESS TO GOAL RATE OF NEPRO AT MAX GOAL RATE 20ML/HR TO PROVIDE 864KCALS (2071KCALS WITH SEDATION; 24KCALS/KG BASED ON IBW), 39G PROTEIN (.45G/KG), 349CC FREE WATER FROM FORMULA MONITOR TOLERANCE, RESIDUALS AND LYTES NOTED FRAGILE SKIN PER NSG-WILL INCREASE PO PROTEIN WHEN ABLE
--- NOTE | 2020-11-19 11:28 | PM.CCPN ---
Subjective Subjective Date of Service: 11/19/20 Interval History: 54-year-old severely obese morbidly obese male recent COVID infection not requiring advanced therapy return on the day of discharge because of persistent and worsening abdominal pain found to have a megacolon definitely not due to C diff but did it it was perforated and he had severe peritonitis emergently went to the OR the no for the septic shock situation and had a cleanout and a diverting ileostomy done and several drains were left in place and he was placed on Zosyn he came out with acute kidney insufficiency and has been in renal failure and I placed a dialysis catheter and has been dialyzed each of the last 4 days including today and today even though his volume status seems to be okay he has a CVP of about 9 at this point he is persistently acidotic with a positive anion gap significantly hyperphosphatemia co so clearly I think he still needs from metabolic standpoint dialysis today I added metronidazole as an adjunct who is he is now growing Gram-negative anaerobic positive culture from peritoneal fluid But on ventilator his minutes ventilatory requirements are diminishing and his FiO2 has been weaned to 40% and he is maintaining off pressors a pressure of 117/76 oxygen saturation 95% sinus rhythm at a rate of 75 Critical Care Time (minutes): 45 Physical Exam Vital Signs: Vital Signs: Last Vital Signs Temp 98.5 F 11/19/20 08:00 Pulse 73 11/19/20 11:00 Resp 18 11/19/20 11:00 BP 117/76 11/19/20 11:00 Pulse Ox 94 11/19/20 11:00 Oxygen Flow Rate 4 11/14/20 06:24 Body Mass Index 63.3 Has good bilateral carotid upstrokes and he is sedated intubated Chest clear bilaterally no adventitious sounds Abdomen softer and he is beginning to have act activity filling his ileostomy so ileus is clinically resolving Skin is intact Objective Data Labs CBC & Chem 7: 11/19/20 05:32 11/19/20 05:32 Labs: Laboratory Results - last 24 hr 11/18/20 11/18/20 11/18/20 11:47 18:01 23:24 WBC RBC Hgb Hct MCV MCH MCHC RDW Plt Count MPV Immature Gran % (Auto) Neut % (Auto) Lymph % (Auto) [place] % (Auto) Eos % (Auto) Baso % (Auto) Lymph # (Auto) [place] # (Auto) Eos # (Auto) Baso # (Auto) Abs Immat Gran (auto) Absolute Neuts (auto) Absolute Nucleated RBC Nucleated RBC % (auto) Smear Tech's Comments O2 Saturation ABG pH at Pt Temp ABG pCO2 at Pt Temp ABG pO2 at Pt Temp ABG HCO3 ABG Base Excess (Actual) VBG pH VBG pCO2 VBG pO2 VBG HCO3 VBG O2 Saturation VBG Base Excess Sodium Potassium Chloride Carbon Dioxide Anion Gap BUN Creatinine Estim Creat Clear Calc Estimated GFR POC Glucose 153 H 140 H 131 H Random Glucose Calcium Phosphorus Magnesium Total Bilirubin AST ALT Alkaline Phosphatase Total Protein Albumin 11/19/20 11/19/20 11/19/20 05:32 05:32 05:34 WBC 7.6 RBC 3.98 L Hgb 10.9 L Hct 33.0 L MCV 82.9 MCH 27.4 MCHC 33.0 RDW 16.1 H Plt Count 129 L MPV 10.5 Immature Gran % (Auto) 2.5 H Neut % (Auto) 83.9 H Lymph % (Auto) 5.4 L [place] % (Auto) 8.0 Eos % (Auto) 0.1 Baso % (Auto) 0.1 Lymph # (Auto) 0.4 L [place] # (Auto) 0.6 Eos # (Auto) 0.0 Baso # (Auto) 0.0 Abs Immat Gran (auto) 0.19 H Absolute Neuts (auto) 6.4 Absolute Nucleated RBC 0.020 H Nucleated RBC % (auto) 0.3 H Smear Tech's Comments VERIFIED O2 Saturation ABG pH at Pt Temp ABG pCO2 at Pt Temp ABG pO2 at Pt Temp ABG HCO3 ABG Base Excess (Actual) VBG pH Cancelled VBG pCO2 Cancelled VBG pO2 Cancelled VBG HCO3 Cancelled VBG O2 Saturation Cancelled VBG Base Excess Cancelled Sodium 139 Potassium 4.1 Chloride 101 Carbon Dioxide 18 L Anion Gap 24 H BUN 75 H Creatinine 7.19 H* Estim Creat Clear Calc 22.5 Estimated GFR 8 POC Glucose Random Glucose 130 H Calcium 7.8 L Phosphorus 8.9 H Magnesium 2.8 H Total Bilirubin 1.4 H AST 69 H ALT 64 H Alkaline Phosphatase 71 Total Protein 6.3 L Albumin 3.1 L 11/19/20 11/19/20 05:34 05:38 WBC RBC Hgb Hct MCV MCH MCHC RDW Plt Count MPV Immature Gran % (Auto) Neut % (Auto) Lymph % (Auto) [place] % (Auto) Eos % (Auto) Baso % (Auto) Lymph # (Auto) [place] # (Auto) Eos # (Auto) Baso # (Auto) Abs Immat Gran (auto) Absolute Neuts (auto) Absolute Nucleated RBC Nucleated RBC % (auto) Smear Tech's Comments O2 Saturation TNP ABG pH at Pt Temp TNP ABG pCO2 at Pt Temp TNP ABG pO2 at Pt Temp TNP ABG HCO3 TNP ABG Base Excess (Actual) TNP VBG pH 7.29 L VBG pCO2 37 VBG pO2 61 VBG HCO3 18 L VBG O2 Saturation 83.0 VBG Base Excess -7.2 Sodium Potassium Chloride Carbon Dioxide Anion Gap BUN Creatinine Estim Creat Clear Calc Estimated GFR POC Glucose Random Glucose Calcium Phosphorus Magnesium Total Bilirubin AST ALT Alkaline Phosphatase Total Protein Albumin Microbiology Microbiology Results: Microbiology 11/14/20 21:35 Peritoneal Fluid Gram Stain - Final 11/14/20 21:35 Peritoneal Fluid Routine Culture - Final 11/14/20 21:35 Peritoneal Fluid Anaerobic Culture - Final Bacteroides thetaiotaomicron 11/14/20 14:53 Blood - Venous Blood Culture - Preliminary No growth after 48 hours. 11/14/20 14:28 Blood - Venous Blood Culture - Preliminary No growth after 48 hours. Quality Stroke Does the patient have a stroke diagnosis?: No VTE Prior VTE?: No VTE Risk Level:: Surgical - high VTE Device Contraindication: N/A - Device Ordered VTE Drug Contraindication: N/A - Med Ordered Progress Note: A&P Assessment and plan (1) Respiratory failure: Status: Acute (2) Metabolic acidosis: Status: Acute (3) Fluid overload: Status: Acute (4) Hypernatremia: Status: Acute (5) CRISTOFER (acute kidney injury): Status: Acute (6) Colon perforation: Status: Acute (7) Colonic ischemia: Status: Acute (8) Abdominal pain: Status: Acute (9) Megacolon: Status: Acute (10) Acute respiratory failure with hypoxia: Status: Acute (11) Bacteremia: Status: Acute (12) IFG (impaired fasting glucose): Status: Acute (13) Hypertension: Status: Acute (14) COVID-19: Status: Acute (15) Right hip pain: Status: Acute (16) Abdominal hernia: Status: Acute (17) Morbid obesity with BMI of 50.0-59.9, adult: Status: Acute (18) Compression fracture of T11 vertebra: Status: Acute (19) Compression fracture of T9 vertebra: Status: Acute (20) Hernia: Status: Acute (21) Ileus following gastrointestinal surgery: Status: Acute Assessment and Plan: So he will receive another dialysis today and probably at least another 24 hours of adjunct of metronidazole and today or tomorrow we might try a sedation holiday and if cognitive function is there consider pressure support wean
[2020-11-19 12:04] LABS: Glucose, Whole Blood 156 mg/dL (60-115)
[2020-11-19] MEDS: Insulin Lispro 100 UNIT/ML 3 ML VIAL SUBCUT (12:23)
--- NOTE | 2020-11-19 12:40 | P.PNGS_ITS ---
Subjective Subjective Date of Service: 11/19/20 Interval history: Remains intubated Still off pressors Dialysis every day Physical Exam Vital Signs: Vital Signs: Last Vital Signs Temp 98.5 F 11/19/20 08:00 Pulse 75 11/19/20 12:00 Resp 22 H 11/19/20 12:00 BP 130/76 11/19/20 12:00 Pulse Ox 95 11/19/20 12:00 Oxygen Flow Rate 4 11/14/20 06:24 Body Mass Index 63.3 Chemistry 11/16/20 11/17/20 11/18/20 20:32 05:10 05:23 Sodium 146 H 145 142 Potassium 4.1 3.9 4.5 Carbon Dioxide 22 20 L 19 L BUN 50 H 63 H 78 H Creatinine 6.22 H* 7.52 H* 8.05 H* Calcium 7.1 L D 6.9 L 7.4 L D Phosphorus 6.9 H 9.6 H 11/19/20 05:32 Sodium 139 Potassium 4.1 Carbon Dioxide 18 L BUN 75 H Creatinine 7.19 H* Calcium 7.8 L Phosphorus 8.9 H Hematology 11/17/20 11/18/20 11/19/20 05:10 05:23 05:32 WBC 9.5 9.3 7.6 Hgb 10.3 L 10.2 L 10.9 L Plt Count 128 L 128 L 129 L Const: Other: Sedated, on ventilator Resp: Other: On the ventilator Cardio: Rhythm: regular rhythm GI: Other: Ileostomy with some output, incision clean, mucous fistula noted Procedures Date of Service Date of Service: 11/19/20 Progress Note: A&P Assessment and plan (1) Colon perforation: Status: Acute Assessment and Plan: Status post extended right colon resection, ileostomy, mucous fistula Remains critically ill although off pressors Still vent dependent Requiring dialysis daily Stoma functioning Seems to be tolerating low-dose enteral feeds Okay to advance rate of enteral feeds as tolerated ICU care Discussed with qualitative field project manager Fall Risk Details Current Medications: Current Medications Chlorhexidine Gluconate (Chlorhexidine Gluc Oral Rinse 15 Ml Mouthwash) 15 ml BUCCAL TID [facility] Last Admin: 11/19/20 07:57 Dose: 15 ml Documented by: Dexamethasone Sodium Phosphate (Dexamethasone Sod Phosphate 4 Mg/Ml Vial) 6 mg IVPUSH DAILY [facility] Last Admin: 11/19/20 07:57 Dose: 6 mg Documented by: Heparin Sodium (Porcine) (Heparin Sodium,Porcine 5,000 Unit/Ml Vial) 5,000 unit SUBCUT Q12H [facility] Last Admin: 11/19/20 07:57 Dose: 5,000 unit Documented by: Propofol (Diprivan) 1,000 mg in 100 mls @ 0 mls/hr IVCONT .Q0M [facility]ATTIE; Protocol Last Admin: 11/19/20 11:30 Dose: 40 mcg/kg/min, 45.72 mls/hr Documented by: Norepinephrine Bitartrate (Levophed) 8 mg in 250 mls @ 0 mls/hr IVCONT .Q0M HATTIE; Protocol Last Titration: 11/17/20 03:43 Dose: 0 mcg/kg/min, 0 mls/hr Documented by: Piperacillin Sod/Tazobactam (Sod 2.25 gm/ Sodium Chloride) 50 mls @ 100 mls/hr IV Q8H [facility] Last Admin: 11/19/20 12:23 Dose: 100 mls/hr Documented by: Metronidazole (Flagyl) 500 mg in 100 mls @ 100 mls/hr IV Q8H [facility] Last Infusion: 11/19/20 08:59 Dose: Infused Documented by: Insulin Human Lispro (Insulin Lispro 100 Unit/Ml 3 Ml Vial) 0 unit SUBCUT Q6H [facility]; Protocol Last Admin: 11/19/20 12:23 Dose: 2 unit Documented by: Pantoprazole Sodium (Pantoprazole Sodium 40 Mg/10 Ml Vial) 40 mg IVPUSH DAILY@0630 [facility] Last Admin: 11/19/20 05:41 Dose: 40 mg Documented by: Time Spent With Patient Time: Total time spent is greater than 50% in coordination of care (as documented) at patient's floor/unit and/or counseling patient: Time with patient: 15 - 24 minutes Quality Stroke Does the patient have a stroke diagnosis?: No VTE Prior VTE?: No VTE Risk Level:: Surgical - high VTE Device Contraindication: N/A - Device Ordered VTE Drug Contraindication: N/A - Med Ordered
--- NOTE | 2020-11-19 13:35 | MHC.CM.PN ---
Pt continues in ICU on ventilatory support and on HD. Pt showing slow improvement in areas of function: MD feels pt may show more signs of clinical improvement in another day. Call placed to pt's sister to update. She is interested in a family conference call: will facilitate with MD. D/C plans look like they will involve rehab although what type is undetermined i.e. STR, Acute, LTAC. CM to follow
--- NOTE | 2020-11-19 14:50 | PM.PNNEP ---
Subjective Subjective Date of Service: 11/19/20 Principal diagnosis: CRISTOFER Interval history: seen and examined on dialysis vented Physical Exam Vital Signs: Vital Signs: Last Vital Signs Temp 98.5 F 11/19/20 08:00 Pulse 77 11/19/20 14:00 Resp 19 11/19/20 14:00 BP 105/67 11/19/20 14:00 Pulse Ox 96 11/19/20 14:00 Oxygen Flow Rate 4 11/14/20 06:24 Body Mass Index 63.3 Const: General: ill appearing HENMT: Head: Yes normocephalic and Yes atraumatic Neck: Neck: Yes supple Resp: Auscultation: diminished lung sounds Cardio: Heart sounds: S1 normal heart sound present and S2 normal heart sound present GI: Palpation (GI): Soft to palpation and no guarding Extrem: General: Yes edema Objective Data Labs CBC & Chem 7: 11/19/20 05:32 11/19/20 05:32 Labs: Laboratory Results - last 24 hr 11/18/20 11/18/20 11/19/20 18:01 23:24 05:32 WBC 7.6 RBC 3.98 L Hgb 10.9 L Hct 33.0 L MCV 82.9 MCH 27.4 MCHC 33.0 RDW 16.1 H Plt Count 129 L MPV 10.5 Immature Gran % (Auto) 2.5 H Neut % (Auto) 83.9 H Lymph % (Auto) 5.4 L [place] % (Auto) 8.0 Eos % (Auto) 0.1 Baso % (Auto) 0.1 Lymph # (Auto) 0.4 L [place] # (Auto) 0.6 Eos # (Auto) 0.0 Baso # (Auto) 0.0 Abs Immat Gran (auto) 0.19 H Absolute Neuts (auto) 6.4 Absolute Nucleated RBC 0.020 H Nucleated RBC % (auto) 0.3 H Smear Tech's Comments VERIFIED O2 Saturation ABG pH at Pt Temp ABG pCO2 at Pt Temp ABG pO2 at Pt Temp ABG HCO3 ABG Base Excess (Actual) VBG pH VBG pCO2 VBG pO2 VBG HCO3 VBG O2 Saturation VBG Base Excess Sodium Potassium Chloride Carbon Dioxide Anion Gap BUN Creatinine Estim Creat Clear Calc Estimated GFR POC Glucose 140 H 131 H Random Glucose Calcium Phosphorus Magnesium Total Bilirubin AST ALT Alkaline Phosphatase Total Protein Albumin 10/07/21 10/07/21 10/07/21 05:32 05:34 05:34 WBC RBC Hgb Hct MCV MCH MCHC RDW Plt Count MPV Immature Gran % (Auto) Neut % (Auto) Lymph % (Auto) [place] % (Auto) Eos % (Auto) Baso % (Auto) Lymph # (Auto) [place] # (Auto) Eos # (Auto) Baso # (Auto) Abs Immat Gran (auto) Absolute Neuts (auto) Absolute Nucleated RBC Nucleated RBC % (auto) Smear Tech's Comments O2 Saturation ABG pH at Pt Temp ABG pCO2 at Pt Temp ABG pO2 at Pt Temp ABG HCO3 ABG Base Excess (Actual) VBG pH Cancelled 7.29 L VBG pCO2 Cancelled 37 VBG pO2 Cancelled 61 VBG HCO3 Cancelled 18 L VBG O2 Saturation Cancelled 83.0 VBG Base Excess Cancelled -7.2 Sodium 139 Potassium 4.1 Chloride 101 Carbon Dioxide 18 L Anion Gap 24 H BUN 75 H Creatinine 7.19 H* Estim Creat Clear Calc 22.5 Estimated GFR 8 POC Glucose Random Glucose 130 H Calcium 7.8 L Phosphorus 8.9 H Magnesium 2.8 H Total Bilirubin 1.4 H AST 69 H ALT 64 H Alkaline Phosphatase 71 Total Protein 6.3 L Albumin 3.1 L 11/19/20 11/19/20 05:38 12:00 WBC RBC Hgb Hct MCV MCH MCHC RDW Plt Count MPV Immature Gran % (Auto) Neut % (Auto) Lymph % (Auto) [place] % (Auto) Eos % (Auto) Baso % (Auto) Lymph # (Auto) [place] # (Auto) Eos # (Auto) Baso # (Auto) Abs Immat Gran (auto) Absolute Neuts (auto) Absolute Nucleated RBC Nucleated RBC % (auto) Smear Tech's Comments O2 Saturation TNP ABG pH at Pt Temp TNP ABG pCO2 at Pt Temp TNP ABG pO2 at Pt Temp TNP ABG HCO3 TNP ABG Base Excess (Actual) TNP VBG pH VBG pCO2 VBG pO2 VBG HCO3 VBG O2 Saturation VBG Base Excess Sodium Potassium Chloride Carbon Dioxide Anion Gap BUN Creatinine Estim Creat Clear Calc Estimated GFR POC Glucose 156 H Random Glucose Calcium Phosphorus Magnesium Total Bilirubin AST ALT Alkaline Phosphatase Total Protein Albumin Microbiology Microbiology Results: Microbiology 11/14/20 21:35 Peritoneal Fluid Gram Stain - Final 11/14/20 21:35 Peritoneal Fluid Routine Culture - Final 11/14/20 21:35 Peritoneal Fluid Anaerobic Culture - Final Bacteroides thetaiotaomicron 11/14/20 14:53 Blood - Venous Blood Culture - Preliminary No growth after 48 hours. 11/14/20 14:28 Blood - Venous Blood Culture - Preliminary No growth after 48 hours. Procedures Date of Service Date of Service: 11/19/20 Assessment & Plan Assessment and plan (1) CRISTOFER (acute kidney injury): Status: Acute (2) Metabolic acidosis: Status: Acute (3) Megacolon: Status: Acute (4) Respiratory failure: Status: Acute Assessment and Plan: anuric CRISTOFER due to ischemic acute tubular injury no signs of recovery HD dependent normal baseline kidney function REC HD today optimize volume status HD again in am monitor urine output follow kidney function and electrolytes Time Spent With Patient Time: Total time spent is greater than 50% in coordination of care (as documented) at patient's floor/unit and/or counseling patient: Progress Note: Quality Stroke Does the patient have a stroke diagnosis?: No
[2020-11-19 17:54] LABS: Glucose, Whole Blood 113 mg/dL (60-115)
[2020-11-19 20:27] LABS: Anion Gap 24 (12-20); Blood Urea Nitrogen 58 mg/dL (9-16); Calcium 8.1 mg/dL (8.4-10.2); Carbon Dioxide 18 mmol/L (22-29); Chloride 100 mmol/L (96-108); Creatinine Clr Calc Pharmacy 29.2; Estimated Glomerular Filt Rate 11; Glucose Random 112 mg/dL (60-115); Potassium 3.9 mmol/L (3.3-5.1); Sodium 138 mmol/L (135-145)
[2020-11-19 23:42] LABS: Glucose, Whole Blood 105 mg/dL (60-115)
[2020-11-20] VITALS (31 sets, daily range): BP systolic 89–147; BP diastolic 45–99; PULSE 89–126; RESP 18–35; TEMP 36.8–40.9; O2SAT 86–98
[2020-11-20] MEDS: propofoL 1,000 MG/100 ML VIAL 45.72 MG IVCONT ×5 (00:10→08:27)
[2020-11-20] MEDS: metroNIDAZOLE/NS 500 MG/100 ML PIGGYBACK 100 MG IV ×4 (00:11→23:40)
[2020-11-20 00:22] LABS: Glucose, Whole Blood 114 mg/dL (60-115)
[2020-11-20 05:06] LABS: Glucose, Whole Blood 107 mg/dL (60-115)
[2020-11-20] MEDS: Piperacillin Sodium/Tazobactam 2.25 GM in 0.9 % Sodium Chloride 50 ML IV ×3 (05:13→21:15)
[2020-11-20] MEDS: Pantoprazole Sodium 40 MG/10 ML VIAL IVPUSH (05:31)
[2020-11-20 05:39] LABS: Hematocrit 35.2 % (42-52); Hemoglobin 11.5 g/dl (14.0-18.0); Mean Corpuscular HGB Conc 32.7 g/dl (31.0-36.0); Mean Corpuscular Hemoglobin 27.1 pg (27.0-33.0); Mean Platelet Volume 10.9 fL (9.4-12.4); NRBC Pct Auto 0.3 /100WBC (0.0-0.2); Platelet Count 136 X10*3/uL (160-400); Red Blood Count 4.24 X10*6/uL (4.60-5.80); Red Cell Distribution Width 16.3 % (11.0-16.0); White Blood Count 7.4 X10*3/uL (4.8-10.8)
[2020-11-20 05:56] LABS: Alanine Aminotransferase 60 U/L (0-40); Albumin Level 3.2 g/dL (3.5-5.0); Alkaline Phosphatase 79 U/L (39-117); Anion Gap 25 (12-20); Aspartate Amino Transferase 57 U/L (5-37); Bilirubin Total 1.2 mg/dL (0.0-1.0); Blood Urea Nitrogen 75 mg/dL (9-16); Calcium 8.2 mg/dL (8.4-10.2); Carbon Dioxide 17 mmol/L (22-29); Chloride 99 mmol/L (96-108); Glucose Random 109 mg/dL (60-115); Magnesium 2.6 mg/dL (1.6-2.6); Phosphorus 8.4 mg/dL (2.7-4.5); Potassium 3.9 mmol/L (3.3-5.1); Sodium 137 mmol/L (135-145); Total Protein 6.7 g/dL (6.5-8.0)
[2020-11-20 05:58] LABS: Creatinine Clr Calc Pharmacy 23.8; Estimated Glomerular Filt Rate 8
[2020-11-20 06:07] LABS: Band Neutrophils Percent 2 % (3-5); Eosinophils Absolute Manual 0.1 X10*3/UL (0.0-0.8); Eosinophils Percent Manual 1 % (0-4); Lymphocytes Absolute Manual 0.7 X10*3/uL (0.6-4.8); Lymphocytes Percent Manual 10 % (20-40); Monocytes Absolute Manual 0.4 X10*3/uL (0.0-1.2); Monocytes Percent Manual 6 % (2-11); Neutrophils Absolute Manual 6.1 X10*3/uL (2.2-7.9); Neutrophils Percent Manual 81 % (45-73)
[2020-11-20 06:09] LABS: Nucleated Red Blood Cells 0 /100WBC (0-0); Platelet Estimate SLIGHTLY DECREASED (NORMAL); Platelet Morphology Comment NORMAL; RBC Morphology NORMAL
[2020-11-20] MEDS: Chlorhexidine Gluc Oral Rinse 15 ML MOUTHWASH BUCCAL ×3 (07:34→21:19)
[2020-11-20] MEDS: Heparin Sodium,Porcine 5,000 UNIT/ML VIAL 5000 UNIT SUBCUT ×2 (07:34→21:13)
[2020-11-20] MEDS: dexAMETHasone sod phosphate 4 MG/ML VIAL 6 MG IVPUSH (07:35)
[2020-11-20 07:54] LABS: VBG Base Excess -8.6 mmol/L; VBG HCO3 16 mmol/L (22-26); VBG pCO2 32 mmHg; VBG pO2 61 mmHg
[2020-11-20 08:36] LABS: Venous Blood Gas Refer to POC result
--- NOTE | 2020-11-20 10:02 | MHC.CLN ---
Addendum entered by Taylor Whitley, RD 11/20/20 10:04: ADDED FREE WATER FLUSHES 120CC Q SHIFT PROVIDES 709CC TOTAL WATER FROM FORMULA AND FLUSHES Original Note: F/U PT CONTINUES TO RECEIVE HD DAILY PT TOLERATING NEPRO AT MAX GOAL RATE 20ML/HR PROVIDES 864KCALS (2071KCALS WITH SEDATION; 24KCALS/KG BASED ON IBW), 39G PROTEIN (.45G/KG), 349CC FREE WATER FROM FORMULA MONITOR TOLERANCE, RESIDUALS AND LYTES NOTED FRAGILE SKIN PER NSG-WILL INCREASE PO PROTEIN WHEN ABLE
[2020-11-20] MEDS: propofoL 1,000 MG/100 ML VIAL 51.44 MG IVCONT ×7 (10:27→22:57)
--- NOTE | 2020-11-20 10:43 | PC.NURSE ---
Family seo associate at bedside for [facility]. Pt remains vent dependent and sedated.
[2020-11-20 12:02] LABS: Glucose, Whole Blood 133 mg/dL (60-115)
--- NOTE | 2020-11-20 14:06 | P.PNGS_ITS ---
Subjective Subjective Date of Service: 11/20/20 Interval history: Remains intubated Still requiring dialysis every day Stoma functioning well Tolerating enteral feeds No urine output Physical Exam Vital Signs: Vital Signs: Last Vital Signs Temp 101.1 F H 11/20/20 11:00 Pulse 101 H 11/20/20 13:00 Resp 18 11/20/20 13:00 BP 93/55 L 11/20/20 13:00 Pulse Ox 96 11/20/20 13:00 Oxygen Flow Rate 4 11/14/20 06:24 Body Mass Index 63.3 Chemistry 11/18/20 11/19/20 11/19/20 05:23 05:32 19:50 Sodium 142 139 138 Potassium 4.5 4.1 3.9 Carbon Dioxide 19 L 18 L 18 L BUN 78 H 75 H 58 H Creatinine 8.05 H* 7.19 H* 5.55 H* Calcium 7.4 L D 7.8 L 8.1 L Phosphorus 9.6 H 8.9 H 11/20/20 05:10 Sodium 137 Potassium 3.9 Carbon Dioxide 17 L BUN 75 H Creatinine 6.79 H* Calcium 8.2 L Phosphorus 8.4 H Hematology 11/18/20 11/19/20 11/20/20 05:23 05:32 05:10 WBC 9.3 7.6 7.4 Hgb 10.2 L 10.9 L 11.5 L Plt Count 128 L 129 L 136 L Const: Other: Sedated, intubated not communicative Resp: Other: Ventilator dependent Cardio: Rate: tachycardic GI: Other: Obese abdomen, Ileostomy with good output, dressings dry, 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 Procedures Date of Service Date of Service: 11/20/20 Progress Note: A&P Assessment and plan (1) Colon perforation: Status: Acute Assessment and Plan: Status post extended right colon resection, ileostomy, mucous fistula Remains critically ill Ventilator dependent Daily dialysis treatments Ileostomy functioning Okay to increase rate of enteral feeds as tolerated ICU care Discussed with plant health care technician Fall Risk Details Current Medications: Current Medications Chlorhexidine Gluconate (Chlorhexidine Gluc Oral Rinse 15 Ml Mouthwash) 15 ml BUCCAL TID [facility] Last Admin: 11/20/20 07:34 Dose: 15 ml Documented by: Dexamethasone Sodium Phosphate (Dexamethasone Sod Phosphate 4 Mg/Ml Vial) 6 mg IVPUSH DAILY [facility] Last Admin: 10/08/21 07:35 Dose: 6 mg Documented by: Heparin Sodium (Porcine) (Heparin Sodium,Porcine 5,000 Unit/Ml Vial) 5,000 unit SUBCUT Q12H [facility] Last Admin: 11/20/20 07:34 Dose: 5,000 unit Documented by: Propofol (Diprivan) 1,000 mg in 100 mls @ 0 mls/hr IVCONT .Q0M [facility]; Protocol Last Admin: 11/20/20 13:34 Dose: 45 mcg/kg/min, 51.44 mls/hr Documented by: Norepinephrine Bitartrate (Levophed) 8 mg in 250 mls @ 0 mls/hr IVCONT .Q0M [facility]; Protocol Last Titration: 11/17/20 03:43 Dose: 0 mcg/kg/min, 0 mls/hr Documented by: Piperacillin Sod/Tazobactam (Sod 2.25 gm/ Sodium Chloride) 50 mls @ 100 mls/hr IV Q8H [facility] Last Admin: 11/20/20 13:33 Dose: 100 mls/hr Documented by: Metronidazole (Flagyl) 500 mg in 100 mls @ 100 mls/hr IV Q8H [facility] Last Infusion: 11/20/20 08:28 Dose: Infused Documented by: Insulin Human Lispro (Insulin Lispro 100 Unit/Ml 3 Ml Vial) 0 unit SUBCUT Q6H [facility]; Protocol Last Admin: 11/20/20 11:56 Dose: Not Given Documented by: Pantoprazole Sodium (Pantoprazole Sodium 40 Mg/10 Ml Vial) 40 mg IVPUSH DAILY@0630 [facility] Last Admin: 11/20/20 05:31 Dose: 40 mg Documented by: Time Spent With Patient Time: Total time spent is greater than 50% in coordination of care (as documented) at patient's floor/unit and/or counseling patient: Time with patient: less than 15 minutes Quality Stroke Does the patient have a stroke diagnosis?: No VTE Prior VTE?: No VTE Risk Level:: Surgical - high VTE Device Contraindication: N/A - Device Ordered VTE Drug Contraindication: N/A - Med Ordered
--- NOTE | 2020-11-20 15:02 | PM.PNNEP ---
Subjective Subjective Date of Service: 11/20/20 Principal diagnosis: CRISTOFER Interval history: seen and examined on dialysis vented discussed with ICU attending Physical Exam Vital Signs: Vital Signs: Last Vital Signs Temp 101.1 F H 11/20/20 11:00 Pulse 90 11/20/20 14:00 Resp 20 11/20/20 14:00 BP 90/47 L 11/20/20 14:00 Pulse Ox 96 11/20/20 14:00 Oxygen Flow Rate 4 11/14/20 06:24 Body Mass Index 63.3 Const: General: ill appearing HENMT: Head: Yes normocephalic and Yes atraumatic Neck: Neck: Yes supple Resp: Auscultation: diminished lung sounds Cardio: Heart sounds: S1 normal heart sound present and S2 normal heart sound present GI: Palpation (GI): Soft to palpation and no guarding Extrem: General: Yes edema Objective Data Labs CBC & Chem 7: 11/20/20 05:10 11/20/20 05:10 Labs: Laboratory Results - last 24 hr 11/19/20 11/19/20 11/19/20 17:50 19:50 23:38 WBC RBC Hgb Hct MCV MCH MCHC RDW Plt Count MPV Immature Gran % (Auto) Neut % (Auto) Lymph % (Auto) [place] % (Auto) Eos % (Auto) Baso % (Auto) Lymph # (Auto) [place] # (Auto) Eos # (Auto) Baso # (Auto) Abs Immat Gran (auto) Absolute Neuts (auto) Absolute Nucleated RBC Nucleated RBC % (auto) Neutrophils % (Manual) Band Neutrophils % Lymphocytes % (Manual) Monocytes % (Manual) Eosinophils % (Manual) Abs Neuts (Manual) Lymphocytes # (Manual) Monocytes # (Manual) Eosinophils # (Manual) Nucleated RBCs Platelet Estimate Plt Morphology Comment RBC Morphology VBG pH VBG pCO2 VBG pO2 VBG HCO3 VBG O2 Saturation VBG Base Excess Sodium 138 Potassium 3.9 Chloride 100 Carbon Dioxide 18 L Anion Gap 24 H BUN 58 H Creatinine 5.55 H* Estim Creat Clear Calc 29.2 Estimated GFR 11 POC Glucose 113 105 Random Glucose 112 Calcium 8.1 L Phosphorus Magnesium Total Bilirubin AST ALT Alkaline Phosphatase Total Protein Albumin 11/20/20 11/20/20 11/20/20 00:14 05:02 05:10 WBC 7.4 RBC 4.24 L Hgb 11.5 L Hct 35.2 L MCV 83.0 MCH 27.1 MCHC 32.7 RDW 16.3 H Plt Count 136 L MPV 10.9 Immature Gran % (Auto) Cancelled Neut % (Auto) Cancelled Lymph % (Auto) Cancelled [place] % (Auto) Cancelled Eos % (Auto) Cancelled Baso % (Auto) Cancelled Lymph # (Auto) Cancelled [place] # (Auto) Cancelled Eos # (Auto) Cancelled Baso # (Auto) Cancelled Abs Immat Gran (auto) Cancelled Absolute Neuts (auto) Cancelled Absolute Nucleated RBC 0.020 H Nucleated RBC % (auto) 0.3 H Neutrophils % (Manual) 81 H Band Neutrophils % 2 L Lymphocytes % (Manual) 10 L Monocytes % (Manual) 6 Eosinophils % (Manual) 1 Abs Neuts (Manual) 6.1 Lymphocytes # (Manual) 0.7 Monocytes # (Manual) 0.4 Eosinophils # (Manual) 0.1 Nucleated RBCs 0 Platelet Estimate SLIGHTLY DECREASED Plt Morphology Comment NORMAL RBC Morphology NORMAL VBG pH VBG pCO2 VBG pO2 VBG HCO3 VBG O2 Saturation VBG Base Excess Sodium Potassium Chloride Carbon Dioxide Anion Gap BUN Creatinine Estim Creat Clear Calc Estimated GFR POC Glucose 114 107 Random Glucose Calcium Phosphorus Magnesium Total Bilirubin AST ALT Alkaline Phosphatase Total Protein Albumin 11/20/20 11/20/20 11/20/20 05:10 05:11 11:54 WBC RBC Hgb Hct MCV MCH MCHC RDW Plt Count MPV Immature Gran % (Auto) Neut % (Auto) Lymph % (Auto) [place] % (Auto) Eos % (Auto) Baso % (Auto) Lymph # (Auto) [place] # (Auto) Eos # (Auto) Baso # (Auto) Abs Immat Gran (auto) Absolute Neuts (auto) Absolute Nucleated RBC Nucleated RBC % (auto) Neutrophils % (Manual) Band Neutrophils % Lymphocytes % (Manual) Monocytes % (Manual) Eosinophils % (Manual) Abs Neuts (Manual) Lymphocytes # (Manual) Monocytes # (Manual) Eosinophils # (Manual) Nucleated RBCs Platelet Estimate Plt Morphology Comment RBC Morphology VBG pH 7.30 L VBG pCO2 32 VBG pO2 61 VBG HCO3 16 L VBG O2 Saturation 84.0 VBG Base Excess -8.6 Sodium 137 Potassium 3.9 Chloride 99 Carbon Dioxide 17 L Anion Gap 25 H BUN 75 H Creatinine 6.79 H* Estim Creat Clear Calc 23.8 Estimated GFR 8 POC Glucose 133 H Random Glucose 109 Calcium 8.2 L Phosphorus 8.4 H Magnesium 2.6 Total Bilirubin 1.2 H AST 57 H ALT 60 H Alkaline Phosphatase 79 Total Protein 6.7 Albumin 3.2 L Microbiology Microbiology Results: Microbiology 11/14/20 14:53 Blood - Venous Blood Culture - Final No growth after 5 days. 11/14/20 14:28 Blood - Venous Blood Culture - Final No growth after 5 days. 11/14/20 21:35 Peritoneal Fluid Gram Stain - Final 11/14/20 21:35 Peritoneal Fluid Routine Culture - Final 11/14/20 21:35 Peritoneal Fluid Anaerobic Culture - Final Bacteroides thetaiotaomicron Procedures Date of Service Date of Service: 11/20/20 Assessment & Plan Assessment and plan (1) CRISTOFER (acute kidney injury): Status: Acute (2) Metabolic acidosis: Status: Acute (3) Megacolon: Status: Acute (4) Respiratory failure: Status: Acute Assessment and Plan: anuric CRISTOFER due to ischemic acute tubular injury no signs of recovery yet, HD dependent normal baseline kidney function REC HD today optimize volume status HD again in am monitor urine output follow kidney function and electrolytes Time Spent With Patient Time: Total time spent is greater than 50% in coordination of care (as documented) at patient's floor/unit and/or counseling patient: Progress Note: Quality Stroke Does the patient have a stroke diagnosis?: No
--- NOTE | 2020-11-20 15:06 | P.PNCC_ITS ---
Subjective Subjective Date of Service: 11/20/20 Interval History: 54-year-old morbidly obese male following COVID-19 infection not requiring ICU level of care he complained of abdominal pain and this is somebody who is chronically on opioids as well as multiple bowel preparations the no to sustain bowel movements and when home literally for 5 hours and return with worsening abdominal pain and a number of hours later by CT scan diagnosed to have had a perforation which was in the ascending and transverse colon with resection of these diseased areas that looked ischemic and then diverting ileostomy which is now working so there is some resolution of his ileus and is tolerating his feedings but was not septic shock initially and has since come off pressors until today when on dialysis he still needed blood pressure support with Levophed but in the interim developed acute kidney injury and has been on dialysis now almost 4-5 days in a row still with in a metabolic issues requiring daily treatment initially we were more concerned with volume overload which was iatrogenic in we pulled off between 7 and 8 L of fluid Critical Care Time (minutes): 45 Physical Exam Vital Signs: Vital Signs: Last Vital Signs Temp 101.1 F H 11/20/20 11:00 Pulse 90 11/20/20 14:00 Resp 20 11/20/20 14:00 BP 90/47 L 11/20/20 14:00 Pulse Ox 96 11/20/20 14:00 Oxygen Flow Rate 4 11/14/20 06:24 Body Mass Index 63.3 Sedated and intubated Normal sinus rhythm with CVP of approximately 10 and good bilateral carotid upstrokes Abdomen soft without organomegaly Coarse bilateral ventilatory sounds over his lungs Objective Data Labs CBC & Chem 7: 11/20/20 05:10 11/20/20 05:10 Labs: Laboratory Results - last 24 hr 11/19/20 11/19/20 11/19/20 17:50 19:50 23:38 WBC RBC Hgb Hct MCV MCH MCHC RDW Plt Count MPV Immature Gran % (Auto) Neut % (Auto) Lymph % (Auto) [place] % (Auto) Eos % (Auto) Baso % (Auto) Lymph # (Auto) [place] # (Auto) Eos # (Auto) Baso # (Auto) Abs Immat Gran (auto) Absolute Neuts (auto) Absolute Nucleated RBC Nucleated RBC % (auto) Neutrophils % (Manual) Band Neutrophils % Lymphocytes % (Manual) Monocytes % (Manual) Eosinophils % (Manual) Abs Neuts (Manual) Lymphocytes # (Manual) Monocytes # (Manual) Eosinophils # (Manual) Nucleated RBCs Platelet Estimate Plt Morphology Comment RBC Morphology VBG pH VBG pCO2 VBG pO2 VBG HCO3 VBG O2 Saturation VBG Base Excess Sodium 138 Potassium 3.9 Chloride 100 Carbon Dioxide 18 L Anion Gap 24 H BUN 58 H Creatinine 5.55 H* Estim Creat Clear Calc 29.2 Estimated GFR 11 POC Glucose 113 105 Random Glucose 112 Calcium 8.1 L Phosphorus Magnesium Total Bilirubin AST ALT Alkaline Phosphatase Total Protein Albumin 11/20/20 11/20/20 11/20/20 00:14 05:02 05:10 WBC 7.4 RBC 4.24 L Hgb 11.5 L Hct 35.2 L MCV 83.0 MCH 27.1 MCHC 32.7 RDW 16.3 H Plt Count 136 L MPV 10.9 Immature Gran % (Auto) Cancelled Neut % (Auto) Cancelled Lymph % (Auto) Cancelled [place] % (Auto) Cancelled Eos % (Auto) Cancelled Baso % (Auto) Cancelled Lymph # (Auto) Cancelled [place] # (Auto) Cancelled Eos # (Auto) Cancelled Baso # (Auto) Cancelled Abs Immat Gran (auto) Cancelled Absolute Neuts (auto) Cancelled Absolute Nucleated RBC 0.020 H Nucleated RBC % (auto) 0.3 H Neutrophils % (Manual) 81 H Band Neutrophils % 2 L Lymphocytes % (Manual) 10 L Monocytes % (Manual) 6 Eosinophils % (Manual) 1 Abs Neuts (Manual) 6.1 Lymphocytes # (Manual) 0.7 Monocytes # (Manual) 0.4 Eosinophils # (Manual) 0.1 Nucleated RBCs 0 Platelet Estimate SLIGHTLY DECREASED Plt Morphology Comment NORMAL RBC Morphology NORMAL VBG pH VBG pCO2 VBG pO2 VBG HCO3 VBG O2 Saturation VBG Base Excess Sodium Potassium Chloride Carbon Dioxide Anion Gap BUN Creatinine Estim Creat Clear Calc Estimated GFR POC Glucose 114 107 Random Glucose Calcium Phosphorus Magnesium Total Bilirubin AST ALT Alkaline Phosphatase Total Protein Albumin 11/20/20 11/20/20 11/20/20 05:10 05:11 11:54 WBC RBC Hgb Hct MCV MCH MCHC RDW Plt Count MPV Immature Gran % (Auto) Neut % (Auto) Lymph % (Auto) [place] % (Auto) Eos % (Auto) Baso % (Auto) Lymph # (Auto) [place] # (Auto) Eos # (Auto) Baso # (Auto) Abs Immat Gran (auto) Absolute Neuts (auto) Absolute Nucleated RBC Nucleated RBC % (auto) Neutrophils % (Manual) Band Neutrophils % Lymphocytes % (Manual) Monocytes % (Manual) Eosinophils % (Manual) Abs Neuts (Manual) Lymphocytes # (Manual) Monocytes # (Manual) Eosinophils # (Manual) Nucleated RBCs Platelet Estimate Plt Morphology Comment RBC Morphology VBG pH 7.30 L VBG pCO2 32 VBG pO2 61 VBG HCO3 16 L VBG O2 Saturation 84.0 VBG Base Excess -8.6 Sodium 137 Potassium 3.9 Chloride 99 Carbon Dioxide 17 L Anion Gap 25 H BUN 75 H Creatinine 6.79 H* Estim Creat Clear Calc 23.8 Estimated GFR 8 POC Glucose 133 H Random Glucose 109 Calcium 8.2 L Phosphorus 8.4 H Magnesium 2.6 Total Bilirubin 1.2 H AST 57 H ALT 60 H Alkaline Phosphatase 79 Total Protein 6.7 Albumin 3.2 L Microbiology Microbiology Results: Microbiology 11/14/20 14:53 Blood - Venous Blood Culture - Final No growth after 5 days. 11/14/20 14:28 Blood - Venous Blood Culture - Final No growth after 5 days. 11/14/20 21:35 Peritoneal Fluid Gram Stain - Final 11/14/20 21:35 Peritoneal Fluid Routine Culture - Final 11/14/20 21:35 Peritoneal Fluid Anaerobic Culture - Final Bacteroides thetaiotaomicron Quality Stroke Does the patient have a stroke diagnosis?: No VTE Prior VTE?: No VTE Risk Level:: Surgical - high VTE Device Contraindication: N/A - Device Ordered VTE Drug Contraindication: N/A - Med Ordered Progress Note: A&P Assessment and plan (1) Ileus following gastrointestinal surgery: Status: Acute (2) Respiratory failure: Status: Acute (3) Metabolic acidosis: Status: Acute (4) Fluid overload: Status: Acute (5) Hypernatremia: Status: Acute (6) CRISTOFER (acute kidney injury): Status: Acute (7) Colon perforation: Status: Acute (8) Colonic ischemia: Status: Acute (9) Abdominal pain: Status: Acute (10) Megacolon: Status: Acute (11) Acute respiratory failure with hypoxia: Status: Acute (12) Bacteremia: Status: Acute (13) Hypertension: Status: Acute (14) COVID-19: Status: Acute (15) Right hip pain: Status: Acute (16) Abdominal hernia: Status: Acute (17) Hernia: Status: Acute (18) Compression fracture of T9 vertebra: Status: Acute (19) Compression fracture of T11 vertebra: Status: Acute Assessment and Plan: Will attempt a 4 hour dialysis today and maybe to a similar degree tomorrow Levophed support as needed antibiotics as above Still no urine output and prognosis foot kidney function return is guarded
[2020-11-20 18:05] LABS: Glucose, Whole Blood 116 mg/dL (60-115)
[2020-11-20 19:43] LABS: Anion Gap 24 (12-20); Blood Urea Nitrogen 50 mg/dL (9-16); Carbon Dioxide 15 mmol/L (22-29); Chloride 100 mmol/L (96-108); Creatinine Clr Calc Pharmacy 30.1; Estimated Glomerular Filt Rate 11; Glucose Random 109 mg/dL (60-115); Potassium 3.7 mmol/L (3.3-5.1); Sodium 135 mmol/L (135-145)
[2020-11-20 21:36] LABS: Lactic Acid 1.3 mmol/L (0.5-2.0)
[2020-11-20 21:40] LABS: VBG Base Excess -7.7 mmol/L; VBG HCO3 16 mmol/L (22-26); VBG pCO2 29 mmHg; VBG pH 7.35 (7.32-7.43); VBG pO2 43 mmHg
[2020-11-20 21:47] LABS: B Type Natriuretic Peptide 101 pg/mL (<100); Troponin-I High Sensitivity 27.7 ng/L (<3.5-35.0)
[2020-11-20] MEDS: fentaNYL citrate/PF 100 MCG/2 ML VIAL IVPUSH (21:58)
[2020-11-20 22:57] LABS: Calprotectin, Fecal 56 mcg/g
[2020-11-21] VITALS (40 sets, daily range): BP systolic 62–143; BP diastolic 36–98; PULSE 90–122; RESP 12–31; TEMP 38.2–40.9; O2SAT 88–98; BMI 77.4; BMI 54.0
[2020-11-21 00:01] LABS: Glucose, Whole Blood 173 mg/dL (60-115)
[2020-11-21] MEDS: propofoL 1,000 MG/100 ML VIAL 57.15 MG IVCONT ×3 (00:36→04:09)
[2020-11-21] MEDS: vancomycin HCL 1,500 MG in 0.9 % Sodium Chloride 500 ML 333.33 MG IV (02:24)
--- NOTE | 2020-11-21 03:41 | PC.NURSE ---
CARE ASSUMED 23:15...REMAINS SEDATED WITH PROPOFOL 50 MCG/KG/MIN...TUBED/VENTED AC/VCV MODE.....S.TACH HR 120'S....OG-TUBE/TUBE FEEDS REMAINED ON HOLD AT HS...500ml BROWNISH ASPIRATED OBTAINED...FEEDS TO BE HELD OVERNIGHT PER ICU STRUCTURAL ENGINEERING PROJECT MANAGER...TEMPORAL DRKA=247.2...ORAL TEMP = 105.8...ICU STRUCTURAL ENGINEERING PROJECT MANAGER AWARE...TYLENOL 1000MG IV X1...ICE PACKS APPLIED...COOLING BLANKET OBTAINED AND PLACED...SPUTUM AND BLOOD CULTURES OBTAINED...VANCOMYCIN 1500MG IV X1 DOSE...CONTINUES ZOSYN/FLAGYL PER APR...ILEOSTOMY THICK BROWN DRAINAGE...LYLE DRAIN SMALL AMOUNT BLOODY DRAINAGE...RECTAL TUBE LIQUIED BROWN-ORANGE DRAINAGE...LEVOPHED TITRATED 0.1--0.2 MCG/KG/MIN FOR BP
[2020-11-21 04:09] LABS: Venous Blood Gas Refer to POC result
[2020-11-21 04:46] LABS: VBG Base Excess -12.1 mmol/L; VBG HCO3 15 mmol/L (22-26); VBG pCO2 40 mmHg; VBG pH 7.18 (7.32-7.43); VBG pO2 43 mmHg
[2020-11-21] MEDS: propofoL 1,000 MG/100 ML VIAL 34.29 MG IVCONT ×2 (04:53→07:27)
[2020-11-21 04:54] LABS: Venous Blood Gas Refer to POC result
[2020-11-21] MEDS: Piperacillin Sodium/Tazobactam 2.25 GM in 0.9 % Sodium Chloride 50 ML IV (04:57)
[2020-11-21 05:08] LABS: Lactic Acid 1.4 mmol/L (0.5-2.0)
[2020-11-21 05:08] LABS: Hemoglobin 12.4 g/dl (14.0-18.0); Mean Corpuscular HGB Conc 32.6 g/dl (31.0-36.0); Mean Corpuscular Hemoglobin 27.5 pg (27.0-33.0); Mean Corpuscular Volume 84.3 fL (80-98); Mean Platelet Volume 10.5 fL (9.4-12.4); Platelet Count 124 X10*3/uL (160-400); Red Blood Count 4.51 X10*6/uL (4.60-5.80); Red Cell Distribution Width 16.2 % (11.0-16.0); White Blood Count 17.5 X10*3/uL (4.8-10.8)
[2020-11-21] MEDS: Sodium Bicarbonate 8.4% 50 MEQ/50 ML VIAL IVPUSH (05:24)
[2020-11-21 05:28] LABS: Alanine Aminotransferase 72 U/L (0-40); Alkaline Phosphatase 90 U/L (39-117); Anion Gap 23 (12-20); Aspartate Amino Transferase 103 U/L (5-37); Bilirubin Total 1.1 mg/dL (0.0-1.0); Blood Urea Nitrogen 72 mg/dL (9-16); Calcium 7.6 mg/dL (8.4-10.2); Carbon Dioxide 16 mmol/L (22-29); Chloride 97 mmol/L (96-108); Creatinine Clr Calc Pharmacy 22.8; Estimated Glomerular Filt Rate 7; Glucose Random 229 mg/dL (60-115); Magnesium 2.2 mg/dL (1.6-2.6); Phosphorus 6.7 mg/dL (2.7-4.5); Potassium 4.3 mmol/L (3.3-5.1); Sodium 132 mmol/L (135-145); Total Protein 6.7 g/dL (6.5-8.0)
[2020-11-21 05:33] LABS: NRBC Pct Auto 1.1 /100WBC (0.0-0.2)
[2020-11-21] MEDS: Insulin Lispro 100 UNIT/ML 3 ML VIAL SUBCUT ×2 (05:33→12:26)
[2020-11-21 06:38] LABS: Band Neutrophils Percent 14 % (3-5); Basophils Abs Manual 0.2 X10*3/uL (0.0-0.3); Basophils Percent Manual 1 % (0-1); Eosinophils Absolute Manual 0.2 X10*3/UL (0.0-0.8); Eosinophils Percent Manual 1 % (0-4); Lymphocytes Absolute Manual 1.2 X10*3/uL (0.6-4.8); Lymphocytes Percent Manual 7 % (20-40); Metamyelocytes Absolute 0.2 X10*3/uL; Metamyelocytes Percent 1 %; Monocytes Absolute Manual 0.4 X10*3/uL (0.0-1.2); Monocytes Percent Manual 2 % (2-11); Myelocytes Absolute 0.4 X10*/uL; Myelocytes Percent 2 %; Neutrophils Absolute Manual 15.1 X10*3/uL (2.2-7.9); Neutrophils Percent Manual 72 % (45-73)
[2020-11-21 06:39] LABS: Platelet Estimate SLIGHTLY DECREASED (NORMAL); RBC Morphology NORMAL
[2020-11-21 06:40] LABS: Platelet Morphology Comment NORMAL
[2020-11-21] MEDS: dexAMETHasone sod phosphate 4 MG/ML VIAL 6 MG IVPUSH (07:19)
[2020-11-21] MEDS: Chlorhexidine Gluc Oral Rinse 15 ML MOUTHWASH BUCCAL ×3 (07:21→19:31)
[2020-11-21] MEDS: metroNIDAZOLE/NS 500 MG/100 ML PIGGYBACK 100 MG IV ×3 (07:21→23:29)
[2020-11-21] MEDS: Heparin Sodium,Porcine 5,000 UNIT/ML VIAL 5000 UNIT SUBCUT ×2 (07:21→19:31)
[2020-11-21] MEDS: levoFLOXacin/D5W 750 MG/150 ML PIGGYBACK 100 MG IV (07:32)
[2020-11-21 09:52] LABS: COVID-19 Test Negative (Negative)
[2020-11-21] MEDS: propofoL 1,000 MG/100 ML VIAL 40.01 MG IVCONT ×7 (10:14→23:28)
[2020-11-21] MEDS: Caspofungin Acetate 70 MG in 0.9 % Sodium Chloride 250 ML 250 MG IV (11:02)
--- NOTE | 2020-11-21 11:22 | PC.NURSE ---
WEIGHT VERIFIED ON A STRETCHER WITH A SCALE FOR 191 KG. WEIGHT UPDATED IN SYSTEM.
[2020-11-21 12:05] LABS: Glucose, Whole Blood 183 mg/dL (60-115)
[2020-11-21 12:29] LABS: CDiff Gene PCR NEGATIVE (Negative)
[2020-11-21] MEDS: rifAXIMin 550 MG TABLET PO ×3 (12:41→19:32)
--- NOTE | 2020-11-21 15:12 | P.PNCC_ITS ---
Subjective Subjective Date of Service: 11/21/20 Interval History: 54-year-old morbidly obese male status post bowel perforation with peritonitis and bowel resection with diverting ileostomy and colostomy which are draining liquidy stool and the problem currently in this gentleman who had been septic almost a week ago Ms. that he now is becoming increasingly dependent on pressors again and less tolerant of his dialysis treatment from a hemodynamic standpoint and still remains an uric but spiked a temperature to 105? and was completely re-cultured and were expanding our coverage to include micafungin and changing the Zosyn to meropenem because will likely have to combined with vancomycin at this point and will continue IV metronidazole in case of C diff and will attempt to add right fax a min Critical Care Time (minutes): 45 Physical Exam Vital Signs: Vital Signs: Last Vital Signs Temp 102.4 F H 11/21/20 14:00 Pulse 105 H 11/21/20 14:13 Resp 16 11/21/20 14:00 BP 62/39 L 11/21/20 14:58 Pulse Ox 92 11/21/20 14:00 Oxygen Flow Rate 4 11/14/20 06:24 Body Mass Index 54.0 Sedated and intubated and blood pressure is 110 systolic on Levophed Bedside cardiac exam shows normal LV function and reserve Chest by CT scan shows islands of bilateral scattered ground-glass infiltrates and this could be the left over of of his previous abnormal chest x-ray from COVID-19 2 weeks ago and the abdomen looks relatively benign for a postoperative abdomen Objective Data Labs CBC & Chem 7: 11/21/20 04:29 11/21/20 04:27 Labs: Laboratory Results - last 24 hr 11/16/20 11/20/20 11/20/20 16:18 18:01 19:05 WBC RBC Hgb Hct MCV MCH MCHC RDW Plt Count MPV Immature Gran % (Auto) Neut % (Auto) Lymph % (Auto) [place] % (Auto) Eos % (Auto) Baso % (Auto) Lymph # (Auto) [place] # (Auto) Eos # (Auto) Baso # (Auto) Abs Immat Gran (auto) Absolute Neuts (auto) Absolute Nucleated RBC Nucleated RBC % (auto) Neutrophils % (Manual) Band Neutrophils % Lymphocytes % (Manual) Monocytes % (Manual) Eosinophils % (Manual) Basophils % (Manual) Metamyelocytes % Myelocytes % Abs Neuts (Manual) Lymphocytes # (Manual) Monocytes # (Manual) Eosinophils # (Manual) Basophils # (Manual) Metamyelocytes # Myelocytes # Platelet Estimate Plt Morphology Comment RBC Morphology VBG pH VBG pCO2 VBG pO2 VBG HCO3 VBG O2 Saturation VBG Base Excess Sodium 135 Potassium 3.7 Chloride 100 Carbon Dioxide 15 L Anion Gap 24 H BUN 50 H Creatinine 5.38 H* Estim Creat Clear Calc 30.1 Estimated GFR 11 POC Glucose 116 H Random Glucose 109 Lactic Acid Calcium 8.0 L Phosphorus Magnesium Total Bilirubin AST ALT Alkaline Phosphatase Troponin I High Sens B-Natriuretic Peptide Total Protein Albumin Stool Calprotectin 56 C. difficile Tox B Gene COVID-19 (IVON) [employer] 11/20/20 11/20/20 11/20/20 21:00 21:00 21:34 WBC RBC Hgb Hct MCV MCH MCHC RDW Plt Count MPV Immature Gran % (Auto) Neut % (Auto) Lymph % (Auto) [place] % (Auto) Eos % (Auto) Baso % (Auto) Lymph # (Auto) [place] # (Auto) Eos # (Auto) Baso # (Auto) Abs Immat Gran (auto) Absolute Neuts (auto) Absolute Nucleated RBC Nucleated RBC % (auto) Neutrophils % (Manual) Band Neutrophils % Lymphocytes % (Manual) Monocytes % (Manual) Eosinophils % (Manual) Basophils % (Manual) Metamyelocytes % Myelocytes % Abs Neuts (Manual) Lymphocytes # (Manual) Monocytes # (Manual) Eosinophils # (Manual) Basophils # (Manual) Metamyelocytes # Myelocytes # Platelet Estimate Plt Morphology Comment RBC Morphology VBG pH 7.35 VBG pCO2 29 VBG pO2 43 VBG HCO3 16 L VBG O2 Saturation 67.0 VBG Base Excess -7.7 Sodium Potassium Chloride Carbon Dioxide Anion Gap BUN Creatinine Estim Creat Clear Calc Estimated GFR POC Glucose Random Glucose Lactic Acid 1.3 Calcium Phosphorus Magnesium Total Bilirubin AST ALT Alkaline Phosphatase Troponin I High Sens 27.7 D B-Natriuretic Peptide 101 H Total Protein Albumin Stool Calprotectin C. difficile Tox B Gene COVID-19 (IVON) [employer] 11/20/20 11/21/20 11/21/20 23:54 04:27 04:27 WBC RBC Hgb Hct MCV MCH MCHC RDW Plt Count MPV Immature Gran % (Auto) Neut % (Auto) Lymph % (Auto) [place] % (Auto) Eos % (Auto) Baso % (Auto) Lymph # (Auto) [place] # (Auto) Eos # (Auto) Baso # (Auto) Abs Immat Gran (auto) Absolute Neuts (auto) Absolute Nucleated RBC Nucleated RBC % (auto) Neutrophils % (Manual) Band Neutrophils % Lymphocytes % (Manual) Monocytes % (Manual) Eosinophils % (Manual) Basophils % (Manual) Metamyelocytes % Myelocytes % Abs Neuts (Manual) Lymphocytes # (Manual) Monocytes # (Manual) Eosinophils # (Manual) Basophils # (Manual) Metamyelocytes # Myelocytes # Platelet Estimate Plt Morphology Comment RBC Morphology VBG pH VBG pCO2 VBG pO2 VBG HCO3 VBG O2 Saturation VBG Base Excess Sodium 132 L Potassium 4.3 Chloride 97 Carbon Dioxide 16 L Anion Gap 23 H BUN 72 H Creatinine 8.10 H* Estim Creat Clear Calc 22.8 Estimated GFR 7 POC Glucose 173 H Random Glucose 229 H D Lactic Acid 1.4 Calcium 7.6 L Phosphorus 6.7 H Magnesium 2.2 Total Bilirubin 1.1 H AST 103 H ALT 72 H Alkaline Phosphatase 90 Troponin I High Sens B-Natriuretic Peptide Total Protein 6.7 Albumin 3.0 L Stool Calprotectin C. difficile Tox B Gene COVID-19 (IVON) COVID-19 Clin Com 11/21/20 11/21/20 11/21/20 04:29 04:38 11:30 WBC 17.5 H RBC 4.51 L Hgb 12.4 L Hct 38.0 L MCV 84.3 MCH 27.5 MCHC 32.6 RDW 16.2 H Plt Count 124 L MPV 10.5 Immature Gran % (Auto) Cancelled Neut % (Auto) Cancelled Lymph % (Auto) Cancelled [place] % (Auto) Cancelled Eos % (Auto) Cancelled Baso % (Auto) Cancelled Lymph # (Auto) Cancelled [place] # (Auto) Cancelled Eos # (Auto) Cancelled Baso # (Auto) Cancelled Abs Immat Gran (auto) Cancelled Absolute Neuts (auto) Cancelled Absolute Nucleated RBC 0.200 H Nucleated RBC % (auto) 1.1 H Neutrophils % (Manual) 72 Band Neutrophils % 14 H Lymphocytes % (Manual) 7 L Monocytes % (Manual) 2 Eosinophils % (Manual) 1 Basophils % (Manual) 1 Metamyelocytes % 1 Myelocytes % 2 Abs Neuts (Manual) 15.1 H Lymphocytes # (Manual) 1.2 Monocytes # (Manual) 0.4 Eosinophils # (Manual) 0.2 Basophils # (Manual) 0.2 Metamyelocytes # 0.2 Myelocytes # 0.4 Platelet Estimate SLIGHTLY DECREASED Plt Morphology Comment NORMAL RBC Morphology NORMAL VBG pH 7.18 L* VBG pCO2 40 VBG pO2 43 VBG HCO3 15 L VBG O2 Saturation 62.0 VBG Base Excess -12.1 Sodium Potassium Chloride Carbon Dioxide Anion Gap BUN Creatinine Estim Creat Clear Calc Estimated GFR POC Glucose Random Glucose Lactic Acid Calcium Phosphorus Magnesium Total Bilirubin AST ALT Alkaline Phosphatase Troponin I High Sens B-Natriuretic Peptide Total Protein Albumin Stool Calprotectin C. difficile Tox B Gene NEGATIVE COVID-19 (IVON) [employer] 11/21/20 11/21/20 12:01 Unknown WBC RBC Hgb Hct MCV MCH MCHC RDW Plt Count MPV Immature Gran % (Auto) Neut % (Auto) Lymph % (Auto) [place] % (Auto) Eos % (Auto) Baso % (Auto) Lymph # (Auto) [place] # (Auto) Eos # (Auto) Baso # (Auto) Abs Immat Gran (auto) Absolute Neuts (auto) Absolute Nucleated RBC Nucleated RBC % (auto) Neutrophils % (Manual) Band Neutrophils % Lymphocytes % (Manual) Monocytes % (Manual) Eosinophils % (Manual) Basophils % (Manual) Metamyelocytes % Myelocytes % Abs Neuts (Manual) Lymphocytes # (Manual) Monocytes # (Manual) Eosinophils # (Manual) Basophils # (Manual) Metamyelocytes # Myelocytes # Platelet Estimate Plt Morphology Comment RBC Morphology VBG pH VBG pCO2 VBG pO2 VBG HCO3 VBG O2 Saturation VBG Base Excess Sodium Potassium Chloride Carbon Dioxide Anion Gap BUN Creatinine Estim Creat Clear Calc Estimated GFR POC Glucose 183 H Random Glucose Lactic Acid Calcium Phosphorus Magnesium Total Bilirubin AST ALT Alkaline Phosphatase Troponin I High Sens B-Natriuretic Peptide Total Protein Albumin Stool Calprotectin C. difficile Tox B Gene COVID-19 (IVON) Negative [facility] Com See Note Microbiology Microbiology Results: Microbiology 11/21/20 00:22 Sputum - Suctioned Gram Stain - Final 11/14/20 14:53 Blood - Venous Blood Culture - Final No growth after 5 days. 10/02/21 14:28 Blood - Venous Blood Culture - Final No growth after 5 days. 11/14/20 21:35 Peritoneal Fluid Gram Stain - Final 11/14/20 21:35 Peritoneal Fluid Routine Culture - Final 11/14/20 21:35 Peritoneal Fluid Anaerobic Culture - Final Bacteroides thetaiotaomicron Quality Stroke Does the patient have a stroke diagnosis?: No VTE Prior VTE?: No VTE Risk Level:: Surgical - high VTE Device Contraindication: N/A - Device Ordered VTE Drug Contraindication: N/A - Med Ordered Progress Note: A&P Assessment and plan (1) Ileus following gastrointestinal surgery: Status: Acute (2) Respiratory failure: Status: Acute (3) Metabolic acidosis: Status: Acute (4) Fluid overload: Status: Acute (5) Hypernatremia: Status: Acute (6) CRISTOFER (acute kidney injury): Status: Acute (7) Colon perforation: Status: Acute (8) Colonic ischemia: Status: Acute (9) Abdominal pain: Status: Acute (10) Megacolon: Status: Acute (11) Acute respiratory failure with hypoxia: Status: Acute (12) Hypertension: Status: Acute (13) COVID-19: Status: Acute (14) Abdominal hernia: Status: Acute (15) Morbid obesity with BMI of 50.0-59.9, adult: Status: Acute Assessment and Plan: So at this point again septic requiring pressors with complete re-culturing but upon focused examination for the sepsis and with a and already replete CVP at 10 he cannot get direct was it fluid because he is also an uric and dialysis dep endent but antibiotics and antifungals were enhanced and CT scan unfortunately does not point us in a particular direction C diff and other cultures are pending
--- NOTE | 2020-11-21 16:41 | PM.PNNEP ---
Subjective Subjective Date of Service: 11/21/20 Principal diagnosis: CRISTOFER Interval history: Seen on HD this afternoon . D/W HD RN/ ICU Attending Physical Exam Vital Signs: Vital Signs: Last Vital Signs Temp 101.5 F H 11/21/20 16:00 Pulse 95 11/21/20 16:00 Resp 23 H 11/21/20 16:00 BP 118/84 11/21/20 16:00 Pulse Ox 94 11/21/20 16:00 Oxygen Flow Rate 4 11/14/20 06:24 Body Mass Index 54.0 Const: Other: Intubated Neck: Neck: Yes no JVD Resp: Auscultation: diminished lung sounds Cardio: Rate: regular rate GI: Palpation (GI): Soft to palpation Neuro: Other: Sedated Objective Data Labs CBC & Chem 7: 11/21/20 04:29 11/21/20 04:27 Labs: Laboratory Results - last 24 hr 11/16/20 11/20/20 11/20/20 16:18 18:01 19:05 WBC RBC Hgb Hct MCV MCH MCHC RDW Plt Count MPV Immature Gran % (Auto) Neut % (Auto) Lymph % (Auto) [place] % (Auto) Eos % (Auto) Baso % (Auto) Lymph # (Auto) [place] # (Auto) Eos # (Auto) Baso # (Auto) Abs Immat Gran (auto) Absolute Neuts (auto) Absolute Nucleated RBC Nucleated RBC % (auto) Neutrophils % (Manual) Band Neutrophils % Lymphocytes % (Manual) Monocytes % (Manual) Eosinophils % (Manual) Basophils % (Manual) Metamyelocytes % Myelocytes % Abs Neuts (Manual) Lymphocytes # (Manual) Monocytes # (Manual) Eosinophils # (Manual) Basophils # (Manual) Metamyelocytes # Myelocytes # Platelet Estimate Plt Morphology Comment RBC Morphology VBG pH VBG pCO2 VBG pO2 VBG HCO3 VBG O2 Saturation VBG Base Excess Sodium 135 Potassium 3.7 Chloride 100 Carbon Dioxide 15 L Anion Gap 24 H BUN 50 H Creatinine 5.38 H* Estim Creat Clear Calc 30.1 Estimated GFR 11 POC Glucose 116 H Random Glucose 109 Lactic Acid Calcium 8.0 L Phosphorus Magnesium Total Bilirubin AST ALT Alkaline Phosphatase Troponin I High Sens B-Natriuretic Peptide Total Protein Albumin Stool Calprotectin 56 C. difficile Tox B Gene COVID-19 (IVON) COVID-19 Clin Com 11/20/20 11/20/20 11/20/20 21:00 21:00 21:34 WBC RBC Hgb Hct MCV MCH MCHC RDW Plt Count MPV Immature Gran % (Auto) Neut % (Auto) Lymph % (Auto) [place] % (Auto) Eos % (Auto) Baso % (Auto) Lymph # (Auto) [place] # (Auto) Eos # (Auto) Baso # (Auto) Abs Immat Gran (auto) Absolute Neuts (auto) Absolute Nucleated RBC Nucleated RBC % (auto) Neutrophils % (Manual) Band Neutrophils % Lymphocytes % (Manual) Monocytes % (Manual) Eosinophils % (Manual) Basophils % (Manual) Metamyelocytes % Myelocytes % Abs Neuts (Manual) Lymphocytes # (Manual) Monocytes # (Manual) Eosinophils # (Manual) Basophils # (Manual) Metamyelocytes # Myelocytes # Platelet Estimate Plt Morphology Comment RBC Morphology VBG pH 7.35 VBG pCO2 29 VBG pO2 43 VBG HCO3 16 L VBG O2 Saturation 67.0 VBG Base Excess -7.7 Sodium Potassium Chloride Carbon Dioxide Anion Gap BUN Creatinine Estim Creat Clear Calc Estimated GFR POC Glucose Random Glucose Lactic Acid 1.3 Calcium Phosphorus Magnesium Total Bilirubin AST ALT Alkaline Phosphatase Troponin I High Sens 27.7 D B-Natriuretic Peptide 101 H Total Protein Albumin Stool Calprotectin C. difficile Tox B Gene COVID-19 (IVON) COVID-19 Clin Com 11/20/20 11/21/20 11/21/20 23:54 04:27 04:27 WBC RBC Hgb Hct MCV MCH MCHC RDW Plt Count MPV Immature Gran % (Auto) Neut % (Auto) Lymph % (Auto) [place] % (Auto) Eos % (Auto) Baso % (Auto) Lymph # (Auto) [place] # (Auto) Eos # (Auto) Baso # (Auto) Abs Immat Gran (auto) Absolute Neuts (auto) Absolute Nucleated RBC Nucleated RBC % (auto) Neutrophils % (Manual) Band Neutrophils % Lymphocytes % (Manual) Monocytes % (Manual) Eosinophils % (Manual) Basophils % (Manual) Metamyelocytes % Myelocytes % Abs Neuts (Manual) Lymphocytes # (Manual) Monocytes # (Manual) Eosinophils # (Manual) Basophils # (Manual) Metamyelocytes # Myelocytes # Platelet Estimate Plt Morphology Comment RBC Morphology VBG pH VBG pCO2 VBG pO2 VBG HCO3 VBG O2 Saturation VBG Base Excess Sodium 132 L Potassium 4.3 Chloride 97 Carbon Dioxide 16 L Anion Gap 23 H BUN 72 H Creatinine 8.10 H* Estim Creat Clear Calc 22.8 Estimated GFR 7 POC Glucose 173 H Random Glucose 229 H D Lactic Acid 1.4 Calcium 7.6 L Phosphorus 6.7 H Magnesium 2.2 Total Bilirubin 1.1 H AST 103 H ALT 72 H Alkaline Phosphatase 90 Troponin I High Sens B-Natriuretic Peptide Total Protein 6.7 Albumin 3.0 L Stool Calprotectin C. difficile Tox B Gene COVID-19 (IVON) COVID-19 Clin Com 11/21/20 11/21/20 11/21/20 04:29 04:38 11:30 WBC 17.5 H RBC 4.51 L Hgb 12.4 L Hct 38.0 L MCV 84.3 MCH 27.5 MCHC 32.6 RDW 16.2 H Plt Count 124 L MPV 10.5 Immature Gran % (Auto) Cancelled Neut % (Auto) Cancelled Lymph % (Auto) Cancelled [place] % (Auto) Cancelled Eos % (Auto) Cancelled Baso % (Auto) Cancelled Lymph # (Auto) Cancelled [place] # (Auto) Cancelled Eos # (Auto) Cancelled Baso # (Auto) Cancelled Abs Immat Gran (auto) Cancelled Absolute Neuts (auto) Cancelled Absolute Nucleated RBC 0.200 H Nucleated RBC % (auto) 1.1 H Neutrophils % (Manual) 72 Band Neutrophils % 14 H Lymphocytes % (Manual) 7 L Monocytes % (Manual) 2 Eosinophils % (Manual) 1 Basophils % (Manual) 1 Metamyelocytes % 1 Myelocytes % 2 Abs Neuts (Manual) 15.1 H Lymphocytes # (Manual) 1.2 Monocytes # (Manual) 0.4 Eosinophils # (Manual) 0.2 Basophils # (Manual) 0.2 Metamyelocytes # 0.2 Myelocytes # 0.4 Platelet Estimate SLIGHTLY DECREASED Plt Morphology Comment NORMAL RBC Morphology NORMAL VBG pH 7.18 L* VBG pCO2 40 VBG pO2 43 VBG HCO3 15 L VBG O2 Saturation 62.0 VBG Base Excess -12.1 Sodium Potassium Chloride Carbon Dioxide Anion Gap BUN Creatinine Estim Creat Clear Calc Estimated GFR POC Glucose Random Glucose Lactic Acid Calcium Phosphorus Magnesium Total Bilirubin AST ALT Alkaline Phosphatase Troponin I High Sens B-Natriuretic Peptide Total Protein Albumin Stool Calprotectin C. difficile Tox B Gene NEGATIVE COVID-19 (IVON) COVID-19 Clin Com 11/21/20 11/21/20 12:01 Unknown WBC RBC Hgb Hct MCV MCH MCHC RDW Plt Count MPV Immature Gran % (Auto) Neut % (Auto) Lymph % (Auto) [place] % (Auto) Eos % (Auto) Baso % (Auto) Lymph # (Auto) [place] # (Auto) Eos # (Auto) Baso # (Auto) Abs Immat Gran (auto) Absolute Neuts (auto) Absolute Nucleated RBC Nucleated RBC % (auto) Neutrophils % (Manual) Band Neutrophils % Lymphocytes % (Manual) Monocytes % (Manual) Eosinophils % (Manual) Basophils % (Manual) Metamyelocytes % Myelocytes % Abs Neuts (Manual) Lymphocytes # (Manual) Monocytes # (Manual) Eosinophils # (Manual) Basophils # (Manual) Metamyelocytes # Myelocytes # Platelet Estimate Plt Morphology Comment RBC Morphology VBG pH VBG pCO2 VBG pO2 VBG HCO3 VBG O2 Saturation VBG Base Excess Sodium Potassium Chloride Carbon Dioxide Anion Gap BUN Creatinine Estim Creat Clear Calc Estimated GFR POC Glucose 183 H Random Glucose Lactic Acid Calcium Phosphorus Magnesium Total Bilirubin AST ALT Alkaline Phosphatase Troponin I High Sens B-Natriuretic Peptide Total Protein Albumin Stool Calprotectin C. difficile Tox B Gene COVID-19 (IVON) Negative COVID-19 Clin Com See Note Microbiology Microbiology Results: Microbiology 11/21/20 00:22 Sputum - Suctioned Gram Stain - Final 11/14/20 14:53 Blood - Venous Blood Culture - Final No growth after 5 days. 11/14/20 14:28 Blood - Venous Blood Culture - Final No growth after 5 days. 11/14/20 21:35 Peritoneal Fluid Gram Stain - Final 11/14/20 21:35 Peritoneal Fluid Routine Culture - Final 11/14/20 21:35 Peritoneal Fluid Anaerobic Culture - Final Bacteroides thetaiotaomicron Procedures Date of Service Date of Service: 11/21/20 Assessment & Plan Assessment and plan (1) CRISTOFER (acute kidney injury): Status: Acute Assessment and Plan: Anuric CRISTOFER due to ischemic acute tubular injury no signs of recovery yet, HD dependent normal baseline kidney function Seen on HD today optimize volume status on HD Concur with rest of current management Time Spent With Patient Time: Total time spent is greater than 50% in coordination of care (as documented) at patient's floor/unit and/or counseling patient: Progress Note: Quality Stroke Does the patient have a stroke diagnosis?: No
[2020-11-21 17:29] LABS: Glucose, Whole Blood 104 mg/dL (60-115)
[2020-11-21 18:29] LABS: OBS Int Ctl Valid YES; OBS1 POSITIVE (NEGATIVE)
[2020-11-21 18:41] LABS: VBG HCO3 17 mmol/L (22-26); VBG pCO2 40 mmHg; VBG pH 7.24 (7.32-7.43); VBG pO2 52 mmHg
[2020-11-21 18:45] LABS: Hematocrit 39.6 % (42-52); Hemoglobin 13.3 g/dl (14.0-18.0); Mean Corpuscular HGB Conc 33.6 g/dl (31.0-36.0); Mean Corpuscular Hemoglobin 27.7 pg (27.0-33.0); Mean Corpuscular Volume 82.5 fL (80-98); Mean Platelet Volume 9.8 fL (9.4-12.4); Red Cell Distribution Width 16.5 % (11.0-16.0); White Blood Count 9.6 X10*3/uL (4.8-10.8)
--- NOTE | 2020-11-21 19:00 | PC.NURSE ---
Addendum entered by Marguerite Montano RN 11/21/20 20:06: Per wound RN- barrier cream to perirectal area BID. She will reassess on Monday. Original Note: RECTAL TUBE REMOVED, LARGE CLEAR MUCOUS NOTED AROUND CORNELIO RECTAL AREA. RED AREA TO RECTUM NOTED, PICTURE OBTAINS, BARRIER CREAM APPLIED. PHOTOS IN CHART AND SENT TO WOUND RN BY ONCOMING RN. PINK FOAM APPLIED TO LEFT LATERAL THIGH TO SMALL SKIN TEAR, PICTURES OBTAINED. DIALYSIS REMOVED 1KG. TOLERATED WITH THE SUPPORT OF PRESSORS. FAMILY UPDATED BY THIS RN AND MD.
[2020-11-21 19:04] LABS: Anion Gap 25 (12-20); Blood Urea Nitrogen 39 mg/dL (9-16); Calcium 7.3 mg/dL (8.4-10.2); Carbon Dioxide 17 mmol/L (22-29); Chloride 97 mmol/L (96-108); Creatinine Clr Calc Pharmacy 27.1; Estimated Glomerular Filt Rate 11; Glucose Random 128 mg/dL (60-115); Potassium 3.5 mmol/L (3.3-5.1); Sodium 135 mmol/L (135-145)
[2020-11-21 19:08] LABS: NRBC Pct Auto 4.4 /100WBC (0.0-0.2); Platelet Count 67 X10*3/uL (160-400)
[2020-11-21 19:27] LABS: Band Neutrophils Percent 9 % (3-5); Lymphocytes Absolute Manual 1.3 X10*3/uL (0.6-4.8); Lymphocytes Percent Manual 14 % (20-40); Metamyelocytes Absolute 0.2 X10*3/uL; Metamyelocytes Percent 2 %; Monocytes Absolute Manual 0.2 X10*3/uL (0.0-1.2); Monocytes Percent Manual 2 % (2-11); Myelocytes Absolute 0.1 X10*/uL; Myelocytes Percent 1 %; Neutrophils Absolute Manual 7.8 X10*3/uL (2.2-7.9); Neutrophils Percent Manual 72 % (45-73); Tear Drop Cells 2+ (3-5) /OIF
[2020-11-21 19:29] LABS: RBC Morphology NORMAL
[2020-11-21] MEDS: Pantoprazole Sodium 40 MG/10 ML VIAL IVPUSH (19:30)
[2020-11-21] MEDS: vancomycin HCL 500 MG in 0.9 % Sodium Chloride 100 ML 110 MG IV (19:31)
[2020-11-21 20:01] LABS: Platelet Estimate DECREASED (NORMAL); Platelet Morphology Comment NORMAL
[2020-11-21 20:32] LABS: Venous Blood Gas Refer to POC result
--- NOTE | 2020-11-21 21:53 | W.PM.IDCN ---
History of Present Illness Data of Consult Service Date: 11/21/20 Requesting physician: Ashley Cruz Primary Care Provider: Ericka Buckley MD HPI Reason for consult: sepsis,perforated colon,post COVID He presents back to hospital with 10 diffuse abdominal pain and no nausea or vomiting. He didnt have diarrhea. He has been hospitalized 11/02 to 11/14 with COVID and received Dexamethasone as well as Remdesivir and left on oxygen,2l He was taken to OR and had ischemia right proximal transverse colon with perforation. I see Zosyn started on admission, but then off. He had Dexamethasone started on admission,but had full courses last admission. He has bacteroides theotaotaomicron bacteremia. Review of Systems Review of Systems: Yes unobtainable due to endotracheal tube PMFSH Past Medical History Medical History (Updated 11/21/20 @ 22:02 by Patricia Major MD) Abdominal hernia Bacteremia Hernia Right hip pain Functional capacity: independent ambulation Family History Family history: reviewed and not pertinent Social History Social History Household Members: None Housing: House Do you presently have visiting nurse or other home services: No Unable to assess alcohol history related to: Unknown Alcohol intake: never Patient Tobacco Use Status: Never used Tobacco Smoked in Last 30 Days: No e-Cigarette/Vaping Use: Never Used Use of substances other than those prescribed or required for medical reasons: Unknown Currently Displaying Signs/Symptoms of Drug Intoxication Withdrawal: No Spiritual Healthcare Practices: unknown Advance Directives: No Advance Directives Information Provided: Yes Do you have thoughts of harming others: None Do you have a plan to hurt others: No Plan Poor oral hygiene: No service: No Current occupational status: disabled Meds Allergies Allergy/AdvReac Type Severity Reaction Status Date / Time No Known Allergies Allergy Verified 07/16/20 15:59 Active Medications: Current Medications Chlorhexidine Gluconate (Chlorhexidine Gluc Oral Rinse 15 Ml Mouthwash) 15 ml BUCCAL TID [facility] Last Admin: 11/21/20 19:31 Dose: 15 ml Documented by: Dexamethasone Sodium Phosphate (Dexamethasone Sod Phosphate 4 Mg/Ml Vial) 6 mg IVPUSH DAILY [facility] Last Admin: 11/21/20 07:19 Dose: 6 mg Documented by: Propofol (Diprivan) 1,000 mg in 100 mls @ 0 mls/hr IVCONT .Q0M HATTIE; Protocol Last Titration: 11/21/20 20:47 Dose: 35 mcg/kg/min, 40.01 mls/hr Documented by: Norepinephrine Bitartrate (Levophed) 8 mg in 250 mls @ 0 mls/hr IVCONT .Q0M HATTIE; Protocol Last Titration: 11/21/20 21:52 Dose: 0.35 mcg/kg/min, 125.02 mls/hr Documented by: Metronidazole (Flagyl) 500 mg in 100 mls @ 100 mls/hr IV Q8H HATTIE Last Infusion: 11/21/20 16:04 Dose: Infused Documented by: Vasopressin 20 unit/ Sodium (Chloride) 101 mls @ 12.12 mls/hr IVCONT .Q8H20M HATTIE Last Admin: 11/21/20 19:31 Dose: 0.04 unit/min, 12.12 mls/hr Documented by: Insulin Human Lispro (Insulin Lispro 100 Unit/Ml 3 Ml Vial) 0 unit SUBCUT Q6H HATTIE; Protocol Last Admin: 11/21/20 17:26 Dose: Not Given Documented by: Pantoprazole Sodium (Pantoprazole Sodium 40 Mg/10 Ml Vial) 40 mg IVPUSH BID@0630,1630 [facility] Last Admin: 11/21/20 19:30 Dose: 40 mg Documented by: Rifaximin (Rifaximin 550 Mg Tablet) 550 mg PO TID [facility] Last Admin: 11/21/20 19:32 Dose: 550 mg Documented by: Home Medications Medication Instructions Recorded Confirmed Last Taken Type cyclobenzaprine 5 mg tablet 5 mg PO Q8H PRN 05/20/20 11/02/20 05/19/20 History gabapentin 300 mg capsule 300 mg PO TID PRN 05/20/20 11/14/20 05/19/20 History Physical Exam Vital Signs: Vital Signs: Last Vital Signs Temp 101.5 F H 11/21/20 20:55 Pulse 105 H 11/21/20 20:55 Resp 21 H 11/21/20 20:55 BP 113/58 L 11/21/20 20:55 Pulse Ox 88 L 11/21/20 20:55 Oxygen Flow Rate 4 11/14/20 06:24 Body Mass Index 54.0 Const: General: cooperative HENMT: Head: Yes normal to inspection Mouth: Normal oral and palatal mucosa present Eyes: General: appearance normal, both eyes and all related structures Resp: Effort & Inspection: normal respiratory effort Cardio: Rate: regular rate Rhythm: regular rhythm GI: Other: soft,nontender,ileostomy and colostomy with drains Skin: General skin exam: no rashes or lesions noted Results Labs CBC & Chem 7: 11/21/20 18:34 11/21/20 18:34 Labs: Short CBC 11/21/20 11/21/20 Range/Units 04:29 18:34 WBC 17.5 H 9.6 (4.8-10.8) X10*3/uL Hgb 12.4 L 13.3 L (14.0-18.0) g/dl Hct 38.0 L 39.6 L (42-52) % Plt Count 124 L 67 L D (160-400) X10*3/uL BMP 11/21/20 11/21/20 04:27 18:34 Sodium 132 L 135 Potassium 4.3 3.5 Chloride 97 97 Carbon Dioxide 16 L 17 L BUN 72 H 39 H Creatinine 8.10 H* 5.40 H* Calcium 7.6 L 7.3 L Liver Function 11/21/20 Range/Units 04:27 Total Bilirubin 1.1 H (0.0-1.0) mg/dL AST 103 H (5-37) U/L ALT 72 H (0-40) U/L Alkaline Phosphatase 90 (39-117) U/L Albumin 3.0 L (3.5-5.0) g/dL Microbiology Microbiology Results: Microbiology 11/21/20 00:22 Sputum - Suctioned Gram Stain - Final 11/14/20 14:53 Blood - Venous Blood Culture - Final No growth after 5 days. 11/14/20 14:28 Blood - Venous Blood Culture - Final No growth after 5 days. 11/14/20 21:35 Peritoneal Fluid Gram Stain - Final 11/14/20 21:35 Peritoneal Fluid Routine Culture - Final 11/14/20 21:35 Peritoneal Fluid Anaerobic Culture - Final Bacteroides thetaiotaomicron Assessment and Plan (1) Ileus following gastrointestinal surgery: Status: Acute (2) Respiratory failure: Status: Acute He is vented and has possible sepsis. Causes include gram negative as well as anerobes and possible fungemia Suggest Would continue Merem as indicated for peritonitis concern over bowel perf and resistant organisms. Would agree with Micafungin and Vancomycin until cultures back. Would address steroids as continuing steroids can impair immune function with sepsis unless feel there is adrenal insufficiency or respiratory complaints causing steroids needs (will defer to vp legal affairs) Steroids are not indicated for COVID past ten days and nares may remain positive for some time without being active. (3) Colon perforation: Status: Acute (4) Colonic ischemia: Status: Acute
[2020-11-21 23:48] LABS: Glucose, Whole Blood 118 mg/dL (60-115)
[2020-11-22] VITALS (39 sets, daily range): BP systolic 76–142; BP diastolic 13–80; PULSE 87–106; RESP 15–26; TEMP 37.5–40.5; O2SAT 81–95
[2020-11-22] MEDS: propofoL 1,000 MG/100 ML VIAL 34.29 MG IVCONT ×7 (02:52→22:10)
[2020-11-22 05:13] LABS: VBG Base Excess -13.2 mmol/L; VBG HCO3 14 mmol/L (22-26); VBG pCO2 38 mmHg; VBG pH 7.17 (7.32-7.43); VBG pO2 54 mmHg
[2020-11-22 05:15] LABS: Basophils Percent Auto 0.2 % (0-2); MANUAL DIFF FLAG SCAN; PLT CLUMP 1; Red Cell Distribution Width 16.8 % (11.0-16.0); SCAN SMEAR FLAG 1
[2020-11-22 05:17] LABS: Hematocrit 37.4 % (42-52); Hemoglobin 12.6 g/dl (14.0-18.0); Imm Gran Abs Auto 0.22 X10*3/uL (0.00-0.03); Imm Gran Pct Auto 2.2 % (0.0-0.4); Lymphocytes Absolute Auto 0.6 X10*3/uL (1.2-4.9); Mean Corpuscular HGB Conc 33.7 g/dl (31.0-36.0); Mean Corpuscular Volume 83.1 fL (80-98); Monocytes Absolute Auto 0.3 X10*3/uL (0.1-1.2); Monocytes Percent Auto 3.2 % (2-11); Neutrophils Percent Auto 88.4 % (45-73); White Blood Count 10.1 X10*3/uL (4.8-10.8)
[2020-11-22 05:20] LABS: NRBC Pct Auto 2.8 /100WBC (0.0-0.2); Platelet Count 53 X10*3/uL (160-400)
[2020-11-22 05:29] LABS: Lactic Acid 1.3 mmol/L (0.5-2.0)
[2020-11-22 05:46] LABS: INTERNATIONAL NORM RATIO 1.2 (0.9-1.1); Prothrombin Time 13.1 SEC (9.9-13.0)
[2020-11-22 05:55] LABS: SLIDE REVIEW VERIFIED
[2020-11-22] MEDS: propofoL 1,000 MG/100 ML VIAL 28.58 MG IVCONT (06:10)
[2020-11-22] MEDS: Pantoprazole Sodium 40 MG/10 ML VIAL IVPUSH ×2 (06:10→16:11)
[2020-11-22 06:41] LABS: Venous Blood Gas Refer to POC result
[2020-11-22 06:42] LABS: Alanine Aminotransferase 630 U/L (0-40); Albumin Level 2.7 g/dL (3.5-5.0); Alkaline Phosphatase 72 U/L (39-117); Anion Gap 27 (12-20); Aspartate Amino Transferase 1129 U/L (5-37); Blood Urea Nitrogen 55 mg/dL (9-16); Calcium 6.8 mg/dL (8.4-10.2); Carbon Dioxide 12 mmol/L (22-29); Chloride 98 mmol/L (96-108); Creatinine Clr Calc Pharmacy 19.5; Estimated Glomerular Filt Rate 8; Glucose Random 126 mg/dL (60-115); Magnesium 2.1 mg/dL (1.6-2.6); Phosphorus 9.5 mg/dL (2.7-4.5); Potassium 4.2 mmol/L (3.3-5.1); Sodium 133 mmol/L (135-145); Total Protein 6.3 g/dL (6.5-8.0)
--- NOTE | 2020-11-22 06:55 | ECG_ITS ---
Test Reason : ST CHANGES Blood Pressure : / mmHG Vent. Rate : 113 BPM Atrial Rate : 113 BPM P-R Int : 142 ms QRS Dur : 096 ms QT Int : 370 ms P-R-T Axes : -27 081 008 degrees QTc Int : 507 [address] depression, probably normal Nonspecific ST abnormality When compared with ECG of 02-NOV-2020 10:00, Premature ventricular complexes are no longer Present T wave amplitude has increased in Lateral leads Referred By: Richard Hartmann Electronically Signed By:BHARGAVI MISTRY MD
--- NOTE | 2020-11-22 07:01 | ECG_ITS ---
Test Reason : POST ANESTH Blood Pressure : / mmHG Vent. Rate : 095 BPM Atrial Rate : 095 BPM P-R Int : 166 ms QRS Dur : 098 ms QT Int : 290 ms P-R-T Axes : 024 046 047 degrees QTc Int : 364 ms Sinus rhythm with Premature atrial complexes Nonspecific T wave abnormality Abnormal ECG When compared with ECG of 20-NOV-2020 19:55, Premature atrial complexes are now Present ST no longer depressed in Anterior leads Nonspecific T wave abnormality now evident in Anterolateral leads Referred By: Scott Monroe Electronically Signed By:BHARGAVI MISTRY MD
[2020-11-22] MEDS: metroNIDAZOLE/NS 500 MG/100 ML PIGGYBACK 100 MG IV ×2 (08:50→16:11)
[2020-11-22] MEDS: dexAMETHasone sod phosphate 4 MG/ML VIAL 6 MG IVPUSH (08:51)
[2020-11-22] MEDS: rifAXIMin 550 MG TABLET PO ×2 (08:51→16:11)
[2020-11-22] MEDS: Chlorhexidine Gluc Oral Rinse 15 ML MOUTHWASH BUCCAL ×2 (08:51→16:11)
[2020-11-22 09:21] LABS: Vancomycin Random 11.1 mcg/mL (15-20)
--- NOTE | 2020-11-22 09:50 | PM.PNGS ---
Subjective Subjective Date of Service: 11/23/20 Interval history: Patient required increased pressors starting yesterday, WBC increased. CT Chest, abdomen and pelvis reviewed. No abdominal abscess/fluid collections noted. ? fungemia, started on antifungal. WBC improved today. Physical Exam Vital Signs: Vital Signs: Last Vital Signs Temp 100.0 F 11/22/20 09:00 Pulse 92 11/22/20 09:00 Resp 18 11/22/20 09:00 BP 89/53 L 11/22/20 09:00 Pulse Ox 90 L 11/22/20 09:00 Oxygen Flow Rate 4 11/14/20 06:24 Body Mass Index 54.0 Const: Other: sedated on vent GI: Other: ostomy patent, functioning, no organomegally Procedures Date of Service Date of Service: 11/22/20 Progress Note: A&P Assessment and plan (1) Colon perforation: Status: Acute (2) Colonic ischemia: Status: Acute Assessment and Plan: Status post extended right colon resection, ileostomy, mucous fistula Sepsis, pressors restarted Antifungals started and WBC improved. He remains vent depended CT abd and pelvis reviewed. No abscess seen to my review. Stomach dilated; imprved with adjustment of NGT Daily dialysis treatments Ileostomy functioning Fall Risk Details Current Medications: Current Medications Chlorhexidine Gluconate (Chlorhexidine Gluc Oral Rinse 15 Ml Mouthwash) 15 ml BUCCAL TID [facility] Last Admin: 11/22/20 08:51 Dose: 15 ml Documented by: Dexamethasone Sodium Phosphate (Dexamethasone Sod Phosphate 4 Mg/Ml Vial) 6 mg IVPUSH DAILY [facility] Last Admin: 11/22/20 08:51 Dose: 6 mg Documented by: Propofol (Diprivan) 1,000 mg in 100 mls @ 0 mls/hr IVCONT .Q0M [facility]; Protocol Last Admin: 11/22/20 09:35 Dose: 30 mcg/kg/min, 34.29 mls/hr Documented by: Norepinephrine Bitartrate (Levophed) 8 mg in 250 mls @ 0 mls/hr IVCONT .Q0M [facility]; Protocol Last Admin: 11/22/20 08:41 Dose: 0.18 mcg/kg/min, 64.3 mls/hr Documented by: Metronidazole (Flagyl) 500 mg in 100 mls @ 100 mls/hr IV Q8H [facility] Last Admin: 11/22/20 08:50 Dose: 100 mls/hr Documented by: Vasopressin 20 unit/ Sodium (Chloride) 101 mls @ 12.12 mls/hr IVCONT .Q8H20M [facility] Last Admin: 11/22/20 04:37 Dose: 0.04 unit/min, 12.12 mls/hr Documented by: Voriconazole 600 mg/ Sodium (Chloride) 250 mls @ 125 mls/hr IV Q12H [facility] Stop: 11/22/20 23:59 Insulin Human Lispro (Insulin Lispro 100 Unit/Ml 3 Ml Vial) 0 unit SUBCUT Q6H [facility]; Protocol Last Admin: 11/22/20 06:30 Dose: Not Given Documented by: Pantoprazole Sodium (Pantoprazole Sodium 40 Mg/10 Ml Vial) 40 mg IVPUSH BID@0630,1630 [facility] Last Admin: 11/22/20 06:10 Dose: 40 mg Documented by: Rifaximin (Rifaximin 550 Mg Tablet) 550 mg PO TID [facility] Last Admin: 11/22/20 08:51 Dose: 550 mg Documented by: Time Spent With Patient Time: Total time spent is greater than 50% in coordination of care (as documented) at patient's floor/unit and/or counseling patient: Time with patient: less than 15 minutes Quality Stroke Does the patient have a stroke diagnosis?: No VTE Prior VTE?: No VTE Risk Level:: Surgical - high VTE Device Contraindication: N/A - Device Ordered VTE Drug Contraindication: N/A - Med Ordered Results Laboratory Findings CBC and BMP: 11/22/20 04:55 11/23/20 01:15 ABG, PT/INR, D-dimer: PT/INR, D-dimer PT 13.1 SEC (9.9-13.0) H 11/22/20 04:55 INR 1.2 (0.9-1.1) H 11/22/20 04:55 Abnormal lab findings: Abnormal Labs 11/14/20 11/14/20 11/14/20 07:14 07:14 11:29 WBC 13.7 H RBC Hgb Hct RDW Plt Count Immature Gran % (Auto) 0.7 H Neut % (Auto) 84.2 H Lymph % (Auto) 4.3 L Lymph # (Auto) 0.6 L [place] # (Auto) 1.5 H Abs Immat Gran (auto) 0.09 H Absolute Neuts (auto) 11.6 H Absolute Nucleated RBC Nucleated RBC % (auto) Neutrophils % (Manual) Band Neutrophils % Lymphocytes % (Manual) Monocytes % (Manual) Abs Neuts (Manual) Lymphocytes # (Manual) PT 14.1 H INR 1.2 H VBG pH VBG HCO3 Sodium Chloride Carbon Dioxide Anion Gap BUN 25 H Creatinine POC Glucose Random Glucose Fasting Glucose Lactic Acid Calcium Phosphorus Magnesium Total Bilirubin 1.3 H Direct Bilirubin AST ALT 58 H B-Natriuretic Peptide Total Protein 6.2 L Albumin 3.1 L D Urine Protein Urine Blood U Random Total Protein Random Vancomycin 11/14/20 11/14/20 11/14/20 17:39 17:39 17:39 WBC RBC 6.00 H Hgb Hct RDW Plt Count Immature Gran % (Auto) 0.6 H Neut % (Auto) 86.5 H Lymph % (Auto) 4.7 L Lymph # (Auto) 0.5 L [place] # (Auto) Abs Immat Gran (auto) 0.06 H Absolute Neuts (auto) 8.7 H Absolute Nucleated RBC Nucleated RBC % (auto) Neutrophils % (Manual) Band Neutrophils % Lymphocytes % (Manual) Monocytes % (Manual) Abs Neuts (Manual) Lymphocytes # (Manual) PT INR VBG pH VBG HCO3 Sodium Chloride Carbon Dioxide Anion Gap BUN 30 H Creatinine 1.59 H POC Glucose Random Glucose Fasting Glucose 159 H Lactic Acid 2.9 H* Calcium Phosphorus Magnesium Total Bilirubin Direct Bilirubin AST ALT B-Natriuretic Peptide Total Protein Albumin Urine Protein Urine Blood U Random Total Protein Random Vancomycin 11/15/20 11/15/20 11/15/20 04:00 04:00 04:12 WBC RBC Hgb Hct RDW Plt Count Immature Gran % (Auto) Neut % (Auto) Lymph % (Auto) Lymph # (Auto) [place] # (Auto) Abs Immat Gran (auto) Absolute Neuts (auto) Absolute Nucleated RBC Nucleated RBC % (auto) Neutrophils % (Manual) Band Neutrophils % 24 H Lymphocytes % (Manual) 5 L Monocytes % (Manual) Abs Neuts (Manual) 9.8 H Lymphocytes # (Manual) 0.5 L PT INR VBG pH 7.26 L VBG HCO3 27 H Sodium 146 H Chloride 110 H Carbon Dioxide Anion Gap BUN 39 H Creatinine 2.61 H POC Glucose Random Glucose Fasting Glucose 140 H Lactic Acid Calcium 6.9 L D Phosphorus 8.0 H Magnesium Total Bilirubin 2.3 H Direct Bilirubin 2.0 H AST 42 H ALT 47 H B-Natriuretic Peptide Total Protein 4.7 L D Albumin 2.2 L D Urine Protein Urine Blood U Random Total Protein Random Vancomycin 11/15/20 11/15/20 11/15/20 07:24 11:27 11:27 WBC RBC Hgb Hct RDW Plt Count Immature Gran % (Auto) Neut % (Auto) Lymph % (Auto) Lymph # (Auto) [place] # (Auto) Abs Immat Gran (auto) Absolute Neuts (auto) Absolute Nucleated RBC Nucleated RBC % (auto) Neutrophils % (Manual) Band Neutrophils % Lymphocytes % (Manual) Monocytes % (Manual) Abs Neuts (Manual) Lymphocytes # (Manual) PT INR VBG pH 7.31 L VBG HCO3 Sodium Chloride Carbon Dioxide 20 L Anion Gap 21 H BUN 44 H Creatinine 3.58 H POC Glucose Random Glucose 248 H D Fasting Glucose Lactic Acid Calcium 6.8 L Phosphorus Magnesium Total Bilirubin Direct Bilirubin AST ALT B-Natriuretic Peptide Total Protein Albumin Urine Protein 1+ H Urine Blood 1+ H U Random Total Protein Random Vancomycin 11/15/20 11/15/20 11/15/20 12:26 16:59 23:56 WBC RBC Hgb Hct RDW Plt Count Immature Gran % (Auto) Neut % (Auto) Lymph % (Auto) Lymph # (Auto) [place] # (Auto) Abs Immat Gran (auto) Absolute Neuts (auto) Absolute Nucleated RBC Nucleated RBC % (auto) Neutrophils % (Manual) Band Neutrophils % Lymphocytes % (Manual) Monocytes % (Manual) Abs Neuts (Manual) Lymphocytes # (Manual) PT INR VBG pH VBG HCO3 Sodium Chloride Carbon Dioxide Anion Gap BUN Creatinine POC Glucose 196 H 230 H Random Glucose Fasting Glucose Lactic Acid Calcium Phosphorus Magnesium Total Bilirubin Direct Bilirubin AST ALT B-Natriuretic Peptide Total Protein Albumin Urine Protein Urine Blood U Random Total Protein 122 H Random Vancomycin 11/16/20 11/16/20 11/16/20 05:15 05:15 05:39 WBC RBC 3.89 L D Hgb 10.6 L D Hct 33.4 L D RDW Plt Count 153 L D Immature Gran % (Auto) Neut % (Auto) Lymph % (Auto) Lymph # (Auto) [place] # (Auto) Abs Immat Gran (auto) Absolute Neuts (auto) Absolute Nucleated RBC Nucleated RBC % (auto) Neutrophils % (Manual) Band Neutrophils % 31 H Lymphocytes % (Manual) 6 L Monocytes % (Manual) 1 L Abs Neuts (Manual) 9.2 H Lymphocytes # (Manual) PT INR VBG pH VBG HCO3 Sodium 147 H Chloride Carbon Dioxide Anion Gap BUN 58 H Creatinine 5.98 H* POC Glucose 228 H Random Glucose 255 H Fasting Glucose Lactic Acid Calcium 6.5 L Phosphorus 6.7 H Magnesium Total Bilirubin 2.9 H Direct Bilirubin AST 115 H ALT 53 H B-Natriuretic Peptide Total Protein 4.8 L Albumin 3.0 L D Urine Protein Urine Blood U Random Total Protein Random Vancomycin 11/16/20 11/16/20 11/16/20 12:12 18:17 20:32 WBC RBC Hgb Hct RDW Plt Count Immature Gran % (Auto) Neut % (Auto) Lymph % (Auto) Lymph # (Auto) [place] # (Auto) Abs Immat Gran (auto) Absolute Neuts (auto) Absolute Nucleated RBC Nucleated RBC % (auto) Neutrophils % (Manual) Band Neutrophils % Lymphocytes % (Manual) Monocytes % (Manual) Abs Neuts (Manual) Lymphocytes # (Manual) PT INR VBG pH VBG HCO3 Sodium 146 H Chloride Carbon Dioxide Anion Gap 22 H BUN 50 H Creatinine 6.22 H* POC Glucose 165 H 116 H Random Glucose 142 H D Fasting Glucose Lactic Acid Calcium 7.1 L D Phosphorus Magnesium Total Bilirubin Direct Bilirubin AST ALT B-Natriuretic Peptide Total Protein Albumin Urine Protein Urine Blood U Random Total Protein Random Vancomycin 11/16/20 11/17/20 11/17/20 23:35 05:10 05:10 WBC RBC 3.77 L Hgb 10.3 L Hct 31.5 L RDW Plt Count 128 L Immature Gran % (Auto) Neut % (Auto) Lymph % (Auto) Lymph # (Auto) [place] # (Auto) Abs Immat Gran (auto) Absolute Neuts (auto) Absolute Nucleated RBC 0.020 H Nucleated RBC % (auto) Neutrophils % (Manual) 83 H Band Neutrophils % 12 H Lymphocytes % (Manual) 1 L Monocytes % (Manual) Abs Neuts (Manual) 9.0 H Lymphocytes # (Manual) 0.1 L PT INR VBG pH VBG HCO3 Sodium Chloride Carbon Dioxide 20 L Anion Gap 23 H BUN 63 H Creatinine 7.52 H* POC Glucose 138 H Random Glucose 139 H Fasting Glucose Lactic Acid Calcium 6.9 L Phosphorus 6.9 H Magnesium Total Bilirubin 3.1 H Direct Bilirubin AST 113 H ALT 64 H B-Natriuretic Peptide Total Protein 5.1 L Albumin 2.9 L Urine Protein Urine Blood U Random Total Protein Random Vancomycin 11/17/20 11/17/20 11/17/20 05:12 05:45 11:36 WBC RBC Hgb Hct RDW Plt Count Immature Gran % (Auto) Neut % (Auto) Lymph % (Auto) Lymph # (Auto) [place] # (Auto) Abs Immat Gran (auto) Absolute Neuts (auto) Absolute Nucleated RBC Nucleated RBC % (auto) Neutrophils % (Manual) Band Neutrophils % Lymphocytes % (Manual) Monocytes % (Manual) Abs Neuts (Manual) Lymphocytes # (Manual) PT INR VBG pH VBG HCO3 20 L Sodium Chloride Carbon Dioxide Anion Gap BUN Creatinine POC Glucose 134 H 140 H Random Glucose Fasting Glucose Lactic Acid Calcium Phosphorus Magnesium Total Bilirubin Direct Bilirubin AST ALT B-Natriuretic Peptide Total Protein Albumin Urine Protein Urine Blood U Random Total Protein Random Vancomycin 11/17/20 11/17/20 11/18/20 18:29 23:14 05:17 WBC RBC Hgb Hct RDW Plt Count Immature Gran % (Auto) Neut % (Auto) Lymph % (Auto) Lymph # (Auto) [place] # (Auto) Abs Immat Gran (auto) Absolute Neuts (auto) Absolute Nucleated RBC Nucleated RBC % (auto) Neutrophils % (Manual) Band Neutrophils % Lymphocytes % (Manual) Monocytes % (Manual) Abs Neuts (Manual) Lymphocytes # (Manual) PT INR VBG pH VBG HCO3 Sodium Chloride Carbon Dioxide Anion Gap BUN Creatinine POC Glucose 147 H 140 H 137 H Random Glucose Fasting Glucose Lactic Acid Calcium Phosphorus Magnesium Total Bilirubin Direct Bilirubin AST ALT B-Natriuretic Peptide Total Protein Albumin Urine Protein Urine Blood U Random Total Protein Random Vancomycin 11/18/20 11/18/20 11/18/20 05:23 05:23 05:37 WBC RBC 3.76 L Hgb 10.2 L Hct 31.2 L RDW Plt Count 128 L Immature Gran % (Auto) 1.1 H Neut % (Auto) 88.3 H Lymph % (Auto) 2.6 L Lymph # (Auto) 0.2 L [place] # (Auto) Abs Immat Gran (auto) 0.10 H Absolute Neuts (auto) Absolute Nucleated RBC 0.020 H Nucleated RBC % (auto) Neutrophils % (Manual) Band Neutrophils % Lymphocytes % (Manual) Monocytes % (Manual) Abs Neuts (Manual) Lymphocytes # (Manual) PT INR VBG pH 7.31 L VBG HCO3 17 L Sodium Chloride Carbon Dioxide 19 L Anion Gap 25 H BUN 78 H Creatinine 8.05 H* POC Glucose Random Glucose 147 H Fasting Glucose Lactic Acid Calcium 7.4 L D Phosphorus 9.6 H Magnesium 3.0 H Total Bilirubin 2.1 H Direct Bilirubin AST 96 H ALT 66 H B-Natriuretic Peptide Total Protein 5.7 L Albumin 3.0 L Urine Protein Urine Blood U Random Total Protein Random Vancomycin 11/18/20 11/18/20 11/18/20 11:47 18:01 23:24 WBC RBC Hgb Hct RDW Plt Count Immature Gran % (Auto) Neut % (Auto) Lymph % (Auto) Lymph # (Auto) [place] # (Auto) Abs Immat Gran (auto) Absolute Neuts (auto) Absolute Nucleated RBC Nucleated RBC % (auto) Neutrophils % (Manual) Band Neutrophils % Lymphocytes % (Manual) Monocytes % (Manual) Abs Neuts (Manual) Lymphocytes # (Manual) PT INR VBG pH VBG HCO3 Sodium Chloride Carbon Dioxide Anion Gap BUN Creatinine POC Glucose 153 H 140 H 131 H Random Glucose Fasting Glucose Lactic Acid Calcium Phosphorus Magnesium Total Bilirubin Direct Bilirubin AST ALT B-Natriuretic Peptide Total Protein Albumin Urine Protein Urine Blood U Random Total Protein Random Vancomycin 11/19/20 11/19/20 11/19/20 05:32 05:32 05:34 WBC RBC 3.98 L Hgb 10.9 L Hct 33.0 L RDW 16.1 H Plt Count 129 L Immature Gran % (Auto) 2.5 H Neut % (Auto) 83.9 H Lymph % (Auto) 5.4 L Lymph # (Auto) 0.4 L [place] # (Auto) Abs Immat Gran (auto) 0.19 H Absolute Neuts (auto) Absolute Nucleated RBC 0.020 H Nucleated RBC % (auto) 0.3 H Neutrophils % (Manual) Band Neutrophils % Lymphocytes % (Manual) Monocytes % (Manual) Abs Neuts (Manual) Lymphocytes # (Manual) PT INR VBG pH 7.29 L VBG HCO3 18 L Sodium Chloride Carbon Dioxide 18 L Anion Gap 24 H BUN 75 H Creatinine 7.19 H* POC Glucose Random Glucose 130 H Fasting Glucose Lactic Acid Calcium 7.8 L Phosphorus 8.9 H Magnesium 2.8 H Total Bilirubin 1.4 H Direct Bilirubin AST 69 H ALT 64 H B-Natriuretic Peptide Total Protein 6.3 L Albumin 3.1 L Urine Protein Urine Blood U Random Total Protein Random Vancomycin 11/19/20 11/19/20 11/20/20 12:00 19:50 05:10 WBC RBC 4.24 L Hgb 11.5 L Hct 35.2 L RDW 16.3 H Plt Count 136 L Immature Gran % (Auto) Neut % (Auto) Lymph % (Auto) Lymph # (Auto) [place] # (Auto) Abs Immat Gran (auto) Absolute Neuts (auto) Absolute Nucleated RBC 0.020 H Nucleated RBC % (auto) 0.3 H Neutrophils % (Manual) 81 H Band Neutrophils % 2 L Lymphocytes % (Manual) 10 L Monocytes % (Manual) Abs Neuts (Manual) Lymphocytes # (Manual) PT INR VBG pH VBG HCO3 Sodium Chloride Carbon Dioxide 18 L Anion Gap 24 H BUN 58 H Creatinine 5.55 H* POC Glucose 156 H Random Glucose Fasting Glucose Lactic Acid Calcium 8.1 L Phosphorus Magnesium Total Bilirubin Direct Bilirubin AST ALT B-Natriuretic Peptide Total Protein Albumin Urine Protein Urine Blood U Random Total Protein Random Vancomycin 11/20/20 11/20/20 11/20/20 05:10 05:11 11:54 WBC RBC Hgb Hct RDW Plt Count Immature Gran % (Auto) Neut % (Auto) Lymph % (Auto) Lymph # (Auto) [place] # (Auto) Abs Immat Gran (auto) Absolute Neuts (auto) Absolute Nucleated RBC Nucleated RBC % (auto) Neutrophils % (Manual) Band Neutrophils % Lymphocytes % (Manual) Monocytes % (Manual) Abs Neuts (Manual) Lymphocytes # (Manual) PT INR VBG pH 7.30 L VBG HCO3 16 L Sodium Chloride Carbon Dioxide 17 L Anion Gap 25 H BUN 75 H Creatinine 6.79 H* POC Glucose 133 H Random Glucose Fasting Glucose Lactic Acid Calcium 8.2 L Phosphorus 8.4 H Magnesium Total Bilirubin 1.2 H Direct Bilirubin AST 57 H ALT 60 H B-Natriuretic Peptide Total Protein Albumin 3.2 L Urine Protein Urine Blood U Random Total Protein Random Vancomycin 11/20/20 11/20/20 11/20/20 18:01 19:05 21:00 WBC RBC Hgb Hct RDW Plt Count Immature Gran % (Auto) Neut % (Auto) Lymph % (Auto) Lymph # (Auto) [place] # (Auto) Abs Immat Gran (auto) Absolute Neuts (auto) Absolute Nucleated RBC Nucleated RBC % (auto) Neutrophils % (Manual) Band Neutrophils % Lymphocytes % (Manual) Monocytes % (Manual) Abs Neuts (Manual) Lymphocytes # (Manual) PT INR VBG pH VBG HCO3 Sodium Chloride Carbon Dioxide 15 L Anion Gap 24 H BUN 50 H Creatinine 5.38 H* POC Glucose 116 H Random Glucose Fasting Glucose Lactic Acid Calcium 8.0 L Phosphorus Magnesium Total Bilirubin Direct Bilirubin AST ALT B-Natriuretic Peptide 101 H Total Protein Albumin Urine Protein Urine Blood U Random Total Protein Random Vancomycin 11/20/20 11/20/20 11/21/20 21:34 23:54 04:27 WBC RBC Hgb Hct RDW Plt Count Immature Gran % (Auto) Neut % (Auto) Lymph % (Auto) Lymph # (Auto) [place] # (Auto) Abs Immat Gran (auto) Absolute Neuts (auto) Absolute Nucleated RBC Nucleated RBC % (auto) Neutrophils % (Manual) Band Neutrophils % Lymphocytes % (Manual) Monocytes % (Manual) Abs Neuts (Manual) Lymphocytes # (Manual) PT INR VBG pH VBG HCO3 16 L Sodium 132 L Chloride Carbon Dioxide 16 L Anion Gap 23 H BUN 72 H Creatinine 8.10 H* POC Glucose 173 H Random Glucose 229 H D Fasting Glucose Lactic Acid Calcium 7.6 L Phosphorus 6.7 H Magnesium Total Bilirubin 1.1 H Direct Bilirubin AST 103 H ALT 72 H B-Natriuretic Peptide Total Protein Albumin 3.0 L Urine Protein Urine Blood U Random Total Protein Random Vancomycin 11/21/20 11/21/20 11/21/20 04:29 04:38 12:01 WBC 17.5 H RBC 4.51 L Hgb 12.4 L Hct 38.0 L RDW 16.2 H Plt Count 124 L Immature Gran % (Auto) Neut % (Auto) Lymph % (Auto) Lymph # (Auto) [place] # (Auto) Abs Immat Gran (auto) Absolute Neuts (auto) Absolute Nucleated RBC 0.200 H Nucleated RBC % (auto) 1.1 H Neutrophils % (Manual) Band Neutrophils % 14 H Lymphocytes % (Manual) 7 L Monocytes % (Manual) Abs Neuts (Manual) 15.1 H Lymphocytes # (Manual) PT INR VBG pH 7.18 L* VBG HCO3 15 L Sodium Chloride Carbon Dioxide Anion Gap BUN Creatinine POC Glucose 183 H Random Glucose Fasting Glucose Lactic Acid Calcium Phosphorus Magnesium Total Bilirubin Direct Bilirubin AST ALT B-Natriuretic Peptide Total Protein Albumin Urine Protein Urine Blood U Random Total Protein Random Vancomycin 11/21/20 11/21/20 11/21/20 18:34 18:34 18:35 WBC RBC Hgb 13.3 L Hct 39.6 L RDW 16.5 H Plt Count 67 L D Immature Gran % (Auto) Neut % (Auto) Lymph % (Auto) Lymph # (Auto) [place] # (Auto) Abs Immat Gran (auto) Absolute Neuts (auto) Absolute Nucleated RBC 0.420 H Nucleated RBC % (auto) 4.4 H Neutrophils % (Manual) Band Neutrophils % 9 H Lymphocytes % (Manual) 14 L Monocytes % (Manual) Abs Neuts (Manual) Lymphocytes # (Manual) PT INR VBG pH 7.24 L VBG HCO3 17 L Sodium Chloride Carbon Dioxide 17 L Anion Gap 25 H BUN 39 H Creatinine 5.40 H* POC Glucose Random Glucose 128 H D Fasting Glucose Lactic Acid Calcium 7.3 L Phosphorus Magnesium Total Bilirubin Direct Bilirubin AST ALT B-Natriuretic Peptide Total Protein Albumin Urine Protein Urine Blood U Random Total Protein Random Vancomycin 11/21/20 11/22/20 11/22/20 23:27 04:55 04:55 WBC RBC 4.50 L Hgb 12.6 L Hct 37.4 L RDW 16.8 H Plt Count 53 L Immature Gran % (Auto) 2.2 H Neut % (Auto) 88.4 H Lymph % (Auto) 6.0 L Lymph # (Auto) 0.6 L [place] # (Auto) Abs Immat Gran (auto) 0.22 H Absolute Neuts (auto) 9.0 H Absolute Nucleated RBC 0.280 H Nucleated RBC % (auto) 2.8 H Neutrophils % (Manual) Band Neutrophils % Lymphocytes % (Manual) Monocytes % (Manual) Abs Neuts (Manual) Lymphocytes # (Manual) PT INR VBG pH VBG HCO3 Sodium 133 L Chloride Carbon Dioxide 12 L Anion Gap 27 H BUN 55 H Creatinine 7.52 H* POC Glucose 118 H Random Glucose 126 H Fasting Glucose Lactic Acid Calcium 6.8 L D Phosphorus 9.5 H Magnesium Total Bilirubin Direct Bilirubin AST 1129 H ALT 630 H B-Natriuretic Peptide Total Protein 6.3 L Albumin 2.7 L Urine Protein Urine Blood U Random Total Protein Random Vancomycin 11/22/20 11/22/20 11/22/20 04:55 05:06 08:50 WBC RBC Hgb Hct RDW Plt Count Immature Gran % (Auto) Neut % (Auto) Lymph % (Auto) Lymph # (Auto) [place] # (Auto) Abs Immat Gran (auto) Absolute Neuts (auto) Absolute Nucleated RBC Nucleated RBC % (auto) Neutrophils % (Manual) Band Neutrophils % Lymphocytes % (Manual) Monocytes % (Manual) Abs Neuts (Manual) Lymphocytes # (Manual) PT 13.1 H INR 1.2 H VBG pH 7.17 L* VBG HCO3 14 L Sodium Chloride Carbon Dioxide Anion Gap BUN Creatinine POC Glucose Random Glucose Fasting Glucose Lactic Acid Calcium Phosphorus Magnesium Total Bilirubin Direct Bilirubin AST ALT B-Natriuretic Peptide Total Protein Albumin Urine Protein Urine Blood U Random Total Protein Random Vancomycin 11.1 L 11/22/20 08:50 WBC RBC Hgb Hct RDW Plt Count Immature Gran % (Auto) Neut % (Auto) Lymph % (Auto) Lymph # (Auto) [place] # (Auto) Abs Immat Gran (auto) Absolute Neuts (auto) Absolute Nucleated RBC Nucleated RBC % (auto) Neutrophils % (Manual) Band Neutrophils % Lymphocytes % (Manual) Monocytes % (Manual) Abs Neuts (Manual) Lymphocytes # (Manual) PT INR VBG pH VBG HCO3 Sodium Chloride Carbon Dioxide Anion Gap BUN Creatinine POC Glucose Random Glucose Fasting Glucose Lactic Acid Calcium Phosphorus Magnesium Total Bilirubin Direct Bilirubin AST 1249 H ALT 682 H B-Natriuretic Peptide Total Protein Albumin Urine Protein Urine Blood U Random Total Protein Random Vancomycin Microbiology: Microbiology 11/21/20 00:22 Sputum - Suctioned Gram Stain - Final 11/21/20 00:22 Sputum - Suctioned Sputum Culture - Preliminary Culture in progress. 11/21/20 02:11 Blood - Venous Blood Culture - Preliminary No growth after 24 hours. 11/21/20 02:06 Blood - Venous Blood Culture - Preliminary No growth after 24 hours. 11/14/20 14:53 Blood - Venous Blood Culture - Final No growth after 5 days. 11/14/20 14:28 Blood - Venous Blood Culture - Final No growth after 5 days. 11/14/20 21:35 Peritoneal Fluid Gram Stain - Final 11/14/20 21:35 Peritoneal Fluid Routine Culture - Final 11/14/20 21:35 Peritoneal Fluid Anaerobic Culture - Final Bacteroides thetaiotaomicron Diagnostic Findings CT scan - chest: image reviewed
[2020-11-22 10:33] LABS: Alanine Aminotransferase 682 U/L (0-40); Aspartate Amino Transferase 1249 U/L (5-37)
--- NOTE | 2020-11-22 10:51 | PM.PNNEP ---
Subjective Subjective Date of Service: 11/22/20 Principal diagnosis: CRISTOFER Interval history: Seen AM . D/W ICU Attending Physical Exam Vital Signs: Vital Signs: Last Vital Signs Temp 100.2 F 11/22/20 10:00 Pulse 94 11/22/20 10:00 Resp 20 11/22/20 10:00 BP 117/52 L 11/22/20 10:00 Pulse Ox 91 L 11/22/20 10:00 Oxygen Flow Rate 4 11/14/20 06:24 Body Mass Index 54.0 Const: Other: Intubated Eyes: EOM: EOMs intact bilaterally Neck: Neck: Yes supple Resp: Auscultation: diminished lung sounds Cardio: Heart sounds: no rubs GI: Palpation (GI): Soft to palpation Neuro: Other: Sedated Objective Data Labs CBC & Chem 7: 11/22/20 04:55 11/22/20 04:55 Labs: Laboratory Results - last 24 hr 11/21/20 11/21/20 11/21/20 11:30 12:01 17:25 WBC RBC Hgb Hct MCV MCH MCHC RDW Plt Count MPV Immature Gran % (Auto) Neut % (Auto) Lymph % (Auto) [place] % (Auto) Eos % (Auto) Baso % (Auto) Lymph # (Auto) [place] # (Auto) Eos # (Auto) Baso # (Auto) Abs Immat Gran (auto) Absolute Neuts (auto) Absolute Nucleated RBC Nucleated RBC % (auto) Neutrophils % (Manual) Band Neutrophils % Lymphocytes % (Manual) Monocytes % (Manual) Metamyelocytes % Myelocytes % Abs Neuts (Manual) Lymphocytes # (Manual) Monocytes # (Manual) Metamyelocytes # Myelocytes # Platelet Estimate Plt Morphology Comment RBC Morphology Tear Drop Cells Smear Tech's Comments PT INR VBG pH VBG pCO2 VBG pO2 VBG HCO3 VBG O2 Saturation VBG Base Excess Sodium Potassium Chloride Carbon Dioxide Anion Gap BUN Creatinine Estim Creat Clear Calc Estimated GFR POC Glucose 183 H 104 Random Glucose Lactic Acid Calcium Phosphorus Magnesium Total Bilirubin AST ALT Alkaline Phosphatase Total Protein Albumin Stool Occult Blood Random Vancomycin C. difficile Tox B Gene NEGATIVE 11/21/20 11/21/20 11/21/20 18:20 18:34 18:34 WBC 9.6 RBC 4.80 Hgb 13.3 L Hct 39.6 L MCV 82.5 MCH 27.7 MCHC 33.6 RDW 16.5 H Plt Count 67 L D MPV 9.8 Immature Gran % (Auto) Cancelled Neut % (Auto) Cancelled Lymph % (Auto) Cancelled [place] % (Auto) Cancelled Eos % (Auto) Cancelled Baso % (Auto) Cancelled Lymph # (Auto) Cancelled [place] # (Auto) Cancelled Eos # (Auto) Cancelled Baso # (Auto) Cancelled Abs Immat Gran (auto) Cancelled Absolute Neuts (auto) Cancelled Absolute Nucleated RBC 0.420 H Nucleated RBC % (auto) 4.4 H Neutrophils % (Manual) 72 Band Neutrophils % 9 H Lymphocytes % (Manual) 14 L Monocytes % (Manual) 2 Metamyelocytes % 2 Myelocytes % 1 Abs Neuts (Manual) 7.8 Lymphocytes # (Manual) 1.3 Monocytes # (Manual) 0.2 Metamyelocytes # 0.2 Myelocytes # 0.1 Platelet Estimate DECREASED Plt Morphology Comment NORMAL RBC Morphology NORMAL Tear Drop Cells 2+ (3-5) Smear Tech's Comments PT INR VBG pH VBG pCO2 VBG pO2 VBG HCO3 VBG O2 Saturation VBG Base Excess Sodium 135 Potassium 3.5 Chloride 97 Carbon Dioxide 17 L Anion Gap 25 H BUN 39 H Creatinine 5.40 H* Estim Creat Clear Calc 27.1 Estimated GFR 11 POC Glucose Random Glucose 128 H D Lactic Acid Calcium 7.3 L Phosphorus Magnesium Total Bilirubin AST ALT Alkaline Phosphatase Total Protein Albumin Stool Occult Blood POSITIVE Random Vancomycin C. difficile Tox B Gene 11/21/20 11/21/20 11/22/20 18:35 23:27 04:55 WBC 10.1 RBC 4.50 L Hgb 12.6 L Hct 37.4 L MCV 83.1 MCH 28.0 MCHC 33.7 RDW 16.8 H Plt Count 53 L MPV 11.0 Immature Gran % (Auto) 2.2 H Neut % (Auto) 88.4 H Lymph % (Auto) 6.0 L [place] % (Auto) 3.2 Eos % (Auto) 0.0 Baso % (Auto) 0.2 Lymph # (Auto) 0.6 L [place] # (Auto) 0.3 Eos # (Auto) 0.0 Baso # (Auto) 0.0 Abs Immat Gran (auto) 0.22 H Absolute Neuts (auto) 9.0 H Absolute Nucleated RBC 0.280 H Nucleated RBC % (auto) 2.8 H Neutrophils % (Manual) Band Neutrophils % Lymphocytes % (Manual) Monocytes % (Manual) Metamyelocytes % Myelocytes % Abs Neuts (Manual) Lymphocytes # (Manual) Monocytes # (Manual) Metamyelocytes # Myelocytes # Platelet Estimate Plt Morphology Comment RBC Morphology Tear Drop Cells Smear Tech's Comments VERIFIED PT INR VBG pH 7.24 L VBG pCO2 40 VBG pO2 52 VBG HCO3 17 L VBG O2 Saturation 77.0 VBG Base Excess -9.0 Sodium Potassium Chloride Carbon Dioxide Anion Gap BUN Creatinine Estim Creat Clear Calc Estimated GFR POC Glucose 118 H Random Glucose Lactic Acid Calcium Phosphorus Magnesium Total Bilirubin AST ALT Alkaline Phosphatase Total Protein Albumin Stool Occult Blood Random Vancomycin C. difficile Tox B Gene 11/22/20 11/22/20 11/22/20 04:55 04:55 04:55 WBC RBC Hgb Hct MCV MCH MCHC RDW Plt Count MPV Immature Gran % (Auto) Neut % (Auto) Lymph % (Auto) [place] % (Auto) Eos % (Auto) Baso % (Auto) Lymph # (Auto) [place] # (Auto) Eos # (Auto) Baso # (Auto) Abs Immat Gran (auto) Absolute Neuts (auto) Absolute Nucleated RBC Nucleated RBC % (auto) Neutrophils % (Manual) Band Neutrophils % Lymphocytes % (Manual) Monocytes % (Manual) Metamyelocytes % Myelocytes % Abs Neuts (Manual) Lymphocytes # (Manual) Monocytes # (Manual) Metamyelocytes # Myelocytes # Platelet Estimate Plt Morphology Comment RBC Morphology Tear Drop Cells Smear Tech's Comments PT 13.1 H INR 1.2 H VBG pH VBG pCO2 VBG pO2 VBG HCO3 VBG O2 Saturation VBG Base Excess Sodium 133 L Potassium 4.2 Chloride 98 Carbon Dioxide 12 L Anion Gap 27 H BUN 55 H Creatinine 7.52 H* Estim Creat Clear Calc 19.5 Estimated GFR 8 POC Glucose Random Glucose 126 H Lactic Acid 1.3 Calcium 6.8 L D Phosphorus 9.5 H Magnesium 2.1 Total Bilirubin 1.0 AST 1129 H ALT 630 H Alkaline Phosphatase 72 Total Protein 6.3 L Albumin 2.7 L Stool Occult Blood Random Vancomycin C. difficile Tox B Gene 11/22/20 11/22/20 11/22/20 05:06 08:50 08:50 WBC RBC Hgb Hct MCV MCH MCHC RDW Plt Count MPV Immature Gran % (Auto) Neut % (Auto) Lymph % (Auto) [place] % (Auto) Eos % (Auto) Baso % (Auto) Lymph # (Auto) [place] # (Auto) Eos # (Auto) Baso # (Auto) Abs Immat Gran (auto) Absolute Neuts (auto) Absolute Nucleated RBC Nucleated RBC % (auto) Neutrophils % (Manual) Band Neutrophils % Lymphocytes % (Manual) Monocytes % (Manual) Metamyelocytes % Myelocytes % Abs Neuts (Manual) Lymphocytes # (Manual) Monocytes # (Manual) Metamyelocytes # Myelocytes # Platelet Estimate Plt Morphology Comment RBC Morphology Tear Drop Cells Smear Tech's Comments PT INR VBG pH 7.17 L* VBG pCO2 38 VBG pO2 54 VBG HCO3 14 L VBG O2 Saturation 80.0 VBG Base Excess -13.2 Sodium Potassium Chloride Carbon Dioxide Anion Gap BUN Creatinine Estim Creat Clear Calc Estimated GFR POC Glucose Random Glucose Lactic Acid Calcium Phosphorus Magnesium Total Bilirubin AST 1249 H ALT 682 H Alkaline Phosphatase Total Protein Albumin Stool Occult Blood Random Vancomycin 11.1 L C. difficile Tox B Gene Microbiology Microbiology Results: Microbiology 11/21/20 00:22 Sputum - Suctioned Gram Stain - Final 11/21/20 00:22 Sputum - Suctioned Sputum Culture - Preliminary Culture in progress. 11/21/20 02:11 Blood - Venous Blood Culture - Preliminary No growth after 24 hours. 11/21/20 02:06 Blood - Venous Blood Culture - Preliminary No growth after 24 hours. 11/14/20 14:53 Blood - Venous Blood Culture - Final No growth after 5 days. 11/14/20 14:28 Blood - Venous Blood Culture - Final No growth after 5 days. 11/14/20 21:35 Peritoneal Fluid Gram Stain - Final 11/14/20 21:35 Peritoneal Fluid Routine Culture - Final 11/14/20 21:35 Peritoneal Fluid Anaerobic Culture - Final Bacteroides thetaiotaomicron Procedures Date of Service Date of Service: 11/22/20 Assessment & Plan Assessment and plan (1) CRISTOFER (acute kidney injury): Status: Acute Assessment and Plan: Anuric CRISTOFER due to ischemic acute tubular injury no signs of recovery yet, HD dependent normal baseline kidney function Very acidotic; For HD today optimize volume status on HD Shall keep 40 HCO3 in dialysate Concur with rest of current management Time Spent With Patient Time: Total time spent is greater than 50% in coordination of care (as documented) at patient's floor/unit and/or counseling patient: Progress Note: Quality Stroke Does the patient have a stroke diagnosis?: No
--- NOTE | 2020-11-22 11:02 | HE.PHANOTE ---
RE: VORICONAZOLE DOSING Patient weighs 191 kg (BMI of 54.1kg/m2). There is conflicting data on using IBW vs Adjusted BW in patients with a BMI>30. For this patient, the 6mg/kg X2 doses load ranges from 493mg to 754mg. In the setting of poor renal function (on intermittent dialysis), we will go with 600mg. This will lower the patients risk of accumulating intravenous vehicle (cyclodextrin).
[2020-11-22 12:06] LABS: Glucose, Whole Blood 130 mg/dL (60-115)
--- NOTE | 2020-11-22 12:45 | MHC.CM.PN ---
pt remains in icu; intubated, sedated on mech. ventilator. dc planning deferred to a future time. cm to cont. to follow.
--- NOTE | 2020-11-22 16:16 | PM.CCPN ---
Subjective Subjective Date of Service: 11/22/20 Interval History: 54-year-old male morbidly obese who was recently hospitalized in [facility] for co COVID-19 never requiring the ICU complained of abdominal pain prior to discharge and upon discharge return within 5 hours with worsening abdominal pain and distension and ultimately later that evening was found to have a perforated viscus went to the OR emergently diverting colostomy and ileostomy were created with abdominal washout drains in place and of course remained intubated and definitely you know septic from the peritoneal soilage was placed on Zosyn as a singular antibiotic and shortly thereafter I added IV metronidazole as an adjunct and to cover for the possibility of of C diff because he did present with a what appeared to be a toxic megacolon and C diff thus far x2 has not panned out and he was able to come off of pressors and remained off of 48 hours but he also had remained an uric with rapidly progressive acute renal failure and I had to put a dialysis catheter in and we have been dialyzing him every day for the last 6 days and every day thereafter he becomes more profoundly acidotic never lactic acid positive and the source of acidosis always appears to be the worsening renal failure Initially he had iatrogenic volume overload which was considerable and we diuresed or filtered over 8 L of fluid to bring down a markedly elevated CVP with considerable improvement in respiratory status and clearing of his chest x-rays and then started to developed a temperature and a need for pressor support presumably this was on a septic basis and he was extensively re-cultured and we broadened are antibiotic coverage for him but because of the peritoneal soilage I expanded Jono coverage with caspofungin as well and reimaged with a dry CT scan of of chest and abdomen and the abdomen was remarkably benign no evidence of pyelo flow by thus nor any hepatic issue and but the chest he had bilateral ground-glass [place] of infiltration and I was concerned with the possibility of of Aspergillus under following day he developed transaminitis continued need for pressors he had an initial livedo yesterday that seems to be clearing today and there is a question of the sputum now growing a filamentous organism which therefore could be Aspergillus so he is now on voriconazole instead of the caspofungin Critical Care Time (minutes): 45 Physical Exam Vital Signs: Vital Signs: Last Vital Signs Temp 100.4 F 11/22/20 15:00 Pulse 95 11/22/20 15:00 Resp 25 H 11/22/20 15:00 BP 105/48 L 11/22/20 15:00 Pulse Ox 91 L 11/22/20 15:00 Oxygen Flow Rate 4 11/14/20 06:24 Body Mass Index 54.0 Sedated and intubated Bedside echo with preserved LV function Abdomen he initially started to put out stool through his ileostomy which was guaiac-positive without significant drop in hemoglobin but again C diff negative And chest without adventitious sounds Objective Data Labs CBC & Chem 7: 11/22/20 04:55 11/22/20 04:55 Labs: Laboratory Results - last 24 hr 11/21/20 11/21/20 11/21/20 17:25 18:20 18:34 WBC RBC Hgb Hct MCV MCH MCHC RDW Plt Count MPV Immature Gran % (Auto) Neut % (Auto) Lymph % (Auto) [place] % (Auto) Eos % (Auto) Baso % (Auto) Lymph # (Auto) [place] # (Auto) Eos # (Auto) Baso # (Auto) Abs Immat Gran (auto) Absolute Neuts (auto) Absolute Nucleated RBC Nucleated RBC % (auto) Neutrophils % (Manual) Band Neutrophils % Lymphocytes % (Manual) Monocytes % (Manual) Metamyelocytes % Myelocytes % Abs Neuts (Manual) Lymphocytes # (Manual) Monocytes # (Manual) Metamyelocytes # Myelocytes # Platelet Estimate Plt Morphology Comment RBC Morphology Tear Drop Cells Smear Tech's Comments PT INR VBG pH VBG pCO2 VBG pO2 VBG HCO3 VBG O2 Saturation VBG Base Excess Sodium 135 Potassium 3.5 Chloride 97 Carbon Dioxide 17 L Anion Gap 25 H BUN 39 H Creatinine 5.40 H* Estim Creat Clear Calc 27.1 Estimated GFR 11 POC Glucose 104 Random Glucose 128 H D Lactic Acid Calcium 7.3 L Phosphorus Magnesium Total Bilirubin AST ALT Alkaline Phosphatase Total Protein Albumin Stool Occult Blood POSITIVE Random Vancomycin 11/21/20 11/21/20 11/21/20 18:34 18:35 23:27 WBC 9.6 RBC 4.80 Hgb 13.3 L Hct 39.6 L MCV 82.5 MCH 27.7 MCHC 33.6 RDW 16.5 H Plt Count 67 L D MPV 9.8 Immature Gran % (Auto) Cancelled Neut % (Auto) Cancelled Lymph % (Auto) Cancelled [place] % (Auto) Cancelled Eos % (Auto) Cancelled Baso % (Auto) Cancelled Lymph # (Auto) Cancelled [place] # (Auto) Cancelled Eos # (Auto) Cancelled Baso # (Auto) Cancelled Abs Immat Gran (auto) Cancelled Absolute Neuts (auto) Cancelled Absolute Nucleated RBC 0.420 H Nucleated RBC % (auto) 4.4 H Neutrophils % (Manual) 72 Band Neutrophils % 9 H Lymphocytes % (Manual) 14 L Monocytes % (Manual) 2 Metamyelocytes % 2 Myelocytes % 1 Abs Neuts (Manual) 7.8 Lymphocytes # (Manual) 1.3 Monocytes # (Manual) 0.2 Metamyelocytes # 0.2 Myelocytes # 0.1 Platelet Estimate DECREASED Plt Morphology Comment NORMAL RBC Morphology NORMAL Tear Drop Cells 2+ (3-5) Smear Tech's Comments PT INR VBG pH 7.24 L VBG pCO2 40 VBG pO2 52 VBG HCO3 17 L VBG O2 Saturation 77.0 VBG Base Excess -9.0 Sodium Potassium Chloride Carbon Dioxide Anion Gap BUN Creatinine Estim Creat Clear Calc Estimated GFR POC Glucose 118 H Random Glucose Lactic Acid Calcium Phosphorus Magnesium Total Bilirubin AST ALT Alkaline Phosphatase Total Protein Albumin Stool Occult Blood Random Vancomycin 11/22/20 11/22/20 11/22/20 04:55 04:55 04:55 WBC 10.1 RBC 4.50 L Hgb 12.6 L Hct 37.4 L MCV 83.1 MCH 28.0 MCHC 33.7 RDW 16.8 H Plt Count 53 L MPV 11.0 Immature Gran % (Auto) 2.2 H Neut % (Auto) 88.4 H Lymph % (Auto) 6.0 L [place] % (Auto) 3.2 Eos % (Auto) 0.0 Baso % (Auto) 0.2 Lymph # (Auto) 0.6 L [place] # (Auto) 0.3 Eos # (Auto) 0.0 Baso # (Auto) 0.0 Abs Immat Gran (auto) 0.22 H Absolute Neuts (auto) 9.0 H Absolute Nucleated RBC 0.280 H Nucleated RBC % (auto) 2.8 H Neutrophils % (Manual) Band Neutrophils % Lymphocytes % (Manual) Monocytes % (Manual) Metamyelocytes % Myelocytes % Abs Neuts (Manual) Lymphocytes # (Manual) Monocytes # (Manual) Metamyelocytes # Myelocytes # Platelet Estimate Plt Morphology Comment RBC Morphology Tear Drop Cells Smear Tech's Comments VERIFIED PT INR VBG pH VBG pCO2 VBG pO2 VBG HCO3 VBG O2 Saturation VBG Base Excess Sodium 133 L Potassium 4.2 Chloride 98 Carbon Dioxide 12 L Anion Gap 27 H BUN 55 H Creatinine 7.52 H* Estim Creat Clear Calc 19.5 Estimated GFR 8 POC Glucose Random Glucose 126 H Lactic Acid 1.3 Calcium 6.8 L D Phosphorus 9.5 H Magnesium 2.1 Total Bilirubin 1.0 AST 1129 H ALT 630 H Alkaline Phosphatase 72 Total Protein 6.3 L Albumin 2.7 L Stool Occult Blood Random Vancomycin 11/22/20 11/22/20 11/22/20 04:55 05:06 08:50 WBC RBC Hgb Hct MCV MCH MCHC RDW Plt Count MPV Immature Gran % (Auto) Neut % (Auto) Lymph % (Auto) [place] % (Auto) Eos % (Auto) Baso % (Auto) Lymph # (Auto) [place] # (Auto) Eos # (Auto) Baso # (Auto) Abs Immat Gran (auto) Absolute Neuts (auto) Absolute Nucleated RBC Nucleated RBC % (auto) Neutrophils % (Manual) Band Neutrophils % Lymphocytes % (Manual) Monocytes % (Manual) Metamyelocytes % Myelocytes % Abs Neuts (Manual) Lymphocytes # (Manual) Monocytes # (Manual) Metamyelocytes # Myelocytes # Platelet Estimate Plt Morphology Comment RBC Morphology Tear Drop Cells Smear Tech's Comments PT 13.1 H INR 1.2 H VBG pH 7.17 L* VBG pCO2 38 VBG pO2 54 VBG HCO3 14 L VBG O2 Saturation 80.0 VBG Base Excess -13.2 Sodium Potassium Chloride Carbon Dioxide Anion Gap BUN Creatinine Estim Creat Clear Calc Estimated GFR POC Glucose Random Glucose Lactic Acid Calcium Phosphorus Magnesium Total Bilirubin AST ALT Alkaline Phosphatase Total Protein Albumin Stool Occult Blood Random Vancomycin 11.1 L 11/22/20 11/22/20 08:50 12:01 WBC RBC Hgb Hct MCV MCH MCHC RDW Plt Count MPV Immature Gran % (Auto) Neut % (Auto) Lymph % (Auto) [place] % (Auto) Eos % (Auto) Baso % (Auto) Lymph # (Auto) [place] # (Auto) Eos # (Auto) Baso # (Auto) Abs Immat Gran (auto) Absolute Neuts (auto) Absolute Nucleated RBC Nucleated RBC % (auto) Neutrophils % (Manual) Band Neutrophils % Lymphocytes % (Manual) Monocytes % (Manual) Metamyelocytes % Myelocytes % Abs Neuts (Manual) Lymphocytes # (Manual) Monocytes # (Manual) Metamyelocytes # Myelocytes # Platelet Estimate Plt Morphology Comment RBC Morphology Tear Drop Cells Smear Tech's Comments PT INR VBG pH VBG pCO2 VBG pO2 VBG HCO3 VBG O2 Saturation VBG Base Excess Sodium Potassium Chloride Carbon Dioxide Anion Gap BUN Creatinine Estim Creat Clear Calc Estimated GFR POC Glucose 130 H Random Glucose Lactic Acid Calcium Phosphorus Magnesium Total Bilirubin AST 1249 H ALT 682 H Alkaline Phosphatase Total Protein Albumin Stool Occult Blood Random Vancomycin Microbiology Microbiology Results: Microbiology 11/21/20 00:22 Sputum - Suctioned Gram Stain - Final 11/21/20 00:22 Sputum - Suctioned Sputum Culture - Preliminary Culture in progress. 11/21/20 02:11 Blood - Venous Blood Culture - Preliminary No growth after 24 hours. 11/21/20 02:06 Blood - Venous Blood Culture - Preliminary No growth after 24 hours. 11/14/20 14:53 Blood - Venous Blood Culture - Final No growth after 5 days. 11/14/20 14:28 Blood - Venous Blood Culture - Final No growth after 5 days. 11/14/20 21:35 Peritoneal Fluid Gram Stain - Final 11/14/20 21:35 Peritoneal Fluid Routine Culture - Final 11/14/20 21:35 Peritoneal Fluid Anaerobic Culture - Final Bacteroides thetaiotaomicron Quality Stroke Does the patient have a stroke diagnosis?: No VTE Prior VTE?: No VTE Risk Level:: Surgical - high VTE Device Contraindication: N/A - Device Ordered VTE Drug Contraindication: N/A - Med Ordered Progress Note: A&P Assessment and plan (1) Bacteremia: Status: Acute (2) Ileus following gastrointestinal surgery: Status: Acute (3) Respiratory failure: Status: Acute (4) Metabolic acidosis: Status: Acute (5) Fluid overload: Status: Acute (6) Hypernatremia: Status: Acute (7) CRISTOFER (acute kidney injury): Status: Acute (8) Colon perforation: Status: Acute (9) Colonic ischemia: Status: Acute (10) Abdominal pain: Status: Acute (11) Megacolon: Status: Acute (12) Acute respiratory failure with hypoxia: Status: Acute (13) IFG (impaired fasting glucose): Status: Acute (14) Hypertension: Status: Acute (15) COVID-19: Status: Acute (16) Abdominal hernia: Status: Acute (17) Morbid obesity with BMI of 50.0-59.9, adult: Status: Acute (18) Compression fracture of T11 vertebra: Status: Acute (19) Compression fracture of T9 vertebra: Status: Acute (20) Hernia: Status: Acute Assessment and Plan: So the plan at this point is to continue with antibiotic and antifungal therapy reassess metabolically for the need for daily dialysis and following CVP to determine whether not he needs to be hemo filtered
[2020-11-22 17:39] LABS: Vancomycin Random 7.5 mcg/mL (15-20)
[2020-11-22 18:01] LABS: Glucose, Whole Blood 98 mg/dL (60-115)
[2020-11-22] MEDS: vancomycin HCL 1,000 MG in 0.9 % Sodium Chloride 250 ML 270 MG IV (18:34)
--- NOTE | 2020-11-22 19:39 | PC.NURSE ---
TMAX 102.7, VSS on levophed and vasopressin. Pt has weak cough/gag, pupiles reactive, unable to follow commands. Vent settings remain the same, ls dim, scan inline secretions. Minimal U/O, MD aware, pt recieving dialysis. ST on tele, bath given, pt repoed q2h, prevalon mattress used. Tube feedings remain on hold, OG tube to intermittent suction. Family updated
[2020-11-22 19:48] LABS: VBG Base Excess -12.5 mmol/L; VBG HCO3 14 mmol/L (22-26); VBG pCO2 37 mmHg; VBG pH 7.19 (7.32-7.43); VBG pO2 48 mmHg
[2020-11-22] MEDS: Sodium Bicarbonate 8.4% 50 MEQ/50 ML VIAL IVPUSH (19:58)
--- NOTE | 2020-11-22 20:00 | PC.NURSE ---
Temp 103.1. Cooling blanket turned on, under and over pt. Bp with MAP 60-65. Levo up to 0.38 mcg/kg/min. Vaso at 0.04 units/min. Monitor SR-ST 97-101, no ectopy. Legs mottled up to the knees. O2 sat 87-88% on Fio2 of 60%. O2 increased as needed to 90% to maintain sat above 90%. Suctioned for scant thick sputum from ETT and copious thick orallly. VBG's drawn and reviewed by Pranav WHITE and 1 amp Biclucas given per her order.
[2020-11-22 20:24] LABS: Anion Gap 26 (12-20); Blood Urea Nitrogen 37 mg/dL (9-16); Calcium 6.8 mg/dL (8.4-10.2); Carbon Dioxide 15 mmol/L (22-29); Chloride 96 mmol/L (96-108); Creatinine Clr Calc Pharmacy 23.8; Estimated Glomerular Filt Rate 10; Glucose Random 111 mg/dL (60-115); Potassium 4.7 mmol/L (3.3-5.1); Sodium 132 mmol/L (135-145)
--- NOTE | 2020-11-22 21:04 | PM.EVENT ---
Event Note Date of Service: 11/22/20 Event Note: Patient with worsening clinical status, desatting to 85 % on 100% FiO2 and 10 of PEEP. Venous gas 7.19/36/48/73/14. Creatinine continued to be elevated to 6.15 despite having the 4 hours of dialysis today. Temperature elevated to 104, and require high amounts of vasopressors. Family meeting was conducted, I personally spoke with sister Belem and brother Kyrie on the phone, inform of patient clinical status and poor prognosis. 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 Will continue full code status
[2020-11-22 21:44] LABS: Venous Blood Gas Refer to POC result
--- NOTE | 2020-11-22 21:50 | PC.NURSE ---
Pt continuing to desat despite Fio2 of 100%. Resp therapist called. Attempted to suction pt but not getting much sputum. Then stated alarming low volumes with TV in 200's range and Fio2 down to 80%. Pt bagged and vent settings changed to Pressure control. Volumes better but sats low, 80-81%. Family called. Pranav PARAPROFESSIONAL INTERPRETER spoke to brother and sister about deteriorating condition. Family wants pt to be coded in the event of cardio-resp code.
[2020-11-23] VITALS: BP 113/40; PULSE 98; RESP 24; TEMP 40.4; O2SAT 92
--- NOTE | 2020-11-23 00:16 | PC.NURSE ---
Pt stabilized on PC vent settings. O2 sats were in the 90's but he is starting to dip down into the 80's. Levo titrated up to 0.8 mcg/kg/min. Bp currently 94/40. Monitor shows SR, rate 93, no ectopy noted. No urine output. Legs continue to be mottled as well as hands and arms up to elbows. Nail beds dusky. O2 sat is on forehead. CVP 13-14. Pt was turned side to side to place defib pads in preparation for impending code blue. O2 sats improved to 90 s. Temp 104.9 core. Pt is on cooling blanket and ice packs placed armpits, groin and behind neck.
[2020-11-23 00:36] LABS: Glucose, Whole Blood 142 mg/dL (60-115)
[2020-11-23] MEDS: metroNIDAZOLE/NS 500 MG/100 ML PIGGYBACK 100 MG IV (00:36)
[2020-11-23 00:46] VITALS: BP 156/86; PULSE 95; O2SAT 92
[2020-11-23] MEDS: propofoL 1,000 MG/100 ML VIAL 34.29 MG IVCONT (00:48)
[2020-11-23 01:00] VITALS: BP 75/42; PULSE 97; O2SAT 88
--- NOTE | 2020-11-23 01:11 | ECG_ITS ---
Test Reason : POST ANESTH Blood Pressure : / mmHG Vent. Rate : 099 BPM Atrial Rate : 198 BPM P-R Int : 000 ms QRS Dur : 158 ms QT Int : 476 ms P-R-T Axes : 046 134 -34 degrees QTc Int : 610 ms Atrial flutter with 2:1 A-V conduction Right axis deviation Non-specific intra-ventricular conduction block Possible Right ventricular hypertrophy ST elevation consider inferior injury or acute infarct ACUTE WA / STEMI Consider right ventricular involvement in acute inferior infarct Abnormal ECG When compared with ECG of 22-NOV-2020 07:01, Atrial flutter has replaced Sinus rhythm Questionable change in QRS duration Referred By: Scott Monroe Electronically Signed By:BHARGAVI MISTRY MD
--- NOTE | 2020-11-23 01:11 | ECG_ITS ---
Test Reason : POST ANESTHESIA Blood Pressure : / mmHG Vent. Rate : 099 BPM Atrial Rate : 099 BPM P-R Int : 160 ms QRS Dur : 142 ms QT Int : 460 ms P-R-T Axes : -08 130 -33 degrees QTc Int : 590 ms Atrial flutter with 2 to 1 block Right axis deviation Non-specific intra-ventricular conduction block Possible Right ventricular hypertrophy ST elevation consider inferior injury or acute infarct ACUTE SC / STEMI Consider right ventricular involvement in acute inferior infarct Abnormal ECG When compared with ECG of 23-NOV-2020 01:11, Sinus rhythm has replaced Atrial flutter Referred By: Scott Monroe Electronically Signed By:BHARGAVI MISTRY MD
[2020-11-23 01:22] LABS: VBG Base Excess -16.2 mmol/L; VBG HCO3 15 mmol/L (22-26); VBG pCO2 57 mmHg; VBG pH 7.01 (7.32-7.43); VBG pO2 61 mmHg
--- NOTE | 2020-11-23 01:24 | PC.NURSE ---
Bp dropped. Sbp 50's. registered pharmacy technician showed wide complexes with ST elevation. EKG done and reviewed by CINDY Ramos. Richard MOUNTER SAXOPHONES at bedside. Sodium bicarb 1 amp given. Labs drawn. VBG's done and showed a pH of 7.1. QRS complexes returned to normal. Heart rate 90's. All vasopressors at max rate. .
[2020-11-23 01:49] LABS: Venous Blood Gas Refer to POC result
[2020-11-23 01:58] LABS: Troponin-I High Sensitivity 419.6 ng/L (<3.5-35.0)
[2020-11-23 01:59] LABS: Lactic Acid 5.7 mmol/L (0.5-2.0)
[2020-11-23 02:25] LABS: Alanine Aminotransferase 1304 U/L (0-40); Albumin Level 2.6 g/dL (3.5-5.0); Alkaline Phosphatase 89 U/L (39-117); Anion Gap 34 (12-20); Aspartate Amino Transferase 2944 U/L (5-37); Bilirubin Total 1.4 mg/dL (0.0-1.0); Blood Urea Nitrogen 31 mg/dL (9-16); Calcium 6.5 mg/dL (8.4-10.2); Carbon Dioxide 11 mmol/L (22-29); Chloride 95 mmol/L (96-108); Creatinine Clr Calc Pharmacy 23.1; Estimated Glomerular Filt Rate 9; Glucose Random 114 mg/dL (60-115); Potassium 6.9 mmol/L (3.3-5.1); Sodium 133 mmol/L (135-145); Total Protein 6.1 g/dL (6.5-8.0)
--- NOTE | 2020-11-23 02:54 | PC.NURSE ---
Code Blue called at 0155. BP too weak to register. Pulse check with dopplar showed no pulse. PEA. POWER AND RECOVERY SUPERINTENDENT Richard at bedside and CPR initiated. Please see code sheet for full detail of interventions. Code unsuccessful and was called at 0216. Family, brother, was notified by Richard Hartmann.POWER AND RECOVERY SUPERINTENDENT. [employer] called and declined case, ref # [id number] per Ariela. 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
--- NOTE | 2020-11-23 03:01 | PM.CCN ---
Critical Care Event Note Summary Date of Service: 11/23/20 Code activated: Yes Narrative: This case had a high probability of a clinically significant, sudden, or life threatening deterioration of this patient's condition which required my full and direct attention, intervention and personal management. Critical Care Time (minutes): 90 Comment: At 1:05 a.m. patient cardiac rhythm on the monitor with significant ST elevation.? Stat EKG and labs were ordered.? EKG demonstrated anterior apical and inferior STEMI? with right bundle.? This was communicated to attending Dr. Cruz? who agrees with findings.? Unable to? use thrombolytics / heparin due to patient underlying thrombocytopenia and active GI bleed.? ? Cannot transfer? to PCI facility? due to patient acute? status.??? At 0155 patient VFIB cardiopulmonary arrest, ACLS? initiated? ( see code sheet).? After approximately 26 minutes of CPR with no? return of spontaneous circulation, Resuscitation efforts stopped at 0216, the patient pronounced . Nursing will notified organ donation. Not ME case.? ? Sister Belem ([phone]) and brother Kyrie ([phone]) contacted and informed of patients passing.? Cardiopulmonary arrest Multiorgan system failure Refractory septic shock COVID-19
--- NOTE | 2020-11-23 03:03 | PM.DDS ---
Discharge Sum: Prov Provider Primary care physician: Ericka Buckley MD Admitting clinician: Scott Monroe Attending physician on admission: Scott Monroe Consults: 11/15/20 05:06 Consult to Nephrology Routine Consulting Provider: Rayray Vega Reason for consultation: CRISTOFER, hyperphosphatemia, Hypernatremia 11/21/20 11:22 Consult to Infectious Diseases Routine Consulting Provider: Patricia Major Reason for consultation: restricted abx 11/22/20 08:09 Consult to Infectious Diseases Routine Consulting Provider: Patricia Major Reason for consultation: restricted medication Pronouncing clinician: Richard Hartmann Discharge Sum: Diag PCOD Cause of : Cardiopulmonary arrest Contributing Factors (1) Cardiopulmonary arrest: (2) Shock: (3) Bacteremia: (4) Megacolon: (5) Ileus following gastrointestinal surgery: (6) COVID-19: (7) Respiratory failure: (8) Metabolic acidosis: (9) Fluid overload: (10) Hypernatremia: (11) CRISTOFER (acute kidney injury): (12) Colon perforation: (13) Colonic ischemia: (14) Abdominal pain: (15) Acute respiratory failure with hypoxia: (16) IFG (impaired fasting glucose): (17) Hypertension: (18) Abdominal hernia: (19) Morbid obesity with BMI of 50.0-59.9, adult: (20) Compression fracture of T11 vertebra: (21) Compression fracture of T9 vertebra: (22) Hernia: Discharge Sum: Summary Date and Time Date of admission: 11/14/20 18:12 Date of : 11/23/20 Time of : 02:16 Summary Details: 54-year-old male with history of morbid obesity,? chronic back pain? and abdominal hernia who was discharged from this hospital on 11/13/2020 after a 12 day hospitalization for respiratory failure in the setting of COVID-19. On 11/14/20 he was re admitted for abdominal pain? and was found to have a perforated bowel and underwent emergency surgery and admitted to the ICU? postoperative.? Since ICU admission, ? patient in shock, with renal function deterioration? requiring dialysis daily.? His course was also for the complicated by? worsening? acidosis? without elevated lactic acid, requiring multiple pressors, and several antibiotics covered.? He also developed worsening thrombocytopenia, acute GI bleed,? and sputum culture growing a filamentous organism which could be Aspergillus.? Code status? and goals of care conversation held? with family, and they stated they would like for patient to continue to be full code. Overnight, patient condition continued to worsen patient becoming more hypoxic as well as developing? anterior apical and inferior STEMI.? With no possibility? to transfer to a tertiary facility for PCI due to critical condition, as well as not able to give thrombolytics/ heparin due to underlying thrombocytopenia and active GI bleed.? He subsequently cardiopulmonary arrested and pronounced .?? Additional Data Confirmation of as documented by pronouncing clinician: no pulse, no respirations, no heart sounds and pupils fixed and dilated Family: contacted (Brother and sister ) Attending/PCP notified?: Yes Attending physician: Dr. Cruz Was code activated?: Yes Autopsy requested?: No architectural examiner notified?: No Organ bank notified?: Yes Advance directives: No Hospice patient?: No
[2020-11-23 03:19] LABS: Reflex Lactate? Lactic Acid Added
--- NOTE | 2020-11-23 05:06 | PC.NURSE ---
Post mortem care done and body to chuck at 0430.
[2020-11-24 11:51] LABS: HIT-Patient Optical Density 0.148 OD UNITS (<OR= 0.300); Heparin Induced Plt Ab NEGATIVE (NEGATIVE)
== END 2020-11-23 04:30 | disposition expired | DRG 329 ==
LOC: HO.ED 17:48 → HO.EDOVER 18:26 → HO.ICU 19:09
PROVIDERS: Emergency Medicine; Internal Medicine Cardiovascular Disease; Internal Medicine Hypertension Specialist; Internal Medicine Nephrology; Physician Assistant Medical; Registered Nurse Community Health; Admitting Provider Surgery; Emergency Provider Emergency Medicine Emergency Medical Services; PCP Internal Medicine; Visit Provider Internal Medicine Pulmonary Disease
PROC: (CPT 49000; principal; 2020-11-14 18:25)
DX: K63.1 Perforation of intestine (nontraumatic) (principal); J96.01 Acute respiratory failure with hypoxia; K65.9 Peritonitis, unspecified; N17.0 Acute kidney failure with tubular necrosis; A41.9 Sepsis, unspecified organism; R65.21 Severe sepsis with septic shock; I21.09 ST elevation (STEMI) myocardial infarction involving other coronary artery of anterior wall; K56.7 Ileus, unspecified; E87.2 Acidosis; K59.39 Other megacolon; K55.9 Vascular disorder of intestine, unspecified; Z68.43 Body mass index [BMI] 50.0-59.9, adult; K92.2 Gastrointestinal hemorrhage, unspecified; D69.6 Thrombocytopenia, unspecified; I46.9 Cardiac arrest, cause unspecified; N99.0 Postprocedural (acute) (chronic) kidney failure; Z86.16 Personal history of COVID-19; K59.00 Constipation, unspecified; E66.01 Morbid (severe) obesity due to excess calories; Z20.822 Contact with and (suspected) exposure to COVID-19; Z79.899 Other long term (current) drug therapy
CPT/HCPCS: 36415; 71045; 71250; 74176; 74270; 80048; 80053; 80076; 80202; 81001; 82009; 82140; 82272; 82803; 82947; 83605; 83690; 83735; 83880; 83993; 84100; 84156; 84450; 84460; 84484; 85007; 85025; 85027; 85610; 85730; 86022; 86704; 86706; 86850; 86900; 86901; 87040; 87070; 87071; 87073; 87076; 87077; 87185; 87205; 87340; 87493; 87635; 88307; 90999; 93005; 94002; 94003; 94799; 96365; 96375; 96376; 99024; 99285; 99291; C1758; J0131; J0171; J0282; J0330; J0610; J0637; J1100; J1170; J1956; J2150; J2185; J2250; J2270; J2370; J2405; J2543; J3010; J3370; J3465; P9047